=== PATIENT | male | born 1955 | race Caucasian/White ===

== ENCOUNTER → 2018-01-31 10:33 | Outpatient (CLI) | payer OTHER, SELFPAY ==
--- NOTE | 2018-01-31 10:39 | RAD_ITS ---
STUDY: X-RAY CHEST REASON FOR EXAM: Male, 62 years old. COPD exacerbation. TECHNIQUE: PA and lateral views of the chest. COMPARISON: Prior chest radiograph from April 18, 2016 FINDINGS: Continued mild hyperexpansion without new consolidation or focal atelectasis. Stable mild chronic changes. There is no demonstrated pleural abnormality. Normal size heart. Normal mediastinum and eden. Normal visualized pulmonary arteries. There is atherosclerotic tortuosity of the aortic arch and descending thoracic aorta. There are diffuse degenerative changes of the visualized thoracic spine. Normal visualized ribs, clavicles, and shoulders. There is no demonstrated abnormality of the visualized soft tissue structures of the upper abdomen. RAD/Chest PA and Lateral IMPRESSION: No acute cardiopulmonary findings or changes. Negative for major consolidation, focal atelectasis or a substantial pleural effusion. Mild hyperexpansion and mild stable chronic changes. Electronically Signed: Analia Ryan MD at 15:52 EDT , Service support ,
== END ==
PROVIDERS: Family Provider Family Medicine; PCP Family Medicine; Visit Provider Family Medicine
DX: J44.1 Chronic obstructive pulmonary disease with (acute) exacerbation (principal)
CPT/HCPCS: 71046

== ENCOUNTER → 2018-02-05 09:10 | Outpatient (CLI) | payer OTHER, SELFPAY ==
[2018-02-05 10:12] LABS: Absolute Lymphocyte Count 2.96 X10^3/ul (0.83-4.51); Absolute Neutrophil Count 3.1 X10^3/uL (2.0-7.7); Basophil# 0.03 X10^3/uL; Basophil% 0.4 % (0-1); Eosinophil# 0.13 X10^3/uL; Eosinophils% 1.9 % (0-5); Hematocrit 45.6 % (40-54); Hemoglobin 15.5 g/dl (13.0-16.5); Lymphocyte # 2.96 X10^3/ul (4.0); Lymphocyte % 42.9 % (19-41); Mean Corpuscular Volume 85.2 fL (80-94); Mean Platelet Vol. 9.4 fl (6.2-12.0); Monocyte% 10.1 % (0-10); Neutrophil # 3.05 X10^3/uL (2.7-7.7); Neutrophil % 44.3 % (47-70); Platelet Count 245 K/mm3 (150-450); RBC Distribution Width CV 13.4 % (11.6-14.6); RBC Distribution Width SD 41.2 fl (35.1-43.9); Red Blood Count 5.35 M/mm3 (4.6-6.2); White Blood Count 6.9 K/mm3 (4.4-11.0)
[2018-02-05 10:14] LABS: POSITIVE COUNT NO; POSITIVE DIFFERENTIAL NO; POSITIVE MORPHOLOGY NO
[2018-02-05 12:40] LABS: Microalbumin,Random Urine 9.3 mg/L (NO RANGE EST.)
[2018-02-05 12:53] LABS: ALB/GLOB Ratio 0.8 RATIO (0.9-2.4); AST(SGOT) 21 U/L (15-37); Alanine Aminotransfer ALT/SGPT 33 U/L (16-61); Albumin, Serum 3.4 g/dL (3.2-5.0); Alkaline Phosphatase 75 U/L (45-117); Anion Gap 11 (5-15); BUN 16 mg/dL (7-18); BUN/Creat Ratio 14.7 RATIO (10-20); Calcium,Total 8.5 mg/dL (8.5-10.1); Chloride 106 mmol/L (98-107); Cholesterol 155 mg/dL (200); Creatinine, Serum 1.09 mg/dL (0.70-1.30); EST Glomerular Filtration Rate 73 mL/min (>60); Est Glom Filt Rate - Afr Amer 88 mL/min (>60); Globulin 4.2 g/dL (2.2-4.2); Glucose 124 mg/dL (74-106); High Density Lipoprotein 50 mg/dL; Potassium 4.1 mmol/L (3.5-5.1); Protein, Total 7.6 g/dL (6.4-8.2); Sodium Level 140 mmol/L (136-145); Thyroid Stim Hormone (TSH) 3.82 uIU/mL (0.358-3.74); Triglycerides 76 mg/dL; Very Low Density Lipoprotein 15 mg/dL (5-40)
== END ==
PROVIDERS: Family Provider Family Medicine; PCP Family Medicine; Visit Provider Family Medicine
DX: E11.9 Type 2 diabetes mellitus without complications (principal); J44.1 Chronic obstructive pulmonary disease with (acute) exacerbation
CPT/HCPCS: 36415; 80053; 80061; 82043; 82570; 84443; 85025

== ENCOUNTER 2018-08-06 18:29 | Emergency (ER) | payer OTHER, SELFPAY ==
[2018-08-06] VITALS (8 sets, daily range): BP systolic 135–163; BP diastolic 81–135; PULSE 90–116; RESP 18–22; TEMP 36.8; O2SAT 94–98; BMI 42.3
--- NOTE | 2018-08-06 18:43 | RAD_ITS ---
STUDY: X-RAY CHEST REASON FOR EXAM: Male, 63 years old. Shortness of breath TECHNIQUE: Single AP portable view of the chest. COMPARISON: 01/31/2018 FINDINGS: Interstitial markings are minimally prominent similar to prior study. There is blunting of the costophrenic angles. The lungs are clear and expanded. There is no demonstrated pleural abnormality. There is moderate cardiac enlargement. Normal mediastinum and eden. Normal visualized pulmonary arteries. Normal visualized aortic arch and descending thoracic aorta. Normal visualized thoracic spine. Normal visualized ribs, clavicles, and shoulders. There is no demonstrated abnormality of the visualized soft tissue structures of the upper abdomen. RAD/Chest PA and Lateral IMPRESSION: Mild vascular congestion mild cardiomegaly trace effusions. Consider CHF. Electronically Signed: Paulette Schmidt MD at 19:42 EST Tel , Service support ,
--- NOTE | 2018-08-06 18:43 | EKG12_ITS ---
Test Reason : CP Blood Pressure : / mmHG Vent. Rate : 103 BPM Atrial Rate : 103 BPM P-R Int : 192 ms QRS Dur : 106 ms QT Int : 350 ms P-R-T Axes : 066 001 077 degrees QTc Int : 458 ms Sinus tachycardia Possible Left atrial enlargement Left ventricular hypertrophy Cannot rule out Septal infarct , age undetermined Abnormal ECG Confirmed by GAVIN CORONEL, ARIC ([id number]), script editor SHAILESH WOOD ([id number]) on 08/09/2018 2:50:42 PM Referred By: ANDREINA/LOLA Confirmed By:ARIC ALONSO MD
--- NOTE | 2018-08-06 18:47 | ED.VISSUMM ---
- ER Visit Summary Date of Service: 08/06/18 Chief Complaint: Shortness of breath History of Present Illness: The patient is a 63 M history of chronic bronchitis and hypertension. Patient states he has been short of breath for approximately 2 weeks. Denies any chest pain. He does have a cough but is nonproductive. Intermittent wheezing. Worse at night. Worse supine. No chest pain. No hemoptysis. No recent travel, surgery or mobilization. No leg pain or swelling. No calf pain. No history of DVT or PE. He denies any cardiac history. Patient states he had a prior episode like this with a respiratory infection. He denies any fever. Physical Examination: Well-appearing older male. Vital signs are stable except for a blood pressure 163/135. Pulse ox 94% on nasal cannula O2. No distress. H EENT exam unremarkable. Posterior pharynx normal. Neck nontender. No lymphadenopathy. No JVD. Lungs clear to auscultation bilaterally. Heart regular rhythm rate about 1007 no murmur. Abdomen soft nontender. Normal bowel sounds no peritoneal signs. Patient is moving all 4 extremities. Calves are nontender without edema or cords. Neurologically is awake and alert with no focal motor deficits. Back nontender. Test Results: X-ray has borderline cardiomegaly. And vascular congestion. May be consistent with early pulmonary edema or congestive heart failure. CBC normal. White count 8. Hemoglobin 15. Electrolytes normal normal creatinine and gap. Troponin normal. BNP is slightly elevated at 364. EKG is a sinus tachycardia rate of 103 with no signs of acute ischemia. Emergency Department Course and Treatment: Older male with dyspnea. He does describe nocturnal orthopnea. He also describes wheezing but currently is not wheezing. Treated with 2 aerosol treatments and is doing much better. Says he feels fine. He was ambulating the hallway in his pulse ox stayed in the mid 90s without any oxygen. Treatment Plan: I discussed with the patient and his family member. He is comfortable being discharged home. I spoke to his primary care physician Dr. Leslie Tolentino. He is an appointment to see her on Sunday. My concern is the possibility of this being early pulmonary edema or congestive heart failure. He will follow-up with the office tomorrow and Dr. Tolentino will ensure an outpatient echocardiogram. Patient return if worse. Disposition: Discharge Impression: Acute dyspnea of uncertain etiology This note was generated with [employer] software. It may contain incorrect words, spelling, and punctuation that were not noted in review of the chart prior to signing ED Disposition - Plan for ED Patient: Chief Complaint: Shortness of Breath Referrals: Leslie Tolentino MD [Primary Care Provider] -
[2018-08-06] MEDS: Ipratropium 0.5 MG/2.5 ML SOLUTION INHALATION (18:57)
[2018-08-06] MEDS: Albuterol 2.5 MG/3 ML VIAL.NEB. INHALATION (18:57)
[2018-08-06 19:21] LABS: Absolute Lymphocyte Count 3.02 X10^3/ul (0.83-4.51); Absolute Neutrophil Count 4.1 X10^3/uL (2.0-7.7); Basophil# 0.02 X10^3/uL; Basophil% 0.2 % (0-1); Eosinophil# 0.19 X10^3/uL; Eosinophils% 2.3 % (0-5); Hematocrit 45.2 % (40-54); Hemoglobin 15.5 g/dl (13.0-16.5); Lymphocyte # 3.02 X10^3/ul (4.0); Lymphocyte % 36.9 % (19-41); Mean Corp Hgb Conc 34.3 g/gl (32-36); Mean Corpuscular Hgb 29.4 pg (27.0-32.0); Mean Corpuscular Volume 85.6 fL (80-94); Mean Platelet Vol. 9.7 fl (6.2-12.0); Monocyte% 9.8 % (0-10); Neutrophil # 4.14 X10^3/uL (2.7-7.7); Neutrophil % 50.7 % (47-70); Platelet Count 203 K/mm3 (150-450); RBC Distribution Width CV 13.6 % (11.6-14.6); RBC Distribution Width SD 42.1 fl (35.1-43.9); Red Blood Count 5.28 M/mm3 (4.6-6.2); White Blood Count 8.2 K/mm3 (4.4-11.0)
[2018-08-06 19:23] LABS: POSITIVE COUNT NO; POSITIVE DIFFERENTIAL NO; POSITIVE MORPHOLOGY NO
[2018-08-06 19:40] LABS: Anion Gap 10 (5-15); BUN 10 mg/dL (7-18); Calcium,Total 8.7 mg/dL (8.5-10.1); Chloride 107 mmol/L (98-107); EST Glomerular Filtration Rate 80 mL/min (>60); Est Glom Filt Rate - Afr Amer 97 mL/min (>60); Estimated Creatinine Clearance 78.07 ml/min; Glucose 125 mg/dL (74-106); Potassium 4.1 mmol/L (3.5-5.1); Sodium Level 140 mmol/L (136-145)
[2018-08-06 19:50] LABS: BNP,B-Type NATRIURETIC PEPTIDE 364.7 pg/mL (0-100)
--- NOTE | 2018-08-06 22:15 | ED.DEP ---
ED Disposition - Plan for ED Patient: Disposition: Home or Assisted Living Chief Complaint: Shortness of Breath Instructions: ED Dyspnea Shortness of Breath Referrals: Leslie Tolentino MD [Primary Care Provider] - 1 Day Additional Instructions: Call follow-up with your doctors office tomorrow. I spoke with Dr. Tolentino this evening. She will get you set up and scheduled for an outpatient echocardiogram. This is an ultrasound of your heart to look at the functioning of your heart.
== END 2018-08-06 22:20 | disposition home or self-care (01) ==
PROVIDERS: Emergency Provider Emergency Medicine; Family Provider Family Medicine; PCP Family Medicine
DX: R06.00 Dyspnea, unspecified (principal); I10 Essential (primary) hypertension; R09.02 Hypoxemia; Z87.891 Personal history of nicotine dependence; Z79.51 Long term (current) use of inhaled steroids
CPT/HCPCS: 71046; 80048; 83880; 84484; 85025; 93005; 94640; 99284; A4216

== ENCOUNTER → 2018-08-09 14:35 | Outpatient (CLI) | payer OTHER, SELFPAY ==
[2018-08-06 18:33] VITALS: BMI 42.3
[2018-08-09 15:27] LABS: Hemoglobin A1c 7.5 % (4.2-6.3)
== END ==
PROVIDERS: PCP Family Medicine; Visit Provider Family Medicine
DX: E66.01 Morbid (severe) obesity due to excess calories (principal)
CPT/HCPCS: 36415; 83036; 84443

== ENCOUNTER → 2018-08-16 14:20 | Outpatient (CLI) | payer OTHER, SELFPAY ==
[2018-08-06 18:33] VITALS: BMI 42.3
--- NOTE | 2018-08-16 14:25 | ECHOCS_ITS ---
Version 2 Reason For Study: CARDIOMEGALY Procedure This was a 2D Doppler, Color Flow transthoracic echocardiogram. Contrast injection was performed. The study was technically difficult. Exam performed in department. Left Ventricle Normal LV size. At least two thrombi measuring 1cm x 1 cm noted in the LV. Severe global left ventricular systolic dysfunction. Stage 1 diastolic dysfunction. Transmitral and pulmonary venous doppler flow suggestive of impaired relaxation of left ventricle. Transmitral diastolic flow velocities suggest mild (stage 1) diastolic dysfunction (reversed pattern). There is severe global hypokinesis of the left ventricle. Right Ventricle Normal RV size. Normal systolic function. Atria Normal left atrium. Normal right atrium. Mitral Valve Normal mitral valve. Tricuspid Valve Normal tricuspid valve. Aortic Valve Trisinus/trileaflet aortic valve. Pulmonic Valve Normal pulmonic valve. Great Vessels Normal aortic root. The pulmonary artery is normal size. Normal inferior vena cava. Pericardium/Pleural No pericardial effusion. Medication 22 gauge I.V. with prn adaptor inserted into right arm. Diluted definity 5ml given slow IV push to enhance endocardial definition. MMode/2D Measurements & Calculations RVDd: 3.6 cm Ao root diam: 3.8 cm LAV(MOD-bp): 97.3 ml LAV(MOD-bp) Indexed: 39.0 ml/m2 LAV(MOD-sp2): 83.9 ml LAV(MOD-sp4): 100.9 ml SV(MOD-sp4): 63.1 ml SV(sp4-el): 68.5 ml LVAd ap4: 55.7 cm2 EDV(MOD-sp4): 240.6 ml EDV(sp4-el): 254.7 ml LVAs ap4: 45.0 cm2 ESV(MOD-sp4): 177.5 ml ESV(sp4-el): 186.2 ml EF(MOD-sp4): 26.2 % EF(sp4-el): 26.9 % LA dimension(2D): 4.0 cm LA A4 area: 28.4 cm2 RA A4 area: 13.1 cm2 Time Measurements MV dec time: 0.56 sec Doppler Measurements & Calculations MV E max cristian: 76.8 cm/sec Lat Peak E' Cristian: 4.8 cm/sec Med Peak E' Cristian: 6.5 cm/sec MV A max cristian: 86.4 cm/sec E/E' lat: 15.9 E/E' med: 11.9 MV E/A: 0.89 Ao V2 max: 108.3 cm/sec LV V1 max: 85.8 cm/sec PA V2 max: 66.3 cm/sec Ao max P.7 mmHg LV V1 max P.9 mmHg Interpretation Summary Normal LV size. Severe global left ventricular systolic dysfunction. Stage 1 diastolic dysfunction. At least two thrombi measuring 1cm x 1 cm noted in the LV Transmitral and pulmonary venous doppler flow suggestive of impaired relaxation of left ventricle Transmitral diastolic flow velocities suggest mild (stage 1) diastolic dysfunction (reversed pattern). Contrast injection was performed. Ordering Physician: Leslie Tolentino Referring Physician: Leslie Tolentino Performed By: Juliana Sosa RDCS, RVT
== END ==
PROVIDERS: Family Provider Family Medicine; PCP Family Medicine; Referring Provider Family Medicine; Visit Provider Family Medicine
DX: I51.7 Cardiomegaly (principal)
CPT/HCPCS: 93306; Q9957; A4216; C8929

== ENCOUNTER → 2018-12-05 12:52 | Outpatient (CLI) | payer SELFPAY ==
[2018-08-21 08:37] VITALS: BMI 39.9
== END ==
PROVIDERS: Family Provider Family Medicine; PCP Family Medicine; Referring Provider Internal Medicine Cardiovascular Disease; Visit Provider Internal Medicine Cardiovascular Disease
DX: I51.3 Intracardiac thrombosis, not elsewhere classified (principal); I51.9 Heart disease, unspecified; I11.0 Hypertensive heart disease with heart failure; I50.21 Acute systolic (congestive) heart failure
CPT/HCPCS: 93308; Q9957; A4216; C8924

== ENCOUNTER 2018-12-22 14:30 | Emergency (ER) | payer SELFPAY ==
[2018-08-21 08:37] VITALS: BMI 39.9
[2018-12-22 14:31] VITALS: BP 153/98; PULSE 116; RESP 14; TEMP 36.6; O2SAT 96; BMI 38.3
--- NOTE | 2018-12-22 15:15 | EKG12_ITS ---
Test Reason : GI BLEED Blood Pressure : / mmHG Vent. Rate : 105 BPM Atrial Rate : 105 BPM P-R Int : 176 ms QRS Dur : 104 ms QT Int : 364 ms P-R-T Axes : 052 -05 058 degrees QTc Int : 481 ms Sinus tachycardia Moderate voltage criteria for LVH, may be normal variant Cannot rule out Anteroseptal infarct (cited on or before 06-AUG-2018), age undetermined Abnormal ECG Confirmed by GAVIN CORONEL, ARIC ([id number]), assignment editor VICTOR HUGO MAYORGA ([id number]) on 12/24/2018 1:23:20 PM Referred By: SULTANA Confirmed By:ARIC ALONSO MD
--- NOTE | 2018-12-22 15:22 | ED.DCSUM_ITS ---
History of Present Illness Chief Complaint: GI Bleed Informant: Patient Onset: Weeks - 1 Context: Gradual Onset Timing: Continuous Quality: black loose stool Location: abd pain epigastric Current Severity: Moderate Maximum Severity: Moderate Worsened by: abd pain worse w/ eating Relieved by: nothing Associated Symptoms: weakness/fatigue. lightheaded w/ standing. nausea. Narrative: Patient describes diarrhea for a couple days that then turned into melena about 1 week ago. He used some Pepto-Bismol for a couple days, his last dose of that was 5 days ago, he has still been having black stools ever since. He has seen no bright red blood. He has epigastric discomfort immediately upon putting anything solid into his stomach. The pain gradually resolves after several hours. No radiation into the back. He has been feeling weak, tired, lightheaded. He had some heart issues here 4 or 5 months ago, and he was diagnosed with some type of blood clot in his heart and placed on Xarelto which later was switched to Eliquis, which she is currently on. He states that he had a peptic ulcer 10-15 years ago that was bleeding and gave him black stools. - Past Medical History (1) Left ventricular thrombus Status: Chronic (2) Severe left ventricular systolic dysfunction Status: Chronic (3) Essential (primary) hypertension Status: Chronic (4) Prediabetes Status: Chronic Past Medical History - Allergies and Home Meds Allergies/Adverse Reactions: Allergies No Known Allergies Allergy (Verified 08/21/18 08:05) Primary Care Physician: Leslie Tolentino MD [Primary Care Provider] - Surgical History: right knee replacement Lives: Spouse/ Significant Other Smoking Status: Former smoker Review of Systems General: Reports: Malaise. Denies: Chills, Fever, Sweats Eyes: Denies: Visual changes - bilaterally, Diplopia ENT: Denies: Rhinorrhea, Sore throat Cardiovascular: Denies: Chest pain, Palpitations Respiratory: Denies: Dyspnea, Cough, Dyspnea on exertion Gastrointestinal: Reports: Abdominal pain, Nausea, Melena. Denies: Vomiting, Diarrhea, Hematochezia Genitourinary: Denies: Dysuria, Hematuria, Frequency Musculoskeletal: Denies: Back pain, Extremity Pain Skin: Denies: Rash, Wounds Neurological: Denies: Headache, Weakness, Numbness Physical Exam Vital Signs/Narrative: Vital Signs Temp Pulse Resp BP Pulse Ox 12/22/18 14:31 98 F 116 H 14 153/98 H 96 Inital Vital Signs reviewed: Yes General: Well nourished, Well developed, No Acute Distress Head: Normocephalic, Atraumatic Eyes: Perrl, EOMI ENT: Moist mucous membranes, No rhinorrhea Neck: Supple, Nontender Cardiovascular: Regular rate, Regular rhythm, No murmurs, Tachycardia Respiratory: No distress, CTA bilaterally, Chest nontender Abdomen: Soft, Nondistended, Normal bowel sounds, Tender - epigastric moderately tender. otherwise, benign abd.. Negative for: Guarding, Rebound tenderness Back: Nontender, Normal Inspection Extremities: Nontender, No edema Skin: Normal color, No rash Neurological: Alert, Oriented x3, Cranial nerves II-XII grossly intact, Normal Strength, Normal Sensation Psychological: Normal affect, Normal Mood Diagnostic/Tx/Re-eval 12/22/18 16:10 Stool Stool Occult Blood (MARYANNE) - Final Occult Blood Positive Laboratory Results 12/22/18 12/22/18 12/22/18 14:50 14:50 14:50 WBC 9.7 RBC 5.21 Hgb 15.7 Hct 44.5 MCV 85.4 MCH 30.1 MCHC 35.3 RDW 13.1 RDW Differential 41.0 Plt Count 254 MPV 9.7 Immature Gran % (Auto) 0.300 Neut % (Auto) 63.4 Lymph % (Auto) 26.0 [place] % (Auto) 9.8 Eos % (Auto) 0.3 Baso % (Auto) 0.2 Absolute Neuts (auto) 6.2 Absolute Lymphs (auto) 2.53 Total Counted Not Reportable Sodium 135 L Potassium 3.7 Chloride 103 Carbon Dioxide 26.0 Anion Gap 6 BUN 15 Creatinine 1.11 Estim Creat Clear Calc 74.76 Est GFR (MDRD) Af Amer 86 Est GFR (MDRD) Non-Af 71 BUN/Creatinine Ratio 13.5 Glucose 213 H Calcium 8.4 L Total Bilirubin 0.50 AST 18 ALT 20 Alkaline Phosphatase 89 Total Protein 7.8 Albumin 3.6 Globulin 4.2 Albumin/Globulin Ratio 0.9 Lipase 70 L Blood Type A POSITIVE Antibody Screen NEGATIVE - Medical Decision Making On rectal there is no gross blood but it returned Hemoccult positive. His labs are very reassuringly normal including his BUN and hemoglobin. Orthostatics are negative. He was given IV fluids, along with a bolus of IV Protonix along with a drip for 3 hours while we were awaiting the workup to return. He remained clinically and hemodynamically stable. On reviewing his records, he is on Eliquis for a ventricular thrombus that was found in July. He had a repeat echo 1-2 weeks ago that showed resolution of that thrombus. I discussed with Dr. Tsai, he agrees that in context, the risks of being on the blood thinner greatly outweigh the current potential benefits, and agrees with discontinuing it. I would also recommend that he stay off of aspirin until he is further directed. I will place him on an oral PPI, he is on none currently, and have him follow-up with his PCP. I do not think admitting him emergently is necessary. He will need follow-up with EGD. I will also prescribe him Carafate to take 4 times daily for the next 10 days, and he is given reasons to return. He is comfortable with this plan and all questions were answered at the bedside. ED Disposition - Plan for ED Patient: Disposition: Home or Assisted Living Diagnosis: Peptic ulcer disease with hemorrhage Instructions: ED Bleed UGI Stable, ED PUD Prescriptions: Pantoprazole Sodium [Protonix] 40 mg PO DAILY #30 tablet Sucralfate [Carafate] 1 gm PO 4X/DAY #40 tablet Referrals: Leslie Tolentino MD [Primary Care Provider] - (1-3 days) Additional Instructions: Discontinue your Eliquis until further notice.
[2018-12-22] MEDS: 0.9% Normal Saline 1,000 ML 125 ML IV (15:29)
[2018-12-22] MEDS: Ondansetron 4 MG/2 ML Vial IV (15:29)
[2018-12-22 15:34] LABS: Absolute Lymphocyte Count 2.53 X10^3/ul (0.83-4.51); Absolute Neutrophil Count 6.2 X10^3/uL (2.0-7.7); Basophil# 0.02 X10^3/uL; Basophil% 0.2 % (0-1); Eosinophil# 0.03 X10^3/uL; Eosinophils% 0.3 % (0-5); Hematocrit 44.5 % (40-54); Hemoglobin 15.7 g/dl (13.0-16.5); Lymphocyte # 2.53 X10^3/ul (4.0); Mean Corp Hgb Conc 35.3 g/gl (32-36); Mean Corpuscular Hgb 30.1 pg (27.0-32.0); Mean Corpuscular Volume 85.4 fL (80-94); Mean Platelet Vol. 9.7 fl (6.2-12.0); Monocyte# 0.95 X10^3/uL; Monocyte% 9.8 % (0-10); Neutrophil # 6.17 X10^3/uL (2.7-7.7); Neutrophil % 63.4 % (47-70); Platelet Count 254 K/mm3 (150-450); RBC Distribution Width CV 13.1 % (11.6-14.6); Red Blood Count 5.21 M/mm3 (4.6-6.2); White Blood Count 9.7 K/mm3 (4.4-11.0)
[2018-12-22 15:38] LABS: POSITIVE COUNT NO; POSITIVE DIFFERENTIAL NO; POSITIVE MORPHOLOGY NO
[2018-12-22 15:44] LABS: ALB/GLOB Ratio 0.9 RATIO (0.9-2.4); AST(SGOT) 18 U/L (15-37); Alanine Aminotransfer ALT/SGPT 20 U/L (16-61); Albumin, Serum 3.6 g/dL (3.2-5.0); Alkaline Phosphatase 89 U/L (45-117); Anion Gap 6 (5-15); BUN 15 mg/dL (7-18); BUN/Creat Ratio 13.5 RATIO (10-20); Calcium,Total 8.4 mg/dL (8.5-10.1); Chloride 103 mmol/L (98-107); Creatinine, Serum 1.11 mg/dL (0.70-1.30); EST Glomerular Filtration Rate 71 mL/min (>60); Est Glom Filt Rate - Afr Amer 86 mL/min (>60); Estimated Creatinine Clearance 74.76 ml/min; Globulin 4.2 g/dL (2.2-4.2); Glucose 213 mg/dL (74-106); Lipase 70 U/L (73-393); Potassium 3.7 mmol/L (3.5-5.1); Protein, Total 7.8 g/dL (6.4-8.2); Sodium Level 135 mmol/L (136-145)
[2018-12-22 15:54] VITALS: BP 123/90; BP 128/93; BP 146/100; PULSE 106; PULSE 118; PULSE 96
[2018-12-22 18:00] VITALS: PULSE 98; RESP 18; O2SAT 94
== END 2018-12-22 18:01 | disposition home or self-care (01) ==
PROVIDERS: Emergency Provider Emergency Medicine; Family Provider Family Medicine; PCP Family Medicine
DX: K27.4 Chronic or unspecified peptic ulcer, site unspecified, with hemorrhage (principal); I10 Essential (primary) hypertension; I51.3 Intracardiac thrombosis, not elsewhere classified; Z79.02 Long term (current) use of antithrombotics/antiplatelets; Z87.891 Personal history of nicotine dependence; Z79.899 Other long term (current) drug therapy
CPT/HCPCS: 80053; 82274; 83690; 85025; 86850; 86900; 93005; 96365; 96366; 96375; 99284; J7030; J2405; J3490

== ENCOUNTER → 2020-03-11 18:05 | Outpatient (CLI) | payer SELFPAY | PROVIDERS: PCP Family Medicine; Visit Provider Family Medicine | DX: N39.0 Urinary tract infection, site not specified (principal) | CPT/HCPCS: 87086; 87088 ==

== ENCOUNTER → 2020-06-01 | Outpatient (CLI) | payer SELFPAY ==
[2020-06-01 14:53] LABS: Lyme Ab Screen Interpretation REF LAB
[2020-06-03 22:07] LABS: Lyme Scn Total Ab w/Rflx <0.91 ISR (0.00-0.90)
== END | disposition home or self-care (01) ==
PROVIDERS: PCP Family Medicine; Referring Provider Family Medicine; Visit Provider Family Medicine
DX: R21 Rash and other nonspecific skin eruption (principal)
CPT/HCPCS: 36415; 86618

== ENCOUNTER → 2020-07-23 | Outpatient (CLI) | payer SELFPAY ==
[2020-07-23 18:00] LABS: PSA,Total - Annual Screen 0.43 ng/mL (0.00-4.00)
[2020-07-23 18:11] LABS: Hemoglobin A1c 11.3 % (3.8-5.6)
== END | disposition home or self-care (01) ==
LOC: MFPLAB 14:36
PROVIDERS: PCP Family Medicine; Referring Provider Family Medicine; Visit Provider Family Medicine
DX: E11.9 Type 2 diabetes mellitus without complications (principal); R35.0 Frequency of micturition; Z12.5 Encounter for screening for malignant neoplasm of prostate
CPT/HCPCS: 36415; 83036; 84153; G0103

== ENCOUNTER 2021-10-17 10:57 | Outpatient (CLI) | payer MEDICARE, SELFPAY ==
[2021-10-17 12:51] LABS: AST(SGOT) 13 U/L (15-37); Alanine Aminotransfer ALT/SGPT 19 U/L (16-61); Albumin, Serum 3.8 g/dL (3.2-5.0); Alkaline Phosphatase 98 U/L (45-117); Anion Gap 9 (5-15); BUN 14 mg/dL (7-18); BUN/Creat Ratio 14.1 RATIO (10-20); Bilirubin, Direct 0.16 mg/dL (0.00-0.30); Calcium,Total 9.5 mg/dL (8.5-10.1); Chloride 102 mmol/L (98-107); Cholesterol 214 mg/dL (200); Creatinine, Serum 0.99 mg/dL (0.70-1.30); EST Glomerular Filtration Rate 80 mL/min (>60); Est Glom Filt Rate - Afr Amer 97 mL/min (>60); Globulin 3.7 g/dL (2.2-4.2); Glucose 264 mg/dL (74-106); High Density Lipoprotein 55 mg/dL; Potassium 4.2 mmol/L (3.5-5.1); Protein, Total 7.5 g/dL (6.4-8.2); Sodium Level 134 mmol/L (136-145); Triglycerides 167 mg/dL; Very Low Density Lipoprotein 33 mg/dL (5-40)
[2021-10-17 12:58] LABS: Microalbumin,Random Urine 14.2 mg/L (NO RANGE EST.); Microalbumin:Creatinine Ratio 17.8 mg/g CRE (<30 mg/g CRE)
== END 2021-10-17 23:59 | disposition short-term general hospital (02) ==
LOC: MFPLAB 10:59
PROVIDERS: PCP Family Medicine; Visit Provider Family Medicine
DX: E11.9 Type 2 diabetes mellitus without complications (principal)
CPT/HCPCS: 36415; 80048; 80061; 80076; 82043; 82570

== ENCOUNTER → 2022-06-12 | Outpatient (CLI) | payer MEDICARE, SELFPAY ==
--- NOTE | 2022-06-12 08:42 | RAD_ITS ---
STUDY: X-RAY CHEST REASON FOR EXAM: Male, 66 years old. COUGH TECHNIQUE: PA and lateral views of the chest. COMPARISON: 08/06/2018 FINDINGS: Lungs are mildly hyperexpanded with chronic interstitial changes. Since the previous study, there is been development of interstitial edema likely due to pulmonary vascular congestion. No organized infiltrate or effusion. Stable cardiomegaly. Normal mediastinum and eden. Normal visualized pulmonary arteries. Normal visualized aortic arch and descending thoracic aorta. There are diffuse degenerative changes of the visualized thoracic spine. There is degenerative osteoarthritis of the bilateral shoulders. There is no demonstrated abnormality of the visualized soft tissue structures of the upper abdomen. RAD/Chest PA and Lateral IMPRESSION: Mildly hyperexpanded lungs with chronic interstitial changes and superimposed interstitial edema, follow up recommended to assure complete resolution. Electronically Signed: Chun Hines MD at 9:05 EDT ,
[2022-06-12 10:12] LABS: Absolute Lymphocyte Count 1.84 X10^3/uL (0.83-4.51); Absolute Neutrophil Count 4.3 X10^3/uL (2.0-7.7); Basophil# 0.06 X10^3/uL; Basophil% 0.9 % (0-1); Eosinophils% 2.9 % (0-5); Hematocrit 43.7 % (40-54); Hemoglobin 14.6 g/dL (13.0-16.5); Lymphocyte # 1.84 X10^3/ul (0.83-4.51); Lymphocyte % 26.3 % (19-41); Mean Corp Hgb Conc 33.4 g/dL (32-36); Mean Corpuscular Hgb 28.4 pg (27.0-32.0); Mean Platelet Vol. 10.2 fl (6.2-12.0); Monocyte# 0.54 X10^3/uL; Monocyte% 7.7 % (0-10); NRBC Flagged by Analyzer 0 % (0-5); Neutrophil # 4.32 X10^3/uL (2.7-7.7); Neutrophil % 61.8 % (47-70); Platelet Count 232 K/mm3 (150-450); RBC Distribution Width CV 13.2 % (11.6-14.6); RBC Distribution Width SD 40.7 fl (35.1-43.9); Red Blood Count 5.14 M/mm3 (4.6-6.2)
[2022-06-12 10:16] LABS: Erythrocyte Sedimentation Rate 28 mm/hr (0-20)
[2022-06-12 11:07] LABS: ALB/GLOB Ratio 0.8 RATIO (0.9-2.4); AST(SGOT) 11 U/L (15-37); Alanine Aminotransfer ALT/SGPT 17 U/L (16-61); Albumin, Serum 3.3 g/dL (3.2-5.0); Alkaline Phosphatase 81 U/L (45-117); Anion Gap 9 (5-15); BUN 13 mg/dL (7-18); BUN/Creat Ratio 12.6 RATIO (10-20); Chloride 105 mmol/L (98-107); Creatinine, Serum 1.03 mg/dL (0.70-1.30); EST Glomerular Filtration Rate 77 mL/min (>60); Est Glom Filt Rate - Afr Amer 93 mL/min (>60); Globulin 3.9 g/dL (2.2-4.2); Glucose 221 mg/dL (74-106); Potassium 4.1 mmol/L (3.5-5.1); Protein, Total 7.2 g/dL (6.4-8.2); Sodium Level 136 mmol/L (136-145); Thyroid Stim Hormone (TSH) 8.42 uIU/mL (0.358-3.74)
== END | disposition home or self-care (01) ==
PROVIDERS: PCP Family Medicine; Referring Provider Family Medicine; Visit Provider Family Medicine
DX: R53.81 Other malaise (principal); R53.83 Other fatigue; R05.3 Chronic cough
CPT/HCPCS: 71046; 80053; 84443; 85025; 85652; 87070; 87077; 87186; 87205

== ENCOUNTER → 2022-07-05 | Outpatient (CLI) | payer MEDICARE, MEDICAID, SELFPAY ==
--- NOTE | 2022-07-05 11:11 | RAD_ITS ---
STUDY: X-RAY CHEST REASON FOR EXAM: Male, 67 years old. RESPIRATORY INFECTION TECHNIQUE: PA or AP and lateral COMPARISON: 06/12/2022 at 9:00 AM. FINDINGS: Bilateral perihilar and bibasilar infiltrates have significantly decreased. Mild infiltrates are still seen in the perihilar regions. There is no demonstrated pleural abnormality. Mild cardiomegaly. Normal mediastinum and eden. Normal visualized pulmonary arteries. Normal visualized aortic arch and descending thoracic aorta. Normal visualized thoracic spine. Normal visualized ribs, clavicles, and shoulders. There is no demonstrated abnormality of the visualized soft tissue structures of the upper abdomen. RAD/Chest PA and Lateral IMPRESSION: Decreased bilateral infiltrates detailed above. Mild cardiomegaly. Electronically Signed: Ben Govea MD, RAGHU at 11:41 EDT ,
== END | disposition home or self-care (01) ==
LOC: MTRAD 11:10
PROVIDERS: PCP Family Medicine; Referring Provider Family Medicine; Visit Provider Family Medicine
DX: J98.8 Other specified respiratory disorders (principal)
CPT/HCPCS: 71046

== ENCOUNTER 2022-08-10 13:51 | Inpatient (IN) | payer MEDICARE, SELFPAY ==
[2022-08-10] VITALS (7 sets, daily range): BP systolic 125–136; BP diastolic 78–99; PULSE 96–115; RESP 18–22; TEMP 36.2–36.7; O2SAT 94–98; BMI 37.3; BMI 37.0
--- NOTE | 2022-08-10 14:30 | ED.VIS.CHEST ---
HPI History of Present Illness Chief Complaint: Palpitations Narrative Narrative: 67-year-old male with history of CHF, CAD, hypertension, history of ME presenting for evaluation from the cardiology office. Apparently he showed up there and was dyspneic and complaining of pain rating down his left arm. He states that for the last 6 months has been feeling more short of breath and generalized fatigue. He intermittently describes some pain but he feels like it is with coughing. He states that he has not been following up with Dr. Frost as frequently as he should. He has not seen him in for years. He is on carvedilol and has been taking half of this medication over the last couple of months to try to make it last due to pricing/expense. Patient believes that he is still on Eliquis but is unsure. He states he gets his medicine packs altogether and just takes them. Patient denies fever, chills. He does have dyspnea on exertion. He sometimes has orthopnea. He states when he lays down to sleep he coughs as well. He does state that he was recently treated with antibiotics by his primary care physician. He believes there is something more pulmonary and question a pulmonary consult from his primary care physician [facility] Medical History Acute systolic heart failure Arthritis COPD (chronic obstructive pulmonary disease) Essential (primary) hypertension GERD (gastroesophageal reflux disease) GI bleed Gout Hypothyroidism Left ventricular thrombus Severe left ventricular systolic dysfunction Type 2 diabetes mellitus Home Medications albuterol sulfate 90 mcg/actuation aerosol inhaler (ProAir HFA) 2 puff inhalation Q4H PRN PRN Sob &/Or Wheezing 08/06/18 [History Last Taken Unknown] fluticasone 250 mcg-salmeterol 50 mcg/dose blistr powdr for inhalation (Advair Diskus) 1 inh inhalation BID 08/19/18 [History Last Taken Unknown] losartan 100 mg-hydrochlorothiazide 12.5 mg tablet 1 tab PO DAILY 08/19/18 [History Last Taken Unknown] furosemide 40 mg tablet (Lasix) 40 mg PO DAILY #90 tabs 08/21/18 [Rx Last Taken Unknown] apixaban 5 mg tablet (Eliquis) 5 mg PO BID #60 tabs 11/12/18 [Rx Last Taken Unknown] metformin 500 mg tablet 1,000 mg PO QHS 11/12/18 [History Last Taken Unknown] pantoprazole 40 mg tablet,delayed release 40 mg PO DAILY ##30 12/22/18 [Rx Last Taken Unknown] sucralfate 1 gram tablet 1 g PO 4X/DAY ##40 12/22/18 [Rx Last Taken Unknown] carvedilol 3.125 mg tablet (Coreg) 3.125 mg PO BID #180 tabs 12/30/20 [Rx Last Taken Unknown] Allergy/AdvReac Type Severity Reaction Status Date / Time No Known Allergies Allergy Verified 08/10/22 13:52 Family History Mother Hypertension Sister Hypertension Father Hypertension Myocardial infarction from [place] age 54 Surgical History H/O arthroscopy of right knee History of tonsillectomy History of total left knee replacement History of total right knee replacement Hx of cholecystectomy Social History Smoking Status: Former smoker ROS ROS ED Constitutional Constitutional ED: Denies chills or fever(s) Eyes Eyes: Denies blurry vision or change in vision ENT ENT ED: Denies rhinorrhea or sore throat Cardiovascular Cardiovascular: Reports as per HPI and orthopnea Respiratory/Chest Respiratory/Chest: Reports cough, dyspnea, dyspnea on exertion and orthopnea Gastrointestinal Gastrointestinal: Denies abdominal pain, nausea or vomiting Genitourinary Genitourinary ED: Denies dysuria or hematuria Musculoskeletal Musculoskeletal: Denies arthralgias Integumentary Denies abscess or Abrasions Neurologic Neurologic: Denies headache(s) or paresthesias Psychiatric Psychiatric: Denies anxiety or depression EXAM Physical Exam Const Vital Signs: 08/10/22 13:52 08/10/22 14:03 08/10/22 14:03 Temperature 97.1 F L Temperature Source Temporal Pulse Rate 115 H 113 H Respiratory Rate 18 18 Respiratory Effort Short of Breath Blood Pressure 128/92 H 131/97 H Blood Pressure Mean 104 108 Pulse Ox 94 94 Oxygen Delivery Method Room Air Room Air 08/10/22 14:32 Temperature Temperature Source Pulse Rate Respiratory Rate Respiratory Effort Blood Pressure Blood Pressure Mean Pulse Ox Oxygen Delivery Method Room Air Positive well nourished and obese General Appearance ED: NAD; Negative for pallor Nutritional Appearance: obese HEENT Reports moist mucous membranes normocephalic Eyes PERRL and EOMs intact bilaterally General Eye ED: Negative for pale conjunctiva or scleral icterus Resp normal respiratory effort Auscultation: rales right base and left base Cardio regular rhythm Rate: tachycardic GI normal to inspection, nondistended, normoactive bowel sounds Back/Spine no CVA tenderness Neuro oriented x3 and CN's II-XII intact bilaterally Sensorium / Orientation: awake and alert Motor Exam: strength 5/5 throughout Psych mental status grossly normal Skin no rashes or lesions noted General Skin Exam: Negative for jaundice or pallor Heart Score History: Moderately Suspicious ECG: Normal Age: >/= 65 years Risk Factors: >/= 3 Risk Factors or History of CAD Troponin: </= Normal Limit Score: 5 MDM MDM MDM Narrative Medical decision making narrative: Patient presenting with shortness of breath and intermittent chest pains. He states this has been ongoing for several months. He was seen at Dr. Frost's office initially today and because of his complaint of chest pain and the way he looked he was referred to the ER. He does report that he has been stretching out his carvedilol 3.125 mg by taking it only once a day. He did not know if he was still on a blood thinner so I did have pharmacy check into it and he is not currently anticoagulated. Also appears as if he does not have any Lasix on his med list. I will have pharmacy update his current med list. I did review the previous record and saw that he had mural thrombi in the left ventricle and had an EF of 20% with his last echocardiogram. There has not been one repeated since 2018. He does report orthopnea, dyspnea on exertion as well as the intermittent chest pains. He also has a cough. Previously was treated for pneumonia and is not having any symptoms of fever, chills. His chest x-ray shows cardiomegaly without any acute findings on my interpretation and the radiologist agree. CBC is unremarkable. BMP is also within normal limits with exception of a glucose of 207 without anion gap. High-sensitivity troponin is 48. BNP is elevated at 264.5. Given the patient's chest pain and his HEART score of 5 as well as likely early heart failure and medical noncompliance I think he would benefit from inpatient care. I think he needs an echocardiogram as well. I spoke with the hospitalist about this and she is amenable to admission. Impression: 1. Chest pain 2. CHF 3. Cough Lab Data Labs: Laboratory Results - last 24 hr 08/10/22 08/10/22 08/10/22 14:33 14:33 14:33 WBC 6.2 RBC 5.35 Hgb 15.0 Hct 44.6 MCV 83.4 MCH 28.0 MCHC 33.6 RDW Std Deviation 41.1 RDW Coeff of Sean 13.5 Plt Count 269 MPV 10.0 Immature Gran % (Auto) 0.300 Neut % (Auto) 55.9 Lymph % (Auto) 31.5 [place] % (Auto) 8.2 Eos % (Auto) 3.5 Baso % (Auto) 0.6 Absolute Neuts (auto) 3.5 Absolute Lymphs (auto) 1.96 Nucleated RBC % 0 Sodium 139 Potassium 3.6 Chloride 106 Carbon Dioxide 26.0 Anion Gap 7 BUN 17 Creatinine 1.24 Estim Creat Clear Calc 61.57 Est GFR (MDRD) Af Amer 75 Est GFR (MDRD) Non-Af 62 BUN/Creatinine Ratio 13.7 Glucose 207 H Calcium 9.4 Troponin I High Sens 48 B-Natriuretic Peptide 264.5 H Radiography Diagnostic Testing: Clinical Impression(s) from Imaging Studies Chest X-Ray 08/10/22 14:35 IMPRESSION: Mild cardiomegaly. Electronically Signed: Lavell Lin MD at 14:56 EST , Discharge Plan Triage Chief Complaint: Palpitations ED Provider: Arash Wen Dx/Rx/DC Orders Prescriptions: No Action Advair Diskus 250-50 mcg/dose blister with device 1 inh INHALATION BID losartan-hydrochlorothiazide 100-12.5 mg tablet 1 tab PO DAILY furosemide [Lasix] 40 mg tablet 40 mg PO DAILY Qty: 90 3RF albuterol sulfate [ProAir HFA] 1 PUFF inhaler 2 puff inhalation Q4H PRN PRN (Reason: Sob &/Or Wheezing) sucralfate 1 GM tablet 1 g PO 4X/DAY Qty: 40 0RF pantoprazole 40 MG tablet 40 mg PO DAILY Qty: 30 0RF metformin 500 mg tablet 1,000 mg PO QHS Eliquis 5 mg tablet 5 mg PO BID Qty: 60 11RF carvedilol [Coreg] 3.125 mg tablet 3.125 mg PO BID Qty: 180 3RF Rx Instructions: administer with food (meal or snack) Primary Care Provider: Leslie Tolentino Referrals: Leslie Tolentino MD [Primary Care Provider] -
--- NOTE | 2022-08-10 14:35 | RAD_ITS ---
STUDY: X-RAY CHEST REASON FOR EXAM: Male, 67 years old. Chest pain TECHNIQUE: Single AP portable view of the chest. COMPARISON: Comparison is made with prior study 07/05/2022. FINDINGS: EKG electrodes are seen. The lungs are clear and expanded. There is no demonstrated pleural abnormality. There is mild cardiac enlargement. Normal mediastinum and [place]. Normal visualized pulmonary arteries. There is atherosclerotic tortuosity of the aortic arch and descending thoracic aorta. Normal visualized thoracic spine. Normal visualized ribs, clavicles, and shoulders. There is no demonstrated abnormality of the visualized soft tissue structures of the upper abdomen. RAD/Chest 1 View (Portable) IMPRESSION: Mild cardiomegaly. Electronically Signed: Lavell Lin MD at 14:56 EST ,
[2022-08-10 14:40] LABS: Absolute Lymphocyte Count 1.96 X10^3/uL (0.83-4.51); Absolute Neutrophil Count 3.5 X10^3/uL (2.0-7.7); Basophil# 0.04 X10^3/uL; Basophil% 0.6 % (0-1); Eosinophil# 0.22 X10^3/uL; Eosinophils% 3.5 % (0-5); Hematocrit 44.6 % (40-54); Lymphocyte # 1.96 X10^3/ul (0.83-4.51); Lymphocyte % 31.5 % (19-41); Mean Corp Hgb Conc 33.6 g/dL (32-36); Mean Corpuscular Volume 83.4 fL (80-94); Monocyte# 0.51 X10^3/uL; Monocyte% 8.2 % (0-10); NRBC Flagged by Analyzer 0 % (0-5); Neutrophil # 3.47 X10^3/uL (2.7-7.7); Neutrophil % 55.9 % (47-70); Platelet Count 269 K/mm3 (150-450); RBC Distribution Width CV 13.5 % (11.6-14.6); RBC Distribution Width SD 41.1 fl (35.1-43.9); Red Blood Count 5.35 M/mm3 (4.6-6.2); White Blood Count 6.2 K/mm3 (4.4-11.0)
[2022-08-10 14:58] LABS: Anion Gap 7 (5-15); BUN 17 mg/dL (7-18); BUN/Creat Ratio 13.7 RATIO (10-20); Calcium,Total 9.4 mg/dL (8.5-10.1); Chloride 106 mmol/L (98-107); Creatinine, Serum 1.24 mg/dL (0.70-1.30); EST Glomerular Filtration Rate 62 mL/min (>60); Est Glom Filt Rate - Afr Amer 75 mL/min (>60); Estimated Creatinine Clearance 61.57 ml/min; Glucose 207 mg/dL (74-106); Potassium 3.6 mmol/L (3.5-5.1); Sodium Level 139 mmol/L (136-145); Troponin-I HS (w/2H Reflex) 48 pg/mL (3.0-78.0)
[2022-08-10 15:02] LABS: BNP,B-Type NATRIURETIC PEPTIDE 264.5 pg/mL (0-100)
[2022-08-10 16:37] LABS: Reflex Troponin-HS? (from REC) Y
--- NOTE | 2022-08-10 17:24 | ECHOCS_ITS ---
Reason For Study: CHF Procedure This was a 2D Doppler, Color Flow transthoracic echocardiogram. The study was technically difficult. Contrast injection was performed. Exam performed portable in patient room. Left Ventricle Severely dilated left ventricle. Severe global left ventricular systolic dysfunction. The left ventricular ejection fraction is 20 %. Diastolic function is indeterminate. Right Ventricle Normal right ventricle. Atria The left atrium is moderately enlarged. Normal right atrium. Mitral Valve Mild-Moderate (1-2+) mitral valve insufficiency. Tricuspid Valve Mild tricuspid valve insufficiency. Mild pulmonary hypertension. Aortic Valve Aortic sclerosis, no stenosis. Trivial aortic valve insufficiency. Pulmonic Valve The pulmonic valve is not well visualized. Great Vessels Mildly dilated aortic root. Medication Diluted definity 2.5ml given slow IV push to enhance endocardial definition. MMode/2D Measurements & Calculations LVIDd: 6.3 cm IVSd: 1.0 cm Ao root diam: 4.0 cm LVIDs: 5.3 cm LVPWd: 1.0 cm LA dimension: 4.1 cm RVDd: 4.2 cm FS: 15.5 % LAV(MOD-bp): 94.0 ml LVAd ap4: 64.7 cm2 SV(MOD-sp4): 61.5 ml LAV(MOD-bp) Indexed: 39.7 ml/m2 LVLd ap4: 10.4 cm LAV(MOD-sp2): 78.4 ml EDV(MOD-sp4): 319.6 ml LAV(MOD-sp4): 90.1 ml EDV(sp4-el): 340.4 ml LVAs ap4: 57.0 cm2 LVLs ap4: 10.4 cm ESV(MOD-sp4): 258.1 ml ESV(sp4-el): 264.1 ml EF(MOD-sp4): 19.2 % EF(sp4-el): 22.4 % SV(sp4-el): 76.3 ml LA A4 area: 27.9 cm2 RA A4 area: 16.3 cm2 Doppler Measurements & Calculations MV E max cristian: 126.6 cm/sec Lat Peak E' Cristian: 11.8 cm/sec Med Peak E' Cristian: 13.6 cm/sec E/E' lat: 10.8 E/E' med: 9.3 Ao V2 max: 105.4 cm/sec LV V1 max: 84.0 cm/sec MR max cristian: 469.4 cm/sec Ao max P.4 mmHg LV V1 max P.8 mmHg MR max P.1 mmHg Ao V2 mean: 70.7 cm/sec LV V1 mean P.6 mmHg MR mean cristian: 344.8 cm/sec Ao mean P.4 mmHg LV V1 mean: 59.9 cm/sec MR mean P.1 mmHg Ao V2 VTI: 16.8 cm LV V1 VTI: 12.6 cm MR VTI: 135.3 cm PA V2 max: 82.6 cm/sec TR max cristian: 326.3 cm/sec TR max P.6 mmHg ECHO/Echo Complete W/ Contrast Interpretation Summary Severely dilated left ventricle. The left ventricular ejection fraction is 20 %. Severe global left ventricular systolic dysfunction. Diastolic function is indeterminate. Mild-Moderate (1-2+) mitral valve insufficiency. Mild tricuspid valve insufficiency. Mild pulmonary hypertension. Mildly dilated aortic root. Ordering Physician: Jo Vidal Referring Physician: Leslie Tolentino M.D. Performed By: Ramez Gavin RCS
--- NOTE | 2022-08-10 17:24 | CT_ITS ---
STUDY: CT BRAIN WITHOUT CONTRAST REASON FOR EXAM: Male, 67 years old. worsening gait RADIATION DOSAGE (If Supplied By Facility): CTDIvol = ( 44.99 ) mGy, DLP = ( 883.29 ) mGycm TECHNIQUE: Transaxial CT imaging of the brain was performed without administration of intravenous contrast material. Individualized dose optimization techniques were used for this CT. COMPARISON: CT brain February 20, 2010 FINDINGS: Normal soft tissue structures. Normal calvarium. Normal size ventricles and extra-axial spaces for the patient''s age. There are areas of decreased attenuation within the white matter tracts of the supratentorial brain, consistent with microvascular disease changes. Normal basal ganglia and thalami. Normal brainstem. Normal cerebellum. There is no intracranial hemorrhage. There are no findings of an acute ischemic infarction. Normal visualized paranasal sinuses. CT/Brain/Head without Contrast IMPRESSION: Mild nonspecific white matter changes consistent with age. Electronically Signed: Erick Geronimo MD at 18:07 EST ,
[2022-08-10 17:29] LABS: Troponin-I HS 55 pg/mL (3.0-78.0)
--- NOTE | 2022-08-10 17:35 | HP.PCM.HOS_ITS ---
[facility] - General General Date of Admission: 08/10/22 Date of Service: 08/10/22 Chief Complaint: Shortness of breath HPI Narrative Mr. Lan is a 67-year-old male with a history of heart failure with reduced ejection fraction and diastolic dysfunction, hypertension, prediabetes, hypothyroidism who presented to 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 He has been having worsening shortness of breath and occasional cough over 6 months which is worsened recently. He notes it particularly with exertion and at times it is limiting in his ability to work. Additionally intermittently will have some left-sided chest and arm pain but s aid this is primarily when he is coughing. He is unsure what medications he was supposed to be on but does note he was taking Coreg but had been taking just 1 a day to try to spread out the prescription. Today he finally went to his coding compliance manager's office to schedule an appointment and get refills but they felt he looked unwell and sent him to the emergency department. In the ED it was noted an O2 sats mid 90s and that he was reporting shortness of breath and has mild increased work of breathing with movement. BNP was elevated, hospitalist evaluated for admission. Spoke with patient and his at bedside and he did endorse the 6 months of worsening shortness of breath. Had an LV thrombus in 2018 and was on Xarelto and also was noted to have heart failure with reduced ejection fraction of 25% but was lost to follow-up with cardiology. Continues to follow with his primary care physician however. Additional concerned about being unsteady on his feet over the past month or so. Did not endorse any focal deficits but has had several falls because of this. Most recently about a week ago when he fell and hit the right side of his head. is also concerned that he may be depressed as he has lost interest in the things he used to enjoy and spends most of his time sitting in his chair which is a combination of lack of interest as well as the shortness of breath with movement. Appetite somewhat worse. Intermittent stuffy nose and sore throat. Gets cold easily but denies any fever. No overt chest pain that is not associated with coughing. Cough minimally productive. Does feel legs get swollen and thinks they are more swollen at this time than usual. [facility] Medical History Acute systolic heart failure Arthritis COPD (chronic obstructive pulmonary disease) Essential (primary) hypertension GERD (gastroesophageal reflux disease) GI bleed Gout Hypothyroidism Left ventricular thrombus Severe left ventricular systolic dysfunction Type 2 diabetes mellitus Home Medications albuterol sulfate 90 mcg/actuation aerosol inhaler (ProAir HFA) 2 puff inhalation Q4H PRN PRN Sob &/Or Wheezing 08/06/18 [History Last Taken 08/10/22] aspirin 81 mg chewable tablet 81 mg PO DAILY [facility]. 08/10/22 [History Last Taken 08/10/22] glimepiride 4 mg tablet 4 mg PO DAILY DM 08/10/22 [History Last Taken 08/09/22] hydrochlorothiazide 25 mg tablet 25 mg PO DAILY FLUID 08/10/22 [History Last Taken 08/10/22] levothyroxine 75 mcg tablet 75 mcg PO DAILY THYROID 08/10/22 [History Last Taken 08/10/22] multivitamin 1 tab PO DAILY 08/10/22 [History Last Taken 08/10/22] omeprazole magnesium 20 mg tablet,delayed release (Prilosec OTC) 20 mg PO QHS GERD 08/10/22 [History Last Taken 08/09/22] Allergy/AdvReac Type Severity Reaction Status Date / Time No Known Allergies Allergy Verified 08/10/22 13:52 Family History Mother Hypertension Sister Hypertension Father Hypertension Myocardial infarction from [place] age 54 Surgical History H/O arthroscopy of right knee History of tonsillectomy History of total left knee replacement History of total right knee replacement Hx of cholecystectomy Social History Smoking Status: Former smoker ROS Constitutional Constitutional: Reports other Details: Frequently cold ; Denies change in weight Eyes Eyes: Denies change in vision ENT HEENT: Reports other Details: All headache. Occasional sore throat nasal congestion Cardiovascular Cardiovascular: Reports other Details: Will feel uncomfortable in his chest when he is coughing but denies overt pain Respiratory/Chest Respiratory/Chest: Reports other Details: Has cough intermittently over the past 6 months, mid December of Gastrointestinal Gastrointestinal: Reports other Details: Intermittent constipation ; Denies abdominal pain Genitourinary Genitourinary: Reports other Details: Occasional poor stream Musculoskeletal Musculoskeletal: Denies joint pain Neurologic Neurologic: Reports other Details: Feels unsteady ; Denies focal weakness, numbness or tingling Psychiatric Psychiatric: Reports depression Hematologic/Lymphatic Hematologic/Lymphatic: Reports easy bruising; Denies easy bleeding Allergic/Immunologic Allergic/Immunologic: Reports other Details: denies rashes Vital Signs Vital Signs Vital Signs: 08/10/22 13:52 08/10/22 14:03 08/10/22 14:03 Temperature 97.1 F L Temperature Source Temporal Pulse Rate 115 H 113 H Respiratory Rate 18 18 Respiratory Effort Short of Breath Blood Pressure 128/92 H 131/97 H Blood Pressure Mean 104 108 Blood Pressure Source Blood Pressure Position Blood Pressure Location Pulse Ox 94 94 Oxygen Delivery Method Room Air Room Air 08/10/22 14:32 08/10/22 16:49 08/10/22 17:30 Temperature 97.8 F 97.6 F L Temperature Source Temporal Temporal Pulse Rate 100 99 Respiratory Rate 18 22 H Respiratory Effort Blood Pressure 134/78 H 125/99 H Blood Pressure Mean 96 107 Blood Pressure Source Monitor Blood Pressure Position Sitting Blood Pressure Location Right Arm Pulse Ox 95 95 Oxygen Delivery Method Room Air Room Air Room Air Weight Weight: 120.5 kg Body Mass Index (BMI) 37.0 Physical Exam Const alert and no apparent distress Constitutional Narrative: Oriented HEENT normocephalic HEENT Narrative: Does have a scrape on right forehead from fall a week ago Eyes Eyes Narrative: EOM grossly intact, anicteric Neck supple Resp Resp Narrative: Slight increased work of breathing, diminished at the bases, slightly coarse and middle lobes Cardio regular rate and regular rhythm GI soft to palpation, non-tender and non-distended Extremity Extremity Narrative: Trace lower EXTR repeat edema Neuro moves all extremities Neuro Narrative: No overt focal deficits appreciated Psych Psych Narrative: Cooperative Results Lab / Micro Data Result Diagrams: 08/10/22 14:33 08/10/22 14:33 Labs: Laboratory Results - last 24 hr 08/10/22 14:33: WBC 6.2, RBC 5.35, Hgb 15.0, Hct 44.6, MCV 83.4, MCH 28.0, MCHC 33.6, RDW Std Deviation 41.1, RDW Coeff of Sean 13.5, Plt Count 269, MPV 10.0, Immature Gran % (Auto) 0.300, Neut % (Auto) 55.9, Lymph % (Auto) 31.5, [place] % (Auto) 8.2, Eos % (Auto) 3.5, Baso % (Auto) 0.6, Absolute Neuts (auto) 3.5, Absolute Lymphs (auto) 1.96, Nucleated RBC % 0 08/10/22 14:33: Sodium 139, Potassium 3.6, Chloride 106, Carbon Dioxide 26.0, Anion Gap 7, BUN 17, Creatinine 1.24, Estim Creat Clear Calc 61.57, Est GFR (MDRD) Af Amer 75, Est GFR (MDRD) Non-Af 62, BUN/Creatinine Ratio 13.7, Glucose 207 H, Calcium 9.4, Troponin I High Sens 48 08/10/22 14:33: B-Natriuretic Peptide 264.5 H 08/10/22 16:50: Troponin I High Sens 55 Radiology Impression Chest X-Ray 08/10/22 14:35 IMPRESSION: Mild cardiomegaly. Electronically Signed: Lavell Lin MD at 14:56 EST , Assessment & Plan Assessment/Plan (1) Severe left ventricular systolic dysfunction: PLAN: Plan #Shortness of breath, concern for acute exacerbation on chronic heart failure with reduced ejection fraction and diastolic dysfunction Last echo in 2018 with severe global left ventricular systolic dysfunction, stage I diastolic dysfunction as well as 2 thrombi measuring 1 cm x 1 cm in the left ventricle and an EF of 25% Was lost to follow-up after 2018 BNP is elevated Will check echo X-ray with more opacities than previous, cardiomegaly, can consider CT if not progressing Will give small dose of Lasix #Heart failure with reduced ejection fraction and diastolic dysfunction I's and O's, daily weights Will check echo Last known EF was in 2018 and was 25% Lasix Has been out of his Coreg, will hold off at this time #Left ventricular thrombus x2 Seen on echocardiogram in 2018, it was noted that there were two 1 cm x 1 cm thrombi in the left ventricle Was on Xarelto for a period of time but does not appear to be filling it any longer Will check echo Will await echo prior to deciding further anticoagulation, unclear if he was still intended to be on this or not but per pharmacy had not been taking it #Hypothyroidism Will check a.m. TSH Continues to void #Unsteady on feet B12 PT/OT Given history of clots in left atrium and falls with steady decline will check CT of the head to see if there have been any previous strokes. No concern for acute CVA Charges/Coding Visit Charges OBSV E&M: 79605 Initial observation care L2
[2022-08-10] MEDS: 0.9% Saline Lock 10 ML Syringe IV (18:08)
[2022-08-10] MEDS: Furosemide 20 MG/2 ML VIAL 10 MG IV (18:08)
[2022-08-10] MEDS: BENZOCAINE/MENTHOL 1 LOZENGE MUCOUS MEM (23:48)
[2022-08-10] MEDS: MELATONIN 3 MG TABLET PO (23:48)
[2022-08-11] VITALS (10 sets, daily range): BP systolic 107–139; BP diastolic 74–113; PULSE 86–103; RESP 18–20; TEMP 36.3–37.2; O2SAT 95–97
[2022-08-11] MEDS: Levothyroxine 75 MCG Tablet PO (05:54)
[2022-08-11 06:39] LABS: Absolute Lymphocyte Count 2.22 X10^3/uL (0.83-4.51); Absolute Neutrophil Count 3.8 X10^3/uL (2.0-7.7); Basophil# 0.05 X10^3/uL; Basophil% 0.7 % (0-1); Eosinophil# 0.24 X10^3/uL; Eosinophils% 3.4 % (0-5); Hematocrit 44.3 % (40-54); Hemoglobin 14.9 g/dL (13.0-16.5); Lymphocyte # 2.22 X10^3/ul (0.83-4.51); Lymphocyte % 31.7 % (19-41); Mean Corp Hgb Conc 33.6 g/dL (32-36); Mean Corpuscular Hgb 28.3 pg (27.0-32.0); Mean Corpuscular Volume 84.1 fL (80-94); Mean Platelet Vol. 9.7 fl (6.2-12.0); Monocyte# 0.67 X10^3/uL; Monocyte% 9.6 % (0-10); NRBC Flagged by Analyzer 0 % (0-5); Neutrophil # 3.79 X10^3/uL (2.7-7.7); Neutrophil % 54.2 % (47-70); Platelet Count 244 K/mm3 (150-450); RBC Distribution Width CV 13.5 % (11.6-14.6); RBC Distribution Width SD 41.4 fl (35.1-43.9); Red Blood Count 5.27 M/mm3 (4.6-6.2)
[2022-08-11 07:34] LABS: ALB/GLOB Ratio 0.9 RATIO (0.9-2.4); AST(SGOT) 19 U/L (15-37); Alanine Aminotransfer ALT/SGPT 21 U/L (16-61); Albumin, Serum 3.4 g/dL (3.2-5.0); Alkaline Phosphatase 77 U/L (45-117); Anion Gap 10 (5-15); BUN 15 mg/dL (7-18); BUN/Creat Ratio 14.3 RATIO (10-20); Calcium,Total 8.9 mg/dL (8.5-10.1); Chloride 104 mmol/L (98-107); Creatinine, Serum 1.05 mg/dL (0.70-1.30); EST Glomerular Filtration Rate 75 mL/min (>60); Est Glom Filt Rate - Afr Amer 91 mL/min (>60); Estimated Creatinine Clearance 72.71 ml/min; Globulin 3.8 g/dL (2.2-4.2); Glucose 158 mg/dL (74-106); Potassium 3.7 mmol/L (3.5-5.1); Protein, Total 7.2 g/dL (6.4-8.2); Sodium Level 136 mmol/L (136-145); Thyroid Stim Hormone (TSH) 6.11 uIU/mL (0.358-3.74)
[2022-08-11] MEDS: Acetaminophen 325 MG Tablet 650 MG PO ×2 (07:49→21:55)
[2022-08-11 08:21] LABS: Hemoglobin A1c 7.6 % (3.8-5.6)
[2022-08-11] MEDS: hydroCHLOROthiazide 25 MG Tablet PO (10:08)
[2022-08-11] MEDS: Enoxaparin 40 MG/0.4 ML Syringe SC (10:08)
[2022-08-11] MEDS: Losartan Potassium 25 MG Tablet PO (11:29)
[2022-08-11] MEDS: Metoprolol(XL)Succ 25 MG Tablet 12.5 MG PO (11:29)
[2022-08-11] MEDS: Furosemide 20 MG Tablet PO (11:29)
--- NOTE | 2022-08-11 11:45 | CASEMGMT ---
IRINA NOGUEIRA GLASS MOLD REPAIRER CM to room to meet with patient for initial transition planning/care coordination assessment. IRINA NOGUEIRA introduced self and role at [facility]. Pt voices understanding and consents to assessment at this time. Pt resting in bed in no distress at this time. , Marlen, @ bedside. Pt is A/O at this time and answers all questions appropriately. Care providers, pharmacy, and demographics verified/updated at this time. PCP:Dr Tolentino Specialists: Has seen Dr Frost in the past, but states it has been about 4 yrs. He plans to f/u with him after discharge. Preferred Pharmacy: [facility] Insurance: [facility] A/B Prescription Benefit: none. Often uses [employer] savings card Living Will/HPOA: Pt and states pt has not done LW but thought he did HCPOA @ [facility] several yrs ago, but not certain. IRINA NOGUEIRA checked [facility] e-chart and no AD on file. Pt and made aware. Pt states would like to complete HCPOA w/SW. Sarah KENT, made aware. Pt made aware, if SW unable to meet w/him while he is @ [facility], then this could be completed as an OP as well. Given Social Service rac card with number to call to schedule an appt. Patient and express understanding. LNOK:, Marlen Living Arrangements: Lives w/ in bi-level home w/4 steps to enter. States some difficulty w/the stairs and he recently fell on them. He states he has to take his time when navigating the stairs and pay attention to each step and he thinks he got distracted, causing him to fall. Pt is independent w/ADL's. does most home mgmt tasks. They go grocery shopping together. 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 Transportation: Pt states drives self and states no transportation concerns at this time. also drives. DME: Pt has a pulse ox. No home O2. Provided w/list of local DME companies in-network w/his insurance and made aware [employer] is affiliated w/[facility]. They choose [employer] as 1st choice. Explained process of home O2 set-up, should pt qualify for O2 @ discharge. Questions answered. HHC/SNF: No hx of either. No needs identified at this time. Pt and wish for pt to return home and state no concerns with going home at time of discharge. CM to follow for home oxygen needs and any further discharge planning/needs. Pt and voice no further concerns/needs at this time. Advised them to ask for CM if any further questions/concerns/needs arise. They voice understanding. PLAN: Home w/spousal support and discharge plans in place. Follow for possible need of Home O2 @ discharge. Hung GLYNN RN CM
--- NOTE | 2022-08-11 12:20 | RAD_ITS ---
STUDY: X-RAY CHEST REASON FOR EXAM: Male, 67 years old. HFrEF, f/u xray . TECHNIQUE: Single AP portable view of the chest. COMPARISON: August 10, 2022. FINDINGS: The lungs are clear and expanded. There is no demonstrated pleural abnormality. Normal size heart. Normal mediastinum and [place]. Normal visualized pulmonary arteries. Normal visualized aortic arch and descending thoracic aorta. No osseous changes. There is no demonstrated abnormality of the visualized soft tissue structures of the upper abdomen. RAD/Chest 1 View (Portable) IMPRESSION: Mild cardiomegaly without acute pulmonary disease or interval change. Electronically Signed: Drake Fulton DO at 17:05 EST ,
--- NOTE | 2022-08-11 14:04 | PN.HOSP_ITS ---
Subjective Subjective Continues to have shortness of breath, did have 1 episode where his had some sharp chest pain and had intermittent coughing as well still. Objective Data Objective Data Vital Signs: Vital Signs Temp Pulse Resp BP Pulse Ox O2 Del Method 97.4 F L 102 H 20 H 115/84 H 95 Room Air 08/11/22 10:05 08/11/22 11:29 08/11/22 10:05 08/11/22 11:29 08/11/22 10:05 08/11/22 10:05 Oxygen Delivery Method Room Air Weight: 119.3 kg Body Mass Index (BMI) 37.0 Intake & Output: Intake and Output for Last 24 Hours 08/09/22 08/10/22 08/11/22 23:59 23:59 23:59 Intake Total 120 / 120 240 / 240 Balance 120 / 120 240 / 240 Lab / Micro Data Result Diagrams: 08/11/22 06:05 08/11/22 06:05 Labs: Laboratory Results - last 24 hr 08/10/22 14:33: WBC 6.2, RBC 5.35, Hgb 15.0, Hct 44.6, MCV 83.4, MCH 28.0, MCHC 33.6, RDW Std Deviation 41.1, RDW Coeff of Sean 13.5, Plt Count 269, MPV 10.0, Immature Gran % (Auto) 0.300, Neut % (Auto) 55.9, Lymph % (Auto) 31.5, [place] % (Auto) 8.2, Eos % (Auto) 3.5, Baso % (Auto) 0.6, Absolute Neuts (auto) 3.5, Absolute Lymphs (auto) 1.96, Nucleated RBC % 0 08/10/22 14:33: Sodium 139, Potassium 3.6, Chloride 106, Carbon Dioxide 26.0, Anion Gap 7, BUN 17, Creatinine 1.24, Estim Creat Clear Calc 61.57, Est GFR (MDRD) Af Amer 75, Est GFR (MDRD) Non-Af 62, BUN/Creatinine Ratio 13.7, Glucose 207 H, Calcium 9.4, Troponin I High Sens 48 08/10/22 14:33: B-Natriuretic Peptide 264.5 H 08/10/22 16:50: Troponin I High Sens 55 08/11/22 06:05: WBC 7.0, RBC 5.27, Hgb 14.9, Hct 44.3, MCV 84.1, MCH 28.3, MCHC 33.6, RDW Std Deviation 41.4, RDW Coeff of Sean 13.5, Plt Count 244, MPV 9.7, Immature Gran % (Auto) 0.400, Neut % (Auto) 54.2, Lymph % (Auto) 31.7, [place] % (Auto) 9.6, Eos % (Auto) 3.4, Baso % (Auto) 0.7, Absolute Neuts (auto) 3.8, Absolute Lymphs (auto) 2.22, Nucleated RBC % 0 08/11/22 06:05: Sodium 136, Potassium 3.7, Chloride 104, Carbon Dioxide 22.0, Anion Gap 10, BUN 15, Creatinine 1.05, Estim Creat Clear Calc 72.71, Est GFR (MDRD) Af Amer 91, Est GFR (MDRD) Non-Af 75, BUN/Creatinine Ratio 14.3, Glucose 158 H, Calcium 8.9, Total Bilirubin 1.00, AST 19, ALT 21, Alkaline Phosphatase 77, Total Protein 7.2, Albumin 3.4, Globulin 3.8, Albumin/Globulin Ratio 0.9, TSH 6.11 H 08/11/22 06:05: Hemoglobin A1c 7.6 H Micro: Microbiology 08/10/22 17:30 Nasal Secretion SARS-CoV-2 Antigen (Rapid) - Final Radiography Diagnostic Testing: Radiology Impression Chest X-Ray 08/10/22 14:35 IMPRESSION: Mild cardiomegaly. Electronically Signed: Lavell Lin MD at 14:56 EST , Brain CT 08/10/22 17:24 IMPRESSION: Mild nonspecific white matter changes consistent with age. Electronically Signed: Erick Geronimo MD at 18:07 EST , Echocardiogram 08/10/22 17:24 Interpretation Summary Severely dilated left ventricle. The left ventricular ejection fraction is 20 %. Severe global left ventricular systolic dysfunction. Diastolic function is indeterminate. Mild-Moderate (1-2+) mitral valve insufficiency. Mild tricuspid valve insufficiency. Mild pulmonary hypertension. Mildly dilated aortic root. Ordering Physician: Jo Vidal Referring Physician: Leslie Tolentino M.D. Performed By: Ramez Gavin RCS Physical Exam Const alert and no apparent distress Constitutional Narrative: Oriented HEENT normocephalic HEENT Narrative: Does have a scrape on right forehead from fall a week ago Eyes Eyes Narrative: EOM grossly intact, anicteric Neck supple Resp Resp Narrative: Slight increased work of breathing, diminished at the bases, slightly coarse and middle lobes Cardio regular rate and regular rhythm GI soft to palpation, non-tender and non-distended Extremity Extremity Narrative: Trace lower EXTR repeat edema Neuro moves all extremities Neuro Narrative: No overt focal deficits appreciated Psych Psych Narrative: Cooperative Assessment & Plan Assessment/Plan (1) Severe left ventricular systolic dysfunction: PLAN: Plan #Shortness of breath, concern for acute exacerbation on chronic heart failure with reduced ejection fraction and diastolic dysfunction Last echo in 2018 with severe global left ventricular systolic dysfunction, stage I diastolic dysfunction as well as 2 thrombi measuring 1 cm x 1 cm in the left ventricle and an EF of 25% Was lost to follow-up after 2018 BNP is elevated Will check echo X-ray with more opacities than previous, cardiomegaly, can consider CT if not progressing Will give small dose of Lasix 08/11: EF 20%, Lasix, metoprolol, losartan. If breathing continues to improve tomorrow can DC and follow-up with cardiology as an outpatient #Heart failure with reduced ejection fraction and diastolic dysfunction I's and O's, daily weights Will check echo Last known EF was in 2018 and was 25% Lasix Has been out of his Coreg, will hold off at this time 08/11: EF 20% with no specific regional wall motion abnormality. Brief episode of sharp chest pain earlier atypical and did not sound cardiac in nature, has had negative troponins since he presented. EKG no ischemic concern. We will start losartan, metoprolol, Lasix. If breathing improves and he tolerates this can likely DC tomorrow with outpatient cardiology follow-up. No need for acute ischemic work-up inpatient at this time #Left ventricular thrombus x2 Seen on echocardiogram in 2018, it was noted that there were two 1 cm x 1 cm thrombi in the left ventricle Was on Xarelto for a period of time but does not appear to be filling it any longer Will check echo Will await echo prior to deciding further anticoagulation, unclear if he was still intended to be on this or not but per pharmacy had not been taking it 08/11: No thrombi seen #Hypothyroidism TSH slightly elevated Will check free T4 #Unsteady on feet B12 PT/OT Given history of clots in left atrium and falls with steady decline will check CT of the head to see if there have been any previous strokes. No concern for acute CVA 08/11: CT with no acute changes, check B12 Charges/Coding Visit Charges Inpatient E&M: 94644 Subs Hosp L2
[2022-08-12 03:00] VITALS: PULSE 81
[2022-08-12 04:00] VITALS: BP 131/94; PULSE 88; RESP 18; TEMP 36.8; O2SAT 96
[2022-08-12] MEDS: Levothyroxine 75 MCG Tablet PO (05:49)
[2022-08-12] MEDS: Acetaminophen 325 MG Tablet 650 MG PO (05:57)
[2022-08-12 06:35] VITALS: PULSE 93
[2022-08-12 06:52] LABS: Absolute Lymphocyte Count 2.22 X10^3/uL (0.83-4.51); Basophil# 0.04 X10^3/uL; Basophil% 0.6 % (0-1); Eosinophil# 0.29 X10^3/uL; Hematocrit 44.8 % (40-54); Lymphocyte # 2.22 X10^3/ul (0.83-4.51); Lymphocyte % 30.8 % (19-41); Mean Corp Hgb Conc 33.5 g/dL (32-36); Mean Corpuscular Hgb 28.2 pg (27.0-32.0); Mean Corpuscular Volume 84.4 fL (80-94); Mean Platelet Vol. 9.7 fl (6.2-12.0); Monocyte# 0.68 X10^3/uL; Monocyte% 9.4 % (0-10); NRBC Flagged by Analyzer 0 % (0-5); Neutrophil # 3.95 X10^3/uL (2.7-7.7); Neutrophil % 54.9 % (47-70); Platelet Count 248 K/mm3 (150-450); RBC Distribution Width CV 13.4 % (11.6-14.6); RBC Distribution Width SD 41.1 fl (35.1-43.9); Red Blood Count 5.31 M/mm3 (4.6-6.2); White Blood Count 7.2 K/mm3 (4.4-11.0)
[2022-08-12 07:15] LABS: Anion Gap 9 (5-15); BUN 19 mg/dL (7-18); BUN/Creat Ratio 17.8 RATIO (10-20); Calcium,Total 8.8 mg/dL (8.5-10.1); Chloride 103 mmol/L (98-107); Creatinine, Serum 1.07 mg/dL (0.70-1.30); EST Glomerular Filtration Rate 73 mL/min (>60); Est Glom Filt Rate - Afr Amer 89 mL/min (>60); Estimated Creatinine Clearance 71.35 ml/min; Glucose 165 mg/dL (74-106); Potassium 3.5 mmol/L (3.5-5.1); Sodium Level 135 mmol/L (136-145)
[2022-08-12 08:57] VITALS: BP 110/81; PULSE 95; RESP 18; TEMP 36.7; O2SAT 97
[2022-08-12 08:59] VITALS: PULSE 95
[2022-08-12] MEDS: Enoxaparin 40 MG/0.4 ML Syringe SC (08:59)
[2022-08-12] MEDS: Furosemide 20 MG Tablet PO (08:59)
[2022-08-12] MEDS: Losartan Potassium 25 MG Tablet PO (08:59)
[2022-08-12] MEDS: Metoprolol(XL)Succ 25 MG Tablet 12.5 MG PO (08:59)
--- NOTE | 2022-08-12 09:57 | DCINST_ITS ---
Discharge Instructions Diet Discharge Diet: - (2 L fluid restriction) Activity Discharge Activity: Return to Normal Activity (Return to normal activity as tolerated) Follow Up Care Test Results: Test results from this visit will be discussed in further detail at your follow- up appointment, if applicable. Discharge Plan Admission Admit Date/Time: 08/11/22 11:08 Primary Reason for Your Visit: Shortness of breath Attending Provider: Jo Vidal Primary Care Provider: Leslie Tolentino Instructions Patient Instructions: Cardiomyopathy Dc Additional Instructions / Restrictions: *Please take this with you to your next doctors appointment* ?You have had several medication changes. Please stop your hydrochlorothiazide ? You have been started on Lasix, a water pill, 20 mg to take in the morning ? You have been started on losartan 25 mg to take daily ? You have been started on metoprolol extended release 12.5 mg daily ? These have been sent to preferred pharmacy on file ? It is very important that you call your manager of disaster recovery office on Sunday to schedule hospital follow-up -Please call your primary care provider's office upon discharge to schedule a hospital follow up within 1 week. -For any concerning signs or symptoms please call 911 or proceed to the nearest emergency department -Weigh yourself every day. A sudden weight gain can mean you are retaining fluid. Weigh yourself at the same time of day and in the same kind of clothes. Ideally, weigh yourself first thing in the morning after you empty your bladder, but before you eat breakfast. -Please call your physician if your weight goes up by more than 2 pounds in 1 day or 5 pounds in 1 week. This can be a sign that you are retaining more fluid than you should be. Clues to weight gain include checking your ankles for swelling, or noticing you are short of breath when you lie down -Please limit your sodium intake to less than 3 g/day. Here are tips: Limit canned, dried, packaged, and fast foods. Don't add salt to your food at the table. Season foods with herbs instead of salt when you cook. When you eat out, ask that the lock tender not add any salt to your dish. Don't eat fried or greasy foods. Be careful of bottled beverages. They can contain a lot of salt -Call 911 right away if you have: -Severe shortness of breath, such that you can't catch your breath even while resting -Severe chest pain that does not resolve with rest or nitroglycerin -[place], foamy mucus with cough and shortness of breath -An ongoing rapid or irregular heartbeat -Passing out or fainting -Stroke symptoms such as sudden numbness or weakness on one side of your face, arm, or leg or sudden confusion, trouble speaking or vision changes Discharge Orders/Prescriptions Prescriptions: New losartan 25 mg Tablet 25 mg PO DAILY 30 Days Qty: 30 0RF furosemide 20 mg Tablet 20 mg PO DAILY 30 Days Qty: 30 0RF metoprolol succinate 25 mg Tablet Extended Release 24 Hr 12.5 mg PO DAILY 30 Days Qty: 15 0RF Continued albuterol sulfate [ProAir HFA] 1 PUFF inhaler 2 puff inhalation Q4H PRN PRN (Reason: Sob &/Or Wheezing) levothyroxine 75 mcg Tablet 75 mcg PO DAILY glimepiride 4 mg tablet 4 mg PO DAILY Label Comments: TAKE 1 TABLET BY MOUTH ONCE DAILY multivitamin Tablet 1 tab PO DAILY aspirin 81 mg Tablet,Chewable 81 mg PO DAILY famotidine 20 mg Tablet 20 mg PO DAILY Discontinued hydrochlorothiazide 25 mg Tablet 25 mg PO DAILY Referrals / Follow Up: Leslie Tolentino MD [Primary Care Provider] - Within 1 Week SantoshDakota vieira MD [Med Staff - Active Staff] - See Referral Note (Please call your manager of disaster recovery office upon discharge to schedule a hospital follow-up appointment for your heart failure) Disposition Disposition (needs filled in before D/C Order can be placed): Home, Self Care
--- NOTE | 2022-08-12 10:00 | CASEMGMT ---
Social Work SW met w/pt regarding both mental health and LW/POA. As per pt, he was feeling down as he did not know what was going on with his health. He states he got some answers from this hospitalization, and now knows what he needs to do. He states that his medications are getting changed up also. He states is feeling more optimistic at this time. Pt declined mental health resources. SW also spoke w/pt about LW/POA. Pt declined to complete the forms but did want the blank documents. SW reviewe the documents with him, let him know how to complete on his own. SW also gave him the SW number to call should he decide he would like assist in completing them, he can call to make an appt w/a SW to get the forms completed. No further social service needs anticipated at this time. STEPHANIE Lara
--- NOTE | 2022-08-12 10:03 | DS.PCM_ITS ---
Providers Date of Admission: 08/11/22 Date of Discharge: 08/12/22 Primary Care Physician: Dr. Leslie Tolentino MD Reason For Visit: CHF Diagnosis Discharge Diagnosis (1) Severe left ventricular systolic dysfunction: Status: Chronic Code(s): I51.9 - Heart disease, unspecified (2) Systolic heart failure: Status: Acute Code(s): I50.20 - Unspecified systolic (congestive) heart failure Plan #Shortness of breath, concern for acute exacerbation on chronic heart failure with reduced ejection fraction and diastolic dysfunction #Heart failure with reduced ejection fraction and diastolic dysfunction #Left ventricular thrombus x2- historical #Hypothyroidism #Unsteady on feet Medications at Discharge Home Medications albuterol sulfate 90 mcg/actuation aerosol inhaler (ProAir HFA) 2 puff inhalation Q4H PRN PRN Sob &/Or Wheezing 08/06/18 aspirin 81 mg chewable tablet 81 mg PO DAILY HEALTH MAINT. 08/10/22 glimepiride 4 mg tablet 4 mg PO DAILY DM 08/10/22 levothyroxine 75 mcg tablet 75 mcg PO DAILY THYROID 08/10/22 multivitamin 1 tab PO DAILY 08/10/22 famotidine 20 mg tablet 20 mg PO DAILY heart burn 08/11/22 furosemide 20 mg tablet 20 mg PO DAILY 30 days #30 tabs 08/12/22 losartan 25 mg tablet 25 mg PO DAILY 30 days #30 tabs 08/12/22 metoprolol succinate 25 mg tablet,extended release 24 hr 12.5 mg PO DAILY 30 days #15 tabs 08/12/22 Hospital Course Procedures 2-D Echocardiogram Summary of Care Provided Minutes Spent on Discharge: 31 Hospital Course: Mr. 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 He has been having worsening shortness of breath and occasional cough over 6 months which is worsened recently.? He notes it particularly with exertion and at times it is limiting in his ability to work.? Additionally intermittently will have some left-sided chest and arm pain but said this is primarily when he is coughing.? He is unsure what medications he was supposed to be on but does note he was taking Coreg but had been taking just 1 a day to try to spread out the prescription. In 2018 he was noted to have global left ventricular dysfunction with an EF of 20 to 25% in 2 left ventricular thrombi. Initially followed up with cardiology and was on Xarelto but was subsequently lost to follow-up. 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 He did have shortness of breath with some congestion on x-ray, elevated BNP. Diuresed, echo again demonstrated EF 20%. Started on losartan, metoprolol, Lasix and tolerated this well with improved breathing. No thrombi seen on echo. Instructions provided for patient as below: *Please take this with you to your next doctors appointment* ?You have had several medication changes. Please stop your hydrochlorothiazide ? You have been started on Lasix, a water pill, 20 mg to take in the morning ? You have been started on losartan 25 mg to take daily ? You have been started on metoprolol extended release 12.5 mg daily ? These have been sent to preferred pharmacy on file ? It is very important that you call your greenskeeper supervisor office on Sunday to schedule hospital follow-up -Please call your primary care provider's office upon discharge to schedule a hospital follow up within 1 week. -For any concerning signs or symptoms please call 911 or proceed to the nearest emergency department -Weigh yourself every day. A sudden weight gain can mean you are retaining f luid. Weigh yourself at the same time of day and in the same kind of clothes. Ideally, weigh yourself first thing in the morning after you empty your bladder, but before you eat breakfast. -Please call your physician if your weight goes up by more than 2 pounds in 1 day or 5 pounds in 1 week. This can be a sign that you are retaining more fluid than you should be. Clues to weight gain include checking your ankles for swelling, or noticing you are short of breath when you lie down -Please limit your sodium intake to less than 3 g/day. Here are tips: Limit canned, dried, packaged, and fast foods. Don't add salt to your food at the table. Season foods with herbs instead of salt when you cook. When you eat out, ask that the celebrity chef entrepreneur media personality not add any salt to your dish. Don't eat fried or greasy foods. Be careful of bottled beverages. They can contain a lot of salt -Call 911 right away if you have: -Severe shortness of breath, such that you can't catch your breath even while resting -Severe chest pain that does not resolve with rest or nitroglycerin -[place], foamy mucus with cough and shortness of breath -An ongoing rapid or irregular heartbeat -Passing out or fainting -Stroke symptoms such as sudden numbness or weakness on one side of your face, arm, or leg or sudden confusion, trouble speaking or vision changes Physical Exam Const alert and no apparent distress Constitutional Narrative: Oriented HEENT normocephalic HEENT Narrative: Does have a scrape on right forehead from fall a week ago Eyes Eyes Narrative: EOM grossly intact, anicteric Neck supple Resp Resp Narrative: Slight increased work of breathing, diminished at the bases, slightly coarse and middle lobes Cardio regular rate and regular rhythm GI soft to palpation, non-tender and non-distended Extremity Extremity Narrative: Trace lower EXTR repeat edema Neuro moves all extremities Neuro Narrative: No overt focal deficits appreciated Psych Psych Narrative: Cooperative Weight / BMI Weight Weight: 119.5 kg Body Mass Index (BMI) 37.0 ABG / Lab / Microbiology Data Result Diagrams: 08/12/22 06:22 08/12/22 06:22 Laboratory: Laboratory Results - last 24 hr 08/12/22 06:22: WBC 7.2, RBC 5.31, Hgb 15.0, Hct 44.8, MCV 84.4, MCH 28.2, MCHC 33.5, RDW Std Deviation 41.1, RDW Coeff of Sean 13.4, Plt Count 248, MPV 9.7, Immature Gran % (Auto) 0.300, Neut % (Auto) 54.9, Lymph % (Auto) 30.8, [place] % (Auto) 9.4, Eos % (Auto) 4.0, Baso % (Auto) 0.6, Absolute Neuts (auto) 4.0, Absolute Lymphs (auto) 2.22, Nucleated RBC % 0 08/12/22 06:22: Sodium 135 L, Potassium 3.5, Chloride 103, Carbon Dioxide 23.0, Anion Gap 9, BUN 19 H, Creatinine 1.07, Estim Creat Clear Calc 71.35, Est GFR (MDRD) Af Amer 89, Est GFR (MDRD) Non-Af 73, BUN/Creatinine Ratio 17.8, Glucose 165 H, Calcium 8.8, Free T4 1.30 Microbiology: Microbiology 08/10/22 17:30 Nasal Secretion SARS-CoV-2 Antigen (Rapid) - Final Radiography Diagnostic Testing: Radiology Impression Chest X-Ray 08/11/22 12:20 IMPRESSION: Mild cardiomegaly without acute pulmonary disease or interval change. Electronically Signed: Drake Fulton DO at 17:05 EST Reading Location ID and State: [address] [place] [address] Tel [phone], Service support , D/C Instructions Discharge Diet: - (2 L fluid restriction) Meaningful Use Info Meaningful Use Diagnoses (Choose all that apply): CHF CHF MONO/ARB ordered at discharge?: Yes Documented LVEF (%): 20 Discharge Plan Admission Admit Date/Time: 08/11/22 11:08 Primary Reason for Your Visit: Shortness of breath Attending Provider: Jo Vidal Primary Care Provider: Leslie Tolentino Instructions Patient Instructions: Cardiomyopathy Dc Additional Instructions / Restrictions: *Please take this with you to your next doctors appointment* ?You have had several medication changes. Please stop your hydrochlorothiazide ? You have been started on Lasix, a water pill, 20 mg to take in the morning ? You have been started on losartan 25 mg to take daily ? You have been started on metoprolol extended release 12.5 mg daily ? These have been sent to preferred pharmacy on file ? It is very important that you call your greenskeeper supervisor office on Sunday to schedule hospital follow-up -Please call your primary care provider's office upon discharge to schedule a hospital follow up within 1 week. -For any concerning signs or symptoms please call 911 or proceed to the nearest emergency department -Weigh yourself every day. A sudden weight gain can mean you are retaining fluid. Weigh yourself at the same time of day and in the same kind of clothes. Ideally, weigh yourself first thing in the morning after you empty your bladder, but before you eat breakfast. -Please call your physician if your weight goes up by more than 2 pounds in 1 day or 5 pounds in 1 week. This can be a sign that you are retaining more fluid than you should be. Clues to weight gain include checking your ankles for swelling, or noticing you are short of breath when you lie down -Please limit your sodium intake to less than 3 g/day. Here are tips: Limit canned, dried, packaged, and fast foods. Don't add salt to your food at the table. Season foods with herbs instead of salt when you cook. When you eat out, ask that the celebrity chef entrepreneur media personality not add any salt to your dish. Don't eat fried or greasy foods. Be careful of bottled beverages. They can contain a lot of salt -Call 911 right away if you have: -Severe shortness of breath, such that you can't catch your breath even while resting -Severe chest pain that does not resolve with rest or nitroglycerin -[place], foamy mucus with cough and shortness of breath -An ongoing rapid or irregular heartbeat -Passing out or fainting -Stroke symptoms such as sudden numbness or weakness on one side of your face, arm, or leg or sudden confusion, trouble speaking or vision changes Discharge Orders/Prescriptions Prescriptions: New losartan 25 mg Tablet 25 mg PO DAILY 30 Days Qty: 30 0RF furosemide 20 mg Tablet 20 mg PO DAILY 30 Days Qty: 30 0RF metoprolol succinate 25 mg Tablet Extended Release 24 Hr 12.5 mg PO DAILY 30 Days Qty: 15 0RF Continued albuterol sulfate [ProAir HFA] 1 PUFF inhaler 2 puff inhalation Q4H PRN PRN (Reason: Sob &/Or Wheezing) levothyroxine 75 mcg Tablet 75 mcg PO DAILY glimepiride 4 mg tablet 4 mg PO DAILY Label Comments: TAKE 1 TABLET BY MOUTH ONCE DAILY multivitamin Tablet 1 tab PO DAILY aspirin 81 mg Tablet,Chewable 81 mg PO DAILY famotidine 20 mg Tablet 20 mg PO DAILY Discontinued hydrochlorothiazide 25 mg Tablet 25 mg PO DAILY Referrals / Follow Up: Leslie Tolentino MD [Primary Care Provider] - Within 1 Week SantoshDakota vieira MD [Med Staff - Active Staff] - See Referral Note (Please call your greenskeeper supervisor office upon discharge to schedule a hospital follow-up appointment for your heart failure) Disposition Disposition (needs filled in before D/C Order can be placed): Home, Self Care Charges/Coding Visit Charges Inpatient E&M: 29211 Disch Hosp
[2022-08-12 10:45] VITALS: O2SAT 92; O2SAT 96
--- NOTE | 2022-08-12 11:53 | CASEMGMT ---
Pt does not qualify for home oxygen. Malachi AREVALO CM
[2022-08-14 10:19] LABS: Vitamin B12 522 pg/mL (211-911)
== END 2022-08-12 11:26 | disposition home or self-care (01) | DRG 291 ==
LOC: ED 16:36 → PCU 16:58
PROVIDERS: Admitting Provider Internal Medicine; Emergency Provider Student in an Organized Health Care Education/Training Program; PCP Family Medicine; Visit Provider Internal Medicine
DX: I11.0 Hypertensive heart disease with heart failure (principal); I50.23 Acute on chronic systolic (congestive) heart failure; I51.3 Intracardiac thrombosis, not elsewhere classified; E11.9 Type 2 diabetes mellitus without complications; E03.9 Hypothyroidism, unspecified; I25.10 Atherosclerotic heart disease of native coronary artery without angina pectoris; I25.2 Old myocardial infarction; T44.7X6A Underdosing of beta-adrenoreceptor antagonists, initial encounter; Z91.120 Patient's intentional underdosing of medication regimen due to financial hardship; Z20.822 Contact with and (suspected) exposure to COVID-19; Z79.82 Long term (current) use of aspirin; Z79.84 Long term (current) use of oral hypoglycemic drugs; Z79.899 Other long term (current) drug therapy; Z79.890 Hormone replacement therapy; Z87.891 Personal history of nicotine dependence; Z96.653 Presence of artificial knee joint, bilateral
CPT/HCPCS: 36415; 70450; 71045; 80048; 80053; 82607; 83036; 83880; 84439; 84443; 84484; 85025; 87811; 93005; 93306; 97162; 97166; 99285; Q9957; A4216; C8929; J1940

== ENCOUNTER 2022-08-25 10:13 | Inpatient (IN) | payer MEDICARE, SELFPAY ==
[2022-08-25] VITALS (8 sets, daily range): BP systolic 117–130; BP diastolic 78–96; PULSE 80–112; RESP 18–22; TEMP 36.1–37.3; O2SAT 90–96; BMI 36.5
--- NOTE | 2022-08-25 10:21 | RAD_ITS ---
STUDY: X-RAY CHEST REASON FOR EXAM: Male, 67 years old. CHF. TECHNIQUE: Single AP portable view of the chest. COMPARISON: Comparison is made with prior study to 08/11/2002. FINDINGS: EKG electrodes are seen. There now is evidence of vascular congestion with progressive bilateral pulmonary infiltrates worse in the left mid lung. Follow-up is recommended. There is no demonstrated pleural abnormality. There is mild cardiac enlargement. Normal mediastinum and [place]. Normal visualized pulmonary arteries. Normal visualized aortic arch and descending thoracic aorta. Normal visualized thoracic spine. Normal visualized ribs, clavicles, and shoulders. There is no demonstrated abnormality of the visualized soft tissue structures of the upper abdomen. RAD/Chest 1 View (Portable) IMPRESSION: Progressive bilateral pulmonary infiltrates worse in the left mid lung superimposed on CHF. Electronically Signed: Lavell Lin MD at 10:58 EST ,
--- NOTE | 2022-08-25 10:22 | EKG12_ITS ---
Test Reason : SOB Blood Pressure : / mmHG Vent. Rate : 111 BPM Atrial Rate : 111 BPM P-R Int : 192 ms QRS Dur : 110 ms QT Int : 350 ms P-R-T Axes : 048 007 108 degrees QTc Int : 476 ms Sinus tachycardia with occasional Premature ventricular complexes T wave abnormality, consider lateral ischemia Abnormal ECG Confirmed by GAVIN CORONEL, ARIC ([id number]), slot editor VICTOR HUGO MAYORGA ([id number]) on 08/29/2022 11:40:12 AM Referred By: ROBLES Confirmed By:ARIC ALONSO MD
--- NOTE | 2022-08-25 10:30 | VDLE_ITS ---
Reason For Study: Swelling RIGHT LEFT CFV is compressible, spontaneous, competent GSV is normal. and demonstrates pulsatile venous flow. CFV is compressible, spontaneous, competent, Procedure and demonstrates pulsatile venous flow. This is a venous duplex using B-mode, color FV is compressible, spontaneous, competent flow and spectral Doppler. and demonstrates pulsatile venous flow. Exam performed portable in ED. POP V is compressible, spontaneous, competent A preliminary report was called and/or faxed and demonstrates pulsatile venous flow. to Dr. Montalvo. T/P Trunk is compressible. PTV is compressible. LT PerV is compressible. VL/Venous Duplex US, Unilateral Interpretation Summary There is no evidence of left lower extremity deep vein thrombosis. Pulsatile ve nous flow was noted bilaterally consistent with proximal venous hypertension or obstruction. Clinic al correlation would be appropriate. Ordering Physician: Thony Montalvo Referring Physician: Leslie Tolentino Performed By: July Hoff RDCS, RVT
--- NOTE | 2022-08-25 10:31 | ED.VIS.DYS ---
HPI History of Present Illness Chief Complaint: Shortness of Breath Informant: patient and spouse/S.O. Narrative Narrative: 67-year-old male presenting to the emergency department after being referred here by cardiology. Patient was admitted last week with congestive heart failure. States that he felt pretty good for couple days but he has started to gain some weight. He notes orthopnea. He notes his legs are more swollen than normal left greater than right. The patient at one point was on a blood thinner but took himself off of it. He was on that for a left ventricular thrombus. Noted ejection fraction of 20%. [facility] Medical History Acute systolic heart failure Arthritis COPD (chronic obstructive pulmonary disease) Essential (primary) hypertension GERD (gastroesophageal reflux disease) GI bleed Gout Hypothyroidism Left ventricular thrombus Severe left ventricular systolic dysfunction Type 2 diabetes mellitus Home Medications albuterol sulfate 90 mcg/actuation aerosol inhaler (ProAir HFA) 2 puff inhalation Q4H PRN PRN Sob &/Or Wheezing 08/06/18 [History Last Taken 08/10/22] aspirin 81 mg chewable tablet 81 mg PO DAILY HEALTH MAINT. 08/10/22 [History Last Taken 08/10/22] glimepiride 4 mg tablet 4 mg PO DAILY DM 08/10/22 [History Last Taken 08/09/22] levothyroxine 75 mcg tablet 75 mcg PO DAILY THYROID 08/10/22 [History Last Taken 08/10/22] multivitamin 1 tab PO DAILY 08/10/22 [History Last Taken 08/10/22] famotidine 20 mg tablet 20 mg PO DAILY heart burn 08/11/22 [History Last Taken Unknown] furosemide 20 mg tablet 20 mg PO DAILY 30 days #30 tabs 08/12/22 [Rx Last Taken Unknown] losartan 25 mg tablet 25 mg PO DAILY 30 days #30 tabs 08/12/22 [Rx Last Taken Unknown] metoprolol succinate 25 mg tablet,extended release 24 hr 12.5 mg PO DAILY 30 days #15 tabs 08/12/22 [Rx Last Taken Unknown] Allergy/AdvReac Type Severity Reaction Status Date / Time No Known Allergies Allergy Verified 08/25/22 10:15 Family History Mother Hypertension Sister Hypertension Father Hypertension Myocardial infarction from [place] age 54 Surgical History H/O arthroscopy of right knee History of tonsillectomy History of total left knee replacement History of total right knee replacement Hx of cholecystectomy Social History Smoking Status: Former smoker ROS ROS ED Constitutional Constitutional ED: Denies chills, fever(s) or weight loss Eyes Eyes: Denies change in vision or diplopia ENT ENT ED: Denies ear pain, rhinorrhea or sore throat Cardiovascular Cardiovascular: Reports orthopnea and racing heartbeat; Denies chest pain or palpitations Respiratory/Chest Respiratory/Chest: Reports cough, dyspnea, dyspnea on exertion and orthopnea Gastrointestinal Gastrointestinal: Denies abdominal pain, diarrhea, nausea or vomiting Genitourinary Genitourinary ED: Denies dysuria, hematuria or urinary frequency Musculoskeletal Musculoskeletal: Reports other Details: Lower extremity edema ; Denies arthralgias or myalgias Integumentary Denies abscess or rash Neurologic Neurologic: Denies headache(s) or weakness Psychiatric Psychiatric: Denies anxiety, depression, suicidal ideation or suicidal thoughts Endocrine Endocrinology: Denies polydipsia, polyphagia or polyuria Allergic/Immunologic Allergic/Immunologic ED: Denies mouth swelling, tongue swelling or urticaria EXAM Physical Exam Const Vital Signs: 08/25/22 10:15 08/25/22 11:17 Temperature 96.9 F L Temperature Source Temporal Pulse Rate 108 H Respiratory Rate 18 Respiratory Effort Short of Breath Labored Respiratory Depth Normal Respiratory Pattern Tachypnea Blood Pressure 124/96 H Blood Pressure Mean 105 Pulse Ox 93 Oxygen Delivery Method Room Air Room Air Positive well nourished and well developed General Appearance ED: well developed HEENT Reports normocephalic, head/scalp atraumatic and moist mucous membranes Eyes PERRL and EOMs intact bilaterally Neck no lymphadenopathy, supple and no JVD Resp normal respiratory effort and clear to auscultation bilaterally Cardio regular rate, regular rhythm and no murmurs Rate: tachycardic GI normal to inspection, nondistended, normoactive bowel sounds and non-tender Palpation: soft Back/Spine no CVA tenderness and normal ROM Extremity General Extremety ED: Yes edema General Extremity: edema Neuro oriented x3 and CN's II-XII intact bilaterally Sensorium / Orientation: alert Motor Exam: strength 5/5 throughout Psych mental status grossly normal Mood & Affect: Negative for depressed or tearful Skin no rashes or lesions noted and no wounds MDM MDM MDM Narrative Medical decision making narrative: Troponin is negative. White count is 9.3. My interpretation of the chest x-ray is CHF. The patient's beta natruretic peptide is elevated. Received 80 of Lasix IV. Plan is to have the patient admitted to the hospital. He is to undergo a heart cath on Sunday. Duplex ultrasound demonstrates a clot in the gastrocnemius vein. Lab Data Attestation: I reviewed the patient's lab results. Labs: Laboratory Results - last 24 hr 08/25/22 08/25/22 08/25/22 10:30 10:30 10:30 WBC 9.3 RBC 4.69 Hgb 13.2 Hct 39.4 L MCV 84.0 MCH 28.1 MCHC 33.5 RDW Std Deviation 41.5 RDW Coeff of Sean 13.6 Plt Count 277 MPV 9.1 Immature Gran % (Auto) 0.300 Neut % (Auto) 78.3 H Lymph % (Auto) 11.8 L [place] % (Auto) 7.6 Eos % (Auto) 1.6 Baso % (Auto) 0.4 Absolute Neuts (auto) 7.3 Absolute Lymphs (auto) 1.10 Nucleated RBC % 0 PT 14.8 INR 1.2 APTT 34.3 Sodium 134 L Potassium 4.1 Chloride 103 Carbon Dioxide 25.0 Anion Gap 6 BUN 12 Creatinine 0.92 Estim Creat Clear Calc 82.98 Est GFR (MDRD) Af Amer 106 Est GFR (MDRD) Non-Af 88 BUN/Creatinine Ratio 13.1 Glucose 239 H Calcium 8.8 Total Bilirubin 1.00 AST 17 ALT 26 Alkaline Phosphatase 85 Troponin I High Sens 36 B-Natriuretic Peptide Total Protein 7.5 Albumin 3.0 L Globulin 4.5 H Albumin/Globulin Ratio 0.7 L 08/25/22 10:30 WBC RBC Hgb Hct MCV MCH MCHC RDW Std Deviation RDW Coeff of Sean Plt Count MPV Immature Gran % (Auto) Neut % (Auto) Lymph % (Auto) [place] % (Auto) Eos % (Auto) Baso % (Auto) Absolute Neuts (auto) Absolute Lymphs (auto) Nucleated RBC % PT INR APTT Sodium Potassium Chloride Carbon Dioxide Anion Gap BUN Creatinine Estim Creat Clear Calc Est GFR (MDRD) Af Amer Est GFR (MDRD) Non-Af BUN/Creatinine Ratio Glucose Calcium Total Bilirubin AST ALT Alkaline Phosphatase Troponin I High Sens B-Natriuretic Peptide 460.8 H Total Protein Albumin Globulin Albumin/Globulin Ratio Radiography Diagnostic Testing: Clinical Impression(s) from Imaging Studies Chest X-Ray 08/25/22 10:21 IMPRESSION: Progressive bilateral pulmonary infiltrates worse in the left mid lung superimposed on CHF. Electronically Signed: Lavell Lin MD at 10:58 EST , EKG Initial EKG: Attestation: I personally reviewed and interpreted this EKG as follows: Comments: Sinus tachycardia with PVCs and ventricular rate of 111 bpm Discharge Plan Triage Chief Complaint: Shortness of Breath Other Complaint: Asthma ED Provider: Thony Montalvo Dx/Rx/DC Orders Prescriptions: No Action albuterol sulfate [ProAir HFA] 1 PUFF inhaler 2 puff inhalation Q4H PRN PRN (Reason: Sob &/Or Wheezing) levothyroxine 75 mcg Tablet 75 mcg PO DAILY glimepiride 4 mg tablet 4 mg PO DAILY Label Comments: TAKE 1 TABLET BY MOUTH ONCE DAILY multivitamin Tablet 1 tab PO DAILY aspirin 81 mg Tablet,Chewable 81 mg PO DAILY famotidine 20 mg Tablet 20 mg PO DAILY losartan 25 mg Tablet 25 mg PO DAILY 30 Days Qty: 30 0RF furosemide 20 mg Tablet 20 mg PO DAILY 30 Days Qty: 30 0RF metoprolol succinate 25 mg Tablet Extended Release 24 Hr 12.5 mg PO DAILY 30 Days Qty: 15 0RF Primary Care Provider: Leslie Tolentino Referrals: Leslie Tolentino MD [Primary Care Provider] -
[2022-08-25 10:38] LABS: Absolute Neutrophil Count 7.3 X10^3/uL (2.0-7.7); Basophil# 0.04 X10^3/uL; Basophil% 0.4 % (0-1); Eosinophil# 0.15 X10^3/uL; Eosinophils% 1.6 % (0-5); Hematocrit 39.4 % (40-54); Hemoglobin 13.2 g/dL (13.0-16.5); Lymphocyte % 11.8 % (19-41); Mean Corp Hgb Conc 33.5 g/dL (32-36); Mean Corpuscular Hgb 28.1 pg (27.0-32.0); Mean Platelet Vol. 9.1 fl (6.2-12.0); Monocyte# 0.71 X10^3/uL; Monocyte% 7.6 % (0-10); NRBC Flagged by Analyzer 0 % (0-5); Neutrophil # 7.28 X10^3/uL (2.7-7.7); Neutrophil % 78.3 % (47-70); Platelet Count 277 K/mm3 (150-450); RBC Distribution Width CV 13.6 % (11.6-14.6); RBC Distribution Width SD 41.5 fl (35.1-43.9); Red Blood Count 4.69 M/mm3 (4.6-6.2); White Blood Count 9.3 K/mm3 (4.4-11.0)
[2022-08-25 10:46] LABS: International Normalized Ratio 1.2; Prothrombin Time (Protime)PT. 14.8 SECONDS (11.7-14.9)
[2022-08-25 10:47] LABS: Partial Thromboplast Time 34.3 Seconds (24.1-36.2)
[2022-08-25 11:00] LABS: ALB/GLOB Ratio 0.7 RATIO (0.9-2.4); AST(SGOT) 17 U/L (15-37); Alanine Aminotransfer ALT/SGPT 26 U/L (16-61); Alkaline Phosphatase 85 U/L (45-117); Anion Gap 6 (5-15); BUN 12 mg/dL (7-18); BUN/Creat Ratio 13.1 RATIO (10-20); Calcium,Total 8.8 mg/dL (8.5-10.1); Chloride 103 mmol/L (98-107); Creatinine, Serum 0.92 mg/dL (0.70-1.30); EST Glomerular Filtration Rate 88 mL/min (>60); Est Glom Filt Rate - Afr Amer 106 mL/min (>60); Estimated Creatinine Clearance 82.98 ml/min; Globulin 4.5 g/dL (2.2-4.2); Glucose 239 mg/dL (74-106); Potassium 4.1 mmol/L (3.5-5.1); Protein, Total 7.5 g/dL (6.4-8.2); Sodium Level 134 mmol/L (136-145); Troponin-I HS 36 pg/mL (3.0-78.0)
[2022-08-25 11:17] LABS: BNP,B-Type NATRIURETIC PEPTIDE 460.8 pg/mL (0-100)
--- NOTE | 2022-08-25 11:25 | HP.PCM.HOS_ITS ---
HPI - General General Date of Admission: 08/25/22 Date of Service: 08/25/22 Chief Complaint: shortness of breath HPI Collette GASTELUM, is a 67 M with a PMH as outlined who presents via the ED with a complaint of shortness of breath. 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 He was admitted just a week prior to admission and diuresed for acute on chronic exacerbation of heart failure. He said he had previously not been taking his meds as prescribed and had been stretching it out to make it last longer, but after his last admission he has been taking his meds as prescribed. He is to be on Eliquis for left ventricular thrombus but says he has been off of it for a while and it was not part of his medications that he was prescribed at his last visit.. This includes his eliquis which he was on for left ventricular thrombus. His shortness of breath has been getting worse so he came in to the ED. He denied any chest pain, palpitations, dizziness, nausea, vomiting or diarrhea. Review of systems is otherwise negative. VItals in the ED were temp of 96.9F, with MS of 108, BP of 124/96 and RR of 19. He is saturating at 93% on room air. CBC and BMP wre unremarkable. BNP was 460.8 . EKG showed no acute ST changes. CXR showed progressive bilateral pulmonary infiltrates worse in the left mid lung, superimposed on CHF. He is being admitted to be managed for acute on chronic exacerbation of heart failure.HE also had duplex of his LE which showed a blood clot in the gastrocnemius vein. [facility] Medical History Acute systolic heart failure Arthritis COPD (chronic obstructive pulmonary disease) Essential (primary) hypertension GERD (gastroesophageal reflux disease) GI bleed Gout Hypothyroidism Left ventricular thrombus Severe left ventricular systolic dysfunction Type 2 diabetes mellitus Home Medications albuterol sulfate 90 mcg/actuation aerosol inhaler (ProAir HFA) 2 puff inhalation Q4H PRN PRN Sob &/Or Wheezing 08/06/18 [History Last Taken 08/25/22] aspirin 81 mg chewable tablet 81 mg PO DAILY [facility]. 08/10/22 [History Last Taken 08/25/22] glimepiride 4 mg tablet 4 mg PO DAILY DM 08/10/22 [History Last Taken 08/25/22] levothyroxine 75 mcg tablet 75 mcg PO DAILY THYROID 08/10/22 [History Last Taken 08/25/22] multivitamin 1 tab PO DAILY supplement 08/10/22 [History Last Taken 08/25/22] famotidine 20 mg tablet 20 mg PO DAILY heart burn 08/11/22 [History Last Taken 08/24/22] furosemide 20 mg tablet 20 mg PO DAILY 30 days #30 tabs 08/12/22 [Rx Last Taken 08/25/22] losartan 25 mg tablet 25 mg PO DAILY 30 days #30 tabs 08/12/22 [Rx Last Taken 08/25/22] metoprolol succinate 25 mg tablet,extended release 24 hr 12.5 mg PO DAILY 30 days #15 tabs 08/12/22 [Rx Last Taken 08/24/22] Allergy/AdvReac Type Severity Reaction Status Date / Time No Known Allergies Allergy Verified 08/25/22 10:15 Family History Mother Hypertension Sister Hypertension Father Hypertension Myocardial infarction from [place] age 54 Surgical History H/O arthroscopy of right knee History of tonsillectomy History of total left knee replacement History of total right knee replacement Hx of cholecystectomy Social History Smoking Status: Former smoker ROS Review of Systems ROS Unobtainable: Denies due to encephalopathy Constitutional Constitutional: Reports fatigue and malaise; Denies anorexia, chills, fever(s) or weakness Eyes Eyes: Denies change in vision ENT HEENT: Denies dysphagia Cardiovascular Cardiovascular: Reports dyspnea on exertion, edema, orthopnea and palpitations; Denies chest pain or lightheadedness Respiratory/Chest Respiratory/Chest: Reports dyspnea, shortness of breath at rest and shortness of breath with exertion; Denies cough, excessive phlegm production, hemoptysis, pro ductive cough or wheezing Gastrointestinal Gastrointestinal: Denies abdominal pain, constipation, diarrhea, nausea or vomiting Genitourinary Genitourinary: Denies burning urination, dysuria or hematuria Musculoskeletal Musculoskeletal: Denies arthralgias or back pain Neurologic Neurologic: Denies confusion, dizziness, focal weakness, headache(s), seizures, syncope or tremor(s) Psychiatric Psychiatric: Denies anxiety Hematologic/Lymphatic Hematologic/Lymphatic: Denies anemia Vital Signs Vital Signs Vital Signs: 08/25/22 10:15 08/25/22 11:17 Temperature 96.9 F L Temperature Source Temporal Pulse Rate 108 H Respiratory Rate 18 Respiratory Effort Short of Breath Labored Respiratory Depth Normal Respiratory Pattern Tachypnea Blood Pressure 124/96 H Blood Pressure Mean 105 Pulse Ox 93 Oxygen Delivery Method Room Air Room Air Weight Weight: 262 lb Body Mass Index (BMI) 36.5 Physical Exam Const alert, oriented x3 and no apparent distress Constitutional Narrative: obese General Appearance: cooperative HEENT normocephalic, head/scalp atraumatic, hearing grossly normal bilaterally and moist oral mucous membranes Mouth: oral and palatal mucosa normal Eyes PERRL, EOMs intact bilaterally and conjunctivae normal Neck no lymphadenopathy and supple Resp Resp Narrative: diminished breath Cardio regular rate, regular rhythm, S1 normal heart sound, S2 normal heart sound and no murmurs GI normal to inspection, nondistended, normoactive bowel sounds, soft to palpation, non-tender and non-distended Extremity normal to inspection and full ROM Skin Skin Narrative: bilateral lower extremity edema, with LLE more swollen than right. Mild tenderness in left calf Neuro oriented x3, CN's II-XII intact bilaterally, moves all extremities and no focal motor deficits Sensorium / Orientation: awake and alert Motor Exam: strength 5/5 throughout Psych affect normal Results Lab / Micro Data Result Diagrams: 08/25/22 10:30 08/25/22 10:30 Labs: Laboratory Results - last 24 hr 08/25/22 10:30: WBC 9.3, RBC 4.69, Hgb 13.2, Hct 39.4 L, MCV 84.0, MCH 28.1, MCHC 33.5, RDW Std Deviation 41.5, RDW Coeff of Sean 13.6, Plt Count 277, MPV 9.1, Immature Gran % (Auto) 0.300, Neut % (Auto) 78.3 H, Lymph % (Auto) 11.8 L, [place] % (Auto) 7.6, Eos % (Auto) 1.6, Baso % (Auto) 0.4, Absolute Neuts (auto) 7.3, Absolute Lymphs (auto) 1.10, Nucleated RBC % 0 08/25/22 10:30: PT 14.8, INR 1.2, APTT 34.3 08/25/22 10:30: Sodium 134 L, Potassium 4.1, Chloride 103, Carbon Dioxide 25.0, Anion Gap 6, BUN 12, Creatinine 0.92, Estim Creat Clear Calc 82.98, Est GFR (MDRD) Af Amer 106, Est GFR (MDRD) Non-Af 88, BUN/Creatinine Ratio 13.1, Glucose 239 H, Calcium 8.8, Total Bilirubin 1.00, AST 17, ALT 26, Alkaline Phosphatase 85, Troponin I High Sens 36, Total Protein 7.5, Albumin 3.0 L, Globulin 4.5 H, Albumin/Globulin Ratio 0.7 L 08/25/22 10:30: B-Natriuretic Peptide 460.8 H Radiology Impression Chest X-Ray 08/25/22 10:21 IMPRESSION: Progressive bilateral pulmonary infiltrates worse in the left mid lung superimposed on CHF. Electronically Signed: Lavell Lin MD at 10:58 EST , Assessment & Plan Assessment/Plan (1) Acute systolic heart failure: (2) Severe left ventricular systolic dysfunction: (3) Essential (primary) hypertension: PLAN: Plan # Acute on chronic combined heart failure * has known EF of 20%, with diastolic dysfunction also * was admitted and discharged just a week ago. He has been compliant with his Lasix. * Chest x-ray shows evidence of fluid overload. * Started on IV Lasix 40 mg twice daily. Monitor intake and output. * fluid restriction 1500 cc daily. * starton carvedilol 6.25mg bid. * for likely cath on Sunday * #Left ventricular thrombus * 2D echo in 2018 showed 2 thrombi in the left ventricle and he had an EF of 25%. * Used to be on a blood thinner but states he was taken off of it. * Started on subcu Lovenox for DVT. * Will likely need oral anticoagulation when his transition of Lovenox * #Acute left lower extremity gastrocnemius DVT * Complaint of swelling of his left leg and duplex done showed DVT in the left gastrocnemius vein. * Started on therapeutic Lovenox. * #Hypothyroidism: on synthroid DVT prophylaxis: therapeutic lovenox CODE STATUS: Full code * Patient counseled extensively about different types of CODE STATUS including full code, DNR CCA and DNR CCA. Patient elects to be full code. * Total [id number] time 17 minutes. Charges/Coding Visit Charges Inpatient E&M: 06225 Init Hosp L3 Procedures Hospitalists Procedures: 57536 Advncd Care Plan 30 Min
[2022-08-25] MEDS: Furosemide 100 MG/10 ML Vial 80 MG IV (11:35)
[2022-08-25 14:22] LABS: Troponin-I HS 35 pg/mL (3.0-78.0)
[2022-08-25] MEDS: Insulin Lispro 100 UNIT/ML INSULN.PEN SC ×2 (16:55→20:52)
[2022-08-25] MEDS: Enoxaparin 120 MG/0.8 ML Syringe SC (17:02)
[2022-08-25] MEDS: Furosemide 40 MG/4 ML Vial IV (17:02)
[2022-08-25] MEDS: 0.9% Saline Lock 10 ML Syringe IV (17:08)
[2022-08-25 17:32] LABS: Troponin-I HS 38 pg/mL (3.0-78.0)
[2022-08-25 19:36] LABS: Bedside Glucose 154 mg/dL (74-106)
[2022-08-25] MEDS: Carvedilol 6.25 MG Tablet PO (20:55)
[2022-08-26] VITALS (14 sets, daily range): BP systolic 100–122; BP diastolic 58–92; PULSE 68–103; RESP 18–22; TEMP 36.3–36.8; O2SAT 91–96
[2022-08-26 00:36] LABS: Bedside Glucose 169 mg/dL (74-106)
[2022-08-26 06:23] LABS: Absolute Lymphocyte Count 1.73 X10^3/uL (0.83-4.51); Absolute Neutrophil Count 5.2 X10^3/uL (2.0-7.7); Basophil# 0.05 X10^3/uL; Basophil% 0.6 % (0-1); Eosinophil# 0.27 X10^3/uL; Eosinophils% 3.4 % (0-5); Hematocrit 42.3 % (40-54); Hemoglobin 14.4 g/dL (13.0-16.5); Lymphocyte # 1.73 X10^3/ul (0.83-4.51); Lymphocyte % 21.9 % (19-41); Mean Corpuscular Hgb 28.4 pg (27.0-32.0); Mean Corpuscular Volume 83.4 fL (80-94); Mean Platelet Vol. 9.2 fl (6.2-12.0); Monocyte# 0.69 X10^3/uL; Monocyte% 8.7 % (0-10); NRBC Flagged by Analyzer 0 % (0-5); Neutrophil # 5.16 X10^3/uL (2.7-7.7); Neutrophil % 65.3 % (47-70); Platelet Count 320 K/mm3 (150-450); RBC Distribution Width CV 13.4 % (11.6-14.6); RBC Distribution Width SD 40.9 fl (35.1-43.9); Red Blood Count 5.07 M/mm3 (4.6-6.2); White Blood Count 7.9 K/mm3 (4.4-11.0)
[2022-08-26] MEDS: Levothyroxine 75 MCG Tablet PO (06:29)
[2022-08-26] MEDS: Enoxaparin 120 MG/0.8 ML Syringe SC ×2 (06:30→17:07)
[2022-08-26] MEDS: Insulin Lispro 100 UNIT/ML INSULN.PEN SC ×2 (06:33→11:54)
[2022-08-26 06:52] LABS: Anion Gap 5 (5-15); BUN 19 mg/dL (7-18); BUN/Creat Ratio 17.9 RATIO (10-20); Calcium,Total 9.9 mg/dL (8.5-10.1); Chloride 101 mmol/L (98-107); Creatinine, Serum 1.06 mg/dL (0.70-1.30); EST Glomerular Filtration Rate 74 mL/min (>60); Est Glom Filt Rate - Afr Amer 90 mL/min (>60); Estimated Creatinine Clearance 72.02 ml/min; Glucose 172 mg/dL (74-106); Magnesium 2.2 mg/dL (1.6-2.6); Potassium 3.7 mmol/L (3.5-5.1); Sodium Level 135 mmol/L (136-145)
[2022-08-26] MEDS: Multivitamins,Therapeutic Tablet 1 TABLET PO (08:20)
[2022-08-26] MEDS: Aspirin 81 MG TAB.CHEW PO (08:20)
[2022-08-26] MEDS: Famotidine 20 MG Tablet PO (08:21)
[2022-08-26] MEDS: Losartan Potassium 25 MG Tablet PO (08:21)
[2022-08-26] MEDS: Furosemide 40 MG/4 ML Vial IV (08:21)
[2022-08-26] MEDS: Carvedilol 6.25 MG Tablet PO ×2 (08:32→20:58)
--- NOTE | 2022-08-26 11:16 | PN.HOSP_ITS ---
Subjective Subjective Patient seen and examined. HE feels his breathing is improving. He denies any chest pain, palpitaitons, dizziness, fever, nausea, vomiting or diarrhea. Review of systems is otherwise negative. Objective Data Objective Data Vital Signs: Vital Signs Temp Pulse Resp BP Pulse Ox O2 Del Method O2 Flow Rate 98.3 F 94 18 112/81 H 94 Room Air 2 08/26/22 08:42 08/26/22 08:42 08/26/22 08:42 08/26/22 08:42 08/26/22 08:42 08/26/22 08:42 08/26/22 08:42 Oxygen Flow Rate (L/min) 2 Oxygen Delivery Method Room Air Weight: 254 lb 13.67 oz Body Mass Index (BMI) 36.5 Intake & Output: Intake and Output for Last 24 Hours 08/24/22 08/25/22 08/26/22 23:59 23:59 23:59 Intake Total 580 / 580 Output Total 325 / 325 700 / 700 Balance 255 / 255 -700 / -700 Lab / Micro Data Result Diagrams: 08/26/22 06:08 08/26/22 06:08 Labs: Laboratory Results - last 24 hr 08/25/22 10:30: B-Natriuretic Peptide 460.8 H 08/25/22 13:43: Troponin I High Sens 35 08/25/22 16:20: Troponin I High Sens 38 08/25/22 16:35: POC Glucose 154 H 08/25/22 20:51: POC Glucose 169 H 08/26/22 06:08: WBC 7.9, RBC 5.07, Hgb 14.4, Hct 42.3, MCV 83.4, MCH 28.4, MCHC 34.0, RDW Std Deviation 40.9, RDW Coeff of Sean 13.4, Plt Count 320, MPV 9.2, Immature Gran % (Auto) 0.100, Neut % (Auto) 65.3, Lymph % (Auto) 21.9, [place] % (Auto) 8.7, Eos % (Auto) 3.4, Baso % (Auto) 0.6, Absolute Neuts (auto) 5.2, Absolute Lymphs (auto) 1.73, Nucleated RBC % 0 08/26/22 06:08: Sodium 135 L, Potassium 3.7, Chloride 101, Carbon Dioxide 29.0, Anion Gap 5, BUN 19 H, Creatinine 1.06, Estim Creat Clear Calc 72.02, Est GFR (MDRD) Af Amer 90, Est GFR (MDRD) Non-Af 74, BUN/Creatinine Ratio 17.9, Glucose 172 H, Calcium 9.9, Magnesium 2.2 Radiography Diagnostic Testing: Radiology Impression Venous Doppler Study 08/25/22 10:30 Interpretation Summary There is no evidence of left lower extremity deep vein thrombosis. Pulsatile venous flow was noted bilaterally consistent with proximal venous hypertension or obstruction. Clinical correlation would be appropriate. Ordering Physician: Thony Montalvo Referring Physician: Leslie Tolentino Performed By: July Hoff, JACKI, RVT Physical Exam Const alert, oriented x3 and no apparent distress Constitutional Narrative: obese General Appearance: cooperative HEENT normocephalic, head/scalp atraumatic, hearing grossly normal bilaterally and moist oral mucous membranes Head and Scalp: normocephalic Mouth: oral and palatal mucosa normal Eyes PERRL, EOMs intact bilaterally and conjunctivae normal Neck no lymphadenopathy and supple Resp Resp Narrative: mildly diminished breath sounds bibasally, no wheezes or crackles. On room air. Cardio regular rate, regular rhythm, S1 normal heart sound, S2 normal heart sound and no murmurs GI normal to inspection, nondistended, normoactive bowel sounds, soft to palpation, non-tender and non-distended Extremity normal to inspection, full ROM and no clubbing, cyanosis or edema Skin Skin Narrative: lower extremity edema has improved Neuro oriented x3, CN's II-XII intact bilaterally, moves all extremities and no focal motor deficits Sensorium / Orientation: awake and alert Motor Exam: strength 5/5 throughout Psych affect normal Assessment & Plan Assessment/Plan (1) Acute systolic heart failure: (2) Severe left ventricular systolic dysfunction: (3) Essential (primary) hypertension: PLAN: Plan # Acute on chronic combined heart failure * has known EF of 20%, with diastolic dysfunction also * on iV lasix 40mg bid. Urine output since admission is ~ 1L * monitor intake and output. Fluid restriction to 1500cc daily * flor carvedilol 6.25mg bid * for cath on Sunday * * * #Left ventricular thrombus * 2D echo in 2018 showed 2 thrombi in the left ventricle and he had an EF of 25%. * Used to be on a blood thinner but states he was taken off of it. * Started on subcu Lovenox for DVT. * * #Acute left lower extremity gastrocnemius DVT * Complaint of swelling of his left leg and duplex done showed DVT in the left gastrocnemius vein. * on therapeutic lovenox. Transition to eliquis/xarelto/coumadin after cardiac cath Sunday * #Hypothyroidism: on synthroid DVT prophylaxis: therapeutic lovenox CODE STATUS: Full code * Charges/Coding Visit Charges Inpatient E&M: 17745 Subs Hosp L2
[2022-08-26 11:40] LABS: Bedside Glucose 170 mg/dL (74-106)
[2022-08-26 12:20] LABS: Bedside Glucose 243 mg/dL (74-106)
--- NOTE | 2022-08-26 12:30 | CASEMGMT ---
IRINA NOGUEIRA readmission note: Prior admission: Pt admitted 08/11 w/ CHF and discharged home 08/12. Pt signed on for [facility] Pt Link program @ discharge. Pt did not qualify for Home O2 @ discharge. Current admission: Admitted 08/25 w/A on C HF w/reduced EF. IRINA NOGUEIRA to room to talk w/pt and who is at bedside. Pt resting in bed. Pt states he has been taking his medication as prescribed since discharge. IRINA NOGUEIRA inquired about Eliquis he has been on in the past. He states it has been about 2 yrs ago since he was on it and states he thinks he stopped it d/t physician order. He is not sure if he used the 30-day savings card for it in the past. He does not currently have Rx coverage. states she is looking into plans and wants to get him signed up in the next few days since it is open enrollment. Pt has had an appt w/Dr Tolentino since discharge and say AUGUSTA Parra, @ [facility] yesterday. Discussed discharge plan. Pt states he may be interested in HHC @ d/c but states he wants to wait until closer to time of discharge to decide. He does have a pulse ox but does not have home O2. Pt and given list of local DME co's, should he require O2 @ d/c. They choose [employer]. Plan: Pt is currently active w/Pt Link Program. Home w/possible HHC. Pt wishes to think about it and make a decision closer to discharge. Follow for anti-coag and Rx cost @ discharge. Pt does not currently have RX coverage Pt does not have Home O2. Follow for possible Home O2 @ d/c. Plan for heart cath on Sunday. Hung GLYNN RN, CM
--- NOTE | 2022-08-26 13:51 | CT_ITS ---
STUDY: CTA CHEST REASON FOR EXAM: Male, 67 years old. Shortness of breath RADIATION DOSAGE (If Supplied By Facility): CTDIvol = ( 23.35 ) mGy, DLP = ( 561.52 ) mGycm TECHNIQUE: The examination was performed with the intravenous administration of 100mL Isovue-370. Post-processing of the angiographic images was performed, with multiplanar reformation and 3D reconstruction. Individualized dose optimization techniques were used for this CT. COMPARISON: None. FINDINGS: Normal enhancement of the main pulmonary artery and right and left pulmonary arteries. Normal enhancement of the bilateral peripheral pulmonary arteries. There is no demonstrated pulmonary embolism. Dilatation descending thoracic aorta. 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 There is no demonstrated aortic dissection. Cardiomegaly. No pericardial effusion. Normal mediastinum. Normal hilar regions. Normal visualized trachea and bronchi. Multifocal and bilateral alveolar airspace disease and groundglass opacities with upper lobe predominance. No large consolidations. No pleural effusions. Normal chest wall structures. No acute or aggressive osseous abnormality. No acute findings in the upper abdomen. CT/CTA Chest W/WO Contrast IMPRESSION: Normal CTA chest examination, without a demonstrated pulmonary embolism or arterial dissection. Bilateral airspace disease consistent with infection including atypical or viral pneumonia. Electronically Signed: Rob Thomas MD at 15:23 EST ,
[2022-08-26 16:50] LABS: Bedside Glucose 135 mg/dL (74-106)
[2022-08-26 23:11] LABS: Bedside Glucose 136 mg/dL (74-106)
[2022-08-27] VITALS (12 sets, daily range): BP systolic 90–108; BP diastolic 66–86; PULSE 65–126; RESP 16–18; TEMP 36.4–36.7; O2SAT 95–97
[2022-08-27] MEDS: Levothyroxine 75 MCG Tablet PO (06:54)
[2022-08-27] MEDS: Insulin Lispro 100 UNIT/ML INSULN.PEN SC ×4 (06:54→21:15)
[2022-08-27] MEDS: Enoxaparin 120 MG/0.8 ML Syringe SC ×2 (06:54→17:08)
[2022-08-27 07:15] LABS: Bedside Glucose 168 mg/dL (74-106)
[2022-08-27] MEDS: Carvedilol 6.25 MG Tablet PO (10:17)
[2022-08-27] MEDS: Famotidine 20 MG Tablet PO (10:17)
[2022-08-27] MEDS: Aspirin 81 MG TAB.CHEW PO (10:17)
[2022-08-27] MEDS: Multivitamins,Therapeutic Tablet 1 TABLET PO (10:17)
[2022-08-27] MEDS: Losartan Potassium 25 MG Tablet PO (10:18)
[2022-08-27] MEDS: Furosemide 40 MG/4 ML Vial IV ×2 (10:18→17:08)
[2022-08-27] MEDS: 0.9% Saline Lock 10 ML Syringe IV (10:19)
[2022-08-27 11:51] LABS: Bedside Glucose 247 mg/dL (74-106)
--- NOTE | 2022-08-27 12:40 | PN.HOSP_ITS ---
Subjective Subjective Patient seen and examined. He had no complaints and had an uneventful night. Review of systems is otherwise negative. He has remained hemodynamically stable. Objective Data Objective Data Vital Signs: Vital Signs Temp Pulse Resp BP Pulse Ox O2 Del Method O2 Flow Rate 97.7 F L 126 H 18 107/80 96 Nasal Cannula 2 08/27/22 09:00 08/27/22 11:00 08/27/22 09:00 08/27/22 09:00 08/27/22 09:00 08/27/22 09:00 08/27/22 09:00 Oxygen Flow Rate (L/min) 2 Oxygen Delivery Method Nasal Cannula Weight: 250 lb 7.122 oz Body Mass Index (BMI) 36.5 Intake & Output: Intake and Output for Last 24 Hours 08/25/22 08/26/22 08/27/22 23:59 23:59 23:59 Intake Total 580 / 580 660 / 660 120 / 120 Output Total 325 / 325 700 / 700 775 / 775 Balance 255 / 255 -40 / -40 -655 / -655 Lab / Micro Data Result Diagrams: 08/26/22 06:08 08/26/22 06:08 Labs: Laboratory Results - last 24 hr 08/26/22 16:16: POC Glucose 135 H 08/26/22 20:57: POC Glucose 136 H 08/27/22 06:54: POC Glucose 168 H 08/27/22 11:15: POC Glucose 247 H Radiography Diagnostic Testing: Radiology Impression Chest CTA 08/26/22 13:51 IMPRESSION: Normal CTA chest examination, without a demonstrated pulmonary embolism or arterial dissection. Bilateral airspace disease consistent with infection including atypical or viral pneumonia. Electronically Signed: Rob Thomas MD at 15:23 EST , Physical Exam Const alert, oriented x3 and no apparent distress Constitutional Narrative: obese General Appearance: cooperative HEENT normocephalic, head/scalp atraumatic, hearing grossly normal bilaterally and moist oral mucous membranes Head and Scalp: normocephalic Mouth: oral and palatal mucosa normal Eyes PERRL, EOMs intact bilaterally and conjunctivae normal Neck no lymphadenopathy and supple Resp Resp Narrative: mildly diminished breath sounds bibasally, no wheezes or crackles. On room air. Cardio regular rate, regular rhythm, S1 normal heart sound, S2 normal heart sound and no murmurs GI normal to inspection, nondistended, normoactive bowel sounds, soft to palpation, non-tender and non-distended Extremity normal to inspection, full ROM and no clubbing, cyanosis or edema Skin Skin Narrative: lower extremity edema has improved Neuro oriented x3, CN's II-XII intact bilaterally, moves all extremities and no focal motor deficits Sensorium / Orientation: awake and alert Motor Exam: strength 5/5 throughout Psych affect normal Assessment & Plan Assessment/Plan (1) Acute systolic heart failure: (2) Severe left ventricular systolic dysfunction: (3) Essential (primary) hypertension: PLAN: Plan # Acute on chronic combined heart failure * has known EF of 20%, with diastolic dysfunction also * on iV lasix 40mg bid. Urine output since admission is ~ 1L * monitor intake and output. Fluid restriction to 1500cc daily * on carvedilol 6.25mg bid * for cath on Sunday * in cumulative negative balance by 440mls. * CTA chest was negative for PE but showed bilateral airspace disease consistent with infection including atypical or viral pneumonia * * #Left ventricular thrombus * 2D echo in 2018 showed 2 thrombi in the left ventricle and he had an EF of 25%. * Used to be on a blood thinner but states he was taken off of it. * on subcu Lovenox for DVT. * * #Acute left lower extremity gastrocnemius DVT * Complaint of swelling of his left leg and duplex done showed DVT in the left gastrocnemius vein. * on therapeutic lovenox. * Transition to eliquis/xarelto/coumadin after cardiac cath Sunday * #Hypothyroidism: on synthroid DVT prophylaxis: therapeutic lovenox CODE STATUS: Full code * Charges/Coding Visit Charges Inpatient E&M: 73198 Subs Hosp L2
[2022-08-27 17:25] LABS: Bedside Glucose 195 mg/dL (74-106)
[2022-08-27 21:55] LABS: Bedside Glucose 167 mg/dL (74-106)
[2022-08-28] VITALS (15 sets, daily range): BP systolic 95–110; BP diastolic 66–77; PULSE 69–89; RESP 16–18; TEMP 36.3–36.5; O2SAT 95–98
--- NOTE | 2022-08-28 05:55 | EKG12_ITS ---
Test Reason : AM EKG Blood Pressure : / mmHG Vent. Rate : 089 BPM Atrial Rate : 089 BPM P-R Int : 202 ms QRS Dur : 120 ms QT Int : 396 ms P-R-T Axes : 048 005 110 degrees QTc Int : 481 ms Sinus rhythm with occasional Premature ventricular complexes Left ventricular hypertrophy with QRS widening and repolarization abnormality ( R in aVL ) Abnormal ECG When compared with ECG of 25-AUG-2022 10:25, MANUAL COMPARISON REQUIRED, DATA IS UNCONFIRMED Confirmed by GAVIN CORONEL, ARIC ([id number]), deputy editor in chief VICTOR HUGO MAYORGA ([id number]) on 08/29/2022 12:40:02 PM Referred By: Confirmed By:ARIC ALONSO MD
[2022-08-28] MEDS: Aspirin 81 MG TAB.CHEW PO (06:08)
[2022-08-28] MEDS: Carvedilol 6.25 MG Tablet PO (06:08)
[2022-08-28] MEDS: Levothyroxine 75 MCG Tablet PO (06:08)
[2022-08-28] MEDS: Losartan Potassium 25 MG Tablet PO (06:08)
[2022-08-28 07:15] LABS: Bedside Glucose 175 mg/dL (74-106)
--- NOTE | 2022-08-28 07:20 | CON.PCM.CA_ITS ---
Assessment & Plan Assessment/Plan (1) Acute systolic heart failure: PLAN: He does have heart failure with reduced left ventricular systolic function. The etiology is unclear but presumed to be hypertension. I would recommend that we perform a left heart catheterization to definitively exclude coronary artery disease due to his risk factors and age. Depending on those findings further recommendations will be made. * In the meantime he will continue on guideline directed medical therapy. * Continue carvedilol * Continue Entresto and diuretic * Will start SGLT2 inhibitor * Will follow as outpatient after guideline directed medical care. If ejection fraction does not improve in 90 days we will need to consider for primary defibrillator placement. * * Cardiac cath today demonstrated a totally occluded LAD * Severe LV dysfunction * Will recommend a cardiac MRI (2) Essential (primary) hypertension: PLAN: Continue current medication for blood pressure which appears to be better controlled at this time. Thank you for allowing me to participate in the care of your patient. Please don't hesitate to call if any issues arise. HPI Consult Data Date of Consult: 08/28/22 HPI Narrative HPI Narrative: AYDIN GASTELUM, is a 67 M who presents with progressive shortness of breath. He has a history of severe global left ventricular systolic dysfunction with an estimated ejection fraction of 20%.? He also had ventricular thrombi as well as diastolic dysfunction and significant hypertension.? He was not seen in our office since 2018, this was his? initial visit with us, then on August 10, 2022 he was stopping up to make an appt with us and for medications refills. He was noted dyspneic and complaining of pain in his left arm.? He was brought to the emergency room for further evaluation.? It was noted that he was not taking his medications as previously prescribed because of the cost of medications. He also notes that he did not follow with us routinely as he was concerned about the medical bills from his hospital stay at that time. He was admitted for further evaluation.? He did have an echocardiogram which demonstrated an ejection fraction of 20% with severe global left ventricular systolic dysfunction.? Diastolic dysfunction is intermediate.? Mild to moderate mitral insufficiency.,? Mild tricuspid insufficiency, mild pulmonary hypertension and mildly dilated aortic root.? Cardiology was not consulted at time of visit.? He was restarted on his medications and discharged home on metoprolol 12-1/2 mg daily, losartan 25 mg daily, Lasix 20 mg daily.? We then received a call from the clinical nurse specialist that was following patient up from the hospital stay.? It with there was concern of increasing congestive heart failure.? We increased his Lasix to 40 mg a day.? He presented to the office and was noted to be quite short of breath with minimal activity as well as having pedal edema. He also had paroxysmal nocturnal dyspnea as well as a heaviness in his chest. He was sent back to the hospital and admitted for diuresis and further evaluation of his heart failure. He has been diuresed and is feeling better. Intake [facility] [place] Medical History Acute systolic heart failure Arthritis COPD (chronic obstructive pulmonary disease) Essential (primary) hypertension GERD (gastroesophageal reflux disease) GI bleed Gout Hypothyroidism Left ventricular thrombus Severe left ventricular systolic dysfunction Type 2 diabetes mellitus Home Medications albuterol sulfate 90 mcg/actuation aerosol inhaler (ProAir HFA) 2 puff inhalation Q4H PRN PRN Sob &/Or Wheezing 08/06/18 [History Last Taken 08/25/22] aspirin 81 mg chewable tablet 81 mg PO DAILY HEALTH MAINT. 08/10/22 [History Last Taken 08/25/22] glimepiride 4 mg tablet 4 mg PO DAILY DM 08/10/22 [History Last Taken 08/25/22] levothyroxine 75 mcg tablet 75 mcg PO DAILY THYROID 08/10/22 [History Last Taken 08/25/22] multivitamin 1 tab PO DAILY supplement 08/10/22 [History Last Taken 08/25/22] famotidine 20 mg tablet 20 mg PO DAILY heart burn 08/11/22 [History Last Taken 08/24/22] furosemide 20 mg tablet 20 mg PO DAILY 30 days #30 tabs 08/12/22 [Rx Last Taken 08/25/22] losartan 25 mg tablet 25 mg PO DAILY 30 days #30 tabs 08/12/22 [Rx Last Taken 08/25/22] metoprolol succinate 25 mg tablet,extended release 24 hr 12.5 mg PO DAILY 30 days #15 tabs 08/12/22 [Rx Last Taken 08/24/22] Allergy/AdvReac Type Severity Reaction Status Date / Time No Known Allergies Allergy Verified 08/25/22 10:15 Family History Mother Hypertension Sister Hypertension Father Hypertension Myocardial infarction from [place] age 54 Surgical History H/O arthroscopy of right knee History of tonsillectomy History of total left knee replacement History of total right knee replacement Hx of cholecystectomy Social History Smoking Status: Former smoker ROS Constitutional Constitutional: Denies fever(s) or weight loss Eyes Eyes: Reports systems reviewed and no addt'l complaints, except as documented ENT HEENT: Reports systems reviewed and no addt'l complaints, except as documented Cardiovascular Cardiovascular: Reports chest pain at rest, dyspnea at rest, dyspnea on exertion, paroxysmal nocturnal dyspnea, pedal edema and weight gain; Denies chest pain with activity, edema or palpitations Respiratory/Chest Respiratory/Chest: Reports dyspnea on exertion, productive cough, shortness of breath at rest and shortness of breath with exertion Gastrointestinal Gastrointestinal: Denies change in bowel habits, nausea, vomiting or weight changes Genitourinary Genitourinary: Denies difficulty urinating Musculoskeletal Musculoskeletal: Denies joint stiffness or muscle weakness Integumentary Integumentary: Denies lesions Neurologic Neurologic: Denies dizziness or syncope Psychiatric Psychiatric: Denies anxiety Endocrine Endocrinology: Denies excessive sweating or fatigue Hematologic/Lymphatic Hematologic/Lymphatic: Denies anemia Allergic/Immunologic Allergic/Immunologic: Denies seasonal rhinorrhea Physical Exam Const alert, oriented x3 and no apparent distress General Appearance: cooperative HEENT hearing grossly normal bilaterally Head and Scalp: atraumatic Eyes EOMs intact bilaterally Neck General: normal visual inspection Chest inspection of chest normal and palpation of chest normal Resp normal respiratory effort Auscultation: clear to auscultation bilaterally Cardio regular rate, regular rhythm, S1 normal heart sound and S2 normal heart sound Jugular Venous Distention: JVD GI normal to inspection, nondistended, normoactive bowel sounds Extremity normal capillary refill and no pedal edema Peripheral Pulses: Yes pulses 2+ throughout and femoral pulses present Skin no rashes or lesions noted Neuro oriented x3 and CN's II-XII intact bilaterally Psych Appearance: grossly normal and appropriate Risk Stratification Risk Stratification Applicable: No Objective Data Vital Signs: Vital Signs Temp Pulse Resp BP Pulse Ox O2 Del Method O2 Flow Rate 97.7 F L 89 18 106/70 96 Nasal Cannula 2 08/28/22 05:14 08/28/22 05:14 08/28/22 05:14 08/28/22 05:14 08/28/22 05:14 08/28/22 05:14 08/28/22 05:14 Oxygen Flow Rate (L/min) 2 Oxygen Delivery Method Nasal Cannula Weight: 253 lb 12.033 oz Body Mass Index (BMI) 36.5 Intake & Output: Intake and Output for Last 24 Hours 08/26/22 08/27/22 08/28/22 23:59 23:59 23:59 Intake Total 660 / 660 240 / 240 Output Total 700 / 700 975 / 1425 700 / 700 Balance -40 / -40 -735 / -1185 -700 / -700 Lab / Micro Data Result Diagrams: 08/26/22 06:08 08/26/22 06:08 Labs: Laboratory Results - last 24 hr 08/27/22 11:15: POC Glucose 247 H 08/27/22 16:21: POC Glucose 195 H 08/27/22 21:15: POC Glucose 167 H 08/28/22 05:11: POC Glucose 175 H Cardiology Labs/Tests Rhythm: EKG: ECHO: Stress Test: Cardiac Cath: PCI: CT Surgery: Holter monitor: EPS: PPM: CXR: Chest CT Scan:
--- NOTE | 2022-08-28 09:20 | CL.D_ITS ---
Patient Name: AYDIN GASTELUM Study Date: 08/28/2022 Performing: Dakota Frost MD Ht: 71 inches 180.34 cm : 1955 Wt: 254.1 lbs 115.1 kg Age: 67 Gender: male BSA: 2.33 PROCEDURE(S) PERFORMED DC01-([id number])LHC/COR/LV CLINICAL PROFILE AND INDICATIONS Indications: Suspected CAD Heart Failure: NYHA Class: 3, Newly Diagnosed: Yes, Heart Failure Type: Systolic Stress/Imaging Stress/Image Study Performed: No CAD Presentations: Symptom unlikely to be ischemic. CONCLUSIONS Severe single-vessel disease with totally occluded left anterior descending artery and collaterals from right to left with severe left ventricular systolic dysfunction. RECOMMENDATIONS We will recommend maximal guideline directed medical therapy as well as a cardiac MRI to look for viability in the anterior wall. DESCRIPTION OF PROCEDURE The patient arrived to the procedure lab. The risks and benefits of the procedure as well as a full description of our services here and current unavailability of surgical backup were fully explained to the patient and/or their significant other prior to the catheterization. The Timeout was completed, verifying the correct patient and procedure. The patient's procedural site was prepped and draped in the usual fashion. Local anesthetic was given subcutaneously to right radial region with Lidocaine 2%. Local anesthetic was given subcutaneously to right groin region with Lidocaine 2%. Using a modified Seldinger technique, arterial access was obtained via the right radial artery, a 6Fr sheath was inserted., arterial access was obtained via the right femoral artery, a 5Fr sheath was inserted. Left Coronary Artery selective angiography was performed in multiple views using a 5 Fr. JL4 catheter. Right Coronary Artery selective angiography was then performed in multiple views using a 5 Fr. JR 4 catheter. Left Ventriculography was performed in PADRON projection using a 5 Fr. Pigtail catheter. LV to AO pullback pressures were then recorded.The Femoral arterial sheath was pulled and a Mynx closure device was deployed for hemostasis. The arterial sheath was pulled and a TR Band was applied for hemostasis. 10cc air inserted. 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 No significant stenosis is noted COLLATERAL FLOW: Collateral flow from Right to Left COMPLICATIONS No Complications PROCEDURE MEDICATIONS Fentanyl 50 mcg IV Versed 1 mg IV Oxygen: 2 L/min via nasal cannula Heparin given IA 08/28/2022 08:33:50 Nitro 100 mcg IC 08/28/2022 08:48:59 Verapamil 2.5mg, Ntg 100mcgs, 3000 units of Heparin given IA 08/28/2022 08:33:50 SUMMARY OF HEMODYNAMIC DATA Time AIR REST ECG 08:08:52 Art 116/70 (83) 08:28:35 AO 80/65 (72) SA 08:36:55 LV 89/12, 24 08:57:33 LV 93/15, 27 08:57:39 LV 87/13, 26 08:58:21 LVp 106/1, 25 08:58:31 AOp 95/68 (79) 08:58:36 Signed By Dakota Frost MD On 08/28/2022 09:20:16 Dakota Frost MD
[2022-08-28] MEDS: 0.9% Normal Saline 1,000 ML 15 ML IV (10:01)
[2022-08-28] MEDS: Multivitamins,Therapeutic Tablet 1 TABLET PO (10:34)
[2022-08-28] MEDS: Furosemide 40 MG Tablet PO (10:34)
[2022-08-28] MEDS: SACUBITRIL/VALSARTAN 24/26 MG TABLET 1 EACH PO (10:34)
[2022-08-28] MEDS: Empagliflozin 10 MG Tablet PO (10:34)
[2022-08-28] MEDS: Famotidine 20 MG Tablet PO (10:34)
[2022-08-28] MEDS: Insulin Lispro 100 UNIT/ML INSULN.PEN SC (11:27)
[2022-08-28 11:55] LABS: Bedside Glucose 166 mg/dL (74-106)
--- NOTE | 2022-08-28 12:32 | DCINST_ITS ---
Discharge Instructions Diet Discharge Diet: Low fat / Low cholesterol, 6 Cup Fluid Restriction and Carb Control Diet Activity Discharge Activity: Return to Normal Activity Dressing / Incision Call your doctor if you observe: Fever of 101 or Higher, Shortness of breath, Dizziness, Fainting spells, Swelling in the ankles, Chest pain and Increased palpitations (irregular heartbeat) Follow Up Care Test Results: Test results from this visit will be discussed in further detail at your follow- up appointment, if applicable. Discharge Plan Admission Admit Date/Time: 08/25/22 11:54 Attending Provider: Rob Alvarez Primary Care Provider: Leslie Tolentino Consulting Providers: Lula Braswell Discharge Orders/Prescriptions Prescriptions: New carvedilol 6.25 mg Tablet 6.25 mg PO BID 30 Days Qty: 60 0RF Eliquis 5 mg Tablet 5 mg PO BID 30 Days Qty: 60 0RF Jardiance 10 mg Tablet 10 mg PO DAILY 30 Days Qty: 30 0RF Entresto 24-26 mg Tablet 1 ea PO BID 30 Days Qty: 60 0RF Continued albuterol sulfate [ProAir HFA] 1 PUFF inhaler 2 puff inhalation Q4H PRN PRN (Reason: Sob &/Or Wheezing) levothyroxine 75 mcg Tablet 75 mcg PO DAILY glimepiride 4 mg tablet 4 mg PO DAILY Label Comments: TAKE 1 TABLET BY MOUTH ONCE DAILY multivitamin Tablet 1 tab PO DAILY aspirin 81 mg Tablet,Chewable 81 mg PO DAILY famotidine 20 mg Tablet 20 mg PO DAILY Changed furosemide 20 mg Tablet 40 mg PO DAILY 30 Days Qty: 30 0RF Discontinued losartan 25 mg Tablet 25 mg PO DAILY 30 Days Qty: 30 0RF metoprolol succinate 25 mg Tablet Extended Release 24 Hr 12.5 mg PO DAILY 30 Days Qty: 15 0RF Referrals / Follow Up: Leslie Tolentino MD [Primary Care Provider] - Within 1 Week Dakota Frost MD [Med Staff - Active Staff] - Within 1 Month Disposition Disposition (needs filled in before D/C Order can be placed): Home, Self Care
--- NOTE | 2022-08-28 13:52 | CASEMGMT ---
Pt to be sent home with Eliquis, Entresto, and Jardiance. Pt has no prescription coverage at least until 09/24/22. IRINA NOGUEIRA has a 30 day free trial coupon for Eliquis and Entresto but there is no coupon for Jardiance except $10 co-pay but they will only cover $175/month so pt would still have $300-[address] co-[address] Dr. Alvarez updated on all and states he will hold the jardiance for pt at this time. This RN CM to room to update pt/ and provided coupon cards, voice understanding. Pt/ voice no further questions/concerns/needs. [place]en IRINA NOGUEIRA
--- NOTE | 2022-08-28 15:00 | CHAPLAIN ---
Type of Pastoral Visit _x__ Initial Visit ___ Follow-up Visit ___ On-call Visit ___ General Patient Visit ___ Spiritual Assessment ___ Family Conference ___ Bereavement ___ Rapid Response ___ Code Blue ___ Other (describe below) Pastoral Care Referral From _x__ Patient ___ Family ___ Nurse ___ Physician ___ 3D Animator ___ Company Pilot ___ Other (describe below) Sacrament/Intervention _x__ Active listening ___ Anointing ___ Evangelical ___ Bereavement ___ Communion _x__ Haylie exploration ___ _x__ Life review _x__ Prayer ___ Reconciliation ___ Sacrament of Sick _x__ Supportive presence ___ Wedding ___ Other (describe below) Pastoral Comments patient exhibits eagerness to talk and states I've been waiting for you; pt gives details of recent illness and how that is affecting his plans, thinking, spiritual life, family goals, and hopes for the future; pt states several times that he believes in prayer and wants the chemical handler to pray for him; pt gives some life review including about his grandfather who was a [employer] preacher in [place]; pt admits to having to process and make some adjustments to life and haylie due to new diagnosis; prayer requested and given
--- NOTE | 2022-08-28 15:10 | PCM.DC.SUM ---
Providers Date of Admission: 08/25/22 Primary Care Physician: Dr. Leslie Tolentino MD Reason For Visit: ACUTE ON CHRONIC HFrEF Diagnosis Discharge Diagnosis (1) Acute systolic heart failure: Status: Acute Code(s): I50.21 - Acute systolic (congestive) heart failure (2) Essential (primary) hypertension: Status: Chronic Code(s): I10 - Essential (primary) hypertension Medications at Discharge Home Medications albuterol sulfate 90 mcg/actuation aerosol inhaler (ProAir HFA) 2 puff inhalation Q4H PRN PRN Sob &/Or Wheezing 08/06/18 aspirin 81 mg chewable tablet 81 mg PO DAILY HEALTH MAINT. 08/10/22 glimepiride 4 mg tablet 4 mg PO DAILY DM 08/10/22 levothyroxine 75 mcg tablet 75 mcg PO DAILY THYROID 08/10/22 multivitamin 1 tab PO DAILY supplement 08/10/22 famotidine 20 mg tablet 20 mg PO DAILY heart burn 08/11/22 apixaban 5 mg tablet (Eliquis) 5 mg PO BID 30 days #60 tabs 08/28/22 carvedilol 6.25 mg tablet 6.25 mg PO BID 30 days #60 tabs 08/28/22 empagliflozin 10 mg tablet (Jardiance) 10 mg PO DAILY 30 days #30 tabs 08/28/22 furosemide 20 mg tablet 40 mg PO DAILY 30 days #30 tabs 08/28/22 sacubitril 24 mg-valsartan 26 mg tablet (Entresto) 1 ea PO BID 30 days #60 tabs 08/28/22 Hospital Course Operations None Procedures Cardiac catheterization Summary of Care Provided Minutes Spent on Discharge: 40 Hospital Course: Per HPI: AYDIN GASTELUM, is a 67 M with a PMH as outlined who presents via the ED with a complaint of shortness of breath. HE was referred to the ED by his bad work gatherer due to complaints about shortness of breath. He was admitted just a week prior to admission and diuresed for acute on chronic exacerbation of heart failure. He said he had previously not been taking his meds as prescribed and had been stretching it out to make it last longer, but after his last admission he has been taking his meds as prescribed.? He is to be on Eliquis for left ventricular thrombus but says he has been off of it for a while and it was not part of his medications that he was prescribed at his last visit.. This includes his eliquis which he was on for left ventricular thrombus. His shortness of breath has been getting worse so he came in to the ED. He denied any chest pain, palpitations, dizziness, nausea, vomiting or diarrhea. Review of systems is otherwise negative. VItals in the ED were temp of 96.9F, with NE of 108, BP of 124/96 and RR of 19. He is saturating at 93% on room air. CBC and BMP wre unremarkable. BNP was 460.8. EKG showed no acute ST changes. CXR showed progressive bilateral pulmonary infiltrates worse in the left mid lung, superimposed on CHF. He is being admitted to be managed for acute on chronic exacerbation of heart failure.HE also had duplex of his LE which showed a blood clot in the gastrocnemius vein.? Hospital Course: 1. Acute on chronic combined heart failure exacerbation?67-year-old male presents to the hospital with shortness of breath. He was started on Lasix and cardiology was consulted who recommended a heart cath. He had a heart cath today which demonstrated an EF of 20% and completely occluded mid LAD lesion. He has sufficient collaterals. Medication regimens were changed, metoprolol was transitioned to Coreg 6.25 mg p.o. twice daily and his losartan was discontinued and he was started on Entresto. Unfortunately he has not had good prescription coverage and while we can get him discounted prices for his Coreg his Entresto his Jardiance that was recommended by cardiology was too expensive so hopefully once he applies and received his prescription coverage he can be started on his Jardiance at a later. We will increase his baseline Lasix from 20 mg to 40 mg daily and will continue with his aspirin. I recommend that he follow-up with PCP in 3 to 5 days and with cardiology within a month. I discussed with him and his the plan for possible discharge today and they expressed understanding Juliann of going home and would like to go home today. 2. Possible DVT?he had Doppler ultrasound of his lower extremities and the report was read as negative however there is documentation in both the ED physician's note as well as the admitting hospitalist note that he had a gastrocnemius vein DVT and was started on Eliquis, he does have a history of a left ventricular thrombus in 2018, and at that time he had an EF of 25% he was on a blood thinner which has been discontinued but it was recommended that he resume anticoagulation. Given the conflicting reports would recommend Lottie for now and follow-up with hematology as an outpatient for follow-up evaluation of a possible DVT and decision making on whether or not his anticoagulation is continued or discontinued. 3. Hypothyroidism and type II to diabetes are chronic medical conditions which complicate his care. His home medications were continued where appropriate Physical Exam Narrative General: Alert, Oriented x3, Cooperative, No apparent distress HEENT: Atraumatic, PERRLA, EOMI, Normocephalic Oral: Moist Mucosa Neck: Supple, No JVD Lungs: Clear to auscultation, Normal air movement, No rhonchi, No wheeze, No rales Cardiovascular: Regular rate, Regular Rhythm, Normal S1, Normal S2, No murmurs Abdomen: Soft, Non Tender, Non-Distended, No Hepato-splenomegaly Extremities: No edema, Capillary Refill Less than 3 Seconds Skin: No rashes, No breakdown Musculoskeletal: No Tenderness to Palpation of Joints or Extremities Neurological: Cranial nerves II-XII grossly intact, Motor Exam 5/5 strength throughout, Sensory exam intact to light touch and pain Psych/Mental Status: Normal Affect, Appropriate Weight / BMI Weight Weight: 253 lb 12.033 oz Body Mass Index (BMI) 36.5 ABG / Lab / Microbiology Data Result Diagrams: 08/26/22 06:08 08/26/22 06:08 Laboratory: Laboratory Results - last 24 hr 08/27/22 16:21: POC Glucose 195 H 08/27/22 21:15: POC Glucose 167 H 08/28/22 05:11: POC Glucose 175 H 08/28/22 11:22: POC Glucose 166 H D/C Instructions Discharge Diet: Low fat / Low cholesterol, 6 Cup Fluid Restriction and Carb Control Diet Call your doctor if you observe: Fever of 101 or Higher, Shortness of breath, Dizziness, Fainting spells, Swelling in the ankles, Chest pain and Increased palpitations (irregular heartbeat) Meaningful Use Info Meaningful Use Diagnoses (Choose all that apply): None applicable Discharge Plan Admission Admit Date/Time: 08/25/22 11:54 Attending Provider: Rob Alvarez Primary Care Provider: Leslie Tolentino Consulting Providers: Lula Braswell Discharge Orders/Prescriptions Prescriptions: New carvedilol 6.25 mg Tablet 6.25 mg PO BID 30 Days Qty: 60 0RF Eliquis 5 mg Tablet 5 mg PO BID 30 Days Qty: 60 0RF Jardiance 10 mg Tablet 10 mg PO DAILY 30 Days Qty: 30 0RF Entresto 24-26 mg Tablet 1 ea PO BID 30 Days Qty: 60 0RF Continued albuterol sulfate [ProAir HFA] 1 PUFF inhaler 2 puff inhalation Q4H PRN PRN (Reason: Sob &/Or Wheezing) levothyroxine 75 mcg Tablet 75 mcg PO DAILY glimepiride 4 mg tablet 4 mg PO DAILY Label Comments: TAKE 1 TABLET BY MOUTH ONCE DAILY multivitamin Tablet 1 tab PO DAILY aspirin 81 mg Tablet,Chewable 81 mg PO DAILY famotidine 20 mg Tablet 20 mg PO DAILY Changed furosemide 20 mg Tablet 40 mg PO DAILY 30 Days Qty: 30 0RF Discontinued losartan 25 mg Tablet 25 mg PO DAILY 30 Days Qty: 30 0RF metoprolol succinate 25 mg Tablet Extended Release 24 Hr 12.5 mg PO DAILY 30 Days Qty: 15 0RF Referrals / Follow Up: Leslie Tolentino MD [Primary Care Provider] - 09/04/22 11:10 am Dakota Frost MD [Med Staff - Active Staff] - 09/19/22 9:00 am (with [facility] ) Disposition Disposition (needs filled in before D/C Order can be placed): Home, Self Care Charges/Coding Visit Charges Inpatient E&M: 58709 Disch Hosp
== END 2022-08-28 14:59 | disposition home or self-care (01) | DRG 286 ==
LOC: ED 11:28 → PCU 12:42
PROVIDERS: Admitting Provider Student in an Organized Health Care Education/Training Program; Emergency Provider Emergency Medicine; PCP Family Medicine; Visit Provider Family Medicine
DX: I11.0 Hypertensive heart disease with heart failure (principal); I50.43 Acute on chronic combined systolic (congestive) and diastolic (congestive) heart failure; I27.20 Pulmonary hypertension, unspecified; I25.82 Chronic total occlusion of coronary artery; J44.9 Chronic obstructive pulmonary disease, unspecified; I82.462 Acute embolism and thrombosis of left calf muscular vein; E11.9 Type 2 diabetes mellitus without complications; E03.9 Hypothyroidism, unspecified; Z79.84 Long term (current) use of oral hypoglycemic drugs; Z79.82 Long term (current) use of aspirin; Z87.891 Personal history of nicotine dependence; Z79.890 Hormone replacement therapy; Z79.899 Other long term (current) drug therapy; Z96.653 Presence of artificial knee joint, bilateral
CPT/HCPCS: 36415; 71045; 71275; 80048; 80053; 82962; 83735; 83880; 84484; 85025; 85610; 85730; 93005; 93458; 93971; 97162; 97165; 97530; 99152; 99153; 99285; C1760; J7030; J7040; Q9967; A4216; C1757; C1769; C1894; J1940

== ENCOUNTER → 2022-09-21 | Outpatient (CLI) | payer MEDICARE, SELFPAY ==
[2022-09-21 12:05] LABS: Anion Gap 5 (5-15); BUN 13 mg/dL (7-18); BUN/Creat Ratio 13.2 RATIO (10-20); Calcium,Total 9.3 mg/dL (8.5-10.1); Chloride 107 mmol/L (98-107); Creatinine, Serum 0.98 mg/dL (0.70-1.30); EST Glomerular Filtration Rate 81 mL/min (>60); Est Glom Filt Rate - Afr Amer 98 mL/min (>60); Glucose 182 mg/dL (74-106); Potassium 4.3 mmol/L (3.5-5.1); Sodium Level 137 mmol/L (136-145)
== END | disposition home or self-care (01) ==
LOC: LAB 11:26
PROVIDERS: PCP Family Medicine; Visit Provider Nurse Practitioner Family
DX: I11.0 Hypertensive heart disease with heart failure (principal); I50.20 Unspecified systolic (congestive) heart failure
CPT/HCPCS: 36415; 80048

== ENCOUNTER → 2022-09-22 | Outpatient (CLI) | payer MEDICARE, MEDICAID, SELFPAY ==
--- NOTE | 2022-09-22 07:54 | VDLE_ITS ---
Reason For Study: Hx of Lt GastrocV DVT RIGHT LEFT CFV is compressible, spontaneous, phasic, GSV is normal. competent and demonstrates normal CFV is compressible, spontaneous, phasic, augmentation. competent, and demonstrates normal Procedure augmentation. This is a venous duplex using B-mode, color FV is compressible, spontaneous, phasic, flow and spectral Doppler. competent and demonstrates normal Exam performed in department. augmentation. A preliminary report was called and/or faxed POP V is compressible, spontaneous, phasic, to Christo Hoff SYSTEM SUPPORT TECHNICIAN. competent and demonstrates normal augmentation. T/P Trunk is compressible. PTV is compressible. LT PerV is compressible. Lt GastrocV is partially compressible with minimal blood flow; improvement from previous study (08/25/22) Difficult to visualize Lt PeroV. VL/Venous Duplex US, Unilateral Interpretation Summary Subacute deep vein thrombosis is noted in the left gastrocnemius vein. Negative for propagation Ordering Physician: Christo Hoff Referring Physician: Leslie Tolentino Performed By: July Hoff, JACKI, RVT
== END | disposition home or self-care (01) ==
PROVIDERS: PCP Family Medicine; Visit Provider Nurse Practitioner Family
DX: R60.0 Localized edema (principal); I82.409 Acute embolism and thrombosis of unspecified deep veins of unspecified lower extremity; G47.10 Hypersomnia, unspecified
CPT/HCPCS: 93971

== ENCOUNTER 2022-10-12 16:14 | Inpatient (IN) | payer MEDICARE, SELFPAY ==
[2022-10-12] VITALS (12 sets, daily range): BP systolic 120–147; BP diastolic 86–102; PULSE 101–121; RESP 12–38; TEMP 36.5–37.2; O2SAT 68–97; BMI 37.6; BMI 36.8
--- NOTE | 2022-10-12 16:40 | EKG12_ITS ---
Test Reason : SOB Blood Pressure : / mmHG Vent. Rate : 111 BPM Atrial Rate : 111 BPM P-R Int : 182 ms QRS Dur : 106 ms QT Int : 340 ms P-R-T Axes : 049 006 101 degrees QTc Int : 462 ms Sinus tachycardia with occasional Premature ventricular complexes Left ventricular hypertrophy with repolarization abnormality Abnormal ECG Confirmed by GAVIN CORONEL, ARIC ([id number]), photograph editor VICTOR HUGO MAYORGA ([id number]) on 10/16/2022 10:35:45 AM Referred By: NICKO Confirmed By:ARIC ALONSO MD
--- NOTE | 2022-10-12 16:44 | ED.VIS.DYS ---
HPI History of Present Illness Chief Complaint: Shortness of Breath Narrative Narrative: 67-year-old male past medical history of COPD, chronic bronchitis states that he has been in and out of the hospital for the last few months with shortness of breath. He states that there is talk of putting him on oxygen for home use. Over the last 2 days, he has had increasing shortness of breath, occasional cough but denies any fevers or chills. He states he has chronic leg swelling and does take Lasix. He has had a hard time getting any rest as he is unable to sleep because of his shortness of breath. He endorses dyspnea on exertion and orthopnea. Of note, he was found in triage to be hypoxic, placed on nasal cannula oxygen, then brought back to the room, and placed on 100% nonrebreather. He was still having issues with hypoxia so RN called respiratory and he will be placed on BiPAP. [facility] Medical History (Updated 10/12/22 @ 23:11 by Tirso Polo MD) Acute systolic heart failure Arthritis COPD (chronic obstructive pulmonary disease) Essential (primary) hypertension GERD (gastroesophageal reflux disease) GI bleed Gout Hypothyroidism Left ventricular thrombus Severe left ventricular systolic dysfunction Type 2 diabetes mellitus Home Medications albuterol sulfate 90 mcg/actuation aerosol inhaler (ProAir HFA) 2 puff inhalation Q4H PRN PRN Sob &/Or Wheezing 08/06/18 [History Last Taken 08/25/22] aspirin 81 mg chewable tablet 81 mg PO DAILY [facility]. 08/10/22 [History Last Taken 08/25/22] glimepiride 4 mg tablet 4 mg PO BID DM 08/10/22 [History Last Taken 08/25/22] levothyroxine 75 mcg tablet 75 mcg PO DAILY THYROID 08/10/22 [History Last Taken 08/25/22] multivitamin 1 tab PO DAILY supplement 08/10/22 [History Last Taken 08/25/22] famotidine 20 mg tablet 20 mg PO DAILY heart burn 08/11/22 [History Last Taken 08/24/22] apixaban 5 mg tablet (Eliquis) 5 mg PO BID 30 days #60 tabs 10/10/22 [Rx Last Taken Unknown] carvedilol 6.25 mg tablet 6.25 mg PO BID 30 days #60 tabs 10/12/22 [Rx Last Taken Unknown] furosemide 40 mg tablet 20 mg PO DAILY 10/12/22 [History Last Taken Unknown] sacubitril 49 mg-valsartan 51 mg tablet (Entresto) 2 tab PO BID 10/12/22 [History Last Taken Unknown] Allergy/AdvReac Type Severity Reaction Status Date / Time No Known Allergies Allergy Verified 10/12/22 16:14 Family History Mother Hypertension Sister Hypertension Father Hypertension Myocardial infarction from [place] age 54 Surgical History H/O arthroscopy of right knee History of tonsillectomy History of total left knee replacement History of total right knee replacement Hx of cholecystectomy Social History Smoking Status: Former smoker ROS ROS ED ROS Narrative Constitutional: No fever, no chills. HEENT: No sore throat. No neck pain. No loss of vision. No rhinorrhea. Cardiovascular: No chest pain. No palpitations. Bilateral pedal edema. Respiratory: Occasional cough, increasing shortness of breath. Positive orthopnea and dyspnea on exertion. Abdominal: No abdominal pain. No nausea. No vomiting. Genitourinary: No dysuria. No hematuria. Musculoskeletal: No myalgias. No arthralgias. Neurologic: No headaches. No dizziness. No lightheadedness. Skin: No rash. No change in color. Psychiatric: No depression. No anxiety. EXAM Physical Exam Narrative Exam Narrative: Afebrile. Vital signs noted. HEENT: Normocephalic. Atraumatic. PERRL, EOMI. Neck soft and supple. No point tenderness or step off. Cardiovascular: Positive tachycardia. No murmurs, rubs, or gallops appreciated. Respiratory: Positive tachypnea. Diffuse rales. Gastrointestinal: Abdomen soft, nontender, with normoactive bowel sounds. No rebound or guarding. Neurological: Awake. Alert. Nonfocal, nonlateralizing. Skin: No rash. Normal color. No pallor. Musculoskeletal: Positive bilateral symmetric pedal edema. Full range of motion extremities. Const Vital Signs: 10/12/22 16:15 10/12/22 16:17 10/12/22 16:29 Temperature 98.9 F Temperature Source Temporal Pulse Rate 119 H Respiratory Rate 26 H Respiratory Pattern Blood Pressure 147/102 H Blood Pressure Mean 117 Pulse Ox 68 89 94 Oxygen Delivery Method Room Air Nasal Cannula Non-Rebreather Oxygen Flow Rate (L/min) 5 10 Fraction of Inspired Oxygen (FIO2) 10/12/22 16:30 10/12/22 16:37 10/12/22 17:11 Temperature Temperature Source Pulse Rate 121 H 110 H Respiratory Rate 38 H 26 H Respiratory Pattern Tachypnea Tachypnea Blood Pressure 129/95 H Blood Pressure Mean 106 Pulse Ox 96 95 Oxygen Delivery Method Non-Rebreather Bi-pap Oxygen Flow Rate (L/min) 94 Fraction of Inspired Oxygen (FIO2) 50 10/12/22 19:47 Temperature Temperature Source Pulse Rate 101 H Respiratory Rate 25 H Respiratory Pattern Blood Pressure 127/95 H Blood Pressure Mean 105 Pulse Ox 94 Oxygen Delivery Method Bi-pap Oxygen Flow Rate (L/min) Fraction of Inspired Oxygen (FIO2) MDM MDM MDM Narrative Medical decision making narrative: Comprehensive work-up was pursued. I feel he is having more of a CHF exacerbation than COPD. He was placed on BiPAP. I will refrain from steroid use for the moment until his chest x-ray returns. EKG was obtained and interpreted by myself which demonstrates sinus tachycardia with PVCs at [address] changes. No STEMI on my evaluation. In review of his laboratory work, WBC count slightly elevated 12.0, hemoglobin normal at 14.3, platelet count of 278. Sodium is low at 131, potassium of 3.9 and normal. High-sensitivity troponin is 18 and BNP elevated at 766. He will be given Lasix intravenously. In review and interpretation of his chest x-ray which I performed, I do see more congestive heart failure and interstitial edema. I reviewed the radiology report and they confirm. Patient was placed on BiPAP of 09/05 at 50% with good oxygen saturation. As he was hypoxic on room air upon arrival, I discussed the patient with Dr. Negron for admission to the PCU. Patient is in stable condition. Lab Data Attestation: I reviewed the patient's lab results. Labs: Laboratory Results - last 24 hr 10/12/22 10/12/22 10/12/22 16:08 16:08 16:08 WBC 12.0 H RBC 5.10 Hgb 14.3 Hct 42.4 MCV 83.1 MCH 28.0 MCHC 33.7 RDW Std Deviation 42.5 RDW Coeff of Sean 14.1 Plt Count 278 MPV 9.3 Immature Gran % (Auto) 0.300 Neut % (Auto) 84.6 H Lymph % (Auto) 7.8 L [place] % (Auto) 6.8 Eos % (Auto) 0.2 Baso % (Auto) 0.3 Absolute Neuts (auto) 10.1 H Absolute Lymphs (auto) 0.93 Nucleated RBC % 0 Sodium 131 L Potassium 3.9 Chloride 101 Carbon Dioxide 25.0 Anion Gap 5 BUN 11 Creatinine 0.82 Estim Creat Clear Calc 93.10 Est GFR (MDRD) Af Amer 121 Est GFR (MDRD) Non-Af 100 BUN/Creatinine Ratio 13.5 Glucose 266 H Lactic Acid Calcium 9.4 Troponin I High Sens 18 B-Natriuretic Peptide 766.4 H 10/12/22 16:08 WBC RBC Hgb Hct MCV MCH MCHC RDW Std Deviation RDW Coeff of Sean Plt Count MPV Immature Gran % (Auto) Neut % (Auto) Lymph % (Auto) [place] % (Auto) Eos % (Auto) Baso % (Auto) Absolute Neuts (auto) Absolute Lymphs (auto) Nucleated RBC % Sodium Potassium Chloride Carbon Dioxide Anion Gap BUN Creatinine Estim Creat Clear Calc Est GFR (MDRD) Af Amer Est GFR (MDRD) Non-Af BUN/Creatinine Ratio Glucose Lactic Acid 2.1 H* Calcium Troponin I High Sens B-Natriuretic Peptide ABG Data ABG results: ABG 10/12/22 17:49 Specimen Type ART Sample Site L Radial pH 7.38 Bicarbonate Actual 22.5 Total CO2 24 Base Excess -3 L O2 Saturation 96 O2 % 50 ABG pCO2 38.4 ABG pO2 86 Evert Test Positive O2 Delivery Device BiPAP Radiography Diagnostic Testing: Clinical Impression(s) from Imaging Studies Chest X-Ray 10/12/22 17:05 IMPRESSION: Cardiomegaly with vascular congestion and diffuse bilateral airspace disease which may represent edema or pneumonia. This has progressed from the reference exam. Electronically Signed: Joey Richard MD at 17:23 EST , Discharge Plan Dx/Rx/DC Orders Clinical Impression: CHF (congestive heart failure), Hypoxia, Respiratory failure, Hyponatremia Disposition Disposition: Acute Care Hospital [facility] Discharge Date/Time: 10/12/22 23:27
--- NOTE | 2022-10-12 17:05 | RAD_ITS ---
EXAM: XR CHEST, 1 VIEW CLINICAL INDICATION: Shortness of Breath TECHNIQUE: Frontal view of the chest. This report was created using [employer] report generation technology. COMPARISON: 09/12/2022 FINDINGS: LUNGS AND PLEURAL SPACES: There is vascular congestion and diffuse bilateral airspace disease which may represent edema or pneumonia. No pneumothorax. No effusion. HEART: Cardiac silhouette is enlarged in size. MEDIASTINUM: Central airways and mediastinal contour are unremarkable. BONES/JOINTS: Unremarkable. SOFT TISSUES: See above. RAD/Chest 1 View (Portable) IMPRESSION: Cardiomegaly with vascular congestion and diffuse bilateral airspace disease which may represent edema or pneumonia. This has progressed from the reference exam. Electronically Signed: Joey Richard MD at 17:23 EST ,
[2022-10-12 17:07] LABS: Absolute Lymphocyte Count 0.93 X10^3/uL (0.83-4.51); Absolute Neutrophil Count 10.1 X10^3/uL (2.0-7.7); Basophil# 0.03 X10^3/uL; Basophil% 0.3 % (0-1); Eosinophil# 0.02 X10^3/uL; Eosinophils% 0.2 % (0-5); Hematocrit 42.4 % (40-54); Hemoglobin 14.3 g/dL (13.0-16.5); Lymphocyte # 0.93 X10^3/ul (0.83-4.51); Lymphocyte % 7.8 % (19-41); Mean Corp Hgb Conc 33.7 g/dL (32-36); Mean Corpuscular Volume 83.1 fL (80-94); Mean Platelet Vol. 9.3 fl (6.2-12.0); Monocyte# 0.82 X10^3/uL; Monocyte% 6.8 % (0-10); NRBC Flagged by Analyzer 0 % (0-5); Neutrophil # 10.14 X10^3/uL (2.7-7.7); Neutrophil % 84.6 % (47-70); Platelet Count 278 K/mm3 (150-450); RBC Distribution Width CV 14.1 % (11.6-14.6); RBC Distribution Width SD 42.5 fl (35.1-43.9)
[2022-10-12 17:21] LABS: Anion Gap 5 (5-15); BUN 11 mg/dL (7-18); BUN/Creat Ratio 13.5 RATIO (10-20); Calcium,Total 9.4 mg/dL (8.5-10.1); Chloride 101 mmol/L (98-107); Creatinine, Serum 0.82 mg/dL (0.70-1.30); EST Glomerular Filtration Rate 100 mL/min (>60); Est Glom Filt Rate - Afr Amer 121 mL/min (>60); Glucose 266 mg/dL (74-106); Potassium 3.9 mmol/L (3.5-5.1); Sodium Level 131 mmol/L (136-145); Troponin-I HS 18 pg/mL (3.0-78.0)
[2022-10-12 17:48] LABS: Lactic Acid 2.1 mmol/L (0.4-1.9)
[2022-10-12 17:55] LABS: Allen Test Positive; Base Excess -3 mmol/L (-2 to +2); Bicarbonate 22.5 mmol/L (22-26); Blood Gas Specimen Type ART; FI02 50; O2 Delivery Device BiPAP; PO2 86 mmHG (75-100); SITE L Radial; SO2 96 % (95-99); Total Carbon Dioxide 24 mmol/L; pCO2 38.4 mmHg (35-45); pH 7.38 (7.35-7.45)
[2022-10-12 18:28] LABS: BNP,B-Type NATRIURETIC PEPTIDE 766.4 pg/mL (0-100)
[2022-10-12] MEDS: Furosemide 40 MG/4 ML Vial IV (19:52)
[2022-10-12 20:59] LABS: Reflex Lactate? Y
--- NOTE | 2022-10-12 21:14 | PCM.HP.STD ---
[facility] - General General Date of Admission: 10/12/22 Date of Service: 10/12/22 Chief Complaint: Shortness of breath HPI Narrative AYDIN DUTY, is a 67 M with a significant history former tobacco abuse; hypothyroidism on Synthroid; left gastrocnemius vein DVT on Eliquis; heart failure with reduced ejection fraction (EF of 20% in July 2022); ventricular thrombi; diastolic function and hypertension who presents emergency department with 2-day history of progressively worsening shortness of breath. His Shortness of breath increased with exertion. Associated with his symptoms is orthopnea. Also patient reports a productive cough of yellow to dark yellow sputum. He denies paroxysmal nocturnal dyspnea. However he reports nighttime cough. He reports anorexia. [facility] Medical History Acute systolic heart failure Arthritis COPD (chronic obstructive pulmonary disease) Essential (primary) hypertension GERD (gastroesophageal reflux disease) GI bleed Gout Hypothyroidism Left ventricular thrombus Severe left ventricular systolic dysfunction Type 2 diabetes mellitus Home Medications albuterol sulfate 90 mcg/actuation aerosol inhaler (ProAir HFA) 2 puff inhalation Q4H PRN PRN Sob &/Or Wheezing 08/06/18 [History Last Taken 08/25/22] aspirin 81 mg chewable tablet 81 mg PO DAILY [facility]. 08/10/22 [History Last Taken 08/25/22] glimepiride 4 mg tablet 4 mg PO BID DM 08/10/22 [History Last Taken 08/25/22] levothyroxine 75 mcg tablet 75 mcg PO DAILY THYROID 08/10/22 [History Last Taken 08/25/22] multivitamin 1 tab PO DAILY supplement 08/10/22 [History Last Taken 08/25/22] famotidine 20 mg tablet 20 mg PO DAILY heart burn 08/11/22 [History Last Taken 08/24/22] apixaban 5 mg tablet (Eliquis) 5 mg PO BID 30 days #60 tabs 10/10/22 [Rx Last Taken Unknown] carvedilol 6.25 mg tablet 6.25 mg PO BID 30 days #60 tabs 10/12/22 [Rx Last Taken Unknown] furosemide 40 mg tablet 20 mg PO DAILY 10/12/22 [History Last Taken Unknown] sacubitril 49 mg-valsartan 51 mg tablet (Entresto) 2 tab PO BID 10/12/22 [History Last Taken Unknown] Allergy/AdvReac Type Severity Reaction Status Date / Time No Known Allergies Allergy Verified 10/12/22 16:14 Family History Mother Hypertension Sister Hypertension Father Hypertension Myocardial infarction from [place] age 54 Surgical History H/O arthroscopy of right knee History of tonsillectomy History of total left knee replacement History of total right knee replacement Hx of cholecystectomy Social History Smoking Status: Former smoker ROS ROS Narrative Pertinent positives and pertinent negatives as noted in HPI. All other systems were reviewed and are negative Vital Signs Vital Signs Vital Signs: 10/12/22 16:15 10/12/22 16:17 10/12/22 16:29 Temperature 98.9 F Temperature Source Temporal Pulse Rate 119 H Respiratory Rate 26 H Respiratory Pattern Blood Pressure 147/102 H Blood Pressure Mean 117 Pulse Ox 68 89 94 Oxygen Delivery Method Room Air Nasal Cannula Non-Rebreather Oxygen Flow Rate (L/min) 5 10 Fraction of Inspired Oxygen (FIO2) 10/12/22 16:30 10/12/22 16:37 10/12/22 17:11 Temperature Temperature Source Pulse Rate 121 H 110 H Respiratory Rate 38 H 26 H Respiratory Pattern Tachypnea Tachypnea Blood Pressure 129/95 H Blood Pressure Mean 106 Pulse Ox 96 95 Oxygen Delivery Method Non-Rebreather Bi-pap Oxygen Flow Rate (L/min) 94 Fraction of Inspired Oxygen (FIO2) 50 10/12/22 19:47 Temperature Temperature Source Pulse Rate 101 H Respiratory Rate 25 H Respiratory Pattern Blood Pressure 127/95 H Blood Pressure Mean 105 Pulse Ox 94 Oxygen Delivery Method Bi-pap Oxygen Flow Rate (L/min) Fraction of Inspired Oxygen (FIO2) Weight Weight: 122.47 kg Body Mass Index (BMI) 37.6 Physical Exam Narrative Physical exam: General: Well-nourished, well-developed. Head: Normocephalic, atraumatic, no tenderness Eyes: Vision is grossly intact. EOMI ENT, no trauma, moist mucous membranes, no rhinorrhea Neck: Nontender, No thyromegaly. CVS: Regular rate and rhythm. S1-S2 present. No murmur, gallop or rub. Respiratory : On BiPAP. Diminished, chest wall nontender, no wheezing Abdomen: Soft, nontender, nondistended, normal bowel sounds, no masses : Deferred Back: Nontender, no CVA tenderness, no midline spinal tenderness, deformities, step-offs Extremities: Bilateral leg and feet edema 2+; no trauma Skin: Normal color, no trauma, abrasions Neuro: Alert, oriented, cranial nerves II through XII grossly intact. Psychiatry: Normal mood. Normal affect. Not depressed. Not anxious. Results Lab / Micro Data Result Diagrams: 10/12/22 16:08 10/12/22 16:08 Labs: Laboratory Results - last 24 hr 10/12/22 16:08: WBC 12.0 H, RBC 5.10, Hgb 14.3, Hct 42.4, MCV 83.1, MCH 28.0, MCHC 33.7, RDW Std Deviation 42.5, RDW Coeff of Sean 14.1, Plt Count 278, MPV 9.3, Immature Gran % (Auto) 0.300, Neut % (Auto) 84.6 H, Lymph % (Auto) 7.8 L, [place] % (Auto) 6.8, Eos % (Auto) 0.2, Baso % (Auto) 0.3, Absolute Neuts (auto) 10.1 H, Absolute Lymphs (auto) 0.93, Nucleated RBC % 0 10/12/22 16:08: Sodium 131 L, Potassium 3.9, Chloride 101, Carbon Dioxide 25.0, Anion Gap 5, BUN 11, Creatinine 0.82, Estim Creat Clear Calc 93.10, Est GFR (MDRD) Af Amer 121, Est GFR (MDRD) Non-Af 100, BUN/Creatinine Ratio 13.5, Glucose 266 H, Calcium 9.4, Troponin I High Sens 18 10/12/22 16:08: B-Natriuretic Peptide 766.4 H 10/12/22 16:08: Lactic Acid 2.1 H* Micro: Microbiology 10/12/22 16:57 Nasal Secretion SARS-CoV-2 & FLU Antigen (Rapid) - Final ABG Data ABG results: ABG 10/12/22 17:49 Specimen Type ART Sample Site L Radial pH 7.38 Bicarbonate Actual 22.5 Total CO2 24 Base Excess -3 L O2 Saturation 96 O2 % 50 ABG pCO2 38.4 ABG pO2 86 Evert Test Positive O2 Delivery Device BiPAP Radiology Impression Chest X-Ray 10/12/22 17:05 IMPRESSION: Cardiomegaly with vascular congestion and diffuse bilateral airspace disease which may represent edema or pneumonia. This has progressed from the reference exam. Electronically Signed: Joey Richard MD at 17:23 EST , Assessment & Plan Assessment/Plan (1) CHF (congestive heart failure): (2) Acute hypoxemic respiratory failure: PLAN: Plan Acute hypoxic respiratory failure secondary to acute exacerbation of heart failure with reduced ejection fraction On presentation oxygen saturation was 68% on room air. Patient with maximum respiratory rate 38. Started On BiPAP at the ED, continued. Impression of chest x-ray by radiology:Cardiomegaly with vascular congestion and diffuse bilateral airspace disease which may represent edema or pneumonia.? This has progressed from the reference exam. Chest x-ray on presentation and previous checks x-ray was visualized and independently interpreted and I agree radiologist interpretation. Likely secondary to Place on monitored bed on PCU Weight on admission to the floor; and then daily Strict I&O's BNP on presentation was 766.4. Old records reviewed shows that this is the highest BNP so far. Received Lasix IV at emergency department and continued. Hold home p.o. Lasix Metoprolol continued. Entresto continued. We will start patient on low-dose Aldactone. Echocardiogram on 08/10/2022 showed EF of 20%. Diastolic function was indeterminate. Mild to moderate mitral valve insufficiency. Mild tricuspid valve insufficiency. Mild pulmonary hypertension. Trivial aortic valve insufficiency. Mildly dilated aortic root. Patient had heart catheterization on 08/28/2022 that showed severe single-vessel disease distal occluded LAD with collaterals from right to left with severe left ventricular dysfunction. Recommendation was maximal guideline directed medical therapy as well as cardiac MRI to look for viability in the anterior wall Titrate diuretics and heart failure/blood pressure medications with blood pressure. Continue home OSMIN hose Fluid restriction of 1500 mls daily N.p.o. while on BiPAP. Review of cardiology notes showed that with time cardiology will monitor ejection fraction and if still remains less than 35% cardiology will consider preventative ICD. CBC showed white count of 12. Trend. Diabetes mellitus Patient with hyperglycemia on presentation Glimepiride continued Monitor Accu-Cheks Correction scale insulin ordered. DVT prophylaxis: Not indicated as patient is on Eliquis for left gastrocnemius DVT. Charges/Coding Visit Charges Inpatient E&M: 15496 Init Hosp L3
[2022-10-12 22:03] LABS: Lactic Acid 1.3 mmol/L (0.4-1.9)
[2022-10-13] VITALS (16 sets, daily range): BP systolic 102–146; BP diastolic 73–116; PULSE 81–106; RESP 12–32; TEMP 36.6–37.1; O2SAT 91–96
[2022-10-13 01:10] LABS: Bedside Glucose 171 mg/dL (74-106)
[2022-10-13 04:39] LABS: Absolute Lymphocyte Count 1.25 X10^3/uL (0.83-4.51); Absolute Neutrophil Count 7.8 X10^3/uL (2.0-7.7); Basophil# 0.04 X10^3/uL; Basophil% 0.4 % (0-1); Eosinophil# 0.13 X10^3/uL; Eosinophils% 1.3 % (0-5); Hematocrit 40.9 % (40-54); Hemoglobin 13.4 g/dL (13.0-16.5); Lymphocyte # 1.25 X10^3/ul (0.83-4.51); Lymphocyte % 12.5 % (19-41); Mean Corp Hgb Conc 32.8 g/dL (32-36); Mean Corpuscular Hgb 27.5 pg (27.0-32.0); Mean Corpuscular Volume 83.8 fL (80-94); Mean Platelet Vol. 9.3 fl (6.2-12.0); Monocyte# 0.73 X10^3/uL; Monocyte% 7.3 % (0-10); NRBC Flagged by Analyzer 0 % (0-5); Neutrophil # 7.79 X10^3/uL (2.7-7.7); Neutrophil % 78.1 % (47-70); Platelet Count 285 K/mm3 (150-450); RBC Distribution Width CV 14.1 % (11.6-14.6); RBC Distribution Width SD 42.9 fl (35.1-43.9); Red Blood Count 4.88 M/mm3 (4.6-6.2)
[2022-10-13 05:04] LABS: Anion Gap 7 (5-15); BUN 15 mg/dL (7-18); BUN/Creat Ratio 17.1 RATIO (10-20); Chloride 102 mmol/L (98-107); Creatinine, Serum 0.88 mg/dL (0.70-1.30); EST Glomerular Filtration Rate 92 mL/min (>60); Est Glom Filt Rate - Afr Amer 111 mL/min (>60); Estimated Creatinine Clearance 86.76 ml/min; Glucose 184 mg/dL (74-106); Potassium 3.9 mmol/L (3.5-5.1); Sodium Level 134 mmol/L (136-145)
[2022-10-13 06:09] LABS: Magnesium 1.9 mg/dL (1.6-2.6)
[2022-10-13 07:05] LABS: Bedside Glucose 181 mg/dL (74-106)
[2022-10-13] MEDS: Multivitamins,Therapeutic Tablet 1 TABLET PO (07:50)
[2022-10-13] MEDS: Famotidine 20 MG Tablet PO (07:50)
[2022-10-13] MEDS: Spironolactone 25 MG Tablet PO (07:50)
[2022-10-13] MEDS: Aspirin 81 MG TAB.CHEW PO (07:50)
[2022-10-13] MEDS: Glimepiride 4 MG Tablet PO ×2 (07:50→16:07)
[2022-10-13] MEDS: Carvedilol 6.25 MG Tablet PO ×2 (07:50→17:26)
[2022-10-13] MEDS: SACUBITRIL/VALSARTAN 49-51 MG TABLET 1 EACH PO ×2 (07:50→21:37)
[2022-10-13] MEDS: APIXABAN 5 MG TABLET PO ×2 (07:50→21:37)
[2022-10-13] MEDS: Furosemide 40 MG/4 ML Vial IV ×2 (09:57→17:26)
--- NOTE | 2022-10-13 11:00 | CASEMGMT ---
RN JERO Face to Face with patient for initial transition planning/care coordination assessment. RN CM introduced self and role at [facility]. Patient lying in bed, alert and oriented, at bedside. Patient willing to participate in assessment and is able to answer all questions appropriately. Care providers, pharmacy, and demographics verified. Patient wishes to discharge home, will monitor for HHC. Patient states he has no further needs or concerns at this time. CM to follow for discharge planning needs that may arise. PCP: Randa Specialists: Santosh assistant account executive Preferred Pharmacy: [facility] Insurance: [employer] [facility] Prescription Benefit: yes Living Will/HPOA: none, interested in completing, SW updated LNOK: Living Arrangements: Patient lives with in a split level home with 9 steps with railing. Patient states he is independent and able to ambulate stairs. Transportation: self, DME/HHC: Patient has cane, walker, pulse ox, glucometer and supplies. No previous HHC or SNF. Will monitor progress with therapy. Reviewed DME agencies with patient and prefers [employer] if he requires home oxygen at discharge. Disposition Plan: Patient to discharge home with family support and follow-up plans in place. Will monitor for HHC and home oxgyen at discharge. Daina GLYNN, RN, CM
[2022-10-13 11:35] LABS: Bedside Glucose 170 mg/dL (74-106)
[2022-10-13] MEDS: Insulin Lispro 100 UNIT/ML INSULN.PEN SC ×2 (11:35→16:07)
--- NOTE | 2022-10-13 12:19 | CHAPLAIN ---
Type of Pastoral Visit _x__ Initial Visit ___ Follow-up Visit ___ On-call Visit ___ General Patient Visit ___ Spiritual Assessment ___ Family Conference ___ Bereavement ___ Rapid Response ___ Code Blue ___ Other (describe below) Pastoral Care Referral From _x__ Patient ___ Family ___ Nurse ___ Physician ___ Director Of Veterans Affairs ___ Reed Maker ___ Other (describe below) Sacrament/Intervention _x__ Active listening ___ Anointing ___ Zoroastrian ___ Bereavement ___ Communion _x__ Haylie exploration ___ _x__ Life review _x__ Prayer ___ Reconciliation ___ Sacrament of Sick _x__ Supportive presence ___ Wedding ___ Other (describe below) Pastoral Comments patient is on bi-pap but able to talk through it; offered that pt remain slow to talk so that he can benefit from the breathing machine; at bedside also speaks and adds to conversation; pt has many thoughts and also asks for assurances about haylie, , reconciliation, and family; pt expresses gratitude for this spiritual care support and states I don't have my own education adviser; pt requests prayer and presence; pt requests future visits if he is still in hospital;
--- NOTE | 2022-10-13 13:54 | PCM.PN.HOSP ---
Subjective Subjective Follow-up on acute respiratory failure/acute exacerbation of heart failure reduced EF: Patient was seen and examined. He was seen earlier on home BiPAP, improved with 2 L of oxygen. He has been diuresing. Denied any chest pain or shortness of breath. He admits to eating a lot of salty food and eating out. Objective Data Objective Data Vital Signs: Vital Signs Temp Pulse Resp BP Pulse Ox O2 Del Method O2 Flow Rate 98.2 F 90 26 H 111/81 H 96 Bi-pap 50 10/13/22 12:00 10/13/22 12:00 10/13/22 12:00 10/13/22 12:00 10/13/22 12:00 10/13/22 12:00 10/13/22 12:00 FiO2 45 10/13/22 10:02 Oxygen Flow Rate (L/min) 50 Oxygen Delivery Method Bi-pap Weight: 119.8 kg Body Mass Index (BMI) 36.8 Intake & Output: Intake and Output for Last 24 Hours 10/11/22 10/12/22 10/13/22 23:59 23:59 23:59 Intake Total 150 / 150 Output Total 700 / 700 750 / 750 Balance -700 / -700 -600 / -600 Lab / Micro Data Result Diagrams: 10/13/22 04:18 10/13/22 04:18 Labs: Laboratory Results - last 24 hr 10/12/22 16:08: WBC 12.0 H, RBC 5.10, Hgb 14.3, Hct 42.4, MCV 83.1, MCH 28.0, MCHC 33.7, RDW Std Deviation 42.5, RDW Coeff of Sean 14.1, Plt Count 278, MPV 9.3, Immature Gran % (Auto) 0.300, Neut % (Auto) 84.6 H, Lymph % (Auto) 7.8 L, [place] % (Auto) 6.8, Eos % (Auto) 0.2, Baso % (Auto) 0.3, Absolute Neuts (auto) 10.1 H, Absolute Lymphs (auto) 0.93, Nucleated RBC % 0 10/12/22 16:08: Sodium 131 L, Potassium 3.9, Chloride 101, Carbon Dioxide 25.0, Anion Gap 5, BUN 11, Creatinine 0.82, Estim Creat Clear Calc 93.10, Est GFR (MDRD) Af Amer 121, Est GFR (MDRD) Non-Af 100, BUN/Creatinine Ratio 13.5, Glucose 266 H, Calcium 9.4, Troponin I High Sens 18 10/12/22 16:08: B-Natriuretic Peptide 766.4 H 10/12/22 16:08: Lactic Acid 2.1 H* 10/12/22 21:04: Lactic Acid 1.3 10/13/22 00:49: POC Glucose 171 H 10/13/22 04:18: WBC 10.0, RBC 4.88, Hgb 13.4, Hct 40.9, MCV 83.8, MCH 27.5, MCHC 32.8, RDW Std Deviation 42.9, RDW Coeff of Sean 14.1, Plt Count 285, MPV 9.3, Immature Gran % (Auto) 0.400, Neut % (Auto) 78.1 H, Lymph % (Auto) 12.5 L, [place] % (Auto) 7.3, Eos % (Auto) 1.3, Baso % (Auto) 0.4, Absolute Neuts (auto) 7.8 H, Absolute Lymphs (auto) 1.25, Nucleated RBC % 0 10/13/22 04:18: Sodium 134 L, Potassium 3.9, Chloride 102, Carbon Dioxide 25.0, Anion Gap 7, BUN 15, Creatinine 0.88, Estim Creat Clear Calc 86.76, Est GFR (MDRD) Af Amer 111, Est GFR (MDRD) Non-Af 92, BUN/Creatinine Ratio 17.1, Glucose 184 H, Calcium 9.0 10/13/22 04:18: Magnesium 1.9 10/13/22 06:02: POC Glucose 181 H 10/13/22 11:15: POC Glucose 170 H Micro: Microbiology 10/12/22 16:57 Nasal Secretion SARS-CoV-2 & FLU Antigen (Rapid) - Final ABG Data ABG results: ABG 10/12/22 17:49 Specimen Type ART Sample Site L Radial pH 7.38 Bicarbonate Actual 22.5 Total CO2 24 Base Excess -3 L O2 Saturation 96 O2 % 50 ABG pCO2 38.4 ABG pO2 86 Evert Test Positive O2 Delivery Device BiPAP Radiography Diagnostic Testing: Radiology Impression Chest X-Ray 10/12/22 17:05 IMPRESSION: Cardiomegaly with vascular congestion and diffuse bilateral airspace disease which may represent edema or pneumonia. This has progressed from the reference exam. Electronically Signed: Joey Richard MD at 17:23 EST , Physical Exam Narrative Physical exam: General: Alert, Oriented x3, Cooperative, on 2 L of oxygen HEENT: Atraumatic Oral: Moist Mucosa Neck: Supple Lungs: Diminished to auscultation, coarse crackles at lung bases Cardiovascular: HS I+II, regular, no murmurs Abdomen: Bowel Sounds Present, Soft, Non Tender Extremities: Bilateral leg edema +2 Skin: No rashes, No breakdown Neurological: Grossly intact Psych/Mental Status: Appropriate Assessment & Plan Assessment/Plan (1) CHF (congestive heart failure): (2) Acute hypoxemic respiratory failure: PLAN: Plan 1. Acute hypoxic respiratory failure secondary to acute exacerbation of heart failure with reduced ejection fraction, EF of 20% Oxygen appears improved, continue treatment for CHF management 2. Acute exacerbation of heart failure reduced EF, EF of 20%, he has been diuresing Continue on IV Lasix, CHF protocol Continue on aspirin, carvedilol, Entresto, spironolactone 3. Type II DM, BS is controlled, continue on Amaryl, continue blood glucose checks and sliding scale 4. Hypothyroidism, continue Synthroid 5. Recent left gastrocnemius DVT/history of ventricular thrombi, Continue on Eliquis 6. DVT PPx- On Eliquis Charges/Coding Visit Charges Inpatient E&M: 74588 Subs Hosp L3
--- NOTE | 2022-10-13 15:21 | CASEMGMT ---
Social Work Note DONTE and DONTE Pabon met with patient and patient's and introduced selves and role as [facility] Social Workers. Patient provided permission for SWs to speak with patient's present. SW inquired about patient's interest in completing AD paperwork; patient stated he was interested in HCPOA. SW educated patient on HCPOA and assisted patient in completing the document. Patient voiced he did not want extraordinary life saving measures but stated CRP was okay. SW reviewed the HCPOA document once completed and witnessed patient's signature. SW then inquired about patient's interest in completing the Living Will document; patient declined. SW offered to give patient a copy of the document for his review, however, patient's stated they have seen the document and have been given copies during previous appointments. No other needs or concerns voiced at this time. SW provided patient with the original document as well as two copies of the HCPOA for this agents: Marlen Lan, , and Sivan López, Step Daughter, alternative agent. Copy of HCPOA in patient's chart. Josselyn Gee MSW, [place]
[2022-10-13 16:31] LABS: Bedside Glucose 189 mg/dL (74-106)
[2022-10-13] MEDS: 0.9% Saline Lock 10 ML Syringe IV ×2 (17:26→21:39)
[2022-10-13 23:05] LABS: Bedside Glucose 147 mg/dL (74-106)
[2022-10-13] MEDS: Acetaminophen 325 MG Tablet 650 MG PO (23:20)
[2022-10-13] MEDS: MELATONIN 3 MG TABLET PO (23:20)
[2022-10-14] VITALS (8 sets, daily range): BP systolic 96–110; BP diastolic 52–76; PULSE 71–83; RESP 12–30; TEMP 36.2–36.9; O2SAT 90–100
--- NOTE | 2022-10-14 00:35 | EKG12_ITS ---
Test Reason : HR CHANGE Blood Pressure : / mmHG Vent. Rate : 145 BPM Atrial Rate : 145 BPM P-R Int : 280 ms QRS Dur : 104 ms QT Int : 320 ms P-R-T Axes : 000 -01 111 degrees QTc Int : 497 ms Sinus tachycardia with 1st degree A-V block Minimal voltage criteria for LVH, may be normal variant ( R in aVL ) Septal infarct , age undetermined Abnormal ECG When compared with ECG of 14-OCT-2022 05:08, MANUAL COMPARISON REQUIRED, DATA IS UNCONFIRMED Confirmed by GAVIN CORONEL, ARIC ([id number]), book editor VICTOR HUGO MAYORGA ([id number]) on 10/17/2022 11:30:42 AM Referred By: Confirmed By:ARIC ALONSO MD
[2022-10-14] MEDS: Levothyroxine 75 MCG Tablet PO (05:11)
--- NOTE | 2022-10-14 06:00 | EKG12_ITS ---
Test Reason : CP Blood Pressure : / mmHG Vent. Rate : 088 BPM Atrial Rate : 088 BPM P-R Int : 196 ms QRS Dur : 114 ms QT Int : 382 ms P-R-T Axes : 042 002 098 degrees QTc Int : 462 ms Normal sinus rhythm Septal infarct , age undetermined T wave abnormality, consider lateral ischemia Abnormal ECG When compared with ECG of 15-OCT-2022 07:55, MANUAL COMPARISON REQUIRED, DATA IS UNCONFIRMED Confirmed by GAVIN CORONEL, ARIC ([id number]), news copy editor VICTOR HUGO MAYORGA ([id number]) on 10/17/2022 11:31:28 AM Referred By: DR FISHER Confirmed By:ARIC ALONSO MD
[2022-10-14 07:01] LABS: Absolute Lymphocyte Count 1.59 X10^3/uL (0.83-4.51); Absolute Neutrophil Count 4.9 X10^3/uL (2.0-7.7); Basophil# 0.05 X10^3/uL; Basophil% 0.7 % (0-1); Eosinophil# 0.44 X10^3/uL; Eosinophils% 5.8 % (0-5); Hematocrit 41.2 % (40-54); Hemoglobin 13.3 g/dL (13.0-16.5); Lymphocyte # 1.59 X10^3/ul (0.83-4.51); Lymphocyte % 20.8 % (19-41); Mean Corp Hgb Conc 32.3 g/dL (32-36); Mean Corpuscular Hgb 27.7 pg (27.0-32.0); Mean Corpuscular Volume 85.7 fL (80-94); Mean Platelet Vol. 9.5 fl (6.2-12.0); Monocyte# 0.64 X10^3/uL; Monocyte% 8.4 % (0-10); NRBC Flagged by Analyzer 0 % (0-5); Neutrophil # 4.89 X10^3/uL (2.7-7.7); Neutrophil % 63.8 % (47-70); Platelet Count 300 K/mm3 (150-450); RBC Distribution Width CV 13.8 % (11.6-14.6); RBC Distribution Width SD 43.4 fl (35.1-43.9); Red Blood Count 4.81 M/mm3 (4.6-6.2); White Blood Count 7.7 K/mm3 (4.4-11.0)
[2022-10-14 07:01] LABS: Bedside Glucose 126 mg/dL (74-106)
[2022-10-14 07:31] LABS: ALB/GLOB Ratio 0.5 RATIO (0.9-2.4); AST(SGOT) 14 U/L (15-37); Alanine Aminotransfer ALT/SGPT 15 U/L (16-61); Albumin, Serum 2.5 g/dL (3.2-5.0); Alkaline Phosphatase 88 U/L (45-117); Anion Gap 6 (5-15); BUN 26 mg/dL (7-18); BUN/Creat Ratio 27.3 RATIO (10-20); Calcium,Total 9.5 mg/dL (8.5-10.1); Chloride 102 mmol/L (98-107); Creatinine, Serum 0.95 mg/dL (0.70-1.30); EST Glomerular Filtration Rate 84 mL/min (>60); Est Glom Filt Rate - Afr Amer 101 mL/min (>60); Estimated Creatinine Clearance 80.36 ml/min; Globulin 4.7 g/dL (2.2-4.2); Glucose 115 mg/dL (74-106); Potassium 3.7 mmol/L (3.5-5.1); Protein, Total 7.2 g/dL (6.4-8.2); Sodium Level 135 mmol/L (136-145)
[2022-10-14] MEDS: Spironolactone 25 MG Tablet PO (08:23)
[2022-10-14] MEDS: Furosemide 40 MG/4 ML Vial IV ×3 (08:23→21:41)
[2022-10-14] MEDS: Carvedilol 6.25 MG Tablet PO ×2 (08:23→16:39)
[2022-10-14] MEDS: Multivitamins,Therapeutic Tablet 1 TABLET PO (08:23)
[2022-10-14] MEDS: Aspirin 81 MG TAB.CHEW PO (08:23)
[2022-10-14] MEDS: SACUBITRIL/VALSARTAN 49-51 MG TABLET 1 EACH PO ×2 (08:23→21:41)
[2022-10-14] MEDS: APIXABAN 5 MG TABLET PO ×2 (08:23→21:41)
[2022-10-14] MEDS: Famotidine 20 MG Tablet PO (08:23)
[2022-10-14] MEDS: Glimepiride 4 MG Tablet PO ×2 (08:23→16:39)
[2022-10-14] MEDS: 0.9% Saline Lock 10 ML Syringe IV ×3 (08:23→21:41)
[2022-10-14] MEDS: Insulin Lispro 100 UNIT/ML INSULN.PEN SC ×2 (11:56→21:44)
--- NOTE | 2022-10-14 12:27 | PCM.PN.HOSP ---
Subjective Subjective Follow-up on acute respiratory failure/acute exacerbation of heart failure reduced EF: Patient was seen and examined.?He remains on Bipap/15 L of oxygen. He continues to diurese.? Denied any chest pain or shortness of breath.? Objective Data Objective Data Vital Signs: Vital Signs Temp Pulse Resp BP Pulse Ox O2 Del Method O2 Flow Rate 97.2 F L 83 24 H 106/72 91 Bi-pap 15 10/14/22 09:35 10/14/22 09:35 10/14/22 09:35 10/14/22 09:35 10/14/22 09:35 10/14/22 10:24 10/14/22 09:35 FiO2 45 10/14/22 02:50 Oxygen Flow Rate (L/min) 15 Oxygen Delivery Method Bi-pap Weight: 119 kg Body Mass Index (BMI) 36.8 Intake & Output: Intake and Output for Last 24 Hours 10/12/22 10/13/22 10/14/22 23:59 23:59 23:59 Intake Total 630 / 630 Output Total 700 / 700 1950 / 1950 400 / 400 Balance -700 / -700 -1320 / -1320 -400 / -400 Lab / Micro Data Result Diagrams: 10/14/22 06:07 10/14/22 06:07 Labs: Laboratory Results - last 24 hr 10/13/22 16:06: POC Glucose 189 H 10/13/22 21:35: POC Glucose 147 H 10/14/22 06:07: WBC 7.7, RBC 4.81, Hgb 13.3, Hct 41.2, MCV 85.7, MCH 27.7, MCHC 32.3, RDW Std Deviation 43.4, RDW Coeff of Sean 13.8, Plt Count 300, MPV 9.5, Immature Gran % (Auto) 0.500, Neut % (Auto) 63.8, Lymph % (Auto) 20.8, [place] % (Auto) 8.4, Eos % (Auto) 5.8 H, Baso % (Auto) 0.7, Absolute Neuts (auto) 4.9, Absolute Lymphs (auto) 1.59, Nucleated RBC % 0 10/14/22 06:07: Sodium 135 L, Potassium 3.7, Chloride 102, Carbon Dioxide 27.0, Anion Gap 6, BUN 26 H, Creatinine 0.95, Estim Creat Clear Calc 80.36, Est GFR (MDRD) Af Amer 101, Est GFR (MDRD) Non-Af 84, BUN/Creatinine Ratio 27.3 H, Glucose 115 H, Calcium 9.5, Total Bilirubin 0.60, AST 14 L, ALT 15 L, Alkaline Phosphatase 88, Total Protein 7.2, Albumin 2.5 L, Globulin 4.7 H, Albumin/Globulin Ratio 0.5 L 10/14/22 06:42: POC Glucose 126 H Micro: Microbiology 10/12/22 16:57 Nasal Secretion SARS-CoV-2 & FLU Antigen (Rapid) - Final Physical Exam Narrative Physical exam: General: Alert, Oriented x3, Cooperative, on 2 L of oxygen HEENT: Atraumatic Oral: Moist Mucosa Neck: Supple Lungs: Diminished to auscultation, coarse crackles at lung bases Cardiovascular: HS I+II, regular, no murmurs Abdomen: Bowel Sounds Present, Soft, Non Tender Extremities: Bilateral leg edema +2 Skin: No rashes, No breakdown Neurological: Grossly intact Psych/Mental Status: Appropriate Assessment & Plan Assessment/Plan (1) CHF (congestive heart failure): (2) Acute hypoxemic respiratory failure: PLAN: Plan 1. Acute hypoxic respiratory failure secondary to acute exacerbation of heart failure with reduced ejection fraction, EF of 20% Oxygen requirements remain the same continue treatment for CHF management Will repeat CXR 2. Acute exacerbation of heart failure reduced EF, EF of 20%, minimally improved Continue on IV Lasix, CHF protocol Continue on aspirin, carvedilol, Entresto, spironolactone 3. Type II DM, BS is controlled, continue on Amaryl, continue blood glucose checks and sliding scale 4. Hypothyroidism, continue Synthroid 5. Recent left gastrocnemius DVT/history of ventricular thrombi, Continue on Eliquis 6. DVT PPx- On Eliquis Charges/Coding Visit Charges Inpatient E&M: 13790 Subs Hosp L2
[2022-10-14 12:30] LABS: Bedside Glucose 275 mg/dL (74-106)
[2022-10-14 17:10] LABS: Bedside Glucose 139 mg/dL (74-106)
[2022-10-14] MEDS: Acetaminophen 325 MG Tablet 650 MG PO (21:40)
[2022-10-14] MEDS: MELATONIN 3 MG TABLET PO (21:40)
[2022-10-14 23:26] LABS: Bedside Glucose 186 mg/dL (74-106)
[2022-10-15] VITALS (12 sets, daily range): BP systolic 95–143; BP diastolic 67–119; PULSE 70–145; RESP 12–94; TEMP 36.2–37.2; O2SAT 17–99
[2022-10-15] MEDS: Levothyroxine 75 MCG Tablet PO (06:09)
[2022-10-15] MEDS: Insulin Lispro 100 UNIT/ML INSULN.PEN SC ×4 (06:09→22:04)
[2022-10-15] MEDS: Furosemide 40 MG/4 ML Vial IV ×3 (06:09→22:05)
[2022-10-15] MEDS: 0.9% Saline Lock 10 ML Syringe IV ×3 (06:10→22:05)
[2022-10-15 06:50] LABS: Bedside Glucose 154 mg/dL (74-106)
[2022-10-15 06:54] LABS: Absolute Lymphocyte Count 1.56 X10^3/uL (0.83-4.51); Absolute Neutrophil Count 4.3 X10^3/uL (2.0-7.7); Basophil# 0.04 X10^3/uL; Basophil% 0.6 % (0-1); Eosinophil# 0.49 X10^3/uL; Hematocrit 42.4 % (40-54); Lymphocyte # 1.56 X10^3/ul (0.83-4.51); Lymphocyte % 22.2 % (19-41); Mean Corpuscular Hgb 27.8 pg (27.0-32.0); Mean Corpuscular Volume 84.3 fL (80-94); Mean Platelet Vol. 8.8 fl (6.2-12.0); Monocyte# 0.64 X10^3/uL; Monocyte% 9.1 % (0-10); NRBC Flagged by Analyzer 0 % (0-5); Neutrophil # 4.29 X10^3/uL (2.7-7.7); Neutrophil % 60.8 % (47-70); Platelet Count 327 K/mm3 (150-450); RBC Distribution Width CV 13.8 % (11.6-14.6); RBC Distribution Width SD 42.6 fl (35.1-43.9); Red Blood Count 5.03 M/mm3 (4.6-6.2)
[2022-10-15 07:24] LABS: ALB/GLOB Ratio 0.5 RATIO (0.9-2.4); AST(SGOT) 40 U/L (15-37); Alanine Aminotransfer ALT/SGPT 18 U/L (16-61); Albumin, Serum 2.4 g/dL (3.2-5.0); Alkaline Phosphatase 82 U/L (45-117); Anion Gap 7 (5-15); BUN 27 mg/dL (7-18); BUN/Creat Ratio 27.1 RATIO (10-20); Calcium,Total 9.3 mg/dL (8.5-10.1); Chloride 99 mmol/L (98-107); EST Glomerular Filtration Rate 79 mL/min (>60); Est Glom Filt Rate - Afr Amer 96 mL/min (>60); Estimated Creatinine Clearance 76.35 ml/min; Globulin 5.2 g/dL (2.2-4.2); Glucose 154 mg/dL (74-106); Potassium 4.1 mmol/L (3.5-5.1); Protein, Total 7.6 g/dL (6.4-8.2); Sodium Level 135 mmol/L (136-145)
--- NOTE | 2022-10-15 08:02 | PCM.PN.HOSP ---
Subjective Subjective Follow-up on acute respiratory failure/acute exacerbation of heart failure reduced EF: Patient was seen and examined. Patient feels improved; on 7L oxygen now. Denied any chest pain or shortness of breath.? Telemetry shows occasional/paroxysmal fibrillation. Objective Data Objective Data Vital Signs: Vital Signs Temp Pulse Resp BP Pulse Ox O2 Del Method O2 Flow Rate 99.0 F 83 22 H 115/76 97 High Flow 10 10/15/22 06:07 10/15/22 06:07 10/15/22 06:07 10/15/22 06:07 10/15/22 07:43 10/15/22 07:43 10/15/22 07:43 FiO2 35 10/15/22 04:26 Oxygen Flow Rate (L/min) 10 Oxygen Delivery Method High Flow Weight: 115.4 kg Body Mass Index (BMI) 36.8 Intake & Output: Intake and Output for Last 24 Hours 10/13/22 10/14/22 10/15/22 23:59 23:59 23:59 Intake Total 630 / 630 620 / 740 170 / 170 Output Total 1950 / 1950 1350 / 1500 575 / 575 Balance -1320 / -1320 -730 / -760 -405 / -405 Lab / Micro Data Result Diagrams: 10/15/22 06:44 10/15/22 06:44 Labs: Laboratory Results - last 24 hr 10/14/22 11:53: POC Glucose 275 H 10/14/22 16:38: POC Glucose 139 H 10/14/22 21:38: POC Glucose 186 H 10/15/22 06:06: POC Glucose 154 H 10/15/22 06:44: WBC 7.0, RBC 5.03, Hgb 14.0, Hct 42.4, MCV 84.3, MCH 27.8, MCHC 33.0, RDW Std Deviation 42.6, RDW Coeff of Sean 13.8, Plt Count 327, MPV 8.8, Immature Gran % (Auto) 0.300, Neut % (Auto) 60.8, Lymph % (Auto) 22.2, [place] % (Auto) 9.1, Eos % (Auto) 7.0 H, Baso % (Auto) 0.6, Absolute Neuts (auto) 4.3, Absolute Lymphs (auto) 1.56, Nucleated RBC % 0 10/15/22 06:44: Sodium 135 L, Potassium 4.1, Chloride 99, Carbon Dioxide 29.0, Anion Gap 7, BUN 27 H, Creatinine 1.00, Estim Creat Clear Calc 76.35, Est GFR (MDRD) Af Amer 96, Est GFR (MDRD) Non-Af 79, BUN/Creatinine Ratio 27.1 H, Glucose 154 H, Calcium 9.3, Total Bilirubin 0.60, AST 40 H, ALT 18, Alkaline Phosphatase 82, Total Protein 7.6, Albumin 2.4 L, Globulin 5.2 H, Albumin/Globulin Ratio 0.5 L Micro: Microbiology 10/12/22 16:57 Nasal Secretion SARS-CoV-2 & FLU Antigen (Rapid) - Final Physical Exam Narrative Physical exam: General: Alert, Oriented x3, Cooperative, on 2 L of oxygen HEENT: Atraumatic Oral: Moist Mucosa Neck: Supple Lungs: Diminished to auscultation, few coarse crackles at lung bases Cardiovascular: HS I+II, regular, no murmurs Abdomen: Bowel Sounds Present, Soft, Non Tender Extremities: Bilateral leg edema +2 Skin: No rashes, No breakdown Neurological: Grossly intact Psych/Mental Status: Appropriate Assessment & Plan Assessment/Plan (1) CHF (congestive heart failure): (2) Acute hypoxemic respiratory failure: PLAN: Plan 1. Acute hypoxic respiratory failure secondary to acute exacerbation of heart failure with reduced ejection fraction, EF of 20% Oxygen requirements have slightly improved to 7L oxygen Continue treatment for CHF management 2. Acute exacerbation of heart failure reduced EF, EF of 20%, minimally improved Continue on IV Lasix Q8h, CHF protocol Continue on aspirin, carvedilol, Entresto, spironolactone 3. Paroxysmal atrial fibrillation, continue on coreg and Eliquis 4. Type II DM, BS is controlled, continue on Amaryl, continue blood glucose checks and sliding scale 5 Hypothyroidism, continue Synthroid 6. Recent left gastrocnemius DVT/history of ventricular thrombi, Continue on Eliquis 7. DVT PPx- On Eliquis Charges/Coding Visit Charges Inpatient E&M: 19252 Subs Hosp L2
[2022-10-15] MEDS: Glimepiride 4 MG Tablet PO ×2 (08:08→17:09)
[2022-10-15] MEDS: Famotidine 20 MG Tablet PO (08:08)
[2022-10-15] MEDS: Multivitamins,Therapeutic Tablet 1 TABLET PO (08:08)
[2022-10-15] MEDS: SACUBITRIL/VALSARTAN 49-51 MG TABLET 1 EACH PO ×2 (08:08→22:04)
[2022-10-15] MEDS: Carvedilol 6.25 MG Tablet PO ×2 (08:09→17:09)
[2022-10-15] MEDS: Aspirin 81 MG TAB.CHEW PO (08:09)
[2022-10-15] MEDS: Spironolactone 25 MG Tablet PO (08:09)
[2022-10-15] MEDS: APIXABAN 5 MG TABLET PO ×2 (08:09→22:02)
--- NOTE | 2022-10-15 08:48 | EX.PCM.CONCC ---
Assessment & Plan Assessment/Plan (1) Acute hypoxemic respiratory failure: (2) CHF (congestive heart failure): PLAN: Plan RECOMMENDATIONS: 1. Continue aggressive diuresis 2. Wean supplemental oxygen as tolerated 3. Continue BiPAP with sleep and rescue 4. Outpatient complete PFT and sleep study 5. Repeat chest x-ray in a.m. IMPRESSIONS: 1. Acute hypoxic respiratory failure secondary to acute on chronic systolic CHF Patient appears to be responding well to diuresis. However, patient will likely still require BiPAP rescue with sleep. Some concern for concomitant obstructive sleep apnea complicating overall condition. Did discuss with the patient the importance of avoiding excess salt (eating out) and avoiding future complications. Patient would benefit from a complete pulmonary function test for quantification clarification of lung function once euvolemic. Patient appears to be on maximal medical therapy for CHF. Low clinical suspicion for pulmonary embolism given chronic anticoagulation. Patient does have an elevated eosinophil count, so asthma is a consideration. We will repeat chest x-ray tomorrow to be sure patient is not developing a pleural effusion 2. Diabetes mellitus type 2/hypothyroidism/obesity/repeated admissions/hypertension/history of DVT Complicates care, management, recovery and prognosis. Blood sugars are marginally controlled at this time. It is unclear that steroids will be helpful in the overall recovery. Okay to continue with baseline medications. Continue systemic anticoagulation given recent DVT HPI Consult Data Date of Consult: 10/15/22 HPI Narrative Reason for Consultation: Hypoxia HPI Narrative: AYDIN GASTELUM is a 67 M, with past medical history listed below, who presented to [facility] 10/12/2022 secondary progressive shortness of breath, occasional cough and leg swelling. Patient is on Lasix at baseline and reportedly has been compliant. Patient has had similar type of presentations twice in the last 3 months. On arrival to the ER, patient was noted to be hypoxic in triage. Patient was saturating 68% on room air and was placed on a nonrebreather. At that time, patient was noted to have a blood pressure of 147/102, heart rate of 119 and respiratory rate of 26. Laboratory work-up showed a white blood cell count of 12, hemoglobin of 14 and a sodium level of 131. Renal function was within normal limits. BNP was elevated at 766. Lactate was slightly elevated at 2.1. An ABG showed relatively normal acid-base with increased AA gradient. Chest x-ray showed diffuse bilateral vascular congestion with significant worsening compared to previous. Patient was placed on BiPAP therapy and given Lasix intravenously. Patient was admitted to the PCU for further evaluation. Since being in the PCU, patient reports significant improvement in respiratory status. Patient states his cough is improving, but he still has significant shortness of breath with minimal exertion. Patient has been requiring up to 15 L/min to maintain saturations. Patient is stating that he feels that he can do better if I can just get to the chair. Patient did have an echocardiogram in July showing an EF of 20% with severe global left ventricular dysfunction. Mild pulmonary hypertension is reported, but no pressure was given. Patient has been diagnosed with chronic bronchitis, but no PFTs are available for review. Patient reports he did have several years of smoking a pipe, but quit in 2007 with cold turkey. 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 Patient states he was never told of any problems. Patient states his cough was nonproductive. Patient has had some lower extremity swelling. Patient states he has worked at cutting salt out of his diet. However, patient states he tends to go out frequently to eat with his . Patient denies any exposure to TB or asbestos. Review of systems otherwise negative from a constitutional, HEENT, respiratory, cardiovascular, GI, genitourinary, musculoskeletal, skin, neurologic, psychiatric and hematologic system unless stated above. [facility] Medical History Acute systolic heart failure Arthritis COPD (chronic obstructive pulmonary disease) Essential (primary) hypertension GERD (gastroesophageal reflux disease) GI bleed Gout Hypothyroidism Left ventricular thrombus Severe left ventricular systolic dysfunction Type 2 diabetes mellitus Home Medications albuterol sulfate 90 mcg/actuation aerosol inhaler (ProAir HFA) 2 puff inhalation Q4H PRN PRN Sob &/Or Wheezing 08/06/18 [History Last Taken 08/25/22] aspirin 81 mg chewable tablet 81 mg PO DAILY HE[facility]INT. 08/10/22 [History Last Taken 08/25/22] glimepiride 4 mg tablet 4 mg PO BID DM 08/10/22 [History Last Taken 08/25/22] levothyroxine 75 mcg tablet 75 mcg PO DAILY THYROID 08/10/22 [History Last Taken 08/25/22] multivitamin 1 tab PO DAILY supplement 08/10/22 [History Last Taken 08/25/22] famotidine 20 mg tablet 20 mg PO DAILY heart burn 08/11/22 [History Last Taken 08/24/22] apixaban 5 mg tablet (Eliquis) 5 mg PO BID 30 days #60 tabs 10/10/22 [Rx Last Taken Unknown] carvedilol 6.25 mg tablet 6.25 mg PO BID 30 days #60 tabs 10/12/22 [Rx Last Taken Unknown] furosemide 40 mg tablet 20 mg PO DAILY 10/12/22 [History Last Taken Unknown] sacubitril 49 mg-valsartan 51 mg tablet (Entresto) 2 tab PO BID 10/12/22 [History Last Taken Unknown] Allergy/AdvReac Type Severity Reaction Status Date / Time No Known Allergies Allergy Verified 10/12/22 16:14 Family History Mother Hypertension Sister Hypertension Father Hypertension Myocardial infarction from [place] age 54 Surgical History H/O arthroscopy of right knee History of tonsillectomy History of total left knee replacement History of total right knee replacement Hx of cholecystectomy Social History Smoking Status: Former smoker ROS ROS Narrative See HPI Physical Exam Const alert, oriented x3 and no apparent distress Constitutional Narrative: On nasal cannula General Appearance: cooperative HEENT hearing grossly normal bilaterally Head and Scalp: atraumatic Eyes EOMs intact bilaterally Neck General: normal visual inspection Chest inspection of chest normal and palpation of chest normal Resp Effort and Inspection: tachypneic Auscultation: rales and diminished lung sounds; Negative for rhonchi or wheezes Cardio regular rate, regular rhythm, S1 normal heart sound and S2 normal heart sound Jugular Venous Distention: JVD GI normal to inspection, nondistended, normoactive bowel sounds Extremity normal capillary refill and no pedal edema Peripheral Pulses: Yes pulses 2+ throughout and femoral pulses present Skin no rashes or lesions noted Neuro oriented x3, CN's II-XII intact bilaterally and moves all extremities Psych cooperative and affect normal Medical Records Data Attestation: I reviewed the patient's medical records Lab / Micro Data Attestation: I reviewed the patient's lab results. Result Diagrams: 10/15/22 06:44 10/15/22 06:44 Labs: Laboratory Results - last 24 hr 10/14/22 11:53: POC Glucose 275 H 10/14/22 16:38: POC Glucose 139 H 10/14/22 21:38: POC Glucose 186 H 10/15/22 06:06: POC Glucose 154 H 10/15/22 06:44: WBC 7.0, RBC 5.03, Hgb 14.0, Hct 42.4, MCV 84.3, MCH 27.8, MCHC 33.0, RDW Std Deviation 42.6, RDW Coeff of Sean 13.8, Plt Count 327, MPV 8.8, Immature Gran % (Auto) 0.300, Neut % (Auto) 60.8, Lymph % (Auto) 22.2, [place] % (Auto) 9.1, Eos % (Auto) 7.0 H, Baso % (Auto) 0.6, Absolute Neuts (auto) 4.3, Absolute Lymphs (auto) 1.56, Nucleated RBC % 0 10/15/22 06:44: Sodium 135 L, Potassium 4.1, Chloride 99, Carbon Dioxide 29.0, Anion Gap 7, BUN 27 H, Creatinine 1.00, Estim Creat Clear Calc 76.35, Est GFR (MDRD) Af Amer 96, Est GFR (MDRD) Non-Af 79, BUN/Creatinine Ratio 27.1 H, Glucose 154 H, Calcium 9.3, Total Bilirubin 0.60, AST 40 H, ALT 18, Alkaline Phosphatase 82, Total Protein 7.6, Albumin 2.4 L, Globulin 5.2 H, Albumin/Globulin Ratio 0.5 L Charges/Coding Visit Charges Inpatient E&M: 75579 Init Hosp L3
--- NOTE | 2022-10-15 09:00 | EKG12_ITS ---
Test Reason : RHYTHM CHANGE Blood Pressure : / mmHG Vent. Rate : 110 BPM Atrial Rate : 147 BPM P-R Int : 000 ms QRS Dur : 108 ms QT Int : 316 ms P-R-T Axes : 030 -02 119 degrees QTc Int : 427 ms Sinus tachycardia with 2nd degree A-V block ([place] I) Minimal voltage criteria for LVH, may be normal variant ( R in aVL ) Septal infarct , age undetermined T wave abnormality, consider lateral ischemia Abnormal ECG When compared with ECG of 12-OCT-2022 16:58, MANUAL COMPARISON REQUIRED, DATA IS UNCONFIRMED Confirmed by GAVIN CORONEL, ARIC ([id number]), scientific publications editor VICTOR HUGO MAYORGA ([id number]) on 10/17/2022 11:34:03 AM Referred By: MARTA Confirmed By:ARIC ALONSO MD
[2022-10-15 12:10] LABS: Bedside Glucose 272 mg/dL (74-106)
[2022-10-15 17:35] LABS: Bedside Glucose 222 mg/dL (74-106)
--- NOTE | 2022-10-15 22:09 | EKG12_ITS ---
Test Reason : am ekg Blood Pressure : / mmHG Vent. Rate : 075 BPM Atrial Rate : 075 BPM P-R Int : 210 ms QRS Dur : 112 ms QT Int : 388 ms P-R-T Axes : 019 -11 100 degrees QTc Int : 433 ms Sinus rhythm with 1st degree A-V block Possible Left atrial enlargement Minimal voltage criteria for LVH, may be normal variant ( R in aVL ) Septal infarct , age undetermined T wave abnormality, consider lateral ischemia Abnormal ECG When compared with ECG of 14-OCT-2022 00:43, MANUAL COMPARISON REQUIRED, DATA IS UNCONFIRMED Confirmed by GAVIN CORONEL, ARIC ([id number]), index editor VICTOR HUGO MAYORGA ([id number]) on 10/17/2022 11:33:12 AM Referred By: Migdalia Confirmed By:ARIC ALONSO MD
[2022-10-15 23:00] LABS: Bedside Glucose 204 mg/dL (74-106)
[2022-10-16] VITALS (12 sets, daily range): BP systolic 94–145; BP diastolic 80–95; PULSE 79–92; RESP 12–23; TEMP 36.6–36.8; O2SAT 85–96
[2022-10-16] MEDS: 0.9% Saline Lock 10 ML Syringe IV ×2 (05:35→17:47)
[2022-10-16] MEDS: Levothyroxine 75 MCG Tablet PO (05:35)
[2022-10-16] MEDS: Furosemide 40 MG/4 ML Vial IV ×2 (05:35→17:47)
[2022-10-16] MEDS: Insulin Lispro 100 UNIT/ML INSULN.PEN SC ×4 (06:19→22:19)
[2022-10-16 06:50] LABS: Bedside Glucose 218 mg/dL (74-106)
[2022-10-16] MEDS: Spironolactone 25 MG Tablet PO (08:01)
[2022-10-16] MEDS: APIXABAN 5 MG TABLET PO ×2 (08:01→22:14)
[2022-10-16] MEDS: Aspirin 81 MG TAB.CHEW PO (08:02)
[2022-10-16] MEDS: Multivitamins,Therapeutic Tablet 1 TABLET PO (08:02)
[2022-10-16] MEDS: Glimepiride 4 MG Tablet PO ×2 (08:02→16:46)
[2022-10-16] MEDS: Famotidine 20 MG Tablet PO (08:02)
--- NOTE | 2022-10-16 08:35 | RAD_ITS ---
STUDY: X-RAY CHEST REASON FOR EXAM: Male, 67 years old. CHF TECHNIQUE: PA and lateral views of the chest. COMPARISON: Comparison is made with prior study dated 04/11/2023. FINDINGS: EKG electrodes are seen. Persistent increased interstitial markings in both lungs with areas of confluence. There has been [id number] degree of improvement as compared to prior study. Further follow-up is recommended. There is no demonstrated pleural abnormality. Normal size heart. Normal mediastinum and [place]. Normal visualized pulmonary arteries. There is atherosclerotic calcification of the aortic arch with tortuosity. There are degenerative changes of the visualized thoracic spine. Normal visualized ribs, clavicles, and shoulders. There is no demonstrated abnormality of the visualized soft tissue structures of the upper abdomen. RAD/Chest PA and Lateral IMPRESSION: Persistent increased interstitial markings with areas of confluence although there has been a moderate degree of improvement as compared to prior study. Electronically Signed: Lavell Lin MD at 10:01 [facility] ,
--- NOTE | 2022-10-16 09:47 | PCM.PN.INT ---
Assessment & Plan Assessment/Plan (1) Acute hypoxemic respiratory failure: (2) CHF (congestive heart failure): PLAN: Plan RECOMMENDATIONS: 1. Continue diuresis as tolerated by hemodynamics and renal function. 2. Continue to wean supplemental oxygen to maintain saturations at or above 90%. 3. BiPAP with sleep. 4. Perform walking oximetry study prior to consideration for discharge home. 5. Recommend outpatient pulmonary follow-up so that baseline PFTs and sleep study can be completed. 6. Will sign off from a pulmonary perspective. Please call with any additional questions. IMPRESSIONS: 1. Acute hypoxemic respiratory failure secondary to acute on chronic systolic CHF The patient has improved from a respiratory perspective in the setting of diuresis. His oxygen requirement has decreased significantly. He is currently maintaining appropriate saturations on 2 L/min. Plan to continue diuresis as tolerated by hemodynamics and renal function. The patient would benefit from outpatient PFTs. Continue to encourage incentive spirometer use and mobilize patient as tolerated. 2. Diabetes mellitus/hypothyroidism/obesity/hypertension/history of DVT Complicates care, management, recovery and prognosis. Continue home medications as indicated. This note was generated with [employer] dictation software. It may contain incorrect words, spelling, and punctuation that were not noted in checking the note before signing. Subjective Subjective The patient was seen and examined at the bedside this morning. Events from the last 24 hours have been reviewed. The patient is currently afebrile, hemodynamically stable and maintaining appropriate oxygen saturations on 2 L/min via nasal cannula. The patient is currently documented to be overall net -3.7 L for the hospitalization. Oxygenation status has improved over the last 24 hours. The patient does report overall improvement in his breathing quality. Objective Data Objective Data The patient's most recent lab work, culture data and imaging studies have all been personally reviewed. Surface echocardiogram from July 2022 demonstrated severe global LV systolic dysfunction with an ejection fraction of 20%. Vital Signs: Vital Signs Temp Pulse Resp BP Pulse Ox O2 Del Method O2 Flow Rate 98.2 F 82 23 H 145/95 H 92 Nasal Cannula 2 10/16/22 03:56 10/16/22 07:13 10/16/22 07:13 10/16/22 03:56 10/16/22 09:07 10/16/22 09:07 10/16/22 09:07 FiO2 35 10/16/22 07:17 Oxygen Flow Rate (L/min) 2 Oxygen Delivery Method Nasal Cannula Weight: 253 lb 4.978 oz Body Mass Index (BMI) 36.8 Intake & Output: Intake and Output for Last 24 Hours 10/14/22 10/15/22 10/16/22 23:59 23:59 23:59 Intake Total 620 / 740 990 / 990 340 / 340 Output Total 1350 / 1500 1925 / 1925 400 / 400 Balance -730 / -760 -935 / -935 -60 / -60 Lab / Micro Data Attestation: I reviewed the patient's lab results. Result Diagrams: 10/15/22 06:44 10/15/22 06:44 Labs: Laboratory Results - last 24 hr 10/15/22 11:50: POC Glucose 272 H 10/15/22 17:07: POC Glucose 222 H 10/15/22 21:59: POC Glucose 204 H 10/16/22 06:18: POC Glucose 218 H Micro: Microbiology 10/12/22 16:57 Nasal Secretion SARS-CoV-2 & FLU Antigen (Rapid) - Final Physical Exam Const alert and no apparent distress General Appearance: cooperative HEENT normocephalic and head/scalp atraumatic Eyes PERRL, EOMs intact bilaterally and conjunctivae normal Neck supple General: trachea midline Chest inspection of chest normal Resp Auscultation: diminished lung sounds; Negative for rales, rhonchi or wheezes Cardio regular rate and regular rhythm GI normal to inspection, nondistended, normoactive bowel sounds Extremity no clubbing, cyanosis or edema Skin no rashes or lesions noted Neuro CN's II-XII intact bilaterally, moves all extremities and no focal motor deficits Psych cooperative and affect normal Charges/Coding Visit Charges Inpatient E&M: 14667 Subs Hosp L2
--- NOTE | 2022-10-16 09:51 | PCM.PN.HOSP ---
Objective Data Objective Data Vital Signs: Vital Signs Temp Pulse Resp BP Pulse Ox O2 Del Method O2 Flow Rate 98.2 F 82 23 H 145/95 H 92 Nasal Cannula 2 10/16/22 03:56 10/16/22 07:13 10/16/22 07:13 10/16/22 03:56 10/16/22 09:07 10/16/22 09:07 10/16/22 09:07 FiO2 35 10/16/22 07:17 Oxygen Flow Rate (L/min) 2 Oxygen Delivery Method Nasal Cannula Weight: 253 lb 4.978 oz Body Mass Index (BMI) 36.8 Intake & Output: Intake and Output for Last 24 Hours 10/14/22 10/15/22 10/16/22 23:59 23:59 23:59 Intake Total 620 / 740 990 / 990 340 / 340 Output Total 1350 / 1500 1925 / 1925 400 / 400 Balance -730 / -760 -935 / -935 -60 / -60 Lab / Micro Data Result Diagrams: 10/15/22 06:44 10/15/22 06:44 Labs: Laboratory Results - last 24 hr 10/15/22 11:50: POC Glucose 272 H 10/15/22 17:07: POC Glucose 222 H 10/15/22 21:59: POC Glucose 204 H 10/16/22 06:18: POC Glucose 218 H Micro: Microbiology 10/12/22 16:57 Nasal Secretion SARS-CoV-2 & FLU Antigen (Rapid) - Final Assessment & Plan Assessment/Plan (1) CHF (congestive heart failure): (2) Acute hypoxemic respiratory failure: PLAN: Plan 1. Acute hypoxic respiratory failure secondary to acute exacerbation of heart failure with reduced ejection fraction, EF of 20% Oxygen requirements have slightly improved to 7L oxygen Continue treatment for CHF management 2. Acute exacerbation of heart failure reduced EF, EF of 20%, minimally improved Continue on IV Lasix Q8h, CHF protocol Continue on aspirin, carvedilol, Entresto, spironolactone 3. Paroxysmal atrial fibrillation, continue on coreg and Eliquis 4. Type II DM, BS is controlled, continue on Amaryl, continue blood glucose checks and sliding scale 5 Hypothyroidism, continue Synthroid 6. Recent left gastrocnemius DVT/history of ventricular thrombi, Continue on Eliquis 7. DVT PPx- On Eliquis
--- NOTE | 2022-10-16 11:45 | DCINST_ITS ---
Discharge Instructions Follow Up Care Test Results: Test results from this visit will be discussed in further detail at your follow- up appointment, if applicable. Discharge Plan Admission Admit Date/Time: 10/12/22 21:03 Attending Provider: Ranjeet Mary Primary Care Provider: Leslie Tolentino Consulting Providers: Lucio Negron ; Francisco Haney ; Clem Bautista ; Chris Joseph ; Tushar Oquendo ; Isabella Foy NP ; Chastity Gray Discharge Orders/Prescriptions Prescriptions: No Action Eliquis 5 mg tablet 5 mg PO BID 30 Days Qty: 60 0RF albuterol sulfate [ProAir HFA] 1 PUFF inhaler 2 puff inhalation Q4H PRN PRN (Reason: Sob &/Or Wheezing) levothyroxine 75 mcg Tablet 75 mcg PO DAILY glimepiride 4 mg tablet 4 mg PO BID Label Comments: TAKE 1 TABLET BY MOUTH ONCE DAILY multivitamin Tablet 1 tab PO DAILY aspirin 81 mg Tablet,Chewable 81 mg PO DAILY famotidine 20 mg Tablet 20 mg PO DAILY Entresto 49-51 mg tablet 2 tab PO BID furosemide 40 mg tablet 20 mg PO DAILY carvedilol 6.25 mg tablet 6.25 mg PO BID 30 Days Qty: 60 11RF Referrals / Follow Up: Leslie Tolentino MD [Primary Care Provider] -
[2022-10-16 11:51] LABS: Bedside Glucose 216 mg/dL (74-106)
--- NOTE | 2022-10-16 12:09 | PCM.PN.HOSP ---
Subjective Subjective Follow-up for acute exacerbation of heart failure. Objective Data Objective Data Vital Signs: Vital Signs Temp Pulse Resp BP Pulse Ox O2 Del Method O2 Flow Rate 97.8 F 85 22 H 94/80 90 Nasal Cannula 2 10/16/22 09:56 10/16/22 09:56 10/16/22 09:56 10/16/22 09:56 10/16/22 11:31 10/16/22 09:56 10/16/22 11:31 FiO2 35 10/16/22 07:17 Oxygen Flow Rate (L/min) [ 6 AMBULATING with Oxygen #3] Oxygen Flow Rate (L/min) [ 4 AMBULATING with Oxygen #2] Oxygen Flow Rate (L/min) [ 2 AMBULATING with Oxygen #1] Oxygen Flow Rate (L/min) 2 Oxygen Delivery Method Nasal Cannula Weight: 253 lb 4.978 oz Body Mass Index (BMI) 36.8 Intake & Output: Intake and Output for Last 24 Hours 10/14/22 10/15/22 10/16/22 23:59 23:59 23:59 Intake Total 620 / 740 990 / 990 340 / 340 Output Total 1350 / 1500 1925 / 1925 400 / 400 Balance -730 / -760 -935 / -935 -60 / -60 Lab / Micro Data Result Diagrams: 10/15/22 06:44 10/15/22 06:44 Labs: Laboratory Results - last 24 hr 10/15/22 11:50: POC Glucose 272 H 10/15/22 17:07: POC Glucose 222 H 10/15/22 21:59: POC Glucose 204 H 10/16/22 06:18: POC Glucose 218 H 10/16/22 11:07: POC Glucose 216 H Micro: Microbiology 10/12/22 16:57 Nasal Secretion SARS-CoV-2 & FLU Antigen (Rapid) - Final Radiography Diagnostic Testing: Radiology Impression Chest X-Ray 10/16/22 08:35 IMPRESSION: Persistent increased interstitial markings with areas of confluence although there has been a moderate degree of improvement as compared to prior study. Electronically Signed: Lavell Lin MD at 10:01 EST , Physical Exam Narrative Patient denies chest pain or tightness. Patient has shortness of breath on exertion. On 2 L of oxygen at rest, patient not on oxygen at home. Seen and examined. General: Alert, Oriented x3, Cooperative HEENT: Atraumatic, PERRLA, EOMI, Normocephalic Oral: No Gingival or Mucosal Lesions/ Ulcerations Neck: Supple, No JVD, Negative Carotid Bruits Lungs: Air entry diminished in bilateral lung bases. No crepitation/rhonchi Cardiovascular: Regular rate, Regular Rhythm, Normal S1, Normal S2, No murmurs Abdomen: Bowel Sounds Present, Soft, Non Tender, Non-Distended : No renal angle tenderness. No suprapubic tenderness. Extremities: No edema, Capillary Refill Less than 3 Seconds Skin: No rashes, No breakdown Musculoskeletal: No Tenderness to Palpation of Joints or Extremities Neurological: Cranial nerves II-XII grossly intact, DTR 2+/4 and Symmetrical, Neuro grossly intact Psych/Mental Status: Flat affect. Assessment & Plan Assessment/Plan (1) CHF (congestive heart failure): (2) Acute hypoxemic respiratory failure: PLAN: Plan 67-year-old gentleman was admitted with 2-day history of progressive worsening of shortness of breath, increases with exertion. Patient had orthopnea with productive yellow cough. EF 20% in echo in07/2020 1. Acute hypoxic respiratory failure secondary to acute exacerbation of heart failure with reduced ejection fraction, EF of 20%: Patient oxygen requirement was 7 L yesterday, improved to 2 L today but increased to 6 L oxygen. Patient also visibly gets dyspneic on exertion. We will anticipate discharge tomorrow. 2. Acute exacerbation of heart failure reduced EF, EF of 20%, minimally improved Heart failure core measures including intake and output, fluid restriction less than 1500 mL, daily weight monitoring, kidney and electrolytes monitoring. Patient was started on Lasix 40 mg IV every 8 hourly decrease to every 12 hourly. Continue baby aspirin, carvedilol, Entresto, spironolactone 3. Paroxysmal atrial fibrillation, continue on coreg and Eliquis 4. Type II DM, BS is controlled, continue on Amaryl, continue blood glucose checks and sliding scale 5 Hypothyroidism, continue Synthroid 6. Recent left gastrocnemius DVT/history of ventricular thrombi, Continue on Eliquis 7. DVT PPx- On Eliquis Charges/Coding Visit Charges Inpatient E&M: 98525 Subs Hosp L2
[2022-10-16 13:55] LABS: Magnesium 2.2 mg/dL (1.6-2.6)
[2022-10-16 13:59] LABS: Phosphorus 2.8 mg/dL (2.5-4.9)
--- NOTE | 2022-10-16 14:59 | CHAPLAIN ---
Type of Pastoral Visit ___ Initial Visit _x__ Follow-up Visit ___ On-call Visit ___ General Patient Visit ___ Spiritual Assessment ___ Family Conference ___ Bereavement ___ Rapid Response ___ Code Blue ___ Other (describe below) Pastoral Care Referral From _x__ Patient ___ Family ___ Nurse ___ Physician ___ Livestock Speculator ___ Creative Arts Therapist ___ Other (describe below) Sacrament/Intervention _x__ Active listening ___ Anointing ___ Lutheran ___ Bereavement ___ Communion ___ Haylie exploration ___ _x__ Life review ___ Prayer ___ Reconciliation ___ Sacrament of Sick _x__ Supportive presence ___ Wedding ___ Other (describe below) Pastoral Comments follow up to patient as requested; pt is sitting at beds edge; pt states that he is doing some better and was able to walk in the halls; pt goal is to get home and get better at walking around before he has another hospitalization planned for October; pt talks about his family support from a granddaughter and then also about broken relationships in family; care planning team came into room at this time so the visit was interrupted
[2022-10-16] MEDS: Carvedilol 6.25 MG Tablet PO (16:46)
[2022-10-16 17:05] LABS: Bedside Glucose 186 mg/dL (74-106)
[2022-10-16] MEDS: Atorvastatin Calcium 40 MG Tablet PO (22:14)
[2022-10-16] MEDS: SACUBITRIL/VALSARTAN 49-51 MG TABLET 1 EACH PO (22:14)
[2022-10-16 22:41] LABS: Bedside Glucose 170 mg/dL (74-106)
[2022-10-17 03:06] VITALS: PULSE 75
[2022-10-17 03:55] VITALS: BP 106/37; PULSE 83; RESP 18; TEMP 36.4; O2SAT 95
[2022-10-17 06:13] LABS: Anion Gap 8 (5-15); BUN 24 mg/dL (7-18); BUN/Creat Ratio 24.8 RATIO (10-20); Calcium,Total 9.6 mg/dL (8.5-10.1); Chloride 98 mmol/L (98-107); Cholesterol 181 mg/dL (200); Creatinine, Serum 0.97 mg/dL (0.70-1.30); EST Glomerular Filtration Rate 82 mL/min (>60); Est Glom Filt Rate - Afr Amer 100 mL/min (>60); Estimated Creatinine Clearance 78.71 ml/min; Glucose 165 mg/dL (74-106); High Density Lipoprotein 33 mg/dL; Potassium 3.6 mmol/L (3.5-5.1); Sodium Level 136 mmol/L (136-145); Triglycerides 120 mg/dL; Very Low Density Lipoprotein 24 mg/dL (5-40)
[2022-10-17] MEDS: Levothyroxine 75 MCG Tablet PO (06:29)
[2022-10-17] MEDS: Insulin Lispro 100 UNIT/ML INSULN.PEN SC ×2 (06:32→11:55)
[2022-10-17 06:50] LABS: Bedside Glucose 180 mg/dL (74-106)
[2022-10-17 07:45] VITALS: O2SAT 95
[2022-10-17] MEDS: APIXABAN 5 MG TABLET PO (08:37)
[2022-10-17] MEDS: Glimepiride 4 MG Tablet PO (08:37)
[2022-10-17] MEDS: Famotidine 20 MG Tablet PO (08:37)
[2022-10-17] MEDS: Aspirin 81 MG TAB.CHEW PO (08:37)
[2022-10-17] MEDS: Multivitamins,Therapeutic Tablet 1 TABLET PO (08:37)
[2022-10-17] MEDS: Furosemide 40 MG/4 ML Vial IV (08:38)
[2022-10-17] MEDS: 0.9% Saline Lock 10 ML Syringe IV (08:38)
[2022-10-17 09:55] VITALS: BP 106/83; PULSE 88; RESP 20; TEMP 36.3; O2SAT 98
--- NOTE | 2022-10-17 10:36 | DCINST_ITS ---
Discharge Instructions Diet Discharge Diet: Low fat / Low cholesterol, 1800 Calorie Control Diet and 2000 mg Sodium Diet Activity Discharge Activity: Return to Normal Activity Weight Bearing Status: Weight bearing as tolerated Dressing / Incision Call your doctor if you observe: Fever of 101 or Higher, Coldness, Increased Pain, Numbness or Tingling, Change in Color, Inability to urinate, Inability to have a bowel movement, Shortness of breath, Dizziness, Fainting spells, Swelling in the ankles, Chest pain, Prolonged hiccupping, Increased palpitations (irregular heartbeat) and Calf discomfort Follow Up Care When: IN 2 WEEKS Test Results: Test results from this visit will be discussed in further detail at your follow- up appointment, if applicable. Discharge Plan Admission Admit Date/Time: 10/12/22 21:03 Primary Reason for Your Visit: CHF exacerbation Attending Provider: Ranjeet Mary Primary Care Provider: Leslie Tolentino Consulting Providers: Lucio Negron ; Francisco Haney ; Clem Bautista ; Chris Joseph ; Tushar Oquendo ; Isabella Foy NP ; Chastity Gray Instructions Additional Instructions / Restrictions: Patient is ambulatory in home and in the community and requires home oxygen with portability for CHF exacerbation Discharge Orders/Prescriptions Prescriptions: New atorvastatin 40 mg Tablet 40 mg PO QHS 30 Days Qty: 30 2RF sennosides-docusate sodium [Stool Softener-Stimulant Laxat] 8.6-50 mg Tablet 2 tab PO BID PRN PRN (Reason: Constipation) Qty: 0 0RF spironolactone 25 mg Tablet 25 mg PO DAILYCM 30 Days Qty: 30 2RF torsemide 20 mg tablet 20 mg PO BID 30 Days Qty: 60 2RF Continued Eliquis 5 mg tablet 5 mg PO BID 30 Days Qty: 60 0RF albuterol sulfate [ProAir HFA] 1 PUFF inhaler 2 puff inhalation Q4H PRN PRN (Reason: Sob &/Or Wheezing) levothyroxine 75 mcg Tablet 75 mcg PO DAILY glimepiride 4 mg tablet 4 mg PO BID Label Comments: TAKE 1 TABLET BY MOUTH ONCE DAILY multivitamin Tablet 1 tab PO DAILY aspirin 81 mg Tablet,Chewable 81 mg PO DAILY famotidine 20 mg Tablet 20 mg PO DAILY Entresto 49-51 mg tablet 2 tab PO BID carvedilol 6.25 mg tablet 6.25 mg PO BID 30 Days Qty: 60 11RF Discontinued furosemide 40 mg tablet 20 mg PO DAILY Referrals / Follow Up: Leslie Tolentino MD [Primary Care Provider] - Within 2 Weeks Dakota Frost MD [Med Staff - Active Staff] - Within 1 Month (FOR HF exacerbation ) Clem Bautista DO [Med Staff - Active Staff] - Within 2 Weeks (Follow-up with Isabella Foy) Disposition Disposition (needs filled in before D/C Order can be placed): Home, Self Care
[2022-10-17 12:15] LABS: Bedside Glucose 209 mg/dL (74-106)
[2022-10-17 12:18] VITALS: O2SAT 85; O2SAT 86; O2SAT 90; O2SAT 92
--- NOTE | 2022-10-17 12:45 | DS.PCM_ITS ---
Providers Date of Admission: 10/12/22 Date of Discharge: 10/17/22 Primary Care Physician: Dr. Leslie Tolentino MD Consultations 10/14/22 11:40 Consult: Television Actor / Pulmonary Medicine Routine Consulting Provider: Pulmonary Medicine paris [place] Reason for Consult: Resp failure EMERGENT Consult: No MD Notified: Yes Date Notified: 10/14/22 Time Notified: 13:09 Method of Notification: Text Reason For Visit: ACUTE HYPOXEMIC RESPIRATORY FAILURE,ACUTE HEART FA Diagnosis Discharge Diagnosis (1) CHF (congestive heart failure): Status: Acute Code(s): I50.9 - Heart failure, unspecified (2) Acute hypoxemic respiratory failure: Status: Acute Code(s): J96.01 - Acute respiratory failure with hypoxia Plan 67-year-old gentleman was admitted with 2-day history of progressive worsening of shortness of breath, increases with exertion. Patient had orthopnea with productive yellow cough. EF 20% in echo in07/2020 1. Acute hypoxic respiratory failure secondary to acute exacerbation of heart failure with reduced ejection fraction, EF of 20%: Patient oxygen requirement was 7 L yesterday, improved to 2 L today but increased to 6 L oxygen. Patient also visibly gets dyspneic on exertion. 10/17: Home qualification oxygen shows pulse ox 85% at rest on room air, 92% at rest with 2 L oxygen and 90% on 4 L of oxygen on ambulation. Patient is ambulatory in home and in the community and requires home oxygen with portability due to CHF exacerbation 2. Acute exacerbation of heart failure reduced EF, EF of 20%, minimally improved Heart failure core measures including intake and output, fluid restriction less than 1500 mL, daily weight monitoring, kidney and electrolytes monitoring. Patient was started on Lasix 40 mg IV every 8 hourly decrease to every 12 hourly. Continue baby aspirin, carvedilol, Entresto, spironolactone 10/17: Patient is well diuresed. Discharged on torsemide 20 mg twice daily as patient was on Lasix before. Continue baby aspirin carvedilol, Entresto and spironolactone and Eliquis. 3. Paroxysmal atrial fibrillation, continue on coreg and Eliquis 4. Type II DM, BS is controlled, continue on Amaryl, continue blood glucose checks and sliding scale 5 Hypothyroidism, continue Synthroid 6. Recent left gastrocnemius DVT/history of ventricular thrombi, Continue on Eliquis 7. DVT PPx- On Eliquis Discharge medication reconciliation done. Discharge follow-up instructions completed. Discharge process discussed with the patient and all questions were answered to patient's satisfaction. Total time spent, exact 35 minutes on discharge meds reconciliation, examination, coordination of care with nurses and ancillary staff, review of imaging and blood test and discussion with the patient on follow-up instructions. Medications at Discharge Home Medications albuterol sulfate 90 mcg/actuation aerosol inhaler (ProAir HFA) 2 puff inhalation Q4H PRN PRN Sob &/Or Wheezing 08/06/18 aspirin 81 mg chewable tablet 81 mg PO DAILY HEALTH MAINT. 08/10/22 glimepiride 4 mg tablet 4 mg PO BID DM 08/10/22 levothyroxine 75 mcg tablet 75 mcg PO DAILY THYROID 08/10/22 multivitamin 1 tab PO DAILY supplement 08/10/22 famotidine 20 mg tablet 20 mg PO DAILY heart burn 08/11/22 apixaban 5 mg tablet (Eliquis) 5 mg PO BID 30 days #60 tabs 10/10/22 carvedilol 6.25 mg tablet 6.25 mg PO BID 30 days #60 tabs 10/12/22 sacubitril 49 mg-valsartan 51 mg tablet (Entresto) 2 tab PO BID 10/12/22 atorvastatin 40 mg tablet 40 mg PO QHS 30 days #30 tabs 10/17/22 sennosides 8.6 mg-docusate sodium 50 mg tablet (Stool Softener-Stimulant Laxative) 2 tab PO BID PRN PRN Constipation #0 tabs 10/17/22 spironolactone 25 mg tablet 25 mg PO DAILYCM 30 days #30 tabs 10/17/22 torsemide 20 mg tablet 20 mg PO BID 30 days #60 tabs 10/17/22 Physical Exam Narrative Patient denies chest pain or tightness. Patient has shortness of breath on exertion, better than yesterday. On 2 L of oxygen at rest, patient not on oxygen at home. Seen and examined. General: Alert, Oriented x3, Cooperative HEENT: Atraumatic, PERRLA, EOMI, Normocephalic Oral: No Gingival or Mucosal Lesions/ Ulcerations Neck: Supple, No JVD, Negative Carotid Bruits Lungs: Air entry diminished in bilateral lung bases. Mild expiratory rhonchi on deep breathing. Mild hypoxia Cardiovascular: Regular rate, Regular Rhythm, Normal S1, Normal S2, No murmurs Abdomen: Bowel Sounds Present, Soft, Non Tender, Non-Distended : No renal angle tenderness. No suprapubic tenderness. Extremities: No edema, Capillary Refill Less than 3 Seconds Skin: No rashes, No breakdown Musculoskeletal: No Tenderness to Palpation of Joints or Extremities Neurological: Cranial nerves II-XII grossly intact, DTR 2+/4 and Symmetrical, Neuro grossly intact Psych/Mental Status: Flat affect. Weight / BMI Weight Weight: 253 lb 4.978 oz Body Mass Index (BMI) 36.8 ABG / Lab / Microbiology Data Result Diagrams: 10/15/22 06:44 10/17/22 04:22 Laboratory: Laboratory Results - last 24 hr 10/16/22 13:25: Magnesium 2.2 10/16/22 13:25: Phosphorus 2.8 10/16/22 16:44: POC Glucose 186 H 10/16/22 22:18: POC Glucose 170 H 10/17/22 04:22: Sodium 136, Potassium 3.6, Chloride 98, Carbon Dioxide 30.0, Anion Gap 8, BUN 24 H, Creatinine 0.97, Estim Creat Clear Calc 78.71, Est GFR (MDRD) Af Amer 100, Est GFR (MDRD) Non-Af 82, BUN/Creatinine Ratio 24.8 H, Glucose 165 H, Calcium 9.6, Triglycerides 120, Cholesterol 181, LDL Cholesterol 124, VLDL Cholesterol 24, HDL Cholesterol 33 L 10/17/22 06:32: POC Glucose 180 H 10/17/22 11:54: POC Glucose 209 H Microbiology: Microbiology 10/12/22 16:57 Nasal Secretion SARS-CoV-2 & FLU Antigen (Rapid) - Final D/C Instructions Discharge Diet: Low fat / Low cholesterol, 1800 Calorie Control Diet and 2000 mg Sodium Diet Weight Bearing Status: Weight bearing as tolerated Call your doctor if you observe: Fever of 101 or Higher, Coldness, Increased Pain, Numbness or Tingling, Change in Color, Inability to urinate, Inability to have a bowel movement, Shortness of breath, Dizziness, Fainting spells, Swelling in the ankles, Chest pain, Prolonged hiccupping, Increased palpitations (irregular heartbeat) and Calf discomfort When: IN 2 WEEKS Meaningful Use Info Meaningful Use Diagnoses (Choose all that apply): None applicable and CHF CHF MONO/ARB ordered at discharge?: Yes Documented LVEF (%): 20 Discharge Plan Admission Admit Date/Time: 10/12/22 21:03 Primary Reason for Your Visit: CHF exacerbation Attending Provider: Ranjeet Mary Primary Care Provider: Leslie Tolentino Consulting Providers: Lucio Negron ; Francisco Haney ; Clem Bautista ; Chris Joseph ; Tushar Oquendo ; Isabella Foy [employer] MANAGER ; Chastity Gray Instructions Additional Instructions / Restrictions: Patient is ambulatory in home and in the community and requires home oxygen with portability for CHF exacerbation Discharge Orders/Prescriptions Prescriptions: New atorvastatin 40 mg Tablet 40 mg PO QHS 30 Days Qty: 30 2RF sennosides-docusate sodium [Stool Softener-Stimulant Laxat] 8.6-50 mg Tablet 2 tab PO BID PRN PRN (Reason: Constipation) Qty: 0 0RF spironolactone 25 mg Tablet 25 mg PO DAILYCM 30 Days Qty: 30 2RF torsemide 20 mg tablet 20 mg PO BID 30 Days Qty: 60 2RF Continued Eliquis 5 mg tablet 5 mg PO BID 30 Days Qty: 60 0RF albuterol sulfate [ProAir HFA] 1 PUFF inhaler 2 puff inhalation Q4H PRN PRN (Reason: Sob &/Or Wheezing) levothyroxine 75 mcg Tablet 75 mcg PO DAILY glimepiride 4 mg tablet 4 mg PO BID Label Comments: TAKE 1 TABLET BY MOUTH ONCE DAILY multivitamin Tablet 1 tab PO DAILY aspirin 81 mg Tablet,Chewable 81 mg PO DAILY famotidine 20 mg Tablet 20 mg PO DAILY Entresto 49-51 mg tablet 2 tab PO BID carvedilol 6.25 mg tablet 6.25 mg PO BID 30 Days Qty: 60 11RF Discontinued furosemide 40 mg tablet 20 mg PO DAILY Referrals / Follow Up: Leslie Tolentino MD [Primary Care Provider] - Within 2 Weeks Dakota Frost MD [Med Staff - Active Staff] - Within 1 Month (FOR HF exacerbation ) Clem Bautista DO [Med Staff - Active Staff] - Within 2 Weeks (Follow-up with Isabella Foy) Disposition Disposition (needs filled in before D/C Order can be placed): Home, Self Care Charges/Coding Visit Charges Inpatient E&M: 76010 Disch Hosp >30min
--- NOTE | 2022-10-17 13:29 | CASEMGMT ---
IRINA NOGUEIRA updated that patient will be discharging today. Patient will need home oxygen referral. Script received and sent to [facility], preferred provider. IRINA NOGUEIRA called Karlie at [facility] to arrange for portable tank to be delivered. Patient is being setup with [facility] for at discharge. Patient denied further questions or needs at this time.
== END 2022-10-17 14:50 | disposition home or self-care (01) | DRG 291 ==
LOC: ED 21:12 → PCU 21:43
PROVIDERS: Internal Medicine; Admitting Provider Hospitalist; Emergency Provider Emergency Medicine; PCP Family Medicine; Visit Provider Internal Medicine
DX: I11.0 Hypertensive heart disease with heart failure (principal); J96.01 Acute respiratory failure with hypoxia; I50.23 Acute on chronic systolic (congestive) heart failure; E87.1 Hypo-osmolality and hyponatremia; I27.20 Pulmonary hypertension, unspecified; J44.9 Chronic obstructive pulmonary disease, unspecified; E11.65 Type 2 diabetes mellitus with hyperglycemia; I82.462 Acute embolism and thrombosis of left calf muscular vein; I48.0 Paroxysmal atrial fibrillation; I08.1 Rheumatic disorders of both mitral and tricuspid valves; E03.9 Hypothyroidism, unspecified; I49.3 Ventricular premature depolarization; E66.9 Obesity, unspecified; Z79.01 Long term (current) use of anticoagulants; Z79.82 Long term (current) use of aspirin; Z79.84 Long term (current) use of oral hypoglycemic drugs; Z20.822 Contact with and (suspected) exposure to COVID-19; Z87.891 Personal history of nicotine dependence; Z96.653 Presence of artificial knee joint, bilateral; Z68.37 Body mass index [BMI] 37.0-37.9, adult
CPT/HCPCS: 36415; 36600; 71045; 71046; 80048; 80053; 80061; 82803; 82962; 83605; 83735; 83880; 84100; 84484; 85025; 87428; 93005; 94002; 94003; 94762; 97802; 97803; 99285; A4216; J1940

== ENCOUNTER → 2022-12-07 | Outpatient (CLI) | payer MEDICARE, SELFPAY ==
--- NOTE | 2022-12-07 14:56 | PFTCOMP_ITS ---
COMPLETE PULMONARY FUNCTION TEST INTERPRETATION Brief HPI: Patient is a 67-year-old male, currently under the care of Dr. Bautista, who presents to [facility] for complete pulmonary function tests secondary to diagnosis of nicotine dependence. Respiratory therapist reports good effort and reproducible results. Interpretation: Forced expiration spirometry shows no large airways obstructive ventilatory defect with an FEV1 of 78% predicted. There is no significant bronchodilator response by strict ATS criteria. Spirograms are of good quality and plateau normally. The respiratory flow volume loop shows a normal pattern. Lung volumes by body plethysmography show a normal total lung capacity at 6.46 L, 95% predicted. All other lung volumes are within normal limits. Diffusion capacity by carbon monoxide is decreased at 59% predicted. The airway resistance is normal. No previous pulmonary function tests were available for review. Impression: Isolated reduction in diffusion capacity consistent with a pulmonary vascular disorder
== END | disposition home or self-care (01) ==
LOC: PSN 12:34
PROVIDERS: PCP Family Medicine; Visit Provider Internal Medicine Critical Care Medicine
DX: J96.11 Chronic respiratory failure with hypoxia (principal); F17.201 Nicotine dependence, unspecified, in remission
CPT/HCPCS: 94060; 94726; 94729

== ENCOUNTER → 2022-12-22 | Outpatient (CLI) | payer MEDICARE, SELFPAY ==
--- NOTE | 2022-12-22 07:59 | ECHOLC_ITS ---
Reason For Study: CHF Procedure This was a limited 2D transthoracic echocardiogram. The study was technically difficult. Contrast injection was performed. Exam performed in department. Left Ventricle Severely dilated left ventricle. The estimated ejection fraction is 15 %. Severe segmental systolic dysfunction (see wall motion). Mid-Inferior: Akinetic. Infero-Basal: Akinetic. The rest of the wall segments are hypokinetic. Right Ventricle Normal RV size. Normal systolic function. Atria Normal left atrium. Normal right atrium. Mitral Valve Mitral valve not well visualized. Tricuspid Valve The tricuspid valve is not well visualized. Aortic Valve Trisinus/trileaflet aortic valve. Mild focal aortic valve calcification. Pulmonic Valve Normal pulmonic valve. Great Vessels Normal aortic root. The pulmonary artery is normal size. Normal inferior vena cava. Pericardium/Pleural No pericardial effusion. Medication 22 gauge I.V. with prn adaptor inserted into right arm. Diluted definity 2ml given slow IV push to enhance endocardial definition. MMode/2D Measurements & Calculations Ao root diam: 3.8 cm LAV(MOD-bp): 55.4 ml LVAd ap4: 71.7 cm2 LAV(MOD-bp) Indexed: 23.5 ml/m2 LVLd ap4: 11.3 cm LAV(MOD-sp2): 54.3 ml EDV(MOD-sp4): 375.2 ml LAV(MOD-sp4): 55.3 ml EDV(sp4-el): 385.8 ml LVAs ap4: 61.2 cm2 LVLs ap4: 10.3 cm ESV(MOD-sp4): 296.0 ml ESV(sp4-el): 308.1 ml EF(MOD-sp4): 21.1 % EF(sp4-el): 20.1 % LVAd ap2: 64.4 cm2 SV(MOD-sp4): 79.2 ml SV(MOD-sp2): 78.5 ml LVLd ap2: 10.8 cm EDV(MOD-sp2): 319.8 ml EDV(sp2-el): 327.2 ml LVAs ap2: 55.3 cm2 LVLs ap2: 10.5 cm ESV(MOD-sp2): 241.3 ml ESV(sp2-el): 247.8 ml EF(MOD-sp2): 24.6 % SV(sp4-el): 77.7 ml LA A4 area: 18.6 cm2 LA dimension(2D): 4.1 cm RA A4 area: 12.8 cm2 ECHO/Echo Limited w/Contrast Interpretation Summary Severely dilated left ventricle. The estimated ejection fraction is 15 %. Severe segmental systolic dysfunction (see wall motion). Compared to previous study, the left ventricular systolic function is the same. . Ordering Physician: Christo Hoff Referring Physician: Leslie Tolentino M.D. Performed By: Velvet Sharma RCS
== END | disposition home or self-care (01) ==
LOC: CVS 07:58
PROVIDERS: PCP Family Medicine; Visit Provider Nurse Practitioner Family
DX: I50.21 Acute systolic (congestive) heart failure (principal)
CPT/HCPCS: 93308; Q9957; A4216; C8924

== ENCOUNTER → 2022-12-29 | Outpatient (CLI) | payer MEDICARE, SELFPAY ==
[2022-12-29 12:43] VITALS: PULSE 92; PULSE 93; PULSE 95; PULSE 97; PULSE 98; PULSE 99; O2SAT 92; O2SAT 93; O2SAT 95; O2SAT 96
--- NOTE | 2023-01-01 06:00 | PCM.PSN.6M ---
PSN 6 Minute Walk Test 6 Minute Walk Test 6 Minute Walk Test: 6 Minute Walk Test PSN:6-Minute Walk Test Start: 12/29/22 12:43 Freq: Status: Active Protocol: [id number].[id number] Document 12/29/22 12:43 [facility] (Rec: 12/29/22 12:47 [facility] [id number]) 6 Minute Walk Test Date Performed 12/29/22 Time Performed 12:30 Height 5 ft 11 in Weight: 117.027 kg Weight in Pounds 258.[address]: Clem Bautista Assistive device used: None Pre-test Oxygen Delivery Method Room Air Pulse Ox (%) 96 Pulse Rate (60-100 beats/min) 93 Dyspnea Beba Scale (0-10) 0 1st minute Oxygen Delivery Method Room Air Pulse Ox (%) 95 Pulse Rate (60-100 beats/min) 97 Dyspnea Beba Scale (0-10) 1 Number of Rests Taken 0 2nd minute Oxygen Delivery Method Room Air Pulse Ox (%) 93 Pulse Rate (60-100 beats/min) 98 Dyspnea Beba Scale (0-10) 1 Number of Rests Taken 0 3rd minute Oxygen Delivery Method Room Air Pulse Ox (%) 92 Pulse Rate (60-100 beats/min) 98 Dyspnea Beba Scale (0-10) 2 Number of Rests Taken 1 Reported Symptoms Increased Work of Breathing 4th minute Oxygen Delivery Method Room Air Pulse Ox (%) 95 Pulse Rate (60-100 beats/min) 93 Dyspnea Beba Scale (0-10) 2 Number of Rests Taken 0 Reported Symptoms Increased Work of Breathing 5th minute Oxygen Delivery Method Room Air Pulse Ox (%) 92 Pulse Rate (60-100 beats/min) 95 Dyspnea Beba Scale (0-10) 3 Number of Rests Taken 0 Reported Symptoms Increased Work of Breathing 6th minute Oxygen Delivery Method Room Air Pulse Ox (%) 92 Pulse Rate (60-100 beats/min) 99 Dyspnea Beba Scale (0-10) 3 Number of Rests Taken 0 Reported Symptoms Increased Work of Breathing Post-test Oxygen Delivery Method Room Air Pulse Ox (%) 95 Pulse Rate (60-100 beats/min) 92 Dyspnea Beba Scale (0-10) 1 Full Laps Walked 12 Partial Lap, Number of Tiles Walked 41 Total Distance Walked (ft) 749 Interpretation Interpretation: The patient was able to ambulate 749 feet over the course of 6 minutes on room air with no assistive devices, but 1 break taken secondary to leg fatigue. Patient did experience significant desaturation from a baseline of 96% to as low as 92% and no significant tachycardia was noted with a peak heart rate of 98 bpm. These findings are consistent with a respiratory limitation exercise tolerance. Recommendations Recommendations: No supplemental oxygen is indicated at this time, but will need to be followed closely given level of desaturation.
== END | disposition home or self-care (01) ==
LOC: PSN 12:25
PROVIDERS: PCP Family Medicine; Referring Provider Internal Medicine Critical Care Medicine; Visit Provider Internal Medicine Critical Care Medicine
DX: J96.11 Chronic respiratory failure with hypoxia (principal)
CPT/HCPCS: 94618

== ENCOUNTER → 2023-04-27 | Outpatient (CLI) | payer OTHER, MEDICARE, SELFPAY ==
--- NOTE | 2023-04-27 14:12 | CT_ITS ---
INDICATION: ABNORMAL CHEST XR EXAMINATION: CT CHEST WITHOUT CONTRAST - CT Chest W/O Contrast Injection TECHNIQUE: Helically acquired images were obtained of the chest. A radiation dose optimization technique was used for this scan. IV Contrast dosage and agent: None. RADIATION DOSAGE (If Supplied By Facility): CTDIvol = ( 19.56 ) mGy, DLP = ( 693.91 ) mGycm COMPARISON: FINDINGS: LUNGS, PLEURA AND LARGE AIRWAYS: Right basilar calcified granuloma. No masses, consolidation, or edema. No pleural effusion or thickening. Mild peripheral interstitial prominence in the right lung. No pneumothorax. THYROID: No thyroid lesions. HEART AND PERICARDIUM: Heart size is normal. No pericardial effusion. CORONARY ARTERIES: Coronary artery calcifications are noted VESSELS: Thoracic aorta is not dilated. MEDIASTINUM AND JOSHUA: No mediastinal adenopathy. Right hilar granulomatous calcification. Esophagus is unremarkable. No hiatal hernia. UPPER ABDOMEN: No acute pathology. BONES: No suspicious lytic or blastic abnormality. CT/Chest without Contrast IMPRESSION: Mild right pulmonary interstitial prominence in the periphery. Right pulmonary and hilar granulomatous calcifications. Electronically Signed: Tay Heredia DO at 20:19 EDT ,
== END | disposition home or self-care (01) ==
LOC: CT 14:09
PROVIDERS: PCP Family Medicine
DX: R91.8 Other nonspecific abnormal finding of lung field (principal)
CPT/HCPCS: 71250

== ENCOUNTER 2024-05-27 10:35 | Emergency (ER) | payer OTHER, SELFPAY ==
[2024-05-27] VITALS (12 sets, daily range): BP systolic 106–131; BP diastolic 65–96; PULSE 55–108; RESP 16–30; TEMP 36.2–36.8; O2SAT 92–100; BMI 32.5
--- NOTE | 2024-05-27 11:12 | EKG12_ITS ---
Test Reason : CP Blood Pressure : / mmHG Vent. Rate : 101 BPM Atrial Rate : 101 BPM P-R Int : 212 ms QRS Dur : 106 ms QT Int : 348 ms P-R-T Axes : 039 009 105 degrees QTc Int : 451 ms Sinus tachycardia with 1st degree A-V block Septal infarct , age undetermined T wave abnormality, consider lateral ischemia Abnormal ECG Confirmed by GAVIN CORONEL, ARIC ([id number]), state editor VICTOR HUGO MAYORGA ([id number]) on 05/29/2024 1:37:02 PM Referred By: Confirmed By:ARIC ALONSO MD
--- NOTE | 2024-05-27 11:12 | RAD_ITS ---
STUDY: X-RAY CHEST REASON FOR EXAM: Male, 68 years old. Chest pain. TECHNIQUE: Single frontal view of the chest. COMPARISON: October 16, 2022 FINDINGS: Low volume inspiration with mild diffuse interstitial prominence. Decreased interstitial opacities compared to the prior study. There is no demonstrated pleural abnormality. Stable marked cardiomegaly. Normal mediastinum and eden. Normal visualized pulmonary arteries. Aortic tortuosity unchanged. No abnormality of the visualized soft tissue structures of the upper abdomen. RAD/Chest 1 View (Portable) IMPRESSION: Cardiomegaly with decreased interstitial prominence. No active or acute finding. Electronically Signed: Sid Jordan MD at 12:30 EDT ,
[2024-05-27 11:29] LABS: Absolute Lymphocyte Count 2.12 X10^3/uL (0.83-4.51); Absolute Neutrophil Count 10.9 X10^3/uL (2.0-7.7); Basophil# 0.09 X10^3/uL; Basophil% 0.6 % (0-1); Eosinophil# 0.01 X10^3/uL; Eosinophils% 0.1 % (0-5); Hematocrit 47.1 % (40-54); Lymphocyte # 2.12 X10^3/ul (0.83-4.51); Lymphocyte % 14.5 % (19-41); Mean Corpuscular Hgb 28.8 pg (27.0-32.0); Mean Corpuscular Volume 84.9 fL (80-94); Mean Platelet Vol. 9.3 fl (6.2-12.0); Monocyte% 9.6 % (0-10); NRBC Flagged by Analyzer 0 % (0-5); Neutrophil # 10.88 X10^3/uL (2.7-7.7); Neutrophil % 74.6 % (47-70); Platelet Count 392 K/mm3 (150-450); RBC Distribution Width CV 12.7 % (11.6-14.6); RBC Distribution Width SD 38.6 fl (35.1-43.9); Red Blood Count 5.55 M/mm3 (4.6-6.2); White Blood Count 14.6 K/mm3 (4.4-11.0)
[2024-05-27 11:44] LABS: Anion Gap 11 (5-15); BUN 30 mg/dL (7-18); BUN/Creat Ratio 20.4 RATIO (10-20); Chloride 95 mmol/L (98-107); Creatinine, Serum 1.47 mg/dL (0.70-1.30); EST Glomerular Filtration Rate 51 mL/min (>60); Est Glom Filt Rate - Afr Amer 61 mL/min (>60); Glucose 452 mg/dL (74-106); Sodium Level 129 mmol/L (136-145); Troponin-I HS (w/2H Reflex) 14 pg/mL (3.0-78.0)
--- NOTE | 2024-05-27 11:46 | ED.RN ---
DR. SWARTZ INFORMED OF CRITICAL RESULT
--- NOTE | 2024-05-27 12:21 | CT_ITS ---
EXAM: CT ANGIOGRAPHY CHEST WITHOUT AND WITH INTRAVENOUS CONTRAST CLINICAL INDICATION: Chest pain. TECHNIQUE: Helically acquired angiography images were obtained of the chest without and with intravenous contrast. This CT exam was performed using one or more of the following dose reduction techniques: automated exposure control, adjustment of the mA and/or kV according to patient size, and/or use of iterative reconstruction technique. MIP reconstructed images were created and reviewed. CONTRAST: IV 100mL Isovue-370 RADIATION DOSE: CTDIvol = 18.59 mGy, DLP = 546.84 mGy-cm COMPARISON: CT chest without contrast 04/27/2023. FINDINGS: PULMONARY ARTERIES: Unremarkable. Normal in caliber. No evidence of pulmonary embolism. AORTA: Unremarkable. Normal in caliber. No evidence of dissection. GREAT VESSELS OF AORTIC ARCH: Unremarkable. Normal in caliber. No evidence of dissection. LUNGS AND PLEURAL SPACES: Thick oblique linear subsegmental atelectasis in the left anterior peripheral lung base rather than pulmonary nodule with a tail on the coronal reconstructed images. No suspicious infiltrates. No consolidation or edema. No pleural effusion. No pneumothorax. HEART: 0.62 cm right anterior pericardial effusion and 0.83 cm left pericardial effusion. Mild cardiomegaly. No coronary artery calcifications or plaques. MEDIASTINUM: Unremarkable. No mediastinal or hilar adenopathy. Esophagus is unremarkable. No hiatal hernia. THYROID: Unremarkable. No thyroid lesions. BONES/JOINTS: Minimal degenerative anterolisthesis of T3 on T4 minimal anterior wedging of the upper T7 vertebral body is presumably from remote injury. No lytic or blastic lesions. CT/CTA Chest W/WO Contrast IMPRESSION: 1. No CTA evidence of pleural with thromboemboli, thoracic aortic aneurysm or dissection. 2. 0.62 cm thick right anterior pericardial effusion and 0.83 cm thick left pericardial effusion. This was not present previously. Cardiomegaly without visible coronary artery plaques or calcifications are unchanged. 3. Short but thick oblique linear subsegmental atelectases in the left anterior peripheral lung base. 4. Minimal degenerative anterolisthesis of T3 on T4. 5. Minimal old anterior wedge compression fracture of the upper T7 vertebral body. 6. No other additional findings or changes. Electronically Signed: Tirso Ulloa MD at 13:40 EDT ,
--- NOTE | 2024-05-27 12:22 | ED.VIS.CHEST ---
HPI History of Present Illness Chief Complaint: Chest Pain Detail of Chief Complaint: Chest pain Informant: patient Narrative Narrative: Chest pain that started last evening around midnight. Sudden onset of sharp stabbing pain in the upper chest and radiating towards the left shoulder. He complains of worse pain with deep breath. He feels somewhat short of breath. Patient tells me that he had a procedure May 12 where [facility]. Patient currently on Eliquis. Denies fever or cough. No history of PE or DVT. [facility] Medical History (Updated 05/27/24 @ 16:[address] Gabbi Patel, DO) Acute hypoxemic respiratory failure Hypoxia CHF (congestive heart failure) Type 2 diabetes mellitus Hypothyroidism Acute systolic heart failure Arthritis COPD (chronic obstructive pulmonary disease) GERD (gastroesophageal reflux disease) Gout GI bleed Severe left ventricular systolic dysfunction Left ventricular thrombus Essential (primary) hypertension Home Medications ?Medication ?Instructions ?Recorded ?Last Taken ?Type albuterol sulfate 90 mcg/actuation 2 puff inhalation Q4H PRN PRN Sob 08/06/18 08/25/22 History aerosol inhaler (ProAir HFA) &/Or Wheezing aspirin 81 mg chewable tablet 81 mg PO DAILY [facility]. 08/10/22 08/25/22 History glimepiride 4 mg tablet 4 mg PO BID DM 08/10/22 08/25/22 History multivitamin 1 tab PO DAILY supplement 08/10/22 08/25/22 History famotidine 20 mg tablet 20 mg PO DAILY heart burn 08/11/22 08/24/22 History sennosides 8.6 mg-docusate sodium 2 tab PO BID PRN PRN Constipation 10/17/22 Unknown Rx 50 mg tablet (Stool #0 tabs Softener-Stimulant Laxative) empagliflozin 10 mg tablet 10 mg PO DAILY 90 days #90 tabs 10/30/22 Unknown Rx (Jardiance) sacubitril 97 mg-valsartan 103 mg 1 tab PO BID #180 tabs 10/30/22 Unknown Rx tablet (Entresto) apixaban 5 mg tablet (Eliquis) See Rx Instructions .Route 11/22/22 Unknown Rx .COMPLEX #60 tabs levothyroxine 75 mcg capsule 75 mcg PO DAILY 03/23/23 Unknown History carvedilol 25 mg tablet 25 mg PO BID Awaiting meds from 03/29/23 [facility] spironolactone 25 mg tablet 25 mg PO DAILY Awaiting RX from 03/29/23 Unknown [facility] #30 tabs torsemide 20 mg tablet 20 mg PO BID awaiting RX from the 03/29/23 Unknown Rx [facility] #[facility] tabs Allergy/AdvReac Type Severity Reaction Status Date / Time No Known Allergies Allergy Verified 05/27/24 10:37 Family History Mother Hypertension Sister Hypertension Father Hypertension Myocardial infarction from OR age 54 Surgical History History of total left knee replacement Hx of cholecystectomy History of total right knee replacement H/O arthroscopy of right knee History of tonsillectomy Social History Smoking Status: Former smoker Tobacco: How many years used: 34 ROS ROS ED Review of Systems ROS Unobtainable: other Constitutional Constitutional ED: Reports lethargy; Denies chills, fever(s), sweats or weight loss Eyes Eyes: Denies blurry vision, change in vision or diplopia ENT ENT ED: Denies rhinorrhea or sore throat Cardiovascular Cardiovascular: Reports chest pain and other Details: Sharp stabbing and pleuritic chest pain ; Denies orthopnea or racing heartbeat Respiratory/Chest Respiratory/Chest: Reports dyspnea; Denies cough, dyspnea on exertion, orthopnea or sputum Gastrointestinal Gastrointestinal: Denies abdominal pain, diarrhea, nausea or vomiting Genitourinary Genitourinary ED: Denies dysuria, hematuria or urinary frequency Musculoskeletal Musculoskeletal: Denies arthralgias, back pain, myalgias or neck pain Integumentary Denies abscess, Abrasions or rash Neurologic Neurologic: Denies headache(s) or weakness Psychiatric Psychiatric: Denies anxiety, depression or suicidal thoughts Endocrine Endocrinology: Denies polydipsia, polyphagia or polyuria Hematologic/Lymphatic Hematologic/Lymphatic: Denies easy bleeding, easy bruising or lymphadenopathy Allergic/Immunologic Allergic/Immunologic ED: Denies mouth swelling, tongue swelling or urticaria EXAM Physical Exam Const Vital Signs: 05/27/24 10:35 05/27/24 11:18 05/27/24 11:35 Temperature 97.1 F L Temperature Source Temporal Pulse Rate 55 L 105 H Respiratory Rate 19 H 30 H Blood Pressure 110/65 106/88 H Blood Pressure Mean 80 94 Pulse Ox 95 95 Oxygen Delivery Method Room Air Room Air Room Air 05/27/24 12:00 05/27/24 13:00 05/27/24 14:00 Temperature Temperature Source Pulse Rate 102 H 94 96 Respiratory Rate 22 H 21 H 19 H Blood Pressure 121/81 H 122/92 H 116/88 H Blood Pressure Mean 94 102 97 Pulse Ox 93 92 94 Oxygen Delivery Method Room Air Room Air Room Air 05/27/24 15:00 05/27/24 16:00 Temperature Temperature Source Pulse Rate 99 99 Respiratory Rate 22 H 19 H Blood Pressure 116/82 H 123/92 H Blood Pressure Mean 93 102 Pulse Ox 94 100 Oxygen Delivery Method Room Air Positive well nourished and well developed General Appearance ED: well developed and NAD HEENT Reports TM's clear and moist mucous membranes normocephalic and atraumatic; Negative for trauma or tenderness Tympanic Membrane ED: Yes TM's clear Eyes PERRL and EOMs intact bilaterally General Eye ED: Negative for pale conjunctiva or scleral icterus Neck no lymphadenopathy, supple and no JVD General: Negative for tenderness Chest Wall inspection of chest normal and palpation of chest normal Chest: Negative for tenderness Resp normal respiratory effort and clear to auscultation bilaterally Effort and Inspection: Negative for respiratory distress or pain with movement Auscultation: Negative for rhonchi, wheezes or diminished lung sounds Cardio regular rate, regular rhythm, S1 normal heart sound, S2 normal heart sound and no murmurs Peripheral Pulses: pulses 2+ throughout GI soft to palpation, non-tender, non-distended and no masses GI Narrative: Patient has well-healing incisions and wounds noted to the left chest wall. Back/Spine no CVA tenderness and no thoracic nor lumbar tenderness Extremity normal to inspection General Extremety ED: Negative for edema General Extremity: Negative for edema Neuro oriented x3, CN's II-XII intact bilaterally, no sensory deficits noted and gait normal Sensorium / Orientation: awake, alert, oriented to person, oriented to place and oriented to time Motor Exam: strength 5/5 throughout and strength abnormal Psych mental status grossly normal Skin no rashes or lesions noted and no wounds MDM MDM MDM Narrative Medical decision making narrative: Patient presents with pleuritic type chest pain that started last evening. Pain worse with breathing and movement. Had recent cardiac surgery for bypass of the left coronary artery. IV line established. EKG obtained and patient placed on a media monitor. EKG showed a sinus rhythm with rate of 101 bpm with old anterior septal infarct noted. When compared with prior EKG from September 2022 no significant new changes noted. No significant evidence for ND depression and no diffuse ST elevation or ST changes to indicate pericarditis. CBC with differential white count of 14.6 with hemoglobin 16 and platelet count of 392. Chemistries unremarkable. BUN 30 creatinine 1.47. Troponin was normal at 14 and delta troponin was normal at 14. Initial blood sugar was elevated 452 therefore he received 10 units of subcu insulin and repeat glucose was 337. Patient had a CTA of the chest which showed small pericardial effusions and a compression fracture of T7 vertebral body that was old. No other significant findings as there was no evidence of PE or dissection or aneurysm. Case discussed with patient's surgeon Dr. Garcia who felt symptoms may be indicative of pericarditis and that is why they discharge patient home with colchicine which patient apparently has been taking. I was [facility]. Discussed this with the patient and his and they will be [facility] due to postop chest pain. Lab Data Attestation: I reviewed the patient's lab results. Labs: Laboratory Results - last 24 hr 05/27/24 05/27/24 05/27/24 10:55 13:30 14:09 WBC 14.6 H RBC 5.55 Hgb 16.0 Hct 47.1 MCV 84.9 MCH 28.8 MCHC 34.0 RDW Std Deviation 38.6 RDW Coeff of Sean 12.7 Plt Count 392 MPV 9.3 Immature Gran % (Auto) 0.600 Neut % (Auto) 74.6 H Lymph % (Auto) 14.5 L [place] % (Auto) 9.6 Eos % (Auto) 0.1 Baso % (Auto) 0.6 Absolute Neuts (auto) 10.9 H Absolute Lymphs (auto) 2.12 Nucleated RBC % 0 Sodium 129 L Potassium 4.0 Chloride 95 L Carbon Dioxide 23.0 Anion Gap 11 BUN 30 H Creatinine 1.47 H Estim Creat Clear Calc 59.50 Est GFR (MDRD) Af Amer 61 Est GFR (MDRD) Non-Af 51 L BUN/Creatinine Ratio 20.4 H Glucose 452 H* Calcium 10.0 Troponin I High Sens 14 14 POC Glucose 337 H Radiography Diagnostic Testing: Clinical Impression(s) from Imaging Studies Chest X-Ray 05/27/24 11:12 IMPRESSION: Cardiomegaly with decreased interstitial prominence. No active or acute finding. Electronically Signed: Sid Jordan MD at 12:30 EDT , Chest CTA 05/27/24 12:21 IMPRESSION: 1. No CTA evidence of pleural with thromboemboli, thoracic aortic aneurysm or dissection. 2. 0.62 cm thick right anterior pericardial effusion and 0.83 cm thick left pericardial effusion. This was not present previously. Cardiomegaly without visible coronary artery plaques or calcifications are unchanged. 3. Short but thick oblique linear subsegmental atelectases in the left anterior peripheral lung base. 4. Minimal degenerative anterolisthesis of T3 on T4. 5. Minimal old anterior wedge compression fracture of the upper T7 vertebral body. 6. No other additional findings or changes. Electronically Signed: Tirso Ulloa MD at 13:40 EDT , EKG Initial EKG: Attestation: I personally reviewed and interpreted this EKG as follows: Comments: Sinus rhythm with ventricular rate of [address] changes and old septal infarct. Prior EKG tracings: available for review Prior: Unchanged Discharge Plan Triage Chief Complaint: Chest Pain ED Provider: Gabbi Patel Dx/Rx/DC Orders Clinical Impression: Chest pain, Post-op pain, Hyperglycemia, History of heart failure Prescriptions: No Action Jardiance 10 mg tablet 10 mg PO DAILY 90 Days Qty: 90 3RF Entresto 97-103 mg tablet 1 tab PO BID Qty: 180 3RF levothyroxine 75 mcg capsule 75 mcg PO DAILY albuterol sulfate [ProAir HFA] 1 PUFF inhaler 2 puff inhalation Q4H PRN PRN (Reason: Sob &/Or Wheezing) glimepiride 4 mg tablet 4 mg PO BID Patient Comments: TAKE 1 TABLET BY MOUTH ONCE DAILY multivitamin Tablet 1 tab PO DAILY aspirin 81 mg Tablet,Chewable 81 mg PO DAILY famotidine 20 mg Tablet 20 mg PO DAILY sennosides-docusate sodium [Stool Softener-Stimulant Laxat] 8.6-50 mg Tablet 2 tab PO BID PRN PRN (Reason: Constipation) Qty: 0 0RF Eliquis 5 mg tablet See Rx Instructions .ROUTE .COMPLEX Qty: 60 3RF Dose Instruction: TAKE ONE TABLET BY MOUTH TWICE A DAY Rx Instructions: TAKE ONE TABLET BY MOUTH TWICE A DAY carvedilol 25 mg tablet 25 mg PO BID Qty: 60 1RF spironolactone 25 mg tablet 25 mg PO DAILY Qty: 30 1RF torsemide 20 mg tablet 20 mg PO BID Qty: 60 1RF Primary Care Provider: Leslie Tolentino Referrals: Leslie Tolentino MD [Primary Care Provider] - Print Language: Irish Disposition Disposition: DC/Tx to Another Type of [facility]CF
[2024-05-27] MEDS: Insulin Lispro 100 UNIT/ML INSULN.PEN 10 UNIT SC (12:40)
[2024-05-27 13:17] LABS: Reflex Troponin-HS? (from REC) Y
[2024-05-27 13:55] LABS: Troponin-I HS 14 pg/mL (3.0-78.0)
[2024-05-27 15:39] LABS: Bedside Glucose 337 mg/dL (74-106)
--- NOTE | 2024-05-27 15:58 | NURSING ---
DR NICOLE ROWLEY [phone] HER AND RN WERE LEFT MESSAGES TO CALL BACK
--- NOTE | 2024-05-27 16:43 | NURSING ---
[facility]ART TO [facility]
[2024-05-27 17:15] LABS: Bedside Glucose 259 mg/dL (74-106)
--- NOTE | 2024-05-27 17:51 | ED.RN ---
Attempted to call report. [facility] stated they would call me back.
--- NOTE | 2024-05-27 18:44 | ED.RN ---
Report called to Nelli at [facility]
== END 2024-05-27 19:57 | disposition other institution (70) ==
PROVIDERS: Emergency Provider Emergency Medicine; PCP Family Medicine; Visit Provider Emergency Medicine
DX: R07.9 Chest pain, unspecified (principal); I11.0 Hypertensive heart disease with heart failure; I50.21 Acute systolic (congestive) heart failure; J44.9 Chronic obstructive pulmonary disease, unspecified; E11.65 Type 2 diabetes mellitus with hyperglycemia; Z79.01 Long term (current) use of anticoagulants; G89.18 Other acute postprocedural pain; Z87.891 Personal history of nicotine dependence; Z95.1 Presence of aortocoronary bypass graft; Z98.890 Other specified postprocedural states; K21.9 Gastro-esophageal reflux disease without esophagitis; I25.2 Old myocardial infarction
CPT/HCPCS: 71045; 71275; 80048; 82962; 84484; 85025; 93005; 99285; Q9967; A4216

== ENCOUNTER → 2024-06-25 | Outpatient (CLI) | payer OTHER, SELFPAY ==
--- NOTE | 2024-06-25 09:43 | CR.HP_ITS ---
CR - History & Physical General Arrival date:: 06/25/24 Arrival time:: 09:44 Date of Referral:: 05/30/24 Date of CR Evaluation:: 06/25/24 Referring Physician: ASHA Primary Diagnosis: HF, CAD s/p MIDCABG History of Present Cardiac Event Onset Date Coronary Artery Bypass Graft:: Yes (onset 05/12/24) Medications Ambulatory Orders ?Medication ?Instructions ?Recorded albuterol sulfate 90 mcg/actuation 2 puff inhalation Q4H PRN PRN Sob 08/06/18 aerosol inhaler (ProAir HFA) &/Or Wheezing aspirin 81 mg chewable tablet 81 mg PO DAILY [facility]. 08/10/22 multivitamin 1 tab PO DAILY supplement 08/10/22 sennosides 8.6 mg-docusate sodium 2 tab PO BID PRN PRN Constipation 10/17/22 50 mg tablet (Stool #0 tabs Softener-Stimulant Laxative) apixaban 5 mg tablet (Eliquis) See Rx Instructions .Route 11/22/22 .COMPLEX #60 tabs levothyroxine 75 mcg capsule 75 mcg PO DAILY 03/23/23 spironolactone 25 mg tablet 25 mg PO DAILY [facility] torsemide 20 mg tablet 20 mg PO BID awaiting [facility] colchicine 0.6 mg tablet 0.6 mg PO DAILY 05/27/24 empagliflozin 25 mg tablet 25 mg PO DAILY 05/27/24 methocarbamol 500 mg tablet 500 mg PO BID PRN spasms 05/27/24 metoprolol tartrate 25 mg tablet 25 mg PO BID 05/27/24 omeprazole 20 mg capsule,delayed 20 mg PO DAILY 05/27/24 release valacyclovir 500 mg tablet 500 mg PO TID 05/27/24 Allergies Allergies No Known Allergies Allergy (Verified 05/27/24 10:37) Sleep Disorder Evaluation Hx of Sleep Apnea: No Do you snore loudly (louder than talking or can be heard through closed doors)?: No Do you often feel tired/ fatigued/ sleepy during daytime?: No Has anyone observed you stop breathing during sleep?: No History of Hypertension (for STOP score): Yes STOP Results: Negative Advanced Directives Advanced Directives Power of Manager Urgent Care: Yes Living Will: Yes Advance Directives Information Provided: Yes Advance Directives on File: No DNR Order?:: No Past Medical History Covid-19 Screening Physicial Symptoms Other Clinical Concerns Exposure Risk Pertinent Comorbidities 65 years or older:: Yes Has a serious heart condition:: Yes Diabetic:: Yes Past Medical Illness Past Medical History (Updated 06/04/24 @ 00:01 by Rosita Weaver) Acute hypoxemic respiratory failure J96.01 Hypoxia R09.02 CHF (congestive heart failure) I50.9 Type 2 diabetes mellitus E11.9 Hypothyroidism E03.9 Acute systolic heart failure I50.21 Arthritis M19.90 COPD (chronic obstructive pulmonary disease) J44.9 GERD (gastroesophageal reflux disease) K21.9 Gout M10.9 GI bleed K92.2 Severe left ventricular systolic dysfunction I51.9 Left ventricular thrombus I51.3 Essential (primary) hypertension I10 Past Surgical History Past Surgical History History of total left knee replacement Z96.652 Hx of cholecystectomy Z90.49 History of total right knee replacement Z96.651 H/O arthroscopy of right knee Z98.890 History of tonsillectomy Z90.89 Family History Summary Family History (Reviewed 03/23/23 @ 10:04 by Christo Hoff REGULATORY AFFAIRS SPECIALIST, REGULATORY AFFAIRS SPECIALIST-C) Mother Hypertension Sister Hypertension Father Hypertension Myocardial infarction from HI age 54 Social History Smoking History Smoking Status: Former smoker Years Smokin (smoked a pipe and stopped in 2007) Alcohol Use Alcohol Usage: Yes (occasional ) Substance Abuse Hx Substance Use: No Occupation Occupation (List type of work in comments):: Retired Hobbies, Recreation, Social Activities Hobbies: Reading and Other (travel, writing) Recreational Activities: I am able to engage in all my recreational activities Social Environment Status Marital Status: Current Living Arrangements Living Environment:: Spouse Children How many children do you have?: 3 Do any of your children live nearby?: Yes Safety Do you feel safe in your surroundings?: Yes Assistance Do you need any assistance at home?: no Review of Systems Review of Systems Hints Review of Present Symptoms: Reports Shortness of Breath at Rest, Shortness of Breath with Exertion, Dizziness/Lightheadedness, Fatigue, Appetite - Normal and Appetite - Special Diet; Denies PVD, Operative Discomfort, Angina, Wound Healing, Heart Arrhythmia/Irregularities, Sleep - Normal or Sexual Changes Pain Is Patient Pain Free?: Yes Pain Location: upper extremity Pain Level: 4/10 Risk Factor Assessment Chief Complaint Chief Complaint: HF, s/p MIDCABG Vital Signs Pulse Ox: 97 Blood Pressure: 82/60 Pulse Pulse Rate: 91 Pulse Rhythm: Regular Hypertension Blood Pressure Sitting - Right Arm: 82/60 Stress Stress: Work-related (not working is stressful) Diabetes Diabetic History: Type II Nutrition Referral for Diabetes: Yes Obesity Height: 5 ft 11 in Weight:: 230 lb Weight in Pounds: 230.0 lbs Body Mass Index (BMI): 32.1 Nutritional Referral for Obesity: No Physical Inactivity Physical Inactivity: Recreational activity Risk Stratification Risk Guidelines: Moderate Risk: Risk Factor for Smoking, Risk Factor for Dyslipidemia, Risk Factor for Sedentary Lifestyle and Risk Factor for Depression and Highest Risk: Risk Factor for Diabetes, Risk Factor for Obesity and Risk Factor for Hypertension For Smoking Smoking Risk Guidelines For Dyslipidemia Dyslipidemia Risk Guidelines For Diabetes Mellitus Diabetes Risk Guidelines For Obesity/Overweight Obesity/Overweight Risk Guidelines For Hypertension Hypertension Risk Guidelines For Sedentary Lifestyle Sedentary Lifestyle Risk Guidelines For Depression Depression Risk Guidelines Family History Family History (Reviewed 03/23/23 @ 10:04 by Christo Hoff REGULATORY AFFAIRS SPECIALIST, REGULATORY AFFAIRS SPECIALIST-C) Mother Hypertension Sister Hypertension Father Hypertension Myocardial infarction Motivation Motivation to Participate On a scale of 1 to 10, how prepared are you to commit to attending program?: 9 What do you see as barriers to successfully being able to complete the program?: nothing What do you see as the benefits of succesfully completing the program? In other words, what do you hope to get out of participating in the program?: strength Are there issues you are dealing with that will interfere with completing the program?: no Do you have a spouse or signficant other, family or friends who will help support you to complete the program?: yes
--- NOTE | 2024-06-25 09:51 | PCM.CR.ITP ---
Diagnosis General Information Admitting Diagnosis: HF, s/p MIDCABG Personal Learning Style:: Audio/Visual Barriers to Learning: No Barriers Stage of change r/t lifestyle modifications:: Contemplation Gave educational material for:: Treating Heart Disease, How The Heart Works, What it means to have Heart Disease, How Coronary Artery Disease is Diagnosed, Heart Procedures, What Heart Medications Do, Risk Factors & Modifications, Living an Active Life, Nutrition, Emotions & Heart Disease, Stress Management & Relaxation and Sleep Disorders & Heart Disease Education/Goals Cardiac Rehabilitation Goals Personal Goals: Initial Assessment: Improve management of stress and emotions, Improve energy level, Get back to work, or to resume activities faster, Improve knowledge of cardiac disease, Improve muscle strength and endurance, Improve diet and eating habits (eat healthier) and Control risk factors (learn risk factor modification) Scale for measuring improvement of personal goals Diagnosis & Disease Process Outcomes/Goals: Pt IDs own risk factors & lifestyle modifications by Session 10, Verbalizes symptoms of angina & response by session 3., Pt independently manages and Other Additional Outcomes/Goals: Plan/Interventions: Assist Pt to ID & engage in lifestyle modification to reduce CVD risk, Instruct on individual risk factors, Review symptoms of angina & emergency actions, Review secondary diagnosis & identify educational needs. and Other see comment 30 day Reassessments:: Not Met 30 day Reassessments:: Not Met 30 day Reassessments:: Not Met 30 day Reassessments:: Not Met Final Reassessments:: Not Met Safety Referral to Physical Therapy: No Referral to [facility] Case Management: No Fall Risk Assessed:: Yes Assistive Devices:: None Exercise - Initial Assessment Visit Date of Eval: 06/25/24 (initial eval ) Mets: Pre-: >3 METS for 30 minutes by discharge, >5 METS for 30 minutes by discharge, >7 METS for 30 minutes by discharge and Unable to meet goal due to: (see comment below) Physician Prescribed Exercise Modalities: Treadmill, [employer] Airdyne AD-7, SciFit Stepper, OQOFit Pro-II Ergometer and OQOFit Lateral Swimming Pool Attendant Frequency: 3x/week for 12 weeks [36 sessions] Intensity: 60-80% of age predicted maximum heart rate reserve Duration: 30 - 45 minutes Current METSs:: 3 Target Heart Rate:: 91-114 EKG Type: ST with 1st degree AV block, Twave abnormality Outcomes & Goals Goals:: Verbalizes understanding of THR, RPE & goal METS by session 6, Documents in home exercise log/reports 30 min aerobic 5 day/wk by DC, Demonstrates accurate pulse taking by DC and Other additional outcome/goals: see below Intervention & Plan Exercise Program Goals: Instruct on personal THR & RPE, Instruct on MET level & personal MET goal, Show patient to take own pulse /validate performance until accurate, Instruct on home exercise and Other additional plan/int Physical Activity Home Exercise Physical Activity - Home Exercise: Safe Exercise, Warm-up, Self-monitoring, Cool-Down, Home Exercise > 30 min Daily and Sitting Time <3 hours/daily Outcomes & Goals Outcomes/Goals: Demonstrates correct Warm-up/exercise Cool-Down (S3) if = 2.5 METs, Verbalizes symptoms of exercise intolerance by Session 3 (S3), Demonstrate safe equipment use (S3) & follows exercise prescrition (6) and Other: See below Intervention & Plan Plan/Intervention: Instruct warm-up & cool-down if exercising at > 2 METs, Instruct on symptoms of exercise intolerance & actions to take, Instruct & monitor on saf, Assess intial functional capacity & safety risk and Other See below Nutrition - Initial Assessment Program Goals Nutrition Program Goals Patient has diagnosis of Hyperlipidemia (ICD E78)?: No Visit Date of Eval: 06/25/24 (initial eval ) Cholesterol/Lipids (Other Core Measures) Determine presence & major risk factors that modify LDL goal: Cigarette smoking, Hypertension or hypertensive medication, Low HDL cholesterol <40 mg/dL*, Family history of premature CHD in Male < 55 years: female <65 yearsFa and Age men > 45 years; women >/= 55 years Outcomes/Goals: Pt IDs own risk factors & lifestyle modifications by Session 10, Verbalizes symptoms of angina & response by session 3., Pt independently manages and Other Additional Outcomes/Goals: Intervention/Plan: Advocate for lipid panel cholesterol medication if applicable, Instruct on personal lipid levels & lipid goals/NCEP guidelines, Instruct on cholesterol and Other additional plan/int Diabetes (Other Core Measures) Diabetes Type: Diagnosis Type II ICD-10 E11 Insulin dependent injection/pump?: Yes Non-Insulin Dependent?: No Do you monitor your blood sugar at home?: Yes Referral to Diabetic Clinic:: Yes Outcomes/Goals:: Able to state symptoms of, Able to state, Able to state and Other additional Intervention/Plan:: Instruct on, Refer to, Instruct on and Other Weight Mgt (Other Care) Height: 5 ft 11 in Weight:: 230 lb BMI: 32.1 Diagnosis Overweight/Obesity BMI> 30% ICD-10 E66: Yes Diagnosis High BMI/Morbid Obesity BMI> 35% ICD-10 Z68: No Outcomes/Goals: Pt sets, maintains & shows weight loss goal & trend during rehab and Other additional outcomes/goals Intervention/Plan: Instruct on ideal BMI & set weight loss goal w/patient, Assist pt to ID & incorporate diet changes for weight loss by S9, Refer to Structured Weight Loss program as appropriate, Encourage goal of using 250-300dcal per session for weight loss and Other additional plan/interventions Healthy Eating Habits Will attend diet classes:: Yes Outcomes/Goals:: Consume diet rich in vegs,fruits,whole grain/high fiber,fish,lean meat, Limit sat/trans fats,cholesterol & added salts & sugars and Other additional outcome/goals: Intervention/Plan:: Assess current eating habits and Other Additional plan/interventions Education Gave educational materials for:: Signs & symptoms of hypoglycemia, Signs & symptoms of hyperglycemia, Relate diabetes to coronary artery disease and Healthy eating Core - Initial Assessment Visit Date of Eval: 06/25/24 (initial eval ) Medication Compliance Preventative Medication(s):: Aspirin, Statin/lipid, Beta christy and Eliquis H/O mental health issues: depression, anxiety, or addiction?: No Doesn?t believe in the benefits of treatment?: No Believes medications are unnecessary or harmful?: No Has a concern about medication side effects?: No Expresses concern over the cost of medications?: No Outcomes/Goals: Verbalizes medications,desired effect & common side effects @ DC, Pt self-reports following medication regimen, Keeps card in wallet w/medications listed by DC and Other additional outcome/goals: Interventions/plans: Instruct on medication effects & side effects, Review medication list w/patient every two weeks, Instruct importance of taking meds as ordered & assist problem solving and Other additional Tobacco Use Tobacco Use: Non-smoker How long ago did you quit using tobacco products?: Greater than or equal to 6 months ago Years Smokin (smoked a pipe stopped in 2007) Hypertension Hypertension Diagnosis:: Hypertension ICD-10 I10 Resting Blood Pressure:: 82/60 [place] [employer] Hypertension Guidelines Outcomes/Goals: Able to verbalize/achieve optimal blood pressure <130/80, Incorporates diet changes & exercise for blood pressure control by DC and Other additional outcomes/goals Interventions/plan: Instruct on optimal blood pressure, hypertension & medications, Instruct on effects of sodium, alcohol, stress, exercise &hypertension and Other additional plan/interventions Tobacco Cessation Referral Smoking Cessation Referral:: No Individual Education/Counseling:: No Education Schedule Given:: Yes Psychosocial - Initial Assess VIsit Date of Eval: 06/25/24 (initial eval ) History of previous Mental disease:: No Target Goals Target Goals Psychosocial Test Tool Used:: [employer] QOL Cardiac and PHQ-9 Questionnaire phq-9 Severity Referral to Behavioral Health PS - Interventions: Yes: Attend Stress Management Classes Outcomes/Goals: See list Psychosocial Outcomes/Goals:: ID's personal stressors & 2 strategies to manage stress by discharge and Other Additional outcome/goals: Intervention/Plan: See List Interventions/Plan:: Assess stressors,coping strategies & signs of derpression on admission, Instruct/assist pt to develop coping & personal stress Mgt strategies, Refer to Behavioral Health if appropriate, Refer to Physician if appropriate, Instruct patient to recognize signs & symptoms of depression, Instruct patient to recog and Other additional plan/intervention Patient Health Questionnaire PHQ-9 Screening Initial Assessment: 1. Little interest or pleasure in doing things: More than half the days 2. Feeling down, depressed, or hopeless: Several days 3. Trouble falling or staying asleep, or sleeping too much: Nearly every day 4. Feeling tired or having little energy: More than half the days 5. Poor appetite or overeating: More than half the days 6. Feeling bad about yourself -- or that you are a failure or have let yourself or your family down: More than half the days 7. Trouble concentrating on things, such as reading the newspaper or watching television: More than half the days 8. Moving or speaking so slowly that other people could have noticed. Or the opposite - being so fidgety or restless that you have been moving around a lot more than usual: More than half the days 9. Thoughts that you would be better off , or of hurting yourself in some way: Not at all How difficult have these problems made it for you to do your work, take care of things at home, or get along with other people?: Somewhat difficult Total Score: 16 ANGELIKA-Q SV Test Statements CAD is a disease of the arteries in the heart: False Examples of risk factors for heart disease: True Angina is chest pain or discomfort: True The benefits of resistance training include: True Eating more meat and dairy products: I Don't Know Anti-platelet medications such as aspirin are important: I Don't Know The only effective way to manage stress: False An exercise warm-up slowly increases heart rate: True Prepared, processed foods usually have high sodium: True Depression is common after a heart attack: True The statin medications lower cholesterol: True To control blood pressure, lower the amount of sodium: True If someone gets chest discomfort during walking: False Transfats are partially hydrogenated vegetable oils: True Sleep apnea that is not treated increases the risk: True To control cholesterol, one should become a vegetarian: False Someone knows if he/she is exercising at the right level: True Diabetes cannot be prevented with exercise & health eating: False Stress is a large risk for heart attack: True A diet that can help lower blood pressure is rich in: True Total Score Total Correct Responses: 17 Self-Efficacy 6-Item Scale Initial Assessment: We would like to know how confident you are in doing certain activities. Please select your confidence level for: Fatigue Select Number: 7 Physical Discomfort or Pain Select Number: 5 Emotional Distress Select Number: 5 Other Symptoms or Health Problems Select Number: 6 Different Tasks and Activities Select Number: 8 Medication Select Number: 8 Total Score:: 6 Nutrition Survey Nutrition Survey Instructions Scoring Instructions Nutrition Survey Initial: Have you lost >10 lbs over the past 2 months without trying?: No Are you following a special diet at home for diabetes, low fat, or low salt?: Yes Are you interested in meeting with a dietitian for help understanding your diet?: Yes Do you eat less than 3 meals a day?: No Do you eat fatty meats (low, sausage, ribs, etc), fried foods, desserts, large amounts of salad dressings, margarine, butter, or cheese most days?: No Do you have food allergies? [Enter types in comment field]: No Do you eat in restaurants more than 3 times a week?: Yes Do you season food with salt, seasoning salt, or garlic salt?: Yes Do you used canned, boxed, frozen meals, or soups, seasoning packets?: Yes Total Score:: 5 Exercise - 30-day Assessment Physician Prescribed Exercise Modalities: Treadmill, Schwinn Airdyne AD-7, SciFit Stepper, SciFit Pro-II Ergometer and SciFit Lateral Swimming Pool Attendant Exercise - 60-day Assessment Physician Prescribed Exercise Modalities: Treadmill, Schwinn Airdyne AD-7, SciFit Stepper, SciFit Pro-II Ergometer and SciFit Lateral Cerulean Exercise - 90-day Assessment Physician Prescribed Exercise Modalities: Treadmill, Schwinn Airdyne AD-7, SciFit Stepper, SciFit Pro-II Ergometer and SciFit Lateral Swimming Pool Attendant Exercise - Final/Discharge Physician Prescribed Exercise Modalities: Treadmill, Schwinn Airdyne AD-7, SciFit Stepper, SciFit Pro-II Ergometer and SciFit Lateral Cerulean Frequency: 3x/week for 12 weeks [36 sessions] Intensity: 60-80% of age predicted maximum heart rate reserve Current METSs:: 3 Target Heart Rate:: 91-114 Nutrition - 30-Day Assessment Weight Mgt (Other Care) Height: 5 ft 11 in Weight:: 230 lb BMI: 32.1 Nutrition - 60-Day Assessment Weight Mgt (Other Care) Height: 5 ft 11 in Weight:: 230 lb BMI: 32.1 Core - 30-Day Assessment Tobacco Use Years Smokin (smoked a pipe stopped in 2007) Core - Final Assessment Hypertension Resting Blood Pressure:: 82/60 [place] [employer] Hypertension Guidelines Core - 60-Day Assessment Hypertension Resting Blood Pressure:: 82/60 [place] [employer] Hypertension Guidelines Psychosocial - 30-Day Assess Target Goals Target Goals Referral to Behavioral Health PS - Interventions: Yes: Attend Stress Management Classes Psychosocial - 60-Day Assess Target Goals Target Goals Referral to Behavioral Health PS - Interventions: Yes: Attend Stress Management Classes Psychosocial - 90-Day Assess Target Goals Target Goals Referral to Behavioral Health PS - Interventions: Yes: Attend Stress Management Classes Psychosocial - Final Assessmen Target Goals Target Goals Referral to Behavioral Health PS - Interventions: Yes: Attend Stress Management Classes Nutrition - 90-Day Assessment Weight Mgt (Other Care) Height: 5 ft 11 in Weight:: 230 lb BMI: 32.1 Nutrition - Final Assessment Program Goals Patient has diagnosis of Hyperlipidemia (ICD E78)?: No Weight Mgt (Other Care) Height: 5 ft 11 in Weight:: 230 lb BMI: 32.1
[2024-06-25 10:09] VITALS: BMI 32.1
[2024-06-25 10:18] VITALS: BP 82/60; PULSE 91; O2SAT 97
[2024-06-25 11:08] VITALS: BP 82/60; BMI 32.1
== END | disposition home or self-care (01) ==
PROVIDERS: PCP Family Medicine
DX: I25.10 Atherosclerotic heart disease of native coronary artery without angina pectoris (principal)

== ENCOUNTER 2024-07-23 09:15 | Outpatient (RCR) | payer OTHER, SELFPAY ==
[2024-06-25 11:08] VITALS: BMI 32.1
--- NOTE | 2024-07-24 14:03 | PCM.CR.ITP ---
Exercise - Initial Assessment Visit Session #:: 4 Physician Prescribed Exercise Modalities: Treadmill, Schwinn Airdyne AD-7 and SciFit Stepper Nutrition - Initial Assessment Weight Mgt (Other Care) Height: 5 ft 11 in Weight:: 241 lb BMI: 33.6 Psychosocial - Initial Assess Target Goals Target Goals Referral to Behavioral Health PS - Interventions: Yes: Attend Stress Management Classes Patient Health Questionnaire PHQ-9 Screening 30-Day Re-eval Assessment: 1. Little interest or pleasure in doing things: More than half the days 2. Feeling down, depressed, or hopeless: Several days 3. Trouble falling or staying asleep, or sleeping too much: Nearly every day 4. Feeling tired or having little energy: More than half the days 5. Poor appetite or overeating: More than half the days 6. Feeling bad about yourself -- or that you are a failure or have let yourself or your family down: More than half the days 7. Trouble concentrating on things, such as reading the newspaper or watching television: More than half the days 8. Moving or speaking so slowly that other people could have noticed. Or the opposite - being so fidgety or restless that you have been moving around a lot more than usual: More than half the days 9. Thoughts that you would be better off , or of hurting yourself in some way: Not at all How difficult have these problems made it for you to do your work, take care of things at home, or get along with other people?: Somewhat difficult Total Score: 16 Self-Efficacy 6-Item Scale 30-Day Re-eval Assessment: We would like to know how confident you are in doing certain activities. Please select your confidence level for: Fatigue Select Number: 7 Physical Discomfort or Pain Select Number: 5 Emotional Distress Select Number: 5 Other Symptoms or Health Problems Select Number: 6 Different Tasks and Activities Select Number: 8 Medication Select Number: 8 Total Score:: 6 Nutrition Survey Nutrition Survey Instructions Scoring Instructions Exercise - 30-day Assessment Visit Date of Eval: 07/24/24 Session #:: 4 Physician Prescribed Exercise Modalities: Treadmill, Schwinn Airdyne AD-7 and SciFit Stepper Frequency: 3x/week for 12 weeks [36 sessions] Intensity: 60-80% of age predicted maximum heart rate reserve Duration: 30 - 45 minutes Current METSs:: 3.2 Target Heart Rate:: 91-114 Current RPE:: 13 Maximum Excercise HR:: 104 Resting Blood Pressure: 104/70 Maximum Exercise Blood Pressure: 106/78 EKG Type: NSR to ST w 1st degree AVB w/Twave inversion with rare PVC Outcomes & Goals Goals:: Verbalizes understanding of THR, RPE & goal METS by session 6, Documents in home exercise log/reports 30 min aerobic 5 day/wk by DC, Demonstrates accurate pulse taking by DC and Other additional outcome/goals: see below Intervention & Plan Exercise Program Goals: Instruct on personal THR & RPE, Instruct on MET level & personal MET goal, Show patient to take own pulse /validate performance until accurate, Instruct on home exercise and Other additional plan/int 30-day Reassessments 30 day Reassessments:: Progressing Reassessment Notes & Comments:: RPE explained Physical Activity Home Exercise Physical Activity - Home Exercise: Safe Exercise, Warm-up, Self-monitoring, Cool-Down, Home Exercise > 30 min Daily and Sitting Time <3 hours/daily Outcomes & Goals Outcomes/Goals: Demonstrates correct Warm-up/exercise Cool-Down (S3) if = 2.5 METs, Verbalizes symptoms of exercise intolerance by Session 3 (S3), Demonstrate safe equipment use (S3) & follows exercise prescrition (6) and Other: See below Intervention & Plan Plan/Intervention: Instruct warm-up & cool-down if exercising at > 2 METs, Instruct on symptoms of exercise intolerance & actions to take, Instruct & monitor on saf, Assess intial functional capacity & safety risk and Other See below 30-day Reassessments 30 day Reassessments:: Progressing Reassessment Notes & Comments:: safe exercise explained to pt. Exercise - 60-day Assessment Physician Prescribed Exercise Modalities: Treadmill, Schwinn Airdyne AD-7 and SciFit Stepper Exercise - 90-day Assessment Physician Prescribed Exercise Modalities: Treadmill, Schwinn Airdyne AD-7 and SciFit Stepper Exercise - Final/Discharge Physician Prescribed Exercise Modalities: Treadmill, Schwinn Airdyne AD-7 and SciFit Stepper Nutrition - 30-Day Assessment Program Goals Nutrition Program Goals Patient has diagnosis of Hyperlipidemia (ICD E78)?: No Visit Date of Eval: 07/24/24 Session #:: 4 Cholesterol/Lipids (Other Core Measures) Determine presence & major risk factors that modify LDL goal: Cigarette smoking, Hypertension or hypertensive medication, Low HDL cholesterol <40 mg/dL*, Family history of premature CHD in Male < 55 years: female <65 yearsFa and Age men > 45 years; women >/= 55 years Outcomes/Goals: Pt IDs own risk factors & lifestyle modifications by Session 10, Verbalizes symptoms of angina & response by session 3., Pt independently manages and Other Additional Outcomes/Goals: Intervention/Plan: Advocate for lipid panel cholesterol medication if applicable, Instruct on personal lipid levels & lipid goals/NCEP guidelines, Instruct on cholesterol and Other additional plan/int 30-day Reassessments:: Progressing Reassessment Notes & Comments:: risk factors reviewed Diabetes (Other Core Measures) Diabetes Type: Diagnosis Type II ICD-10 E11 Insulin dependent injection/pump?: Yes Non-Insulin Dependent?: No Do you monitor your blood sugar at home?: Yes Referral to Diabetic Clinic:: Yes 30-day Reassessments:: Progressing Reassessment Notes & Comments:: pt is to attend nutrition class Weight Mgt (Other Care) Height: 5 ft 11 in Weight:: 241 lb BMI: 33.6 Diagnosis Overweight/Obesity BMI> 30% ICD-10 E66: Yes Diagnosis High BMI/Morbid Obesity BMI> 35% ICD-10 Z68: Yes Outcomes/Goals: Pt sets, maintains & shows weight loss goal & trend during rehab and Other additional outcomes/goals Intervention/Plan: Instruct on ideal BMI & set weight loss goal w/patient, Assist pt to ID & incorporate diet changes for weight loss by S9, Refer to Structured Weight Loss program as appropriate, Encourage goal of using 250-300dcal per session for weight loss and Other additional plan/interventions 30 day Reassessments:: Progressing Healthy Eating Habits Will attend diet classes:: Yes Outcomes/Goals:: Consume diet rich in vegs,fruits,whole grain/high fiber,fish,lean meat, Limit sat/trans fats,cholesterol & added salts & sugars and Other additional outcome/goals: Intervention/Plan:: Assess current eating habits and Other Additional plan/interventions 30-day Reassessments:: Progressing Reassessment Notes & Comments:: pt is to attend nutrition class next week Education Gave educational materials for:: Signs & symptoms of hypoglycemia, Signs & symptoms of hyperglycemia, Relate diabetes to coronary artery disease and Healthy eating Nutrition - 60-Day Assessment Weight Mgt (Other Care) Height: 5 ft 11 in Weight:: 241 lb BMI: 33.6 Core - 30-Day Assessment Visit Date of Eval: 07/24/24 Session #:: 4 Medication Compliance Preventative Medication(s):: Aspirin, Statin/lipid, Beta christy and Eliquis H/O mental health issues: depression, anxiety, or addiction?: No Doesn?t believe in the benefits of treatment?: No Believes medications are unnecessary or harmful?: No Has a concern about medication side effects?: No Expresses concern over the cost of medications?: No Outcomes/Goals: Verbalizes medications,desired effect & common side effects @ DC, Pt self-reports following medication regimen, Keeps card in wallet w/medications listed by DC and Other additional outcome/goals: Interventions/plans: Instruct on medication effects & side effects, Review medication list w/patient every two weeks, Instruct importance of taking meds as ordered & assist problem solving and Other additional 30-day Reassessments:: Progressing Reassessment Notes & Comments:: pt encouraged to take his meds as prescribed Tobacco Use Tobacco Use: Non-smoker Hypertension Hypertension Diagnosis:: Hypertension ICD-10 I10 Resting Blood Pressure:: 104/70 [place] [employer] Hypertension Guidelines Peak Exercise Blood Pressure:: 106/78 Outcomes/Goals: Able to verbalize/achieve optimal blood pressure <130/80, Incorporates diet changes & exercise for blood pressure control by DC and Other additional outcomes/goals Interventions/plan: Instruct on optimal blood pressure, hypertension & medications, Instruct on effects of sodium, alcohol, stress, exercise &hypertension and Other additional plan/interventions 30 day Reassessments:: Met Tobacco Cessation Referral Smoking Cessation Referral:: No Individual Education/Counseling:: No Education Schedule Given:: Yes Psychosocial - 30-Day Assess VIsit Date of Eval: 07/24/24 Session #:: 4 History of previous Mental disease:: No Target Goals Target Goals Psychosocial Test Tool Used:: [employer] QOL Cardiac and PHQ-9 Questionnaire phq-9 Severity Referral to Behavioral Health PS - Interventions: Yes: Attend Stress Management Classes Outcomes/Goals: See list Psychosocial Outcomes/Goals:: ID's personal stressors & 2 strategies to manage stress by discharge and Other Additional outcome/goals: Intervention/Plan: See List Interventions/Plan:: Assess stressors,coping strategies & signs of derpression on admission, Instruct/assist pt to develop coping & personal stress Mgt strategies, Refer to Behavioral Health if appropriate, Refer to Physician if appropriate, Instruct patient to recognize signs & symptoms of depression, Instruct patient to recog and Other additional plan/intervention 30-day Reassessments: 30 day Reassessments:: Met Reassessment Notes & Comments:: pt denies any psychosocial issues at this time. Psychosocial - 60-Day Assess Target Goals Target Goals Referral to Behavioral Health PS - Interventions: Yes: Attend Stress Management Classes Outcomes/Goals: See list Psychosocial Outcomes/Goals:: ID's personal stressors & 2 strategies to manage stress by discharge and Other Additional outcome/goals: Psychosocial - 90-Day Assess Target Goals Target Goals Referral to Behavioral Health PS - Interventions: Yes: Attend Stress Management Classes Psychosocial - Final Assessmen Target Goals Target Goals Referral to Behavioral Health PS - Interventions: Yes: Attend Stress Management Classes Nutrition - 90-Day Assessment Weight Mgt (Other Care) Height: 5 ft 11 in Weight:: 241 lb BMI: 33.6 Nutrition - Final Assessment Weight Mgt (Other Care) Height: 5 ft 11 in Weight:: 241 lb BMI: 33.6
[2024-07-24 14:17] VITALS: BP 104/70; BMI 33.6
== END 2024-07-24 23:59 ==
LOC: CR 09:15
PROVIDERS: PCP Family Medicine
DX: I25.10 Atherosclerotic heart disease of native coronary artery without angina pectoris (principal); Z95.1 Presence of aortocoronary bypass graft
CPT/HCPCS: 93798; 97802

== ENCOUNTER 2024-07-28 09:15 | Outpatient (RCR) | payer OTHER, SELFPAY ==
[2024-07-25 00:50] VITALS: BP 104/70
== END 2024-08-23 23:59 ==
LOC: CR 09:15
PROVIDERS: PCP Family Medicine
DX: I25.10 Atherosclerotic heart disease of native coronary artery without angina pectoris (principal)
CPT/HCPCS: 93798

== ENCOUNTER → 2024-08-18 | Outpatient (CLI) | payer MEDICARE, SELFPAY ==
[2024-07-24 14:17] VITALS: BMI 33.6
[2024-08-18 18:33] LABS: PSA,Total - Annual Screen 0.46 ng/mL (0.00-4.00)
== END | disposition home or self-care (01) ==
LOC: MFPLAB 15:21
PROVIDERS: PCP Family Medicine; Visit Provider Family Medicine
DX: Z12.5 Encounter for screening for malignant neoplasm of prostate (principal); I50.9 Heart failure, unspecified
CPT/HCPCS: 36415; 84153; 84443; G0103

== ENCOUNTER 2025-09-16 10:15 | Outpatient (CLI) | payer MEDICARE, OTHER, SELFPAY ==
[2025-09-16 10:26] LABS: Mucous, Urine 0 SEEN /hpf (<or=2+); Red Blood Cells-Urine 0 SEEN /hpf (0-5); Squamous Epithelial Cells - UA 0 SEEN /hpf (0-5)
--- OUTSIDE RECORDS SUMMARY | 2025-09-16 10:40 | XMS RPT_ITS | CCD ---
Author Organization [facility] Care Team Providers Care Chair Car Attendant Name Role Phone Dr. Leslie Tolentino Primary Care Provider Dr. Arash Wen Emergency Provider Dr. Jo Vidal Admit Provider Dr. Jo Vidal Attending Provider Dr. Jo Vidal Other Provider Dr. Dean Yeung Attending Provider Dr. Leslie Tolentino Referring Provider [phone] Della DERAS, PA Maria Guadalupe Epstein Attending Provider Dr. Des Bates Attending Provider Dr. Thony Montalvo Emergency Provider Dr. Lula Braswell Admit Provider Dr. Lula Braswell Attending Provider Dr. Lula Braswell Other Provider Dr. Rob Alvarez Other Provider Dr. Dakota Frost Attending Provider Dr. Thony Montalvo Referring Provider Dr. Rob Alvarez Attending Provider Roof DESIGN PRINTING MACHINE SET UP OPERATOR, DESIGN PRINTING MACHINE SET UP OPERATORKatiuska Montiel Attending Provider Dr. Juan Alberto Mackay Attending Provider Yovani DERAS, PA Barb Attending Provider MD Tirso Polo Emergency Provider Dr. Lucio Negron Admit Provider Dr. Lucio Negron Attending Provider [phone] Dr. Lucio Negron Other Provider Dr. Chastity Gray Attending Provider Dr. Chastity Gray Other Provider Dr. Francisco Haney Other Provider Dr. Clem Bautista Other Provider Dr. Chris Joseph Other Provider Dr. Tushar Oquendo Other Provider Unavailab holger Foy DESIGN PRINTING MACHINE SET UP OPERATOR, DESIGN PRINTING MACHINE SET UP OPERATOR-C Isabella Other Provider Dr. Francisco Haney Attending Provider Dr. Clem Bautista Attending Provider Dr. Ranjeet Mary Other Provider Dr. Ranjeet Mary Attending Provider Dr. Leslie Tolentino S Primary Care Provider Dr. Leslie Tolentino Referring Provider Roof DESIGN PRINTING MACHINE SET UP OPERATOR, DESIGN PRINTING MACHINE SET UP OPERATOR-C Richard Montiel Attending Provider Dr. Juan Alberto Mackay Attending Provider Roof DESIGN PRINTING MACHINE SET UP OPERATOR, DESIGN PRINTING MACHINE SET UP OPERATOR-C Richard Montiel Referring Provider AUGUSTA Marques Attending Provider MD Tirso Polo Emergency Provider Dr. Lucio Negron Admit Provider Dr. Lucio Negron Attending Provider [phone] Dr. Lucio Negron Other Provider Dr. Dakota Frost Attending Provider Dr. Lucio Negron Referring Provider Dr. Chastity Gray Attending Provider Dr. Chastity Gray Other Provider Dr. Francisco Haney Other Provider Dr. Clem Bautista Other Provider Dr. Chris Joseph Other Provider Dr. Tushar Oquendo Other Provider Unavailab holger Foy DESIGN PRINTING MACHINE SET UP OPERATOR, DESIGN PRINTING MACHINE SET UP OPERATOR-C Isabella Other Provider Dr. Chastity Gray Referring Provider Dr. Francisco Haney Attending Provider Dr. Dakota Frost Referring Provider 1([facility])[phone] Clem Bautista Attending Provider 1([facility])[phone] Ranjeet Mary Other Provider 1([facility])[phone] Ranjeet Mary Attending Provider 1([facility])[phone] Yoli Sarmiento Attending Provider Unavailable Dr. Clem Bautista Referring Provider 1([facility])[phone] Leslie Tolentino Primary Care Provider 1([facility])[phone] Roof DESIGN PRINTING MACHINE SET UP OPERATOR, DESIGN PRINTING MACHINE SET UP OPERATOR-Ximena Montiel Attending Provider Dr. Leslie Tolentino Referring Provider 1([facility])[phone] Dr. Clem Bautista Attending Provider 1([facility])[phone] Clem Bautista Other Provider Dr. Francisco Haney Attending Provider 1([facility])[phone] Francisco Haney Referring Provider 1([facility])[phone] Dakota Frost Attending Provider 1([facility])[phone]. Leslie Tolentino Primary Care Provider 1([facility])[phone] Dr. Leslie Tolentino Referring Provider 1([facility])[phone] Dr. Clem Bautista Attending Provider Dr. Clem Bautista Other Provider Dr. Francisco Haney Attending Provider 1([facility])[phone] Roof DESIGN PRINTING MACHINE SET UP OPERATOR, DESIGN PRINTING MACHINE SET UP OPERATOR-Xiemna Montiel Attending Provider 1([facility])[phone] Dr. Leslie Tolentino Primary Care Provider Dr. Leslie Tolentino Referring Provider [phone] Unavailable Primary Care Provider Unavailabl e Jolliff, Leslie S Primary Care Unavailable Jolliff, Leslie S Referring Unavailable Dakota Frost Attending Unavailable Jolliff, Leslie S Primary Care Unavailable MIGUEL, MARIA GUADALUPE Referring Unavailable MIGUELMARIA GUADALUPE ROME Attending Unavailable Jolliff, Leslie S Primary Care Unavailable MIGUELMARIA GUADALUPE ROME Attending Unavailable MIGUEL, MARIA GUADALUPE Referring Unavailable Jolliff, Leslie S Primary Care Unavailable MIGUEL, MARIA GUADALUPE Attending Unavailable MIGUEL, MARIA GUADALUPE Referring Unavailable Jolliff, Leslie S Primary Care Unavailable Gabbi Patel Attending Unavailable Jolliff, Leslie S Attending Unavailable Jolliff, Leslie S Primary Care Unavailable Jolliff, Leslie S Primary Care Unavailable MIGUELMARIA GUADALUPE Attending Unavailable MIGUELMARIA GUADALUPE ROME Referring Unavailable JOLLIFF, LESLIE JOEY Primary Care Unavailable HAYDEE GAN Attending Unavailable FRANCISCO FRANK Admitting Unavailable SYSTEM, PROVIDER NOT IN Referring Unavaila ble Allergies Allergy Classification Reported Allergen(s) Allergy Type Date of Onset Reaction(s) Facility (1 source) ALLERGIES NOT ON FILE; Translations: [ALLERGIES NOT ON FILE] Propensity to adverse reactions (disorder) [facility] Medications Current Medications Medication Drug Class(es) Dates Sig (Normalized) Sig (Original) [id number] 200 actuat albuterol 0.09 mg/actuat metered dose inhaler (2 sources) beta2-Adrenergic Agonist Start: 08-06-2018 take 1 puff(s) by inhalation every four hours as needed Albuterol Sulfate (Proair Hfa (Sp)Vent Pts) 1 PUFF inhaler Active 2 PUFF INHALATION EVERY 4 HOURS NEEDED August 06, 2018 1:00am Albuterol Sulfate (Proair Hfa (Sp)Vent Pts) 1 PUFF inhaler (1 source) Start: 08-06-2018 take 1 puff(s) by inhalation every four hours as needed Albuterol Sulfate (Proair Hfa (Sp)Vent Pts) 1 PUFF inhaler Active 2 PUFF INHALATION EVERY 4 HOURS NEEDED August 06, 2018 12:00am Albuterol Sulfate (Proair Hfa) 1 PUFF inhaler (11 sources) Start: 08-06-2018 take 1 puff(s) by inhalation every four hours as needed Albuterol Sulfate (Proair Hfa) 1 PUFF inhaler Active 2 PUFF INHALATION EVERY 4 HOURS NEEDED August 06, 2018 1:00am Start: 08-06-2018 take 1 puff(s) by in halation every four hours as needed Albuterol Sulfate (Proair Hfa) 1 PUFF inhaler Active 2 PUFF INHALATION EVERY 4 HOURS NEEDED August 06, 2018 12:00am aspirin 81 mg chewable tablet (11 sources) Platelet Aggregation Inhibitor, Nonsteroidal Anti-inflammatory Drug Start: 08-10-2022 take 81 mg by mouth once daily Aspirin Active 81 MG PO DAILY August 10, 2022 1:00am carvedilol 25 mg oral tablet (20 sources) alpha-Adrenergic Sameera, beta-Adrenergic Sameera Start: 03-23-2023 End: 03-29-2023 take 25 mg by mouth twice daily Carvedilol Active 25 MG PO TWICE A DAY 60 March 29, 2023 8:50am Start: 12-08-2022 End: 03-23-2023 take 12.5 mg by mouth twice daily Carvedilol Discontinued 12.5 MG PO TWICE A DAY 120 December 08, 2022 11:11am March 23, 2023 10:30am Start: 08-28-2022 End: 12-08-2022 take 6.25 mg by mouth twice daily Carvedilol Discontinued 6.25 MG PO TWICE A DAY 60 October 12, 2022 6:17pm December 08, 2022 11:13am Start: 08-21-2018 End: 12-30-2020 take 1 tablet by mouth twice daily at mealtime Carvedilol (Coreg) 3.125 mg tablet Discontinued 3.125 MG PO TWICE A DAY 180 December 24, 2020 4:24pm December 30, 2020 10:44am administer with food (meal or snack) docusate sodium 50 mg / sennosides, pen[facility] 8.6 mg oral tablet (5 sources) Start: 10-17-2022 take 2 tablets by mouth twice daily as needed Sennosides-Docusate Sodium (Stool Softener-Stimulant Laxat) 8.6-50 mg Tablet Active 2 TABLET PO TWICE DAILY NEEDED October 17, 2022 1:00am empagliflozin 10 mg oral tablet (7 sources) Sodium-Glucose Cotransporter 2 Inhibitor Start: 10-30-2022 take 1 tablet by mouth once daily Empagliflozin (Jardiance) 10 mg tablet Active 10 MG PO DAILY October 30, 2022 11:08am Start: 08-28-2022 take 1 tablet by patty th once daily Empagliflozin (Jardiance) 10 mg Tablet Active 10 MG PO DAILY August 28, 2022 12:00am famotidine 20 mg oral tablet (11 sources) Histamine-2 Receptor Antagonist Start: 08-11-2022 take 20 mg by mouth once daily Famotidine Active 20 MG PO DAILY August 11, 2022 1:00am Fluticasone Propion-Salmeterol (16 sources) Corticosteroid, beta2-Adrenergic Agonist Start: 08-19-2018 Fluticasone Propion-Salmeterol (Advair Diskus) 250-50 mcg/dose blister with device Active 1 INH INHALATION TWICE A DAY August 19, 2018 1:00am Start: 01-24-2016 End: 08-19-2018 take 1 puff(s) by inhalation once daily Advair 100/50 Diskus Discontinued 1 PUFF IH DAILY January 23, 2016 11:00pm August 19, 2018 8:33am Start: 01-24-2016 End: 08-19-2018 take 1 puff(s) by inhalation once daily Advair 100/50 Diskus Discontinued 1 PUFF IH DAILY January 24, 2016 12:00am August 19, 2018 9:33am glimepiride 4 mg oral tablet (12 sources) Sulfonylurea Start: 08-10-2022 take 4 mg by mouth twice daily Glimepiride Active 4 MG PO TWICE A DAY August 10, 2022 1:00am Start: 08-10-2022 take 4 mg by mouth once daily Glimepiride Active 4 MG PO DAILY August 10, 2022 12:00am levothyroxine sodium 0.075 mg oral capsule (14 sources) l-Thyroxine Start: 03-23-2023 take 75 ug by mouth once daily Levothyroxine Active 75 MCG PO DAILY March 23, 2023 12:00am Start: 08-10-2022 End: 11-07-2022 take 75 ug by mouth once daily Levothyroxine Discontin ued 75 MCG PO DAILY August 10, 2022 1:00am November 07, 2022 11:30am metFORMIN hydrochloride 500 mg oral tablet (2 sources) Biguanide Start: 11-12-2018 take 1000 mg by mouth at bedtime Metformin Active 1000 MG PO AT BEDTIME November 12, 2018 1:00am Multivitamin preparation (11 sources) Start: 08-10-2022 take 1 tablet by mouth once daily Multivitamin Active 1 TABLET PO DAILY August 10, 2022 1:00am Start: 08-10-2022 take 1 tablet by patty th once daily Multivitamin Active 1 TABLET PO DAILY August 10, 2022 12:00am pantoprazole 40 mg delayed release oral tablet (2 sources) Proton Pump Inhibitor Start: 12-22-2018 take 40 mg by mouth once daily Pantoprazole Active 40 MG PO DAILY December 22, 2018 12:00am sacubitril 97 mg / valsartan 103 mg oral tablet (20 sources) Angiotensin 2 Receptor Sameera Start: 10-30-2022 take 1 tablet by mouth twice daily Sacubitril-Valsart an (Entresto) 97-103 mg tablet Active 1 TABLET PO TWICE A DAY 180 October 30, 2022 1:00am Start: 10-12-2022 End: 10-30-2022 take 2 tablets by mouth twice daily Sacubitril-Valsartan (Entresto) 49-51 mg tablet Discontinued 2 TABLET PO TWICE A DAY October 12, 2022 1:00am October 30, 2022 11:10am Start: 09-19-2022 End: 10-10-2022 take 1 tablet by mouth twice daily Sacubitril-Valsartan (Entresto) 49-51 mg tablet Discontinued 1 TABLET PO TWICE A DAY 180 September 20, 2022 9:44am October 10, 2022 2:32pm Start: 08-28-2022 End: 09-19-2022 Sacubitril-Valsartan (Entres to) 24-26 mg Tablet Discontinued 1 EACH PO TWICE A DAY 60 August 28, 2022 1:00am September 19, 2022 11:02am spironolactone 25 mg oral tablet (7 sources) Aldosterone Antagonist Start: 10-17-2022 End: 03-29-2023 take 25 mg by mouth once daily Spironolactone Active 25 MG PO DAILY 30 March 29, 2023 8:52am sucralfate 1000 mg oral tablet (2 sources) Aluminum Complex Start: 12-22-2018 take 1 g by mouth four times daily Sucralfate Active 1 GM PO 4 TIMES DAILY 40 December 22, 2018 12:00am torsemide 20 mg oral tablet (7 sources) Loop Diuretic Start: 10-17-2022 End: 03-29-2023 take 20 mg by mouth twice daily Torsemide Active 20 MG PO TWICE A DAY 60 March 29, 2023 8:53am Completed/Discontinued Medications Medication Drug Class(es) Dates Sig (Normalized) Sig (Original) acetaminophen 325 mg / HYDROcodone bitartrate 5 mg oral tablet (14 sources) Opioid Agonist Start: 01-24-2016 End: 02-02-2016 take 1 tablet by mouth every six hours as needed Hydrocodone-Acetam inophen Discontinued 1 - 2 TABLET PO EVERY 6 HOURS NEEDED January 24, 2016 12:00am February 02, 2016 10:53am apixaban 5 mg oral tablet (20 sources) Factor Xa Inhibitor Start: 08-28-2022 End: 11-22-2022 take 1 tablet by mouth twice daily Apixaban (Eliquis) 5 mg tablet Discontinued 5 MG PO TWICE A DAY 60 October 10, 2022 5:43pm November 22, 2022 9:41am Start: 11-12-2018 take 1 tablet by patty th twice daily Apixaban (Eliquis) 5 mg tablet Active 5 MG PO TWICE A DAY 60 November 12, 2018 1:00am atorvastatin 40 mg oral tablet (5 sources) HMG-CoA Reductase Inhibitor Start: 10-17-2022 End: 03-23-2023 take 40 mg by mouth at bedtime Atorvastatin Discontinued 40 MG PO AT BEDTIME October 17, 2022 1:00am March 23, 2023 9:45am furosemide 40 mg oral tablet (20 sources) Loop Diuretic Start: 10-12-2022 End: 10-17-2022 take 20 mg by mouth once daily Furosemide Discontinued 20 MG PO DAILY October 12, 2022 6:22pm October 17, 2022 1:39pm Start: 10-12-2022 End: 10-12-2022 take 1 dose by mouth twice daily Furosemide Discontinued 40 MG PO .COMPLEX 180 October 12, 2022 1:00am October 12, 2022 6:22pm 40 mg orally daily: needs extra pills as he sometimes needs to take twice a day for SOB; Start: 08-28-2022 End: 10-12-2022 take 40 mg by mouth once daily Furosemide Discontinued 40 MG PO DAILY August 28, 2022 1:36pm October 12, 2022 4:35pm Start: 08-12-2022 End: 08-28-2022 take 20 mg by mouth once daily Furosemide Discontinued 20 MG PO DAILY August 12, 2022 1:00am August 28, 2022 1:36pm Start: 08-21-2018 take 1 tablet by patty th once daily Furosemide (Lasix) 40 mg tablet Active 40 MG PO DAILY August 21, 2018 1:00am gadoterate meglumine (Dotarem) 0.5 mmol/mL contrast injection 40 mL (1 source) Start: 02-04-2024 End: 02-04-2024 inject 40 mL intravenously once 40 mL, intravenous, Once in imaging, Starting on Sun02/04/24 at 1500, For 1 dose, Administer undiluted as rapid I.V. bolus injection hydroCHLOROthiazide 25 mg oral tablet (12 sources) Thiazide Diuretic Start: 08-10-2022 End: 08-12-2022 take 25 mg by mouth once daily Hydrochlorothiazide Discontinued 25 MG PO DAILY August 10, 2022 1:00am August 12, 2022 11:00am hydroCHLOROthiazide 12.5 mg / lisinopril 20 mg oral tablet (14 sources) Thiazide Diuretic, Angiotensin Converting Enzyme Inhibitor Start: 01-24-2016 End: 08-19-2018 take 1 tablet by mouth once daily Lisinopril-Hydrochlor othiazide Discontinued 1 TABLET PO DAILY January 24, 2016 12:00am August 19, 2018 9:58am hydroCHLOROthiazide 12.5 mg / losartan potassium 100 mg oral tablet (16 sources) Thiazide Diuretic, Angiotensin 2 Receptor Sameera Start: 08-19-2018 End: 08-19-2018 take 1 tablet by mouth once daily Losartan-Hydrochlorot hiazide Discontinued 1 TABLET PO DAILY August 19, 2018 1:00am August 19, 2018 10:00am losartan potassium 25 mg oral tablet (11 sources) Angiotensin 2 Receptor Sameera Start: 08-12-2022 End: 08-28-2022 take 25 mg by mouth once daily Losartan Discontinued 25 MG PO DAILY August 12, 2022 1:00am August 28, 2022 1:35pm 24 hr metoprolol succinate 25 mg extended release oral tablet (11 sources) beta-Adrenergi c Sameera Start: 08-12-2022 End: 08-28-2022 take 12.5 mg by mouth once daily Metoprolol Succinate Discontinued 12.5 MG PO DAILY August 12, 2022 1:00am August 28, 2022 1:35pm rivaroxaban 20 mg oral tablet (14 sources) Factor Xa Inhibitor Start: 08-19-2018 End: 11-12-2018 take 1 tablet by mouth once daily Rivaroxaban (Xarelto) 20 mg tablet Discontinued 20 MG PO DAILY August 19, 2018 1:00am November 12, 2018 11:45am Problems Problem Classification Problem Date Documented Da te Episodic/Chronic Cardiac dysrhythmias (16 sources) Palpitations; Translations: [Palpitations] Episodic Congestive heart failure; nonhypertensive (20 sources) Acute systolic heart failure; Translations: [Acute systolic (congestive) heart failure] Chronic Coronary atherosclerosis and other heart disease (20 sources) Coronary atherosclerosis; Translations: [Atherosclerotic heart disease of [place] coronary artery without angina pectoris] Onset: 11-01-2022 Chronic Diabetes mellitus without complication (14 sources) Prediabetes; Translations: [Prediabetes] 12-22-2018 Episodic Essential hypertension (20 sources) Essential hypertension; Translations: [Essential (primary) hypertension] Chronic Fluid and electrolyte disorders (9 sources) Hyponatremia; Translations: [Hypo-osmolality and hyponatremia] 10-12-2022 Episodic Gastrointestinal hemorrhage (14 sources) Peptic ulcer with hemorrhage; Translations: [Chronic or unspecified peptic ulcer, site unspecified, with hemorrhage] 12-23-2018 Chronic Nonspecific chest pain (3 sources) Chest pain, unspecified; Translations: [Chest pain, unspecified] Onset: 06-16-2024 Episodic Other and ill-defined heart disease (14 sources) Left ventricular systolic dysfunction; Translations: [Heart disease, unspecified] 12-22-2018 Chronic Other and ill-defined heart disease (14 sources) Left ventricular thrombus; 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, not elsewhere classified] 12-22-2018 Chronic Other and ill-defined heart disease (18 sources) Heart disease, unspecified; Translations: [Heart disease, unspecified] Chronic Other and ill-defined heart disease (4 sources) Intracardiac thrombosis, not elsewhere classified; Translations: [Acute myocardial infarction of unspecified site, episode of care unspecified] 12-08-2022 Chronic Other lower respiratory disease (6 sources) Hypoxia; Translations: [Hypoxemia] 10-12-2022 Episodic Other lower respiratory disease (2 sources) Hypoxemia; Translations: [Hypoxemia] 10-12-2022 Episodic Other screening for suspected conditions (not mental disorders or infectious disease) (1 source) Encounter for screening for malignant neoplasm of prostate; Translations: [Encounter for screening for malignant neoplasm of prostate] Onset: 09-16-2024 Episodic Phlebitis; thrombophlebitis and thromboembolism (20 sources) Deep venous thrombosis; Translations: [Acute embolism and thrombosis of unspecified deep veins of unspecified lower extremity] Episodic Residual codes; unclassified (8 sources) Hypersomnia; Translations: [Hypersomnia, unspecified] 09-19-2022 Chronic Residual codes; unclassified (5 sources) Hypersomnia, unspecified; Translations: [Hypersomnia, unspecified] Chronic Residual codes; unclassified (10 sources) Edema of left lower limb; Translations: [Localized edema] 08-25-2022 Episodic Residual codes; unclassified (6 sources) Localized edema; Translations: [Edema] Episodic Respiratory failure; insufficiency; arrest (adult) (9 sources) Chronic hypoxemic respiratory failure; Translations: [Chronic respiratory failure with hypoxia] 11-07-2022 Chronic Respiratory failure; insufficiency; arrest (adult) (12 sources) Acute hypoxemic respiratory failure; Translations: [Acute respiratory failure with hypoxia] 10-12-2022 Episodic Substance-related disorders (9 sources) Nicotine dependence, unspecified, in remission; Translations: [Nicotine dependence in remission] 11-07-2022 Chronic Superficial injury; contusion (14 sources) Contusion of rib; Translations: [Contusion of left front wall of thorax, initial encounter] 09-15-2016 Episodic Syncope (16 sources) Near syncope; Translations: [Syncope and collapse] Episodic Results Test Name Value Interpretation Reference Range Facility CBC WITH AUTO DIFFERENTIALon 10-08-2024 AUTO NRBC 0.0 % Normal [facility] Comment on above: Performed By: #### L [id number] #### LAB [address] [address] Mainor Parikh M.D. [id number] AUTO NRBC ABS COUNT 0.00 K/mcL Normal 0.00-0.00 [facility] Comment on above: Performed By: #### L [id number] #### LAB [address] [address] Mainor Parikh M.D. [id number] BASOPHILS ABSOLUTE COUNT 0.06 K/mcL Normal 0.00-0.30 [facility] Comment on above: Performed By: #### L [id number] #### LAB [address] [address] Mainor Parikh M.D. [id number] Basophils/100 WBC (Bld) 0.8 % Normal [facility] Comment on above: Performed By: #### L [id number] #### LAB [address] [address] Mainor Parikh M.D. [id number] Eosinophils (Bld) [#/Vol] 0.13 10*3/uL Normal 0.00-0.50 [facility] Comment on above: Performed By: #### L [id number] #### LAB [address] [place] [address] Mainor Parikh M.D. [id number] Eosinophils/100 WBC (Bld) 1.7 % Normal [facility] Comment on above: Performed By: #### L [id number] #### LAB [address] [address] Mainor Parikh M.D. [id number] Erythrocyte distribution width (RBC) [Ratio] 14.3 % Normal 11.6-14.8 [facility] Comment on above: Performed By: #### L [id number] #### LAB [address] [place] [address] Mainor Parikh M.D. [id number] Hematocrit (Bld) [Volume fraction] 46.2 % Normal 41.0-53.0 [facility] Comment on above: Performed By: #### L [id number] #### LAB [address] [address] Mainor Parikh M.D. [id number] Hemoglobin (Bld) [Mass/Vol] 15.8 g/dL Normal 13.5-17.5 [facility] Comment on above: Performed By: #### L [id number] #### LAB [address] [address] Mainor Parikh M.D. [id number] IG ABSOLUTE 0.02 K/mcL Normal 0.00-0.30 [facility] Comment on above: Performed By: #### L [id number] #### LAB [address] [address] Mainor Parikh M.D. [id number] IG PERCENT 0.30 % Normal [facility] Comment on above: Result Comment: The IG parameter is the percentage of metamyelocytes, myelocytes and promyelocytes. An immature granulocyte count (IG) of 1% or more suggests the possibility of infection, an IG count of 3% is very likely related to an infection. Performed By: #### L [id number] #### LAB [address] [place] [address] Mainor Parikh M.D. [id number] Lymphocytes (Bld) [#/Vol] 3.20 10*3/uL Normal 0.90-4.00 [facility] Comment on above: Performed By: #### L [id number] #### LAB [address] [address] Mainor Parikh M.D. [id number] Lymphocytes/100 WBC (Bld) 40.8 % Normal [facility] Comment on above: Performed By: #### L [id number] #### LAB [address] [place] [address] Mainor Parikh M.D. [id number] MCH (RBC) [Entitic mass] 28.3 pg Normal 26.0-34.0 [facility] Comment on above: Performed By: #### L [id number] #### LAB [address] [address] Mainor Parikh M.D. [id number] MCV (RBC) [Entitic vol] 82.6 fL Normal 80.0-100.0 [facility] Comment on above: Performed By: #### L [id number] #### LAB [address] [address] Mainor Parikh M.D. [id number] MEAN CORPUSCULAR HEMOGLOBIN CONC 34.2 g/dL Normal 31.0-37.0 [facility] Comment on above: Performed By: #### L [id number] #### LAB [address] [address] Mainor Parikh M.D. [id number] Monocytes (Bld) [#/Vol] 0.81 10*3/uL Normal 0.30-0.90 [facility] Comment on above: Performed By: #### L [id number] #### LAB [address] [address] Mainor Parikh M.D. [id number] Monocytes/100 WBC (Bld) 10.3 % Normal [facility] Comment on above: Performed By: #### L [id number] #### LAB [address] [address] Mainor Parikh M.D. [id number] NEUTROPHILS ABSOLUTE COUNT 3.63 K/mcL Normal 1.70-7.00 [facility] Comment on above: Performed By: #### L [id number] #### LAB [address] [address] Mainor Parikh M.D. [id number] Neutrophils/100 WBC (Bld) 46.1 % Normal [facility] Comment on above: Performed By: #### L [id number] #### LAB [address] [address] Mainor Parikh M.D. [id number] Platelet mean volume (Bld) [Entitic vol] 9.9 fL Normal 9.4-12.4 [facility] Comment on above: Performed By: #### L [id number] #### [facility] [address] [address] Mainor Parikh M.D. [id number] Platelets (Bld) [#/Vol] 224 10*3/uL Normal 150-400 [facility] Comment on above: Performed By: #### L [id number] #### [facility] [address] [address] Mainor Parikh M.D. [id number] RBC (Bld) [#/Vol] 5.59 10*6/uL Normal 4.50-5.90 [facility] Comment on above: Performed By: #### L [id number] #### [facility] LAB [address] [address] Mainor Parikh M.D. [id number] WBC (Bld) [#/Vol] 7.85 10*3/uL Normal 4.50-11.00 [facility] Comment on above: Performed By: #### L [id number] #### LAB [address] [address] Mainor Parikh M.D. [id number] COMPREHENSIVE METABOLIC PANE [facility] 10-08-2024 Albumin [Mass/Vol] 4.1 g/dL Normal 3.2-5.2 [facility] Comment on above: Order Comment: [facility] Services has implemented the eGFR calculation approach that does not have a coefficient for race that conforms to the NKF-ASN Task Force Recommendations. Performed By: #### 4 6126 #### MH LAB [address] [address] Mainor Parikh M.D. [id number] ALP [Catalytic activity/Vol] 96 U/L Normal 40-150 [facility] Comment on above: Order Comment: [facility] Services has implemented the eGFR calculation approach that does not have a coefficient for race that conforms to the NKF-ASN Task Force Recommendations. Performed By: #### 4 6126 #### LAB [address] [address] Mainor Parikh M.D. [id number] ALT [Catalytic activity/Vol] 32 U/L Normal 0-50 U/L [facility] Comment on above: Order Comment: [facility] Services has implemented the eGFR calculation approach that does not have a coefficient for race that conforms to the NKF-ASN Task Force Recommendations. Performed By: #### 4 6126 #### LAB [address] [address] Mainor Parikh M.D. [id number] Anion gap [Moles/Vol] 20 mmol/L Normal 10-20 [facility] Comment on above: Order Comment: [facility] Services has implemented the eGFR calculation approach that does not have a coefficient for race that conforms to the NKF-ASN Task Force Recommendations. Performed By: #### 4 6126 #### LAB [address] [address] Mainor Parikh M.D. [id number] AST [Catalytic activity/Vol] 24 U/L Normal 0-50 U/L [facility] Comment on above: Order Comment: [facility] Laboratory [facility] has implemented the eGFR calculation approach that does not have a coefficient for race that conforms to the NKF-ASN Task Force Recommendations. Result Comment: Slig htly Hemolyzed Performed By: #### 4 6126 #### LAB [address] [address] Mainor Parikh M.D. [id number] Bilirubin [Mass/Vol] 0.3 mg/dL Normal 0.0-1.3 [facility] Comment on above: Order Comment: [facility] Laboratory [facility] has implemented the eGFR calculation approach that does not have a coefficient for race that conforms to the NKF-ASN Task Force Recommendations. Performed By: #### 4 6126 #### LAB [address] [address] Mainor Parikh M.D. [id number] Calcium [Mass/Vol] 9.1 mg/dL Normal 8.4-10.2 [facility] Comment on above: Order Comment: [facility] Services has implemented the eGFR calculation approach that does not have a coefficient for race that conforms to the NKF-ASN Task Force Recommendations. Performed By: #### 4 6126 #### LAB [address] [address] Mainor Parikh M.D. [id number] Chloride [Moles/Vol] 100 mmol/L Normal 98-108 [facility] Comment on above: Order Comment: [facility] Services has implemented the eGFR calculation approach that does not have a coefficient for race that conforms to the NKF-ASN Task Force Recommendations. Performed By: #### 4 6126 #### LAB [address] [address] Mainor Parikh M.D. [id number] Creatinine [Mass/Vol] 1.47 mg/dL High 0.80-1.30 [facility] Comment on above: Order Comment: [facility] Services has implemented the eGFR calculation approach that does not have a coefficient for race that conforms to the NKF-ASN Task Force Recommendations. Performed By: #### 4 6126 #### LAB [address] [address] Mainor Parikh M.D. [id number] EGFR 51 mL/min/1.73 m2 Low >=60 [facility] Comment on above: Order Comment: [facility] Services has implemented the eGFR calculation approach that does not have a coefficient for race that conforms to the NKF-ASN Task Force Recommendations. Result Comment: Luz Elena mated GFR was calculated using the 2020 CKD-EPI creatinine equation. Performed By: #### 4 6126 #### LAB [address] [address] Mainor Parikh M.D. [id number] Glucose [Mass/Vol] 197 mg/dL High 65-99 [facility] Comment on above: Order Comment: [facility] Services has implemented the eGFR calculation approach that does not have a coefficient for race that conforms to the NKF-ASN Task Force Recommendations. Performed By: #### 4 6126 #### LAB [address] [address] Mainor Parikh M.D. [id number] HCO3 (Bld) [Moles/Vol] 20 mmol/L Low 21-32 [facility] Comment on above: Order Comment: [facility] Services has implemented the eGFR calculation approach that does not have a coefficient for race that conforms to the NKF-ASN Task Force Recommendations. Performed By: #### 4 6126 #### LAB [address] [id number] Mainor Parikh M.D. [id number] Potassium [Moles/Vol] 3.6 mmol/L Normal 3.5-5.1 [facility] Comment on above: Order Comment: [facility] Services has implemented the eGFR calculation approach that does not have a coefficient for race that conforms to the NKF-ASN Task Force Recommendations. Result Comment: Slig htly Hemolyzed Performed By: #### 4 6126 #### LAB [address] [address] Mainor Parikh M.D. [id number] Protein [Mass/Vol] 7.2 g/dL Normal 6.0-8.0 [facility] Comment on above: Order Comment: [facility] has implemented the eGFR calculation approach that does not have a coefficient for race that conforms to the NKF-ASN Task Force Recommendations. Performed By: #### 4 6126 #### LAB [address] [address] Mainor Parikh M.D. [id number] Sodium [Moles/Vol] 136 mmol/L Normal 135-145 [facility] Comment on above: Order Comment: [facility] has implemented the eGFR calculation approach that does not have a coefficient for race that conforms to the NKF-ASN Task Force Recommendations. Performed By: #### 4 6193 #### MH LAB [address] [address] Mainor Parikh M.D. [id number] Urea nitrogen [Mass/Vol] 28 mg/dL High 8-25 [facility] Comment on above: Order Comment: [facility] Services has implemented the eGFR calculation approach that does not have a coefficient for race that conforms to the NKF-ASN Task Force Recommendations. Performed By: #### 4 6126 #### LAB [address] [place], [place] [address] Mainor Parikh M.D. [id number] Urea nitrogen/Creatinine [Mass ratio] 19.0 mg/mg Normal 10.0-20.0 [facility] Comment on above: Order Comment: [facility] Services has implemented the eGFR calculation approach that does not have a coefficient for race that conforms to the NKF-ASN Task Force Recommendations. Performed By: #### 4 6126 #### LAB [address] [place], [place] [address] Mainor Parikh M.D. [id number] D-DIMER, QUANTITATIVEon 09-24 D-DIMER QUANTITATIVE 0.29 mcg/mL FEU Normal 0.27-0.49 [facility] Comment on above: Order Comment: A D-d kemal concentration of <0.5 micrograms per milliliter FEU is considered a low probability for pulmonary embolus (PE) and deep venous thrombosis (DVT). Results of this test should always be interpreted in conjunction with the patient's medical history,clinical presentation, and other findings. Clinical diagnosis should not be based on the results of the D-dimer alone. Performed By: #### 4 5434 #### LAB [address] [place], [place] [address] Mainor Parikh M.D. [id number] ED Prov Noteon 10-08-2024 ED Prov Note [facility] ED note NAME: Aydin Duty 69 y.o. CSN: [id number] PCP: Leslie Tolentino MD History: Chief Complaint: Chest Pain HPI: Patient is a 69-year-old male multiple medical problems including a history of CAD paroxysmal atrial fibrillation [facility]. [facility] ED patient is awake alert he states he has been having intermittent midsternal chest pain nonradiating left upper arm [facility] they recommend that he be evaluated in the ED. no bowel or bladder complaints. PMHx: History reviewed. No pertinent past medical history. PMSx: History reviewed. No pertinent surgical history. FAM. Hx: History reviewed. No pertinent family history. SOC. Hx: Social History Socioeconomic History Marital status: Tobacco Use Smoking status: Unknown MEDs: No current outpatient medications on file prior to encounter. ALL: No Known Allergies ROS: Review of Systems Positives and pertinent negatives as per HPI. All other systems were reviewed and are negative. Physical Exam: Patient Vitals for the past 24 hrs: BP Temp Pulse Resp SpO2 Height Weight 10/08/24 1608 110/80 -- 75 18 95 % -- -- 10/08/24 1430 108/85 -- 77 (!) 27 92 % -- -- 10/08/24 1415 133/70 -- 77 (!) 23 96 % -- -- 10/08/24 1224 111/74 98.2 degrees F (36.8 degrees C) 80 18 95 % -- -- 10/08/24 1223 -- -- -- -- -- 5' 11 107.5 kg (237 lb) Physical Exam Vitals and nursing note reviewed. HENT: Head: Normocephalic. Eyes: Extraocular Movements: Extraocular movements intact. Pupils: Pupils are equal, round, and reactive to light. Cardiovascular: Rate and Rhythm: Normal rate and regular rhythm. Heart sounds: Normal heart sounds. Musculoskeletal: General: Normal range of motion. Cervical back: Normal range of motion and neck supple. Right lower leg: No edema. Left lower leg: No edema. Pulmonary: Effort: Pulmonary effort is normal. Breath sounds: Normal breath sounds. Abdominal: General: Bowel sounds are normal. Palpations: Abdomen is soft. Skin: General: Skin is warm. Neurological: General: No focal deficit present. Mental Status: He is alert. Laboratory & Radiological Imaging (if done): Labs Reviewed COMPREHENSIVE METABOLIC PANEL - Abnormal; Notable for the following components: Result Value Bicarbonate 20 (*) Glucose 197 (*) BUN 28 (*) Creatinine 1.47 (*) eGFR 51 (*) All other components within normal limits Narrative: [facility] Services has implemented the eGFR calculation approach that does not have a coefficient for race that conforms to the NKF-ASN Task Force Recommendations. NT PRO BNP - Normal Narrative: Pride Study Cut-offs Rule In: < /= 50 Years >450 pg/mL 51 Years - 75 Years >900 pg/mL 76 Years - 99 Years >1800 pg/mL Rule Out: All patients <300 pg/mL D-DIMER, QUANTITATIVE - Normal Narrative: A D-dimer concentration of <0.5 micrograms per milliliter FEU is considered a low probability for pulmonary embolus (PE) and deep venous thrombosis (DVT). Results of this test should always be interpreted in conjunction with the patient's medical history,clinical presentation, and other findings. Clinical diagnosis should not be based on the results of the D-dimer alone. CBC AND DIFFERENTIAL Narrative: The following orders were created for panel order CBC w/ Diff. Procedure Abnormality Status --------- ------ CBC Auto Differential[[id number]] Final result Please view results for these tests on the individual orders. TROPONIN TROPONIN CBC WITH AUTO DIFFERENTIAL XR Chest 1 View Final Result No acute cardiopulmonary disease. KKV/jcw Workstation ID: [id number] Procedures: EKG 12-lead Date/Time: 10/08/2024 12:55 PM Performed by: Haydee Gan MD Authorized by: Haydee Gan MD Interpreted by ED attending physician Rhythm: sinus rhythm BPM: 81 Conduction: conduction normal ST Segments: ST segments normal T Waves: T waves normal [facility] Interval: 252 QRS Interval: 108 QT Interval: 464 Clinical impression: normal ECG and non-specific ECG His past medical problem list included: Active Ambulatory Problems Diagnosis Date Noted No Active Ambulatory Problems Resolved Ambulatory Problems Diagnosis Date Noted No Resolved Ambulatory Problems No Additional Past Medical History ED MEDICATIONS GIVEN: Medications - No data to display After reviewing the items above, I look at previous medical documentation, such as recent hospitalizations, office visits, and/or recent consultations with PCP/specialist. SDOH: Another factor that I considered in Aydin's care was his Social Determinants of Health (SDOH). During this ED encounter, he LAB TESTING: Ancillary lab testing . CBC CMP troponins BNP D-dimer RADIOLOGY: I did consider radiological studies for Aydin's care today, . Chest x-ray ED (more content not included)... Normal [facility] NT PRO BNPon 10-08-2024 Natriuretic peptide B (Bld) [Mass/Vol] 162 pg/mL Normal 0-300 [facility] Comment on above: Order Comment: Pride Study Cut-offs Rule In: < /= 50 Years >450 pg/mL 51 Years - 75 Years >900 pg/mL 76 Years - 99 Years >1800 pg/mL Rule Out: All patients <300 pg/mL Performed By: #### 4 7395 #### LAB [address] [address] Mainor Parikh M.D. [id number] TROPONINon 10-08-2024 TROPONIN T DELTA CHANGE INTERPRETATION No biomarker evidence of cardiac injury. Normal [facility] Comment on above: Performed By: #### 4 6608 #### LAB [address] [address] Mainor Parikh M.D. [id number] TROPONIN T DELTA DIFFERENCE -6 ng/L Normal < = -/+ 7 change [facility] Comment on above: Performed By: #### 4 6608 #### LAB [address] [address] Mainor Parikh M.D. [id number] TROPONIN T NG/L 12 ng/L Normal <=22 [facility] Comment on above: Performed By: #### 4 6608 #### LAB [address] [address] Mainor Parikh M.D. [id number] BASELINE TROPONIN T NG/L 18 ng/L Normal <=22 [facility] Comment on above: Performed By: #### 4 6608 #### LAB [address] [address] Mainor Parikh M.D. [id number] TROPONIN T INTERPRETATION Normal Normal [facility] Comment on above: Performed By: #### 4 6608 #### LAB [address] [address] Mainor Parikh M.D. [id number] XR CHEST PA/APon 10-08-2024 XR CHEST PA/AP EXAMINATION: PORTABLE AP UPRIGHT CHEST: 10/08/2024 AT 1240 HOURS. HISTORY: Injury/Trauma or Illness?:Illness/Othe r How long have you had these symptoms (acute/chronic)?:Acut e chest pain COMPARISON FILMS: None. FINDINGS: The visualized osseous structures are normal. The trachea is midline. The aorta has normal contour. The patient is somewhat lordotic. The heart size seems normal. There are no focal infiltrates, pleural effusions, pulmonary edema or pneumothorax. IMPRESSION: No acute cardiopulmonary disease. KKV/michaelw Workstation ID: [id number] Dictated by: JAYLAN MOREJON on SunOct 08, 2024 12:58:30 PM EST Transcribed by: RICHARD AVALOS on SunOct 08, 2024 1:16:14 PM EST Finalized by: JAYLAN MOREJON on SunOct 08, 2024 1:19:15 PM EST Normal [facility] Comment on above: Order Comment: Injur y/Trauma or Illness?:Illness/Other How long have you had these symptoms (acute/chronic)?:Acute Reason for exam?:CHEST PAIN History of cancer?:UNK Surgeries, chemotherapy, or radiation?:UNK Type of Exam?:Initial Additional signs and symptoms?:. PSA,Total - Annual Screenon 08-18-2024 PSA,TOT SCREEN 0.46 ng/mL Normal 0.00-4.00 [facility] Comment on above: Result Comment: This test was performed using the TPSA assay method for the [employer] chemistry system. Values obtained with different assay methods cannot be used interchangably. When changing PSA assays in the course of monitoring a patient, additional sequential testing should be carried out to confirm baseline values. Performed By: #### L 501.9520, L501.9910 #### [facility] [address], [place], [id number] Thyroid Stim Hormone (TSH)on 08-18-2024 TSH 4.530 uIU/mL High 0.358-3.740 [facility] Comment on above: Performed By: #### L 501.9520, L501.9910 #### [facility] [address] [facility] [place], [place], [id number] CR - History AND Physicalon 06-25-2024 CR - History & Physical [facility] Cardiac Rehab [address] [place] [address] CR - History Physical MR#: [id number] Acct: [id number] Name: AYDIN GASTELUM Rep #: [id number] : 1955 68 From: Miki Yin BS, RVT PCP: Dr. Leslie Tolentino MD DOS: 06/25/24 CR - History Physical General Arrival date:: 06/25/24 Arrival time:: 09:44 Date of Referral:: 05/30/24 Date of CR Evaluation:: 06/25/24 Referring Physician: ASHA Primary Diagnosis: HF, CAD s/p MIDCABG History of Present Cardiac Event Onset Date Coronary Artery Bypass Graft:: Yes (onset 05/12/24) Medications Ambulatory Orders ???Medication ???Instructions ???Recorded albuterol sulfate 90 mcg/actuation 2 puff inhalation Q4H PRN PRN Sob 08/06/18 aerosol inhaler (ProAir HFA) /Or Wheezing aspirin 81 mg chewable tablet 81 mg PO DAILY [facility]. 08/10/22 multivitamin 1 tab PO DAILY supplement 08/10/22 sennosides 8.6 mg-docusate sodium 2 tab PO BID PRN PRN Constipation 10/17/22 50 mg tablet (Stool #0 tabs Softener-Stimulant Laxative) apixaban 5 mg tablet (Eliquis) See Rx Instructions .Route 11/22/22 .COMPLEX #60 tabs levothyroxine 75 mcg capsule 75 mcg PO DAILY 03/23/23 spironolactone 25 mg tablet 25 mg PO DAILY [facility] torsemide 20 mg tablet 20 mg PO BID [facility] tabs colchicine 0.6 mg tablet 0.6 mg PO DAILY 05/27/24 empagliflozin 25 mg tablet 25 mg PO DAILY 05/27/24 methocarbamol 500 mg tablet 500 mg PO BID PRN spasms 05/27/24 metoprolol tartrate 25 mg tablet 25 mg PO BID 05/27/24 omeprazole 20 mg capsule,delayed 20 mg PO DAILY 05/27/24 release valacyclovir 500 mg tablet 500 mg PO TID 05/27/24 Allergies Allergies No Known Allergies Allergy (Verified 05/27/24 10:37) Sleep Disorder Evaluation Hx of Sleep Apnea: No Do you snore loudly (louder than talking or can be heard through closed doors)?: No Do you often feel tired/ fatigued/ sleepy during daytime?: No Has anyone observed you stop breathing during sleep?: No History of Hypertension (for STOP score): Yes STOP Results: Negative Advanced Directives Advanced Directives Power of Finish Saw Operator: Yes Living Will: Yes Advance Directives Information Provided: Yes Advance Directives on File: No DNR Order?:: No Past Medical History Covid-19 Screening Physicial Symptoms Other Clinical Concerns Exposure Risk Pertinent Comorbidities 65 years or older:: Yes Has a serious heart condition:: Yes Diabetic:: Yes Past Medical Illness Past Medical History (Updated 06/04/24 @ 00:01 by Rosita Weaver) Acute hypoxemic respiratory failure J96.01 Hypoxia R09.02 CHF (congestive heart failure) I50.9 Type 2 diabetes mellitus E11.9 Hypothyroidism E03.9 Acute systolic heart failure I50.21 Arthritis M19.90 COPD (chronic obstructive pulmonary disease) J44.9 GERD (gastroesophageal reflux disease) K21.9 Gout M10.9 GI bleed K92.2 Severe left ventricular systolic dysfunction I51.9 Left ventricular thrombus I51.3 Essential (primary) hypertension I10 Past Surgical History Past Surgical History History of total left knee replacement Z96.652 Hx of cholecystectomy Z90.49 History of total right knee replacement Z96.651 H/O arthroscopy of right knee Z98.890 History of tonsillectomy Z90.89 Family History Summary Family History Mother Hypertension Sister Hypertension Father Hypertension Myocardial infarction from [place] age 54 Social History Smoking History Smoking Status: Former smoker Years Smokin (smoked a pipe and stopped in 2007) Alcohol Use Alcohol Usage: Yes (occasional ) Substance Abuse Hx Substance Use: No Occupation Occupation (List type of work in comments):: Retired Hobbies, Recreation, Social Activities Hobbies: Reading and Other (travel, writing) Recreational Activities: I am able to engage in all my recreational activities Social Environment Status Marital Status: Current Living Arrangements Living Environment:: Spouse Children How many children do you have?: 3 Do any of your children live nearby?: Yes Safety Do you feel safe in your surroundings?: Yes Assistance Do you need any assistance at home?: no Review of Systems Review of Systems Hints Review of Present Symptoms: Reports Shortness of Breath at Rest, Shortness of Breath with Exertion, Dizziness/Lightheaded ness, Fatigue, Appetite - Normal and Appetite - Special Diet; Denies PVD, Operative Discomfort, Angina, Wound Healing, Heart Arrhythmia/Irregulari ties, Sleep - Normal or Sexual Changes Pain Is Patient Pain Free?: Yes Pain Location: upper extremity Pain Level: 10 Risk Factor Assessment Chief Complaint Chief Complaint: HF, s/p MIDCABG (more content not included)... Normal [facility] 12 Lead EKGon 05-27-2024 12 Lead EKG [facility] Cardiovascular Services [address] [place] [address] 12 Lead EKG 05/27/24 1042 MR#: [id number] Acct: [id number] Name: AYDIN GASTELUM Rep #: [id number] : 1955 68 From: Dakota Frost MD Attending Dr: Status: DEP ER Ordering Dr: Gabbi Patel DO Date: 05/27/24 Location: ED Sex: M C Admitted: Test Reason : CP Blood Pressure : / mmHG Vent. Rate : 101 BPM Atrial Rate : 101 BPM P-R Int : 212 ms QRS Dur : 106 ms QT Int : 348 ms P-R-T Axes : 039 009 105 degrees QTc Int : 451 ms Sinus tachycardia with 1st degree A-V block Septal infarct , age undetermined T wave abnormality, consider lateral ischemia Abnormal ECG Confirmed by DAKOTA FROST MD ([id number]), editor dictionary VICTOR HUGO MAYORGA ([id number]) on 05/29/2024 1:37:02 PM Referred By: Confirmed By:DAKOTA FROST MD 05/29/24 1337 Date Dakota Frost MD CC: Dr. Leslie Tolentino MD; Dr. Gabbi Patel DO Signed Normal [facility] Basic Metabolic Profile (BMP )on 05-27-2024 BUN/CRE 20.4 RATIO High 10-20 [facility] Comment on above: Order Comment: 1Y Performed By: #### L 100.0100, L500.2500, L501.5425 ####[facility] [address] [place], [address] CA,Total 10.0 mg/dL Normal 8.5-10.1 [facility] Comment on above: Order Comment: 1Y Performed By: #### L 100.0100, L500.2500, L501.5425 ####[facility] [address] [place], [address] Chloride [Moles/Vol] 95 mmol/L Low 98-107 [facility] Comment on above: Order Comment: 1Y Performed By: #### L 100.0100, L500.2500, L501.5425 ####[facility] [address] [place], [address] CO2 [Moles/Vol] 23.0 mmol/L Normal 21.0-32.0 [facility] Comment on above: Order Comment: 1Y Performed By: #### L 100.0100, L500.2500, L501.5425 ####[facility] [address] [place], [address] Creatinine [Mass/Vol] 1.47 mg/dL High 0.70-1.30 [facility] Comment on above: Order Comment: 1Y Result Comment: The validity of the calculated GFR GFRAA in patients over 70 years has not been determined. Clinical correlation is essential. Performed By: #### L 100.0100, L500.2500, L501.5425 ####[facility] [address] [place], [address] ECRCL 59.50 ml/min Normal [facility] Comment on above: Order Comment: 1Y Performed By: #### L 100.0100, L500.2500, L501.5425 ####[facility] [address] [place], [address] EST GFR - AA 61 mL/min Normal >60 [facility] Comment on above: Order Comment: 1Y Result Comment: Afri can Tunisian GFR Calc Performed By: #### L 100.0100, L500.2500, L501.5425 ####[facility] [address] [place], [address] GAP 11 Normal 5-15 [facility] Comment on above: Order Comment: 1Y Performed By: #### L 100.0100, L500.2500, L501.5425 ####[facility] [address] [place], [address] GFR/1.73 sq M.predicted among non-blacks MDRD (S/P/Bld) [Vol rate/Area] 51 mL/min/{1.73_m2} Low >60 [facility] Comment on above: Order Comment: 1Y Result Comment: Non- GFR Calc Performed By: #### L 100.0100, L500.2500, L501.5425 ####[facility] [address] [place], [address] Glucose [Mass/Vol] 452 mg/dL Invalid Interpretation Code 74-106 [facility] Comment on above: Order Comment: 1Y Result Comment: Crit ical Result(s) Called at: 11:43:14 05/27/2024 by: Briatny Fox to [facility]. Results read back by same. Glucose result greater than or equal to 200 mg/dL suggests DIABETES MELLITUS per A.D.A. criteria. Performed By: #### L 100.0100, L500.2500, L501.5425 ####[facility] [address] [place], [address] Potassium [Moles/Vol] 4.0 mmol/L Normal 3.5-5.1 [facility] Comment on above: Order Comment: 1Y Performed By: #### L 100.0100, L500.2500, L501.5425 ####[facility] [address] [place], [address] Sodium [Moles/Vol] 129 mmol/L Low 136-145 [facility] Comment on above: Order Comment: 1Y Performed By: #### L 100.0100, L500.2500, L501.5425 ####[facility] [address] [place], [address] Urea nitrogen [Mass/Vol] 30 mg/dL High 7-18 [facility] Comment on above: Order Comment: 1Y Performed By: #### L 100.0100, L500.2500, L501.5425 ####[facility] [address] [place], [address] Bedside Glucoseon --2023 FINGERSTICK GLU 259 mg/dL High 74-106 [facility] Comment on above: Result Comment: MORAIMA GEMENT OF PATIENT CARE PER NURSING PROTOCOL Performed By: #### L 501.080 #### [facility] [address] [place], [address] FINGERSTICK GLU 337 mg/dL High 74-106 [facility] Comment on above: Result Comment: MORAIMA GEMENT OF PATIENT CARE PER NURSING PROTOCOL Performed By: #### L 501.080 #### [facility] [address] [place], [address] CBC W/Diff, Automatedon 09-0 Absolute Lymph 2.12 X10 3/uL Normal 0.83-4.51 [facility] Comment on above: Performed By: #### L 100.0100, L500.2500, L501.5425 ####[facility] [address] [place], [address] Absolute Neut 10.9 X10 3/uL High 2.0-7.7 [facility] Comment on above: Performed By: #### L 100.0100, L500.2500, L501.5425 ####[facility] [address] [place], [address] Basophils/100 WBC (Bld) 0.6 % Normal 0-1 [facility] Comment on above: Performed By: #### L 100.0100, L500.2500, L501.5425 ####[facility] [address] [place], [address] Eosinophils/100 WBC (Bld) 0.1 % Normal 0-5 [facility] Comment on above: Performed By: #### L 100.0100, L500.2500, L501.5425 ####[facility] [address] [place], [address] Erythrocyte distribution width (RBC) [Ratio] 12.7 % Normal 11.6-14.6 [facility] Comment on above: Performed By: #### L 100.0100, L500.2500, L501.5425 ####[facility] [address] [place], [address] Hematocrit (Bld) [Volume fraction] 47.1 % Normal 40-54 [facility] Comment on above: Performed By: #### L 100.0100, L500.2500, L501.5425 ####[facility] [address] [place], [address] Hemoglobin (Bld) [Mass/Vol] 16.0 g/dL Normal 13.0-16.5 [facility] Comment on above: Performed By: #### L 100.0100, L500.2500, L501.5425 ####[facility] [address] [place], [address] IG% 0.600 Normal 0.0-0.9 [facility] Comment on above: Result Comment: IG% - Immature Granulocytes (promyelocytes, myelocytes and metamyelocytes) > 1% indicates that a LEFT SHIFT is Present. Performed By: #### L 100.0100, L500.2500, L501.5425 ####[facility] [address] [place], [address] Lymphocytes/100 WBC (Bld) 14.5 % Low 19-41 [facility] Comment on above: Performed By: #### L 100.0100, L500.2500, L501.5425 ####[facility] [address] [place], [address] MCH (RBC) [Entitic mass] 28.8 pg Normal 27.0-32.0 [facility] Comment on above: Performed By: #### L 100.0100, L500.2500, L501.5425 ####[facility] [address] [place], [address] MCHC (RBC) [Mass/Vol] 34.0 g/dL Normal 32-36 [facility] Comment on above: Performed By: #### L 100.0100, L500.2500, L501.5425 ####[facility] [address] [place], [address] MCV (RBC) [Entitic vol] 84.9 fL Normal 80-94 [facility] Comment on above: Performed By: #### L 100.0100, L500.2500, L501.5425 ####[facility] [address] [place], [address] Monocytes/100 WBC (Bld) 9.6 % Normal 0-10 [facility] Comment on above: Performed By: #### L 100.0100, L500.2500, L501.5425 ####[facility] [address] [place], [address] Neutrophils/100 WBC (Bld) 74.6 % High 47-70 [facility] Comment on above: Performed By: #### L 100.0100, L500.2500, L501.5425 ####[facility] [address] [place], [address] Nucleated RBC (Bld) [#/Vol] 0 10*3/uL Normal 0-5 [facility] Comment on above: Performed By: #### L 100.0100, L500.2500, L501.5425 ####[facility] [address] [place], [address] Platelet mean volume (Bld) [Entitic vol] 9.3 fL Normal 6.2-12.0 [facility] Comment on above: Performed By: #### L 100.0100, L500.2500, L501.5425 ####[facility] [address] [place], [address] Platelets (Bld) [#/Vol] 392 10*3/uL Normal 150-450 [facility] Comment on above: Performed By: #### L 100.0100, L500.2500, L501.5425 ####[facility] [address] [place], [address] RBC (Bld) [#/Vol] 5.55 10*6/uL Normal 4.6-6.2 [facility] Comment on above: Performed By: #### L 100.0100, L500.2500, L501.5425 ####[facility] [address] [place], [address] RDW SD 38.6 fl Normal 35.1-43.9 [facility] Comment on above: Performed By: #### L 100.0100, L500.2500, L501.5425 ####[facility] [address] [place], [address] WBC (Bld) [#/Vol] 14.6 10*3/uL High 4.4-11.0 [facility] Comment on above: Performed By: #### L 100.0100, L500.2500, L501.5425 ####[facility] [address] [place], [address] CTA Chest W/WO Contraston CTA Chest W/WO Contrast [facility] Imaging Services [address] [place] [address] CTA Chest W/WO Contrast MR#: [id number] Acct: [id number] Name: AYDIN GASTELUM Rep #: [id number] : 1955 M 68 From: Tirso Ulloa MD PCP: Dr. Leslie Tolentino MD Status: REG ER Study: CTA Chest W/WO Contrast Date of Exam: 05/27/24 Exam# [id number] Ordering Dr: Gabbi Patel DO [id number] EXAM: CT ANGIOGRAPHY CHEST WITHOUT AND WITH INTRAVENOUS CONTRAST CLINICAL INDICATION: Chest pain. TECHNIQUE: Helically acquired angiography images were obtained of the chest without and with intravenous contrast. This CT exam was performed using one or more of the following dose reduction techniques: automated exposure control, adjustment of the mA and/or kV according to patient size, and/or use of iterative reconstruction technique. MIP reconstructed images were created and reviewed. CONTRAST: IV 100mL Isovue-370 RADIATION DOSE: CTDIvol = 18.59 mGy, DLP = 546.84 mGy-cm COMPARISON: CT chest without contrast 04/27/2023. FINDINGS: PULMONARY ARTERIES: Unremarkable. Normal in caliber. No evidence of pulmonary embolism. AORTA: Unremarkable. Normal in caliber. No evidence of dissection. GREAT VESSELS OF AORTIC ARCH: Unremarkable. Normal in caliber. No evidence of dissection. LUNGS AND PLEURAL SPACES: Thick oblique linear subsegmental atelectasis in the left anterior peripheral lung base rather than pulmonary nodule with a tail on the coronal reconstructed images. No suspicious infiltrates. No consolidation or edema. No pleural effusion. No pneumothorax. HEART: 0.62 cm right anterior pericardial effusion and 0.83 cm left pericardial effusion. Mild cardiomegaly. No coronary artery calcifications or plaques. MEDIASTINUM: Unremarkable. No mediastinal or hilar adenopathy. Esophagus is unremarkable. No hiatal hernia. THYROID: Unremarkable. No thyroid lesions. BONES/JOINTS: Minimal degenerative anterolisthesis of T3 on T4 minimal anterior wedging of the upper T7 vertebral body is presumably from remote injury. No lytic or blastic lesions. CT/CTA Chest W/WO Contrast IMPRESSION: 1. No CTA evidence of pleural with thromboemboli, thoracic aortic aneurysm or dissection. 2. 0.62 cm thick right anterior pericardial effusion and 0.83 cm thick left pericardial effusion. This was not present previously. Cardiomegaly without visible coronary artery plaques or calcifications are unchanged. 3. Short but thick oblique linear subsegmental atelectases in the left anterior peripheral lung base. 4. Minimal degenerative anterolisthesis of T3 on T4. 5. Minimal old anterior wedge compression fracture of the upper T7 vertebral body. 6. No other additional findings or changes. Electronically Signed: Tirso Ulloa MD at 13:40 EDT , CC: Dr. Leslie Tolentino MD; Dr. Gabbi Patel DO J2Ee Programmer: Signed Normal [facility] Chest 1 View (Portable)on Chest 1 View (Portable) [facility] Imaging Services [address] [place] [address] Chest 1 View (Portable) MR#: [id number] Acct: [id number] Name: AYDIN GASTELUM Rep #: [id number] : 1955 68 From: Sid Jordan MD PCP: Dr. Leslie Tolentino MD Status: PRE ER Study: Chest 1 View (Portable) Date of Exam: 05/27/24 Exam# [id number] Ordering Dr: Gabbi Patel DO [id number] STUDY: X-RAY CHEST REASON FOR EXAM: Male, 68 years old. Chest pain. TECHNIQUE: Single frontal view of the chest. COMPARISON: October 16, 2022 FINDINGS: Low volume inspiration with mild diffuse interstitial prominence. Decreased interstitial opacities compared to the prior study. There is no demonstrated pleural abnormality. Stable marked cardiomegaly. Normal mediastinum and [place]. Normal visualized pulmonary arteries. Aortic tortuosity unchanged. No abnormality of the visualized soft tissue structures of the upper abdomen. RAD/Chest 1 View (Portable) IMPRESSION: Cardiomegaly with decreased interstitial prominence. No active or acute finding. Electronically Signed: Sid Jordan MD at 12:30 EDT Reading Location ID and State: [facility] / [place] , Service support , CC: Dr. Leslie Tolentino MD; Dr. Gabbi Patel DO J2Ee Programmer: Signed Normal [facility] Emergency Department Summary on 05-27-2024 Emergency Department Summary [facility] Medical Records Department [address] [place] [id number] Emergency Department Summary 05/27/24 MR#: [id number] Acct: [id number] Name: AYDIN GASTELUM Rep #: [id number] : 1955 68 From: Gabbi Patel DO PCP: Dr. Leslie Tolentino MD Status:REG ER Location: ED HPI History of Present Illness Chief Complaint: Chest Pain Detail of Chief Complaint: Chest pain Informant: patient Narrative Narrative: Chest pain that started last evening around midnight. Sudden onset of sharp stabbing pain in the upper chest and radiating towards the left shoulder. He complains of worse pain with deep breath. He feels somewhat short of breath. Patient tells me that he had a procedure May 12 where [facility]. Patient currently on Eliquis. Denies fever or cough. No history of PE or DVT. [facility] Medical History (Updated 05/27/24 @ 16:[address] Gabbi Patel DO) Acute hypoxemic respiratory failure Hypoxia CHF (congestive heart failure) Type 2 diabetes mellitus Hypothyroidism Acute systolic heart failure Arthritis COPD (chronic obstructive pulmonary disease) GERD (gastroesophageal reflux disease) Gout GI bleed Severe left ventricular systolic dysfunction Left ventricular thrombus Essential (primary) hypertension Home Medications ???Medication ???Instructions ???Recorded ???Last Taken ???Type albuterol sulfate 90 mcg/actuation 2 puff inhalation Q4H PRN PRN Sob 08/06/18 08/25/22 History aerosol inhaler (ProAir HFA) /Or Wheezing aspirin 81 mg chewable tablet 81 mg PO DAILY [facility]. 08/10/22 08/25/22 History glimepiride 4 mg tablet 4 mg PO BID DM 08/10/22 08/25/22 History multivitamin 1 tab PO DAILY supplement 08/10/22 08/25/22 History famotidine 20 mg tablet 20 mg PO DAILY heart burn 08/11/22 08/24/22 History sennosides 8.6 mg-docusate sodium 2 tab PO BID PRN PRN Constipation 10/17/22 Unknown Rx 50 mg tablet (Stool #0 tabs Softener-Stimulant Laxative) empagliflozin 10 mg tablet 10 mg PO DAILY 90 days #90 tabs 10/30/22 Unknown Rx (Jardiance) sacubitril 97 mg-valsartan 103 mg 1 tab PO BID #180 tabs 10/30/22 Unknown Rx tablet (Entresto) apixaban 5 mg tablet (Eliquis) See Rx Instructions .Route 11/22/22 Unknown Rx .COMPLEX #60 tabs levothyroxine 75 mcg capsule 75 mcg PO DAILY 03/23/23 Unknown History carvedilol 25 mg tablet 25 mg PO BID Awaiting meds from 03/29/23 [facility] spironolactone 25 mg tablet 25 mg PO DAILY Awaiting RX from 03/29/23 Unknown [facility] #30 tabs torsemide 20 mg tablet 20 mg PO BID awaiting RX from the 03/29/23 Unknown Rx [facility] tabs Allergy/AdvReac Type Severity Reaction Status Date / Time No Known Allergies Allergy Verified 05/27/24 10:37 Family History Mother Hypertension Sister Hypertension Father Hypertension Myocardial infarction from [place] age 54 Surgical History History of total left knee replacement Hx of cholecystectomy History of total right knee replacement H/O arthroscopy of right knee History of tonsillectomy Social History (Reviewed 03/23/23 @ 10:04 by Richard Hoff DESIGN PRINTING MACHINE SET UP OPERATOR, DESIGN PRINTING MACHINE SET UP OPERATOR-C) Smoking Status: Former smoker Tobacco: How many years used: 34 ROS ROS ED Review of Systems ROS Unobtainable: other Constitutional Constitutional ED: Reports lethargy; Denies chills, fever(s), sweats or weight loss Eyes Eyes: Denies blurry vision, change in vision or diplopia ENT ENT ED: Denies rhinorrhea or sore throat Cardiovascular Cardiovascular: Reports chest pain and other Details: Sharp stabbing and pleuritic chest pain ; Denies orthopnea or racing heartbeat Respiratory/Chest Respiratory/Chest: Reports dyspnea; Denies cough, dyspnea on exertion, orthopnea or sputum Gastrointestinal Gastrointestinal: Denies abdominal pain, diarrhea, nausea or vomiting Genitourinary Genitourinary ED: Denies dysuria, hematuria or urinary frequency Musculoskeletal Musculoskeletal: Denies arthralgias, back pain, myalgias or neck pain Integumentary Denies abscess, Abrasions or rash Neurologic Neurologic: Denies headache(s) or weakness Psychiatric Psychiatric: Denies anxiety, depression or suicidal thoughts Endocrine Endocrinology: Denies polydipsia, polyphagia or polyuria Hematologic/Lymphatic Hematologic/Lymphatic : Denies easy bleeding, easy bruising or lymphadenopathy Allergic/Immunologic Allergic/Immunologic ED: Denies mouth swelling, tongue swelling or urticaria EXAM Physical Exam Const Vital Signs: 05/27/24 10:35 05/27/24 11:18 05/27/24 11:35 Temperature 97.1 F L Temperature Source Temporal Pulse Rate 55 L 105 H Respiratory Rate 19 H 30 H Blood Pressure 110/65 (more content not included)... Normal [facility] L501.4020on 05-27-2024 TROPONIN-I HS 14 pg/mL Normal 3.0-78.0 [facility] Comment on above: Result Comment: Plebubba langston Note: New Test Units and Gender Specific Reference Ranges. For more information see Policy Stat Procedure [place] High Sensitivity Troponin (TNIH) and attachments. Performed By: #### L 501.4020 #### [facility] [address] [place], [address] L501.5425on 05-27-2024 TROPONIN-I HS 14 pg/mL Normal 3.0-78.0 [facility] Comment on above: Order Comment: 1Y Result Comment: Elena se Note: New Test Units and Gender Specific Reference Ranges. For more information see Policy Stat Procedure [place] High Sensitivity Troponin (TNIH) and attachments. Performed By: #### L 100.0100, L500.2500, L501.5425 ####[facility] [address] [place], [address] MR CARDIAC MORPHOLOGY AND FU NCTION W AND WO IV CONTRASTon 02-04-2024 MR CARDIAC MORPHOLOGY AND FUNCTION W AND WO IV CONTRAST Interpreted By: Emerald Shah, STUDY: MR CARDIAC MORPHOLOGY AND FUNCTION W AND WO IV CONTRAST; 02/04/2024 3:42 pm INDICATION: Signs/Symptoms:HEART DISEASE. This study is performed to assess myocardial viability and damage, and to quantitate left ventricular and valvular function. COMPARISON: None. ACCESSION NUMBER(S): [id number] ORDERING CLINICIAN: GEORGE WEINBERG TECHNIQUE: Siemens1.5 Shirley MRI scanner. Turbo spin echo and balanced steady state free precession (bSSFP) imaging for anatomic definition. Dynamic cine bSSFP for cardiac chamber and wall-motion analysis, and valvular analysis. Flow quantification sequences for hemodynamics. Delayed gadolinium enhancement analysis after injection of gadolinium-chelate (40mL of Dotarem, 0.2 mmol/kg). HT- 180 cm; WT-119; BSA- 2.44 m2 FINDINGS: CARDIAC CHAMBERS Normal atrioventricular and ventriculoarterial concordance LEFT ATRIUM Mildly dilated (Area-23 cm2) RIGHT ATRIUM Normal size (Area-16 cm2) INTERATRIAL SEPTUM Lipomatous hypertrophy. LEFT VENTRICLE 1. Normal LV size (EDVi 75 ml/m2) with moderately impaired systolic function (LVEF 39%). 2. The mid-apical anterior/anteroseptal wall and true apex severely hypokinetic. 3. Normal myocardial T2 values. Normal myocardial signal on STIR imaging. 4. No evidence of LV thrombus or microvascular obstruction. 5. Following administration of gadolinium, in the late phase, there is subendocardial enhancement of the mid anteroseptal/anterior wall and all apical segments (25-50% wall thickness) with residual viability. EDV = 182 cc; EDVi = 75 cc/m2 ESV = 111 cc; Stroke volume = 71 cc; LVEF = 39 % LV mass = 189 gm; LVMi = 77 gm/m2 RIGHT VENTRICLE Normal RV size (EDVi 55 ml/m2) and systolic function (RVEF 62%). INTERVENTRICULAR SEPTUM Intact. AORTIC VALVE Mildly thickened leaflets, normal excursion. There is mild aortic regurgitation. Flow quantification through the ascending aorta: Forward volume =67 cc/beat Reverse volume = 6 cc/beat Net forward volume = 61 cc/beat Aortic regurgitant fraction = 9 % MITRAL VALVE Mildly thickened leaflets. There is trivial-mild mitral regurgitation. Integrating LV volumetric and aortic flow quantification data reveals: Quantitative mitral regurgitant volume = 4 cc/beat Quantitative mitral regurgitant fraction = 6 % TRICUSPID VALVE There is qualitative no tricuspid regurgitation. THORACIC AORTA The thoracic aorta appears normal in course and contour. Mildly dilated ascending aorta (3.8 cm). There is no evidence for acute aortic pathology. The arch vessel branching pattern is normal. All the arch branch vessels appear widely patent in their proximal portions. PULMONARY ARTERIES The central pulmonary arteries appear normal (MPA-2.9 cm, RP A-2.3 cm, LPA-1.8 cm). SYSTEMIC AND PULMONARY VEINS Normal systemic venous and pulmonary venous return. The SVC and IVC are of normal caliber. Normal pulmonary venous anatomy. CHEST The chest wall is normal. No significant lymphadenopathy or mass is seen in limited images of the mediastinum. Limited imaging through the lungs reveals no gross abnormalities. No pleural effusion. UPPER ABDOMEN Limited imaging through the upper abdomen reveals no abnormalities of the visualized organs. IMPRESSION: 1. Normal LV size (EDVi 75 ml/m2) with moderately impaired systolic function (LVEF 39%). 2. The mid-apical anterior/anteroseptal wall and true apex severely hypokinetic. 3. No evidence of myocardial inflammation/edema on T2 weighted imaging. 4. No evidence of LV thrombus. 5. Subendocardial infarction of the mid anterior/anteroseptal segments and all apical segments with residual viability. 6. Normal RV size (EDVi 55 ml/m2) and systolic function (RVEF 62%). 7. Mildly dilated ascending aorta (3.8 cm). CMR findings are consistent with ischemic cardiomyopathy with evidence of prior LAD territory infarct. MACRO: None Signed by: Emerald Shah 02/05/2024 8:01 AM Dictation workstation: [id number] [facility] Comment on above: Order Comment: [facility] PROVED Sadie 10-26-2022 CNPN Telephone ([facility]) DUTY,AYDIN Tejeda ([id number]) 1955 M Date Time Provider Department 10/26/22 [facility] During your visit today, we recorded the following information about you: RT Winston(Genevieve) 10/26/2022 11:09 AM Signed CMR Protocol needed for this outpatient scheduled on 11/01/22. Outside order and Echo report in Scanned Documents. Thank you Allergies As of Date: 10/26/2022 (No Known Allergies) Date Reviewed: 02/25/2013 Reviewed by: Fatmata Ocasio Ma - Fully Assessed Reason for Visit: Orders [681] Prescriptions as of 10/26/2022 - METOPROLOL TARTRATE ORAL Take by mouth. - PAROXETINE HCL (PAXIL ORAL) Take by mouth. - RANITIDINE HCL ORAL Take by mouth. - acetaminophen-HYDROco done 5-500 mg tablet Take 1 tablet by mouth every 6 hours as needed. Problem List As Of Date: 10/26/2022 (None) Encounter Status:Closed by JONO MORENO on 10/26/22 [facility] Basophil percentageOrdered B y: Dr. Mary on 10-17-2022 Chloride [Moles/Vol] 98 mmol/L 98-107 [facility] Cholesterol [Mass/Vol] 181 mg/dL <200 [facility] Comment on above: <200 mg/dL Desirable 200-240 mg/dL Borderline >240 mg/dL High Risk Glucose [Mass/Vol] 165 mg/dL 74-106 [facility] Comment on above: Fasting Glucose resu lt greater than or equal to 126 mg/dL suggests DIABETES MELLITUS per A.D.A. criteria. Potassium [Moles/Vol] 3.6 mmol/L 3.5-5.1 [facility] Sodium [Moles/Vol] 136 mmol/L 136-145 [facility] Triglyceride [Mass/Vol] 120 mg/dL <199 [facility] Comment on above: The drugs N-Acetylcy steine and Metamizole may falsely depress this assay.Serum Triglycerides Reference Interval Normal <150 mg/dL Borderline high 150 - 199 mg/dL High 200 - 499 mg/dL Very High > or = 500 mg/dL Glucose Glucometer (BldC) [M ass/Vol]Ordered By: Dr. Mary on 10-17-2022 Glucose [Mass/Vol] 209 mg/dL 74-106 [facility] Comment on above: MANAGEMENT OF PATIEN T CARE PER NURSING PROTOCOL Laboratory - Chemistry and C hemistry - challengeOrdered By: Dr. Mary on 10-17-2022 CO2 [Moles/Vol] 30.0 mmol/L 21.0-32.0 [facility] Urea nitrogen/Creatinine [Mass ratio] 24.8 mg/mg 10-20 [facility] No Panel InformationOrdered By: Dr. Mary on 10-17-2022 Estimated Creatinine Clearance Calc 78.71 ml/min [facility] Estimated GFR (MDRD) Amer 100 mL/min >60 [facility] Comment on above: GFR Calc Estimated GFR (MDRD) Non-Af Amer 82 mL/min >60 [facility] Comment on above: Non- GFR Calc Serum or plasma calcium jia urement (mass/volume)Ordered By: Dr. Mary on 10-17-2022 Calcium [Mass/Vol] 9.6 mg/dL 8.5-10.1 [facility] Serum or plasma cholesterol in HDL measurement (mass/volume)Ordered By: Dr. Mary on 10-17-2022 Cholesterol in HDL [Mass/Vol] 33 mg/dL >40 [facility] Comment on above: The drugs N-Acetylcy steine and Metamizole may falsely depress this assay. Reference Range HDL <40 mg/dL Low HDL Cholesterol HDL >or= 60 mg/dL High HDL Cholesterol Serum or plasma cholesterol in VLDL measurement (mass/volume)Ordered By: Dr. Mary on 10-17-2022 Cholesterol in VLDL [Mass/Vol] 24 mg/dL 5-40 [facility] Serum or plasma creatinine m easurement (mass/volume)Ordered By: Dr. Mary on 10-17-2022 Creatinine [Mass/Vol] 0.97 mg/dL 0.70-1.30 [facility] Comment on above: The validity of the calculated GFR & GFRAA in patients over 70 years has not been determined. Clinical correlation is essential. Serum or plasma low density lipoprotein (LDL) cholesterol measurement (mass/volume)Ordered By: Dr. Mary on 10-17-2022 Cholesterol in LDL [Mass/Vol] 124 mg/dL 0-130 [facility] Serum or plasma urea nitroge n measurement (mass/volume)Ordered By: Dr. Mary on 10-17-2022 Urea nitrogen [Mass/Vol] 24 mg/dL 7-18 [facility] Thin prep Papanicolaou smear with manual screeningOrdered By: Dr. Mary on 10-17-2022 Thin prep Papanicolaou smear with manual screening 8 5-15 [facility] Basophil percentageOrdered B y: Dr. Mary on 10-16-2022 Basophil percentage 2.8 mg/dL 2.5-4.9 [facility] Laboratory - Chemistry and C hemistry - challengeOrdered By: Dr. Mary on 10-16-2022 Magnesium [Mass/Vol] 2.2 mg/dL 1.6-2.6 [facility] Absolute lymphocyte countOrd ered By: Dr. Gray on 10-15-2022 Lymphocytes Auto (Unsp spec) [#/Vol] 1.56 10*3/uL 0.83-4.51 [facility] Basophil percentageOrdered B y: Dr. Gray on 10-15-2022 Basophils/100 WBC (Bld) 0.6 % 0-1 [facility] Bilirubin [Mass/Vol] 0.60 mg/dL 0.20-1.00 [facility] Comment on above: For patients on eltr ombopag therapy, use of Dimension [place] TBIL is not recommended. Eosinophils/100 WBC (Bld) 7.0 % 0-5 [facility] Neutrophils (Bld) [#/Vol] 4.3 10*3/uL 2.0-7.7 [facility] Neutrophils/100 WBC (Bld) 60.8 % 47-70 [facility] Protein [Mass/Vol] 7.6 g/dL 6.4-8.2 [facility] WBC (Bld) [#/Vol] 7.0 10*3/uL 4.4-11.0 [facility] Blood erythrocytes count (nu mber/volume)Ordered By: Dr. Gray on 10-15-2022 RBC (Bld) [#/Vol] 5.03 10*6/uL 4.6-6.2 [facility] Blood hemoglobin measurement (mass/volume)Ordered By: Dr. Gray on 10-15-2022 Hemoglobin (Bld) [Mass/Vol] 14.0 g/dL 13.0-16.5 [facility] Blood lymphocytes/100 leukoc ytesOrdered By: Dr. Gray on 10-15-2022 Lymphocytes/100 WBC (Bld) 22.2 % 19-41 [facility] Blood monocytes/100 leukocyt esOrdered By: Dr. Gray on 10-15-2022 Monocytes/100 WBC (Bld) 9.1 % 0-10 [facility] Blood platelet mean volumeOr dered By: Dr. Gray on 10-15-2022 Platelet mean volume (Bld) [Entitic vol] 8.8 fL 6.2-12.0 [facility] Determination of erythrocyte mean corpuscular volume (MCV)Ordered By: Dr. Gray on 10-15-2022 MCV (RBC) [Entitic vol] 84.3 fL 80-94 [facility] Hematocrit Auto (Bld) [Volum e fraction]Ordered By: Dr. Gray on 10-15-2022 Hematocrit (Bld) [Volume fraction] 42.4 % 40-54 [facility] Laboratory - Chemistry and C hemistry - challengeOrdered By: Dr. Gray on 10-15-2022 ALP [Catalytic activity/Vol] 82 U/L 45-117 [facility] ALT [Catalytic activity/Vol] 18 U/L 16-61 [facility] Globulin (S) [Mass/Vol] 5.2 g/dL 2.2-4.2 [facility] Laboratory - Hematology and Cell countsOrdered By: Dr. Gray on 01-22-2023 Erythrocyte distribution width (RBC) [Entitic vol] 42.6 fL 35.1-43.9 [facility] Erythrocyte distribution width (RBC) [Ratio] 13.8 % 11.6-14.6 [facility] Immature granulocytes/100 WBC (Bld) 0.300 % 0.0-0.9 [facility] Comment on above: IG% - Immature Granu locytes (promyelocytes, myelocytes and metamyelocytes) > 1% indicates that a LEFT SHIFT is Present. MCH (RBC) [Entitic mass] 27.8 pg 27.0-32.0 [facility] Nucleated RBC/100 WBC (Bld) [Ratio] 0 % 0-5 [facility] MCHC Auto (RBC) [Mass/Vol]Or dered By: Dr. Gray on 10-15-2022 MCHC (RBC) [Mass/Vol] 33.0 g/dL 32-36 [facility] Platelets bldOrdered By: Dr. Gray on 10-15-2022 Platelets (Bld) [#/Vol] 327 10*3/uL 150-450 [facility] Serum or plasma albumin jia urement (mass/volume)Ordered By: Dr. Gray on 10-15-2022 Albumin [Mass/Vol] 2.4 g/dL 3.2-5.0 [facility] Serum or plasma albumin/glob ulin mass ratioOrdered By: Dr. Gray on 10-15-2022 Albumin/Globulin [Mass ratio] 0.5 {ratio} 0.9-2.4 [facility] Thin prep Papanicolaou smear with manual screeningOrdered By: Dr. Gray on 10-15-2022 Thin prep Papanicolaou smear with manual screening 40 U/L 15-37 [facility] Comment on above: Slight Hemolysis, Re sult may be falsely increased. Absolute lymphocyte countOrd ered By: Dr. Polo on 10-12-2022 Lymphocytes Auto (Unsp spec) [#/Vol] 0.93 10*3/uL 0.83-4.51 [facility] Assessment of wrist artery p atency prior to arterial punctureOrdered By: Dr. Polo on 10-12-2022 Arterial patency Wrist artery --pre arterial puncture Positive [facility] Base excessOrdered By: Dr. Genevieve spears on 10-12-2022 Base excess Calc (BldV) [Moles/Vol] -3 mmol/L -2-2 [facility] Basophil percentageOrdered B y: Dr. Polo on 10-12-2022 Lactate [Moles/Vol] 1.3 mmol/L 0.4-2.0 [facility] Basophil percentage 22.5 mmol/L 22-26 [facility] Basophils/100 WBC (Bld) 96 % 95-99 [facility] Basophils/100 WBC (Bld) 0.3 % 0-1 [facility] Chloride [Moles/Vol] 101 mmol/L 98-107 [facility] Eosinophils/100 WBC (Bld) 0.2 % 0-5 [facility] Glucose [Mass/Vol] 266 mg/dL 74-106 [facility] Comment on above: Glucose result great er than or equal to 200 mg/dLsuggests DIABETES MELLITUS per A.D.A. criteria. Neutrophils (Bld) [#/Vol] 10.1 10*3/uL 2.0-7.7 [facility] Neutrophils/100 WBC (Bld) 84.6 % 47-70 [facility] Potassium [Moles/Vol] 3.9 mmol/L 3.5-5.1 [facility] Sodium [Moles/Vol] 131 mmol/L 136-145 [facility] WBC (Bld) [#/Vol] 12.0 10*3/uL 4.4-11.0 [facility] Blood erythrocytes count (nu mber/volume)Ordered By: Dr. Polo on 10-12-2022 RBC (Bld) [#/Vol] 5.10 10*6/uL 4.6-6.2 [facility] Blood hemoglobin measurement (mass/volume)Ordered By: Dr. Polo on 10-12-2022 Hemoglobin (Bld) [Mass/Vol] 14.3 g/dL 13.0-16.5 [facility] Blood lymphocytes/100 leukoc ytesOrdered By: Dr. Polo on 10-12-2022 Lymphocytes/100 WBC (Bld) 7.8 % 19-41 [facility] Blood monocytes/100 leukocyt esOrdered By: Dr. Polo on 10-12-2022 Monocytes/100 WBC (Bld) 6.8 % 0-10 [facility] Blood platelet mean volumeOr dered By: Dr. Polo on 10-12-2022 Platelet mean volume (Bld) [Entitic vol] 9.3 fL 6.2-12.0 [facility] CO2 (BldA) [Partial pressure ]Ordered By: Dr. Polo on 10-12-2022 CO2 (Bld) [Partial pressure] 38.4 mm[Hg] 35-45 [facility] Determination of erythrocyte mean corpuscular volume (MCV)Ordered By: Dr. Polo on 10-12-2022 MCV (RBC) [Entitic vol] 83.1 fL 80-94 [facility] Hematocrit Auto (Bld) [Volum e fraction]Ordered By: Dr. Polo on 10-12-2022 Hematocrit (Bld) [Volume fraction] 42.4 % 40-54 [facility] Influenza virus A and B and SARS-CoV-2 (COVID-19) Ag panel - Upper respiratory specimOrdered By: Dr. Polo on 10-12-2022 SARS-CoV-2 (COVID-19) RNA FUNMILAYO+probe Ql (Resp) [facility] Laboratory - Chemistry and C hemistry - challengeOrdered By: Dr. Polo on 10-12-2022 CO2 [Moles/Vol] 25.0 mmol/L 21.0-32.0 [facility] Natriuretic peptide B (Bld) [Mass/Vol] 766.4 pg/mL 0-100 [facility] Urea nitrogen/Creatinine [Mass ratio] 13.5 mg/mg 10-20 [facility] Laboratory - Hematology and Cell countsOrdered By: Dr. Polo on 10-12-2022 Erythrocyte distribution width (RBC) [Entitic vol] 42.5 fL 35.1-43.9 [facility] Erythrocyte distribution width (RBC) [Ratio] 14.1 % 11.6-14.6 [facility] Immature granulocytes/100 WBC (Bld) 0.300 % 0.0-0.9 [facility] Comment on above: IG% - Immature Granu locytes (promyelocytes, myelocytes and metamyelocytes) > 1% indicates that a LEFT SHIFT is Present. MCH (RBC) [Entitic mass] 28.0 pg 27.0-32.0 [facility] Nucleated RBC/100 WBC (Bld) [Ratio] 0 % 0-5 [facility] MCHC Auto (RBC) [Mass/Vol]Or dered By: Dr. Polo on 10-12-2022 MCHC (RBC) [Mass/Vol] 33.7 g/dL 32-36 [facility] No Panel InformationOrdered By: Dr. Polo on 10-12-2022 Blood Gas Oxygen Percent 50 [facility] Blood Gas Sample Site L Radial [facility] Blood Gas Specimen Type ART [facility] Blood Gas Total CO2 24 mmol/L [facility] Oxygen Delivery Device BiPAP [facility] Estimated Creatinine Clearance Calc 93.10 ml/min [facility] Estimated GFR (MDRD) Amer 121 mL/min >60 [facility] Comment on above: GFR Calc Estimated GFR (MDRD) Non-Af Amer 100 mL/min >60 [facility] Comment on above: Non- GFR Calc Troponin I High Sensitivity 18 pg/mL 3.0-78.0 [facility] Comment on above: Please Note: New [place] Units and Gender Specific Reference Ranges. For more information see Policy Stat Procedure [place] High Sensitivity Troponin (TNIH) and attachments. Oxygen (BldA) [Partial press ure]Ordered By: Dr. Polo on 10-12-2022 Oxygen (Bld) [Partial pressure] 86 mmHG 75-100 [facility] Platelets bldOrdered By: Dr. Polo on 10-12-2022 Platelets (Bld) [#/Vol] 278 10*3/uL 150-450 [facility] Serum or plasma calcium jia urement (mass/volume)Ordered By: Dr. Polo on 10-12-2022 Calcium [Mass/Vol] 9.4 mg/dL 8.5-10.1 [facility] Serum or plasma creatinine m easurement (mass/volume)Ordered By: Dr. Polo on 10-12-2022 Creatinine [Mass/Vol] 0.82 mg/dL 0.70-1.30 [facility] Comment on above: The validity of the calculated GFR & GFRAA in patients over 70 years has not been determined. Clinical correlation is essential. Serum or plasma urea nitroge n measurement (mass/volume)Ordered By: Dr. Polo on 10-12-2022 Urea nitrogen [Mass/Vol] 11 mg/dL 7-18 [facility] Thin prep Papanicolaou smear with manual screeningOrdered By: Dr. Polo on 10-12-2022 Thin prep Papanicolaou smear with manual screening 5 5-15 [facility] pH measurementOrdered By: Dr Te Polo on 10-12-2022 pH (Unsp spec) 7.38 [pH] 7.35-7.45 [facility] Basophil percentageOrdered B y: Richard Hoff on 09-21-2022 Chloride [Moles/Vol] 107 mmol/L 98-107 [facility] Glucose [Mass/Vol] 182 mg/dL 74-106 [facility] Comment on above: Fasting Glucose resu lt greater than or equal to 126 mg/dL suggests DIABETES MELLITUS per A.D.A. criteria. Potassium [Moles/Vol] 4.3 mmol/L 3.5-5.1 [facility] Sodium [Moles/Vol] 137 mmol/L 136-145 [facility] Laboratory - Chemistry and C hemistry - challengeOrdered By: Richard Hoff on 09-21-2022 CO2 [Moles/Vol] 25.0 mmol/L 21.0-32.0 [facility] Urea nitrogen/Creatinine [Mass ratio] 13.2 mg/mg 10-20 [facility] No Panel InformationOrdered By: Richard Hoff on 09-21-2022 Estimated GFR (MDRD) Amer 98 mL/min >60 [facility] Comment on above: GFR Calc Estimated GFR (MDRD) Non-Af Amer 81 mL/min >60 [facility] Comment on above: Non- GFR Calc Serum or plasma calcium jia urement (mass/volume)Ordered By: Richard Hoff on 09-21-2022 Calcium [Mass/Vol] 9.3 mg/dL 8.5-10.1 [facility] Serum or plasma creatinine m easurement (mass/volume)Ordered By: Richard Hoff on 09-21-2022 Creatinine [Mass/Vol] 0.98 mg/dL 0.70-1.30 [facility] Comment on above: The validity of the calculated GFR & GFRAA in patients over 70 years has not been determined. Clinical correlation is essential. Serum or plasma urea nitroge n measurement (mass/volume)Ordered By: Richard Hoff on 09-21-2022 Urea nitrogen [Mass/Vol] 13 mg/dL 7-18 [facility] Thin prep Papanicolaou smear with manual screeningOrdered By: Richard Hoff on 09-21-2022 Thin prep Papanicolaou smear with manual screening 5 5-15 [facility] Glucose Glucometer (BldC) [M ass/Vol]Ordered By: Dr. Alvarez on 08-28-2022 Glucose [Mass/Vol] 166 mg/dL 74-106 [facility] Comment on above: MANAGEMENT OF PATIEN T CARE PER NURSING PROTOCOL Absolute lymphocyte countOrd ered By: Dr. Braswell on 08-26-2022 Lymphocytes Auto (Unsp spec) [#/Vol] 1.73 10*3/uL 0.83-4.51 [facility] Basophil percentageOrdered B y: Dr. Braswell on 08-26-2022 Basophils/100 WBC (Bld) 0.6 % 0-1 [facility] Chloride [Moles/Vol] 101 mmol/L 98-107 [facility] Eosinophils/100 WBC (Bld) 3.4 % 0-5 [facility] Glucose [Mass/Vol] 172 mg/dL 74-106 [facility] Comment on above: Fasting Glucose resu lt greater than or equal to 126 mg/dL suggests DIABETES MELLITUS per A.D.A. criteria. Neutrophils (Bld) [#/Vol] 5.2 10*3/uL 2.0-7.7 [facility] Neutrophils/100 WBC (Bld) 65.3 % 47-70 [facility] Potassium [Moles/Vol] 3.7 mmol/L 3.5-5.1 [facility] Sodium [Moles/Vol] 135 mmol/L 136-145 [facility] WBC (Bld) [#/Vol] 7.9 10*3/uL 4.4-11.0 [facility] Blood erythrocytes count (nu mber/volume)Ordered By: Dr. Braswell on 08-26-2022 RBC (Bld) [#/Vol] 5.07 10*6/uL 4.6-6.2 [facility] Blood hemoglobin measurement (mass/volume)Ordered By: Dr. Braswell on 08-26-2022 Hemoglobin (Bld) [Mass/Vol] 14.4 g/dL 13.0-16.5 [facility] Blood lymphocytes/100 leukoc ytesOrdered By: Dr. Braswell on 08-26-2022 Lymphocytes/100 WBC (Bld) 21.9 % 19-41 [facility] Blood monocytes/100 leukocyt esOrdered By: Dr. Braswell on 08-26-2022 Monocytes/100 WBC (Bld) 8.7 % 0-10 [facility] Blood platelet mean volumeOr dered By: Dr. Braswell on 08-26-2022 Platelet mean volume (Bld) [Entitic vol] 9.2 fL 6.2-12.0 [facility] Determination of erythrocyte mean corpuscular volume (MCV)Ordered By: Dr. Braswell on 08-26-2022 MCV (RBC) [Entitic vol] 83.4 fL 80-94 [facility] Hematocrit Auto (Bld) [Volum e fraction]Ordered By: Dr. Braswell on 08-26-2022 Hematocrit (Bld) [Volume fraction] 42.3 % 40-54 [facility] Laboratory - Chemistry and C hemistry - challengeOrdered By: Dr. Braswell on 08-26-2022 CO2 [Moles/Vol] 29.0 mmol/L 21.0-32.0 [facility] Urea nitrogen/Creatinine [Mass ratio] 17.9 mg/mg 10-20 [facility] Laboratory - Chemistry and C hemistry - challengeOrdered By: Dr. Negron on 08-26-2022 Magnesium [Mass/Vol] 2.2 mg/dL 1.6-2.6 [facility] Laboratory - Hematology and Cell countsOrdered By: Dr. Braswell on 08-26-2022 Erythrocyte distribution width (RBC) [Entitic vol] 40.9 fL 35.1-43.9 [facility] Erythrocyte distribution width (RBC) [Ratio] 13.4 % 11.6-14.6 [facility] Immature granulocytes/100 WBC (Bld) 0.100 % 0.0-0.9 [facility] Comment on above: IG% - Immature Granu locytes (promyelocytes, myelocytes and metamyelocytes) > 1% indicates that a LEFT SHIFT is Present. MCH (RBC) [Entitic mass] 28.4 pg 27.0-32.0 [facility] Nucleated RBC/100 WBC (Bld) [Ratio] 0 % 0-5 [facility] MCHC Auto (RBC) [Mass/Vol]Or dered By: Dr. Braswell on 08-26-2022 MCHC (RBC) [Mass/Vol] 34.0 g/dL 32-36 [facility] No Panel InformationOrdered By: Dr. Braswell on 08-26-2022 Estimated Creatinine Clearance Calc 72.02 ml/min [facility] Estimated GFR (MDRD) Amer 90 mL/min >60 [facility] Comment on above: GFR Calc Estimated GFR (MDRD) Non-Af Amer 74 mL/min >60 [facility] Comment on above: Non- GFR Calc Platelets bldOrdered By: Dr. Braswell on 08-26-2022 Platelets (Bld) [#/Vol] 320 10*3/uL 150-450 [facility] Serum or plasma calcium jia urement (mass/volume)Ordered By: Dr. Braswell on 08-26-2022 Calcium [Mass/Vol] 9.9 mg/dL 8.5-10.1 [facility] Serum or plasma creatinine m easurement (mass/volume)Ordered By: Dr. Braswell on 08-26-2022 Creatinine [Mass/Vol] 1.06 mg/dL 0.70-1.30 [facility] Comment on above: The validity of the calculated GFR & GFRAA in patients over 70 years has not been determined. Clinical correlation is essential. Serum or plasma urea nitroge n measurement (mass/volume)Ordered By: Dr. Braswell on 08-26-2022 Urea nitrogen [Mass/Vol] 19 mg/dL 7-18 [facility] Thin prep Papanicolaou smear with manual screeningOrdered By: Dr. Braswell on 08-26-2022 Thin prep Papanicolaou smear with manual screening 5 5-15 [facility] Absolute lymphocyte counton 08-25-2022 Lymphocytes Auto (Unsp spec) [#/Vol] 1.10 10*3/uL 0.83-4.51 [facility] Work Phone: Basophil percentageon 2021 Basophils/100 WBC (Bld) 0.4 % 0-1 [facility] Work Phone: [phone] Chloride [Moles/Vol] 103 mmol/L 98-107 [facility] Work Phone: [phone] Eosinophils/100 WBC (Bld) 1.6 % 0-5 [facility] Work Phone: [phone] Glucose [Mass/Vol] 239 mg/dL 74-106 [facility] Work Phone: [phone] Comment on above: Glucose result great er than or equal to 200 mg/dLsuggests DIABETES MELLITUS per A.D.A. criteria. Neutrophils (Bld) [#/Vol] 7.3 10*3/uL 2.0-7.7 [facility] Work Phone: Neutrophils/100 WBC (Bld) 78.3 % 47-70 [facility] Work Phone: [phone] Potassium [Moles/Vol] 4.1 mmol/L 3.5-5.1 [facility] Work Phone: [phone] Sodium [Moles/Vol] 134 mmol/L 136-145 [facility] Work Phone: [phone] WBC (Bld) [#/Vol] 9.3 10*3/uL 4.4-11.0 [facility] Work Phone: [phone] Basophil percentageOrdered B y: Dr. Montalvo on 08-25-2022 Bilirubin [Mass/Vol] 1.00 mg/dL 0.20-1.00 [facility] Comment on above: For patients on eltr ombopag therapy, use of Dimension [place] TBIL is not recommended. Protein [Mass/Vol] 7.5 g/dL 6.4-8.2 [facility] Blood erythrocytes count (nu mber/volume)on 08-25-2022 RBC (Bld) [#/Vol] 4.69 10*6/uL 4.6-6.2 [facility] Work Phone: Blood hemoglobin measurement (mass/volume)on 08-25-2022 Hemoglobin (Bld) [Mass/Vol] 13.2 g/dL 13.0-16.5 [facility] Work Phone: Blood lymphocytes/100 leukoc yteson 08-25-2022 Lymphocytes/100 WBC (Bld) 11.8 % 19-41 [facility] Work Phone: Blood monocytes/100 leukocyt eson 08-25-2022 Monocytes/100 WBC (Bld) 7.6 % 0-10 [facility] Work Phone: Blood platelet mean volumeon 08-25-2022 Platelet mean volume (Bld) [Entitic vol] 9.1 fL 6.2-12.0 [facility] Work Phone: Determination of erythrocyte mean corpuscular volume (MCV)on 08-25-2022 MCV (RBC) [Entitic vol] 84.0 fL 80-94 [facility] Work Phone: Hematocrit Auto (Bld) [Volum e fraction]on 08-25-2022 Hematocrit (Bld) [Volume fraction] 39.4 % 40-54 [facility] Work Phone: INR in Blood by Coagulation assayOrdered By: Dr. Montalvo on 08-25-2022 INR Coag (Bld) [Relative time] 1.2 {INR} [facility] Laboratory - Chemistry and C hemistry - challengeOrdered By: Dr. Montalvo on 08-25-2022 ALP [Catalytic activity/Vol] 85 U/L 45-117 [facility] ALT [Catalytic activity/Vol] 26 U/L 16-61 [facility] Globulin (S) [Mass/Vol] 4.5 g/dL 2.2-4.2 [facility] Natriuretic peptide B (Bld) [Mass/Vol] 460.8 pg/mL 0-100 [facility] Laboratory - Chemistry and C hemistry - challengeon 08-25-2022 CO2 [Moles/Vol] 25.0 mmol/L 21.0-32.0 [facility] Work Phone: Urea nitrogen/Creatinine [Mass ratio] 13.1 mg/mg 10-20 [facility] Work Phone: Laboratory - CoagulationOrde red By: Dr. Montalvo on 08-25-2022 aPTT Coag (Bld) [Time] 34.3 s 24.1-36.2 [facility] PT Coag (PPP) [Time] 14.8 s 11.7-14.9 [facility] Laboratory - Hematology and Cell countson 08-25-2022 Erythrocyte distribution width (RBC) [Entitic vol] 41.5 fL 35.1-43.9 [facility] Work Phone: Erythrocyte distribution width (RBC) [Ratio] 13.6 % 11.6-14.6 [facility] Work Phone: Immature granulocytes/100 WBC (Bld) 0.300 % 0.0-0.9 [facility] Work Phone: Comment on above: IG% - Immature Granu locytes (promyelocytes, myelocytes and metamyelocytes) > 1% indicates that a LEFT SHIFT is Present. MCH (RBC) [Entitic mass] 28.1 pg 27.0-32.0 [facility] Work Phone: Nucleated RBC/100 WBC (Bld) [Ratio] 0 % 0-5 [facility] Work Phone: MCHC Auto (RBC) [Mass/Vol]on 08-25-2022 MCHC (RBC) [Mass/Vol] 33.5 g/dL 32-36 [facility] Work Phone: No Panel InformationOrdered By: Dr. Braswell on 08-25-2022 Troponin I High Sensitivity 38 pg/mL 3.0-78.0 [facility] Comment on above: Please Note: New [place] t Units and Gender Specific Reference Ranges. For more information see Policy Stat Procedure [place] High Sensitivity Troponin (TNIH) and attachments. No Panel Informationon 08-25 Estimated Creatinine Clearance Calc 82.98 ml/min [facility] Work Phone: Estimated GFR (MDRD) Amer 106 mL/min >60 [facility] Work Phone: Comment on above: GFR Calc Estimated GFR (MDRD) Non-Af Amer 88 mL/min >60 [facility] Work Phone: Comment on above: Non- GFR Calc Troponin I High Sensitivity 36 pg/mL 3.0-78.0 [facility] Work Phone: Comment on above: Please Note: New [place] t Units and Gender Specific Reference Ranges. For more information see Policy Stat Procedure [place] High Sensitivity Troponin (TNIH) and attachments. Platelets bldon 08-25-2022 Platelets (Bld) [#/Vol] 277 10*3/uL 150-450 [facility] Work Phone: Serum or plasma albumin jia urement (mass/volume)Ordered By: Dr. Montalvo on 08-25-2022 Albumin [Mass/Vol] 3.0 g/dL 3.2-5.0 [facility] Serum or plasma albumin/glob ulin mass ratioOrdered By: Dr. Montalvo on 08-25-2022 Albumin/Globulin [Mass ratio] 0.7 {ratio} 0.9-2.4 [facility] Serum or plasma calcium jia urement (mass/volume)on 08-25-2022 Calcium [Mass/Vol] 8.8 mg/dL 8.5-10.1 [facility] Work Phone: Serum or plasma creatinine m easurement (mass/volume)on 08-25-2022 Creatinine [Mass/Vol] 0.92 mg/dL 0.70-1.30 [facility] Work Phone: Comment on above: The validity of the calculated GFR & GFRAA in patients over 70 years has not been determined. Clinical correlation is essential. Serum or plasma urea nitroge n measurement (mass/volume)on 08-25-2022 Urea nitrogen [Mass/Vol] 12 mg/dL 7-18 [facility] Work Phone: Thin prep Papanicolaou smear with manual screeningOrdered By: Dr. Montalvo on 08-25-2022 Thin prep Papanicolaou smear with manual screening 17 U/L 15-37 [facility] Thin prep Papanicolaou smear with manual screeningon 08-25-2022 Thin prep Papanicolaou smear with manual screening 6 5-15 [facility] Work Phone: Absolute lymphocyte countOrd ered By: Dr. Vidal on 08-12-2022 Lymphocytes Auto (Unsp spec) [#/Vol] 2.22 10*3/uL 0.83-4.51 [facility] Basophil percentageOrdered B y: Dr. Vidal on 08-12-2022 Basophils/100 WBC (Bld) 0.6 % 0-1 [facility] Chloride [Moles/Vol] 103 mmol/L 98-107 [facility] Eosinophils/100 WBC (Bld) 4.0 % 0-5 [facility] Glucose [Mass/Vol] 165 mg/dL 74-106 [facility] Comment on above: Fasting Glucose resu lt greater than or equal to 126 mg/dL suggests DIABETES MELLITUS per A.D.A. criteria. Neutrophils (Bld) [#/Vol] 4.0 10*3/uL 2.0-7.7 [facility] Neutrophils/100 WBC (Bld) 54.9 % 47-70 [facility] Potassium [Moles/Vol] 3.5 mmol/L 3.5-5.1 [facility] Sodium [Moles/Vol] 135 mmol/L 136-145 [facility] WBC (Bld) [#/Vol] 7.2 10*3/uL 4.4-11.0 [facility] Blood erythrocytes count (nu mber/volume)Ordered By: Dr. Vidal on 08-12-2022 RBC (Bld) [#/Vol] 5.31 10*6/uL 4.6-6.2 [facility] Blood hemoglobin measurement (mass/volume)Ordered By: Dr. Vidal on 08-12-2022 Hemoglobin (Bld) [Mass/Vol] 15.0 g/dL 13.0-16.5 [facility] Blood lymphocytes/100 leukoc ytesOrdered By: Dr. Vidal on 08-12-2022 Lymphocytes/100 WBC (Bld) 30.8 % 19-41 [facility] Blood monocytes/100 leukocyt esOrdered By: Dr. Vidal on 08-12-2022 Monocytes/100 WBC (Bld) 9.4 % 0-10 [facility] Blood platelet mean volumeOr dered By: Dr. Vidal on 08-12-2022 Platelet mean volume (Bld) [Entitic vol] 9.7 fL 6.2-12.0 [facility] Determination of erythrocyte mean corpuscular volume (MCV)Ordered By: Dr. Vidal on 08-12-2022 MCV (RBC) [Entitic vol] 84.4 fL 80-94 [facility] Hematocrit Auto (Bld) [Volum e fraction]Ordered By: Dr. Vidal on 08-12-2022 Hematocrit (Bld) [Volume fraction] 44.8 % 40-54 [facility] Laboratory - Chemistry and C hemistry - challengeOrdered By: Dr. Vidal on 08-12-2022 CO2 [Moles/Vol] 23.0 mmol/L 21.0-32.0 [facility] Cobalamin (Vitamin B12) [Mass/Vol] 522 pg/mL 211-911 [facility] Free T4 [Mass/Vol] 1.30 ng/dL 0.76-1.46 [facility] Urea nitrogen/Creatinine [Mass ratio] 17.8 mg/mg 10-20 [facility] - Hematology and Cell countsOrdered By: Dr. Vidal on 08-12-2022 Erythrocyte distribution width (RBC) [Entitic vol] 41.1 fL 35.1-43.9 [facility] Erythrocyte distribution width (RBC) [Ratio] 13.4 % 11.6-14.6 [facility] Immature granulocytes/100 WBC (Bld) 0.300 % 0.0-0.9 [facility] Comment on above: IG% - Immature Granu locytes (promyelocytes, myelocytes and metamyelocytes) > 1% indicates that a LEFT SHIFT is Present. MCH (RBC) [Entitic mass] 28.2 pg 27.0-32.0 [facility] Nucleated RBC/100 W[facility] (Bld) [[facility]] 0 % [facility] [[facility]/Vol]Or dered By: Dr. Vidal on 08-12-2022 MCHC (RBC) [Mass/Vol] 33.5 g/dL 32-36 [facility] No Panel InformationOrdered By: Dr. Vidal on 08-12-2022 Estimated Creatinine Clearance Calc 71.35 ml/min [facility] Estimated GFR (MDRD) Amer 89 mL/min >60 [facility] Comment on above: GFR Calc Estimated GFR (MDRD) Non-Af Amer 73 mL/min >60 [facility] Comment on above: Non- GFR Calc Platelets bldOrdered By: Dr. Vidal on 08-12-2022 Platelets (Bld) [#/Vol] 248 10*3/uL 150-450 [facility] Serum or plasma calcium jia urement (mass/volume)Ordered By: Dr. Vidal on 08-12-2022 Calcium [Mass/Vol] 8.8 mg/dL 8.5-10.1 [facility] Serum or plasma creatinine m easurement (mass/volume)Ordered By: Dr. Vidal on 08-12-2022 Creatinine [Mass/Vol] 1.07 mg/dL 0.70-1.30 [facility] Comment on above: The validity of the calculated GFR & GFRAA in patients over 70 years has not been determined. Clinical correlation is essential. Serum or plasma urea nitroge n measurement (mass/volume)Ordered By: Dr. Vidal on 08-12-2022 Urea nitrogen [Mass/Vol] 19 mg/dL -18 [facility] Thin prep Papanicolaou smear with manual screeningOrdered By: Dr. Vidal on 08-12-2022 Thin prep Papanicolaou smear with manual screening 9 5-15 [facility] Basophil percentageOrdered B y: Dr. Vidal on 08-11-2022 Bilirubin [Mass/Vol] 1.00 mg/dL 0.20-1.00 [facility] Comment on above: For patients on eltr ombopag therapy, use of Dimension [place] TBIL is not recommended. Protein [Mass/Vol] 7.2 g/dL 6.4-8.2 [facility] Laboratory - Chemistry and C hemistry - challengeOrdered By: Dr. Vidal on 08-11-2022 ALP [Catalytic activity/Vol] 77 U/L 45-117 [facility] ALT [Catalytic activity/Vol] 21 U/L 16-61 [facility] Globulin (S) [Mass/Vol] 3.8 g/dL 2.2-4.2 [facility] No Panel InformationOrdered By: Dr. Vidal on 08-11-2022 Thyroid Stimulating Hormone (TSH) 6.11 uIU/mL 0.358-3.74 [facility] Serum or plasma albumin jia urement (mass/volume)Ordered By: Dr. Vidal on 08-11-2022 Albumin [Mass/Vol] 3.4 g/dL 3.2-5.0 [facility] Serum or plasma albumin/glob ulin mass ratioOrdered By: Dr. Vidal on 08-11-2022 Albumin/Globulin [Mass ratio] 0.9 {ratio} 0.9-2.4 [facility] Thin prep Papanicolaou smear with manual screeningOrdered By: Dr. Vidal on 08-11-2022 Thin prep Papanicolaou smear with manual screening 19 U/L 15-37 [facility] Whole blood hemoglobin A1c/t otal hemoglobin ratio (mass fraction)Ordered By: Dr. Vidal on 08-11-2022 HbA1c (Bld) [Mass fraction] 7.6 % 3.8-5.6 [facility] Comment on above: Normal < 5.7 % Predi abetic 5.7 - 6.4 % Diabetic >or= 6.5 % Please note range changes. Absolute lymphocyte counton 08-10-2022 Lymphocytes Auto (Unsp spec) [#/Vol] 1.96 10*3/uL 0.83-4.51 [facility] Work Phone: Basophil percentageon 2021 Basophils/100 WBC (Bld) 0.6 % 0-1 [facility] Work Phone: Chloride [Moles/Vol] 106 mmol/L 98-107 [facility] Work Phone: Eosinophils/100 WBC (Bld) 3.5 % 0-5 [facility] Work Phone: Glucose [Mass/Vol] 207 mg/dL 74-106 [facility] Work Phone: Comment on above: Glucose result great er than or equal to 200 mg/dLsuggests DIABETES MELLITUS per A.D.A. criteria. Neutrophils (Bld) [#/Vol] 3.5 10*3/uL 2.0-7.7 [facility] Work Phone: Neutrophils/100 WBC (Bld) 55.9 % 47-70 [facility] Work Phone: Potassium [Moles/Vol] 3.6 mmol/L 3.5-5.1 [facility] Work Phone: [phone] Sodium [Moles/Vol] 139 mmol/L 136-145 [facility] Work Phone: WBC (Bld) [#/Vol] 6.2 10*3/uL 4.4-11.0 [facility] Work Phone: Blood erythrocytes count (nu mber/volume)on 08-10-2022 RBC (Bld) [#/Vol] 5.35 10*6/uL 4.6-6.2 [facility] Work Phone: Blood hemoglobin measurement (mass/volume)on 08-10-2022 Hemoglobin (Bld) [Mass/Vol] 15.0 g/dL 13.0-16.5 [facility] Work Phone: Blood lymphocytes/100 leukoc yteson 08-10-2022 Lymphocytes/100 WBC (Bld) 31.5 % 19-41 [facility] Work Phone: Blood monocytes/100 leukocyt eson 08-10-2022 Monocytes/100 WBC (Bld) 8.2 % 0-10 [facility] Work Phone: Blood platelet mean volumeon 08-10-2022 Platelet mean volume (Bld) [Entitic vol] 10.0 fL 6.2-12.0 [facility] Work Phone: COVID-19 virus antigen assay Ordered By: Dr. Vidal on 08-10-2022 SARS-CoV-2 (COVID-19) Ag IA.rapid Ql (Resp) [facility] Determination of erythrocyte mean corpuscular volume (MCV)on 08-10-2022 MCV (RBC) [Entitic vol] 83.4 fL 80-94 [facility] Work Phone: Hematocrit Auto (Bld) [Volum e fraction]on 08-10-2022 Hematocrit (Bld) [Volume fraction] 44.6 % 40-54 [facility] Work Phone: Laboratory - Chemistry and C hemistry - challengeon 08-10-2022 CO2 [Moles/Vol] 26.0 mmol/L 21.0-32.0 [facility] Work Phone: Urea nitrogen/Creatinine [Mass ratio] 13.7 mg/mg 10-20 [facility] Work Phone: Laboratory - Chemistry and C hemistry - challengeOrdered By: Dr. Wen on 08-10-2022 Natriuretic peptide B (Bld) [Mass/Vol] 264.5 pg/mL 0-100 [facility] - Hematology and Cell countson 08-10-2022 Erythrocyte distribution width (RBC) [Entitic vol] 41.1 fL 35.1-43.9 [facility] Work Phone: Erythrocyte distribution width (RBC) [Ratio] 13.5 % 11.6-14.6 [facility] Work Phone: Immature granulocytes/100 WBC (Bld) 0.300 % 0.0-0.9 [facility] Work Phone: Comment on above: IG% - Immature Granu locytes (promyelocytes, myelocytes and metamyelocytes) > 1% indicates that a LEFT SHIFT is Present. MCH (RBC) [Entitic mass] 28.0 pg 27.0-32.0 [facility] Work Phone: Nucleated RBC/100 WBC (Bld) [Ratio] 0 % 0-5 [facility] Work Phone: MCHC Auto (RBC) [Mass/Vol]on 08-10-2022 MCHC (RBC) [Mass/Vol] 33.6 g/dL 32-36 [facility] Work Phone: No Panel InformationOrdered By: Dr. Wen on 08-10-2022 Troponin I High Sensitivity 55 pg/mL 3.0-78.0 [facility] Comment on above: Please Note: New Brittanie t Units and Gender Specific Reference Ranges. For more information see Policy Stat Procedure [place] High Sensitivity Troponin (TNIH) and attachments. No Panel Informationon 08-10 Estimated Creatinine Clearance Calc 61.57 ml/min [facility] Work Phone: Estimated GFR (MDRD) Amer 75 mL/min >60 [facility] Work Phone: Comment on above: GFR Calc Estimated GFR (MDRD) Non-Af Amer 62 mL/min >60 [facility] Work Phone: Comment on above: Non- GFR Calc Troponin I High Sensitivity 48 pg/mL 3.0-78.0 [facility] Work Phone: Comment on above: Please Note: New Brittanie t Units and Gender Specific Reference Ranges. For more information see Policy Stat Procedure [place] High Sensitivity Troponin (TNIH) and attachments. Platelets bldon 08-10-2022 Platelets (Bld) [#/Vol] 269 10*3/uL 150-450 [facility] Work Phone: Serum or plasma calcium jia urement (mass/volume)on 08-10-2022 Calcium [Mass/Vol] 9.4 mg/dL 8.5-10.1 [facility] Work Phone: Serum or plasma creatinine m easurement (mass/volume)on 08-10-2022 Creatinine [Mass/Vol] 1.24 mg/dL 0.70-1.30 [facility] Work Phone: Comment on above: The validity of the calculated GFR & GFRAA in patients over 70 years has not been determined. Clinical correlation is essential. Serum or plasma urea nitroge n measurement (mass/volume)on 08-10-2022 Urea nitrogen [Mass/Vol] 17 mg/dL 7-18 [facility] Work Phone: Thin prep Papanicolaou smear with manual screeningon 08-10-2022 Thin prep Papanicolaou smear with manual screening 7 5-15 [facility] Work Phone: Absolute lymphocyte counton 06-12-2022 Lymphocytes Auto (Unsp spec) [#/Vol] 1.84 10*3/uL 0.83-4.51 [facility] Work Phone: Basophil percentageon 2021 Basophils/100 WBC (Bld) 0.9 % 0-1 [facility] Work Phone: Bilirubin [Mass/Vol] 0.60 mg/dL 0.20-1.00 [facility] Work Phone: Comment on above: For patients on eltr ombopag therapy, use of Dimension [place] TBIL is not recommended. Chloride [Moles/Vol] 105 mmol/L 98-107 [facility] Work Phone: Eosinophils/100 WBC (Bld) 2.9 % 0-5 [facility] Work Phone: Glucose [Mass/Vol] 221 mg/dL 74-106 [facility] Work Phone: Comment on above: Glucose result great er than or equal to 200 mg/dLsuggests DIABETES MELLITUS per A.D.A. criteria. Neutrophils (Bld) [#/Vol] 4.3 10*3/uL 2.0-7.7 [facility] Work Phone: [phone] Neutrophils/100 WBC (Bld) 61.8 % 47-70 [facility] Work Phone: [phone] Potassium [Moles/Vol] 4.1 mmol/L 3.5-5.1 [facility] Work Phone: Protein [Mass/Vol] 7.2 g/dL 6.4-8.2 [facility] Work Phone: Sodium [Moles/Vol] 136 mmol/L 136-145 [facility] Work Phone: WBC (Bld) [#/Vol] 7.0 10*3/uL 4.4-11.0 [facility] Work Phone: [phone] Blood erythrocytes count (nu mber/volume)on 06-12-2022 RBC (Bld) [#/Vol] 5.14 10*6/uL 4.6-6.2 [facility] Work Phone: Blood hemoglobin measurement (mass/volume)on 06-12-2022 Hemoglobin (Bld) [Mass/Vol] 14.6 g/dL 13.0-16.5 [facility] Work Phone: Blood lymphocytes/100 leukoc yteson 06-12-2022 Lymphocytes/100 WBC (Bld) 26.3 % 19-41 [facility] Work Phone: Blood monocytes/100 leukocyt eson 06-12-2022 Monocytes/100 WBC (Bld) 7.7 % 0-10 [facility] Work Phone: Blood platelet mean volumeon 06-12-2022 Platelet mean volume (Bld) [Entitic vol] 10.2 fL 6.2-12.0 [facility] Work Phone: Determination of erythrocyte mean corpuscular volume (MCV)on 06-12-2022 MCV (RBC) [Entitic vol] 85.0 fL 80-94 [facility] Work Phone: Erythrocyte sedimentation ra therese 06-12-2022 ESR (Bld) [Velocity] 28 mm[facility]h 0-[facility]: Hematocrit Auto (Bld) [Volum e fraction]on 06-12-2022 Hematocrit (Bld) [Volume fraction] 43.7 % 40-54 [facility] Work Phone: Laboratory - Chemistry and C hemistry - challengeon 06-12-2022 ALP [Catalytic activity/Vol] 81 U/L 45-117 [facility] Work Phone: ALT [Catalytic activity/Vol] 17 U/L 16-61 [facility] Work Phone: CO2 [Moles/Vol] 22.0 mmol/L 21.0-32.0 [facility] Work Phone: Globulin (S) [Mass/Vol] 3.9 g/dL 2.2-4.2 [facility] Work Phone: Urea nitrogen/Creatinine [Mass ratio] 12.6 mg/mg 10-20 [facility] Work Phone: Laboratory - Hematology and Cell countson 06-12-2022 Erythrocyte distribution width (RBC) [Entitic vol] 40.7 fL 35.1-43.9 [facility] Work Phone: Erythrocyte distribution width (RBC) [Ratio] 13.2 % 11.6-14.6 [facility] Work Phone: Immature granulocytes/100 WBC (Bld) 0.400 % 0.0-0.9 [facility] Work Phone: Comment on above: IG% - Immature Granu locytes (promyelocytes, myelocytes and metamyelocytes) > 1% indicates that a LEFT SHIFT is Present. MCH (RBC) [Entitic mass] 28.4 pg 27.0-32.0 [facility] Work Phone: Nucleated RBC/100 WBC (Bld) [Ratio] 0 % 0-5 [facility] Work Phone: MCHC Auto (RBC) [Mass/Vol]on 06-12-2022 MCHC (RBC) [Mass/Vol] 33.4 g/dL 32-36 [facility] Work [facility]: No Panel Informationon 06-12 Estimated GFR (MDRD) Amer 93 mL/min >60 [facility] Work Phone: Comment on above: GFR Calc Estimated GFR (MDRD) Non-Af Amer 77 mL/min >60 [facility] Work Phone: Comment on above: Non- GFR Calc Thyroid Stimulating Hormone (TSH) 8.42 uIU/mL 0.358-3.74 [facility] Work Phone: Platelets bldon 06-12-2022 Platelets (Bld) [#/Vol] 232 10*3/uL 150-450 [facility] Work Phone: Serum or plasma albumin jia urement (mass/volume)on 06-12-2022 Albumin [Mass/Vol] 3.3 g/dL 3.2-5.0 [facility] Work Phone: Serum or plasma albumin/glob ulin mass ratioon 06-12-2022 Albumin/Globulin [Mass ratio] 0.8 {ratio} 0.9-2.4 [facility] Work Phone: Serum or plasma calcium jia urement (mass/volume)on 06-12-2022 Calcium [Mass/Vol] 9.0 mg/dL 8.5-10.1 [facility] Work Phone: Serum or plasma creatinine m easurement (mass/volume)on 06-12-2022 Creatinine [Mass/Vol] 1.03 mg/dL 0.70-1.30 [facility] Work Phone: Comment on above: The validity of the calculated GFR & GFRAA in patients over 70 years has not been determined. Clinical correlation is essential. Serum or plasma urea nitroge n measurement (mass/volume)on 06-12-2022 Urea nitrogen [Mass/Vol] 13 mg/dL 7-18 [facility] Work Phone: Thin prep Papanicolaou smear with manual screeningon 06-12-2022 Thin prep Papanicolaou smear with manual screening 11 U/L 15-37 [facility] Work Phone: Thin prep Papanicolaou smear with manual screening 9 5-15 [facility] Work Phone: Bronchoalveolar lavage cultu re with Gram stain Respiratory Culture Staphylococcus aureus [facility] Work Phone: Respiratory Culture Streptococcus agalactiae (B) [facility] Work Phone: COVID-19 virus antigen assay SARS-CoV-2 (COVID-19) Ag IA.rapid Ql (Resp) [facility] Work Phone: Gram stain for investigation of transfusion reaction Microscopic observation Gram stain Nom (Unsp spec) [facility] Work Phone: Vital Signs Date Time Vital Sign Value Performing Clinician Facility 02-04-2024 15:00-0400 Body height [address] 02-04-2024 15:00-0400 Body mass index (BMI) [Ratio] 36.73 kg/m2 [address] 02-04-2024 15:00-0400 Body weight [address] 03-23-2023 09:40-0400 Body height 180.[address] Leslie Tolentino Work Phone: [facility] 03-23-2023 09:40-0400 Body mass index (BMI) [Ratio] 38.2 kg/m2 Dr. Leslie Tolentino Work Phone: [facility] 03-23-2023 09:40-0400 Body weight 124.[address] Leslie Tolentino Work Phone: [facility] 03-23-2023 09:40-0400 Diastolic blood pressure 75 mm[Hg] Dr. Leslie Tolentino Work Phone: [facility] 03-23-2023 09:40-0400 Heart rate 81 /min Dr. Leslie Tolentino Work Phone: [facility] 03-23-2023 09:40-0400 Inhaled oxygen flow rate 4 L/min Dr. Leslie Tolentino Work Phone: [facility] 03-23-2023 09:40-0400 Respiratory rate 18 /min Dr. Leslie Tolentino Work Phone: [facility] 03-23-2023 09:40-0400 SaO2% (BldA) [Mass fraction] 94 % Dr. Leslie Tolentino Work Phone: [facility] 03-23-2023 09:40-0400 Systolic blood pressure 122 mm[Hg] Dr. Leslie Tolentino Work Phone: [facility] 12-29-2022 12:43-0400 Body height 180.[address] Leslie Tolentino Work Phone: [facility] 12-29-2022 12:43-0400 Body weight 117.[address] Leslie Tolentino Work Phone: [facility] 12-29-2022 12:43-0400 Heart rate 93 /min Dr. Leslie Tolentino Work Phone: [facility] 12-29-2022 12:43-0400 SaO2% (BldA) [Mass fraction] 96 % Dr. Leslie Tolentino Work Phone: [facility] 12-19-2022 06:42-0400 Body mass index (BMI) [Ratio] 36.5 kg/m2 Dr. Leslie Tolentino Work Phone: [facility] 12-19-2022 06:42-0400 Body temperature 97.5 [degF] Dr. Leslie Tolentino Work Phone: [facility] 12-19-2022 06:42-0400 Body weight 118.[address] Leslie Tolentino Work Phone: [facility] 12-19-2022 06:42-0400 Diastolic blood pressure 70 mm[Hg] Dr. Leslie Tolentino Work Phone: [facility] 12-19-2022 06:42-0400 Heart rate 80 /min Dr. Leslie Tolentino Work Phone: [facility] 12-19-2022 06:42-0400 Inhaled oxygen flow rate 2 L/min Dr. Leslie Tolentino Work Phone: [facility] 12-19-2022 06:42-0400 Respiratory rate 22 /min Dr. Leslie Tolentino Work Phone: [facility] 12-19-2022 06:42-0400 SaO2% (BldA) [Mass fraction] 89 % Dr. Leslie Tolentino Work Phone: [facility] 12-19-2022 06:42-0400 Systolic blood pressure 106 mm[Hg] Dr. Leslie Tolentino Work Phone: [phone] [address] 12-08-2022 10:28-0400 Body mass index (BMI) [Ratio] 36.2 kg/m2 Dr. Leslie Tolentino Work Phone: 5(069)728-743718 [address] 12-08-2022 10:28-0400 Body weight 117.[address] Leslie Tolentino Work Phone: 6(480)978-606278 [place] [address] 12-08-2022 10:28-0400 Diastolic blood pressure 72 mm[Hg] Dr. Leslie Tolentino Work Phone: 8(173)375-931978 [place] [address] 12-08-2022 10:28-0400 Heart rate 83 /min Dr. Leslie Tolentino Work Phone: 8(781)[phone] [place] [address] 12-08-2022 10:28-0400 Respiratory rate 22 /min Dr. Leslie Tolentino Work Phone: 5(530)[phone] [place] [address] 12-08-2022 10:28-0400 SaO2% (BldA) [Mass fraction] 96 % Dr. Leslie Tolentino Work Phone: 5(264)[phone] [place] [address] 12-08-2022 10:28-0400 Systolic blood pressure 112 mm[Hg] Dr. Leslie Tolentino Work Phone: 4(668)[phone] [address] 11-07-2022 06:44-0500 Body mass index (BMI) [Ratio] 36.2 kg/m2 Dr. Leslie Tolentino Work Phone: 7(143)955-566878 [place] [address] 11-07-2022 06:44-0500 Body temperature 97.6 [degF] Dr. Leslie Tolentino Work Phone: [facility] 11-07-2022 06:44-0500 Body weight 117.[address] Leslie Tolentino Work Phone: [facility] 11-07-2022 06:44-0500 Diastolic blood pressure 82 mm[Hg] Dr. Leslie Tolentino Work Phone: [facility] 11-07-2022 06:44-0500 Heart rate 88 /min Dr. Leslie Tolentino Work Phone: [facility] 11-07-2022 06:44-0500 Inhaled oxygen flow rate 2 L/min Dr. Leslie Tolentino Work Phone: 2(056)[phone] [address] 11-07-2022 06:44-0500 Respiratory rate 18 /min Dr. Leslie Tolentino Work Phone: 4([phone])[phone] [place] [address] 11-07-2022 06:44-0500 SaO2% (BldA) [Mass fraction] 90 % Dr. Leslie Tolentino Work Phone: [facility] 11-07-2022 06:44-0500 Systolic blood pressure 140 mm[Hg] Dr. Leslie Tolentino Work Phone: [facility] 10-30-2022 09:10-0500 Body mass index (BMI) [Ratio] 36.8 kg/m2 Dr. Leslie Tolentino Work Phone: [facility] 10-30-2022 09:10-0500 Body weight 119.[address] Leslie Tolentino Work Phone: [facility] 10-30-2022 09:10-0500 Diastolic blood pressure 88 mm[Hg] Dr. Leslie Tolentino Work Phone: [facility] 10-30-2022 09:10-0500 Heart rate 87 /min Dr. Leslie Tolentino Work Phone: [facility] 10-30-2022 09:10-0500 Respiratory rate 22 /min Dr. Leslie Tolentino Work Phone: [facility] 10-30-2022 09:10-0500 SaO2% (BldA) [Mass fraction] 92 % Dr. Leslie Tolentino Work Phone: [facility] 10-30-2022 09:10-0500 Systolic blood pressure 139 mm[Hg] Dr. Leslie Tolentino Work Phone: [facility] 10-17-2022 12:18-0500 Inhaled oxygen flow rate 2 L/min Dr. Leslie Tolentino Work Phone: [facility] 10-17-2022 12:18-0500 SaO2% (BldA) [Mass fraction] 92 % Dr. Leslie Tolentino Work Phone: [facility] 10-17-2022 09:55-0500 Body temperature 97.3 [degF] Dr. Leslie Tolentino Work Phone: [facility] 10-17-2022 09:55-0500 Diastolic blood pressure 83 mm[Hg] Dr. Leslie Tolentino Work Phone: [facility] 10-17-2022 09:55-0500 Heart rate 88 /min Dr. Leslie Tolentino Work Phone: [facility] 10-17-2022 09:55-0500 Respiratory rate 20 /min Dr. Leslie Tolentino Work Phone: [facility] 10-17-2022 09:55-0500 Systolic blood pressure 106 mm[Hg] Dr. Leslie Tolentino Work Phone: [facility] 10-17-2022 06:00-0500 Body weight 114.[address] Leslie Tolentino Work Phone: [facility] 10-16-2022 19:10-0500 Inhaled oxygen concentration 35 % Dr. Leslie Tolentino Work Phone: [facility] 10-16-2022 14:25-0500 Body height 180.[address] Leslie Tolentino Work Phone: [facility] 10-12-2022 23:38-0500 Body mass index (BMI) [Ratio] 36.8 kg/m2 Dr. Leslie Tolentino Work Phone: [facility] 10-12-2022 22:20-0500 Diastolic blood pressure 86 mm[Hg] Dr. Leslie Tolentino Work Phone: 5(073)833-375378 [place] [address] 10-12-2022 22:20-0500 Heart rate 108 /min Dr. Leslie Tolentino Work Phone: [facility] 10-12-2022 22:20-0500 Respiratory rate 22 /min Dr. Leslie Tolentino Work Phone: 5(251)[phone] [address] 10-12-2022 22:20-0500 SaO2% (BldA) [Mass fraction] 93 % Dr. Leslie Tolentino Work Phone: 3([phone])470-937178 [place] [address] 10-12-2022 22:20-0500 Systolic blood pressure 122 mm[Hg] Dr. Leslie Tolentino Work Phone: [facility] 10-12-2022 21:40-0500 Body temperature 97.7 [degF] Dr. Leslie Tolentino Work Phone: 7(203)740-555578 [place] [address] 10-12-2022 16:37-0500 Inhaled oxygen concentration 50 % Dr. Leslie Tolentino Work Phone: 4(625)[phone] [place] [address] 10-12-2022 16:30-0500 Inhaled oxygen flow rate 94 L/min Dr. Leslie Tolentino Work Phone: [facility] 10-12-2022 16:15-0500 Body height 180.[address] Leslie Tolentino Work Phone: 4([phone] [address] 10-12-2022 16:15-0500 Body mass index (BMI) [Ratio] 37.6 kg/m2 Dr. Leslie Tolentino Work Phone: [facility] 10-12-2022 16:15-0500 Body weight 122.[address] Leslie Tolentino Work Phone: [facility] 10-10-2022 13:29-0500 Body temperature 97.7 [degF] Dr. Leslie Tolentino Work Phone: [facility] 10-10-2022 13:29-0500 Body weight 122.[address] Leslie Tolentino Work Phone: [facility] 10-10-2022 13:29-0500 Diastolic blood pressure 95 mm[Hg] Dr. Leslie Tolentino Work Phone: [facility] 10-10-2022 13:29-0500 Heart rate 114 /min Dr. Leslie Tolentino Work Phone: [facility] 10-10-2022 13:29-0500 Respiratory rate 20 /min Dr. Leslie Tolentino Work Phone: [facility] 10-10-2022 13:29-0500 SaO2% (BldA) [Mass fraction] 91 % Dr. Leslie Tolentino Work Phone: [facility] 10-10-2022 13:29-0500 Systolic blood pressure 134 mm[Hg] Dr. Leslie Tolentino Work Phone: [facility] 09-19-2022 09:09-0500 Body height 180.[address] Leslie Tolentino Work Phone: [facility] Work Phone: 09-19-2022 09:09-0500 Body mass index (BMI) [Ratio] 36.3 kg/m2 Dr. Leslie Tolentino Work Phone: [facility] 09-19-2022 09:09-0500 Body weight 118.[address] Leslie Tolentino Work Phone: [facility] 09-19-2022 09:09-0500 Diastolic blood pressure 83 mm[Hg] Dr. Leslie Tolentino Work Phone: [facility] 09-19-2022 09:09-0500 Heart rate 90 /min Dr. Leslie Tolentino Work Phone: [facility] 09-19-2022 09:09-0500 Respiratory rate 22 /min Dr. Leslie Tolentino Work Phone: [facility] 09-19-2022 09:09-0500 SaO2% (BldA) [Mass fraction] 94 % Dr. Leslie Tolentino Work Phone: [facility] 09-19-2022 09:09-0500 Systolic blood pressure 124 mm[Hg] Dr. Leslie Tolentino Work Phone: [facility] 08-28-2022 14:45-0500 Diastolic blood pressure 76 mm[Hg] Dr. Leslie Tolentino Work Phone: [facility] 08-28-2022 14:45-0500 Heart rate 74 /min Dr. Leslie Tolentino Work Phone: [phone] [place] [address] 08-28-2022 14:45-0500 Respiratory rate 16 /min Dr. Leslie Tolentino Work Phone: [facility] 08-28-2022 14:45-0500 SaO2% (BldA) [Mass fraction] 95 % Dr. Leslie Tolentino Work Phone: [facility] 08-28-2022 14:45-0500 Systolic blood pressure 95 mm[Hg] Dr. Leslie Tolentino Work Phone: [facility] 08-28-2022 10:15-0500 Inhaled oxygen flow rate 2 L/min Dr. Leslie Tolentino Work Phone: [facility] 08-28-2022 09:48-0500 Body temperature 97.4 [degF] Dr. Leslie Tolentino Work Phone: [facility] 08-28-2022 05:16-0500 Body weight 115.[address] Leslie Tolentino Work Phone: [facility] 08-25-2022 16:35-0500 Body height 180.[address] Leslie Tolentino Work Phone: [facility] Work Phone: 08-25-2022 13:13-0500 Body mass index (BMI) [Ratio] 36.5 kg/m2 Dr. Leslie Tolentino Work Phone: [facility] 08-25-2022 12:07-0500 Body temperature 96.9 [degF] Dr. Leslie Tolentino Work Phone: [facility] Work Phone: 08-25-2022 12:07-0500 Diastolic blood pressure 80 mm[Hg] Dr. Leslie Tolentino Work Phone: [facility] Work Phone: 08-25-2022 12:07-0500 Heart rate 108 /min Dr. Leslie Tolentino Work Phone: [facility] Work Phone: 08-25-2022 12:07-0500 Respiratory rate 20 /min Dr. Leslie Tolentino Work Phone: [facility] Work Phone: 08-25-2022 12:07-0500 SaO2% (BldA) [Mass fraction] 94 % Dr. Leslie Tolentino Work Phone: [facility] Work Phone: 08-25-2022 12:07-0500 Systolic blood pressure 121 mm[Hg] Dr. Leslie Tolentino Work Phone: [facility] Work Phone: 08-25-2022 10:15-0500 Body height 180.[address] Leslie Tolentino Work Phone: [facility] Work Phone: 08-25-2022 10:15-0500 Body mass index (BMI) [Ratio] 36.5 kg/m2 Dr. Leslie Tolentino Work Phone: [facility] Work Phone: 08-25-2022 10:15-0500 Body weight 118.[address] Leslie Tolentino Work Phone: [facility] Work Phone: 08-25-2022 09:25-0500 Body mass index (BMI) [Ratio] 37 kg/m2 Dr. Leslie Tolentino Work Phone: [facility] 08-25-2022 09:25-0500 Body weight 120.[address] Leslie Tolentino Work Phone: [facility] 08-25-2022 09:25-0500 Diastolic blood pressure 84 mm[Hg] Dr. Leslie Tolentino Work Phone: [facility] 08-25-2022 09:25-0500 Heart rate 106 /min Dr. Leslie Tolentino Work Phone: [facility] 08-25-2022 09:25-0500 Respiratory rate 36 /min Dr. Leslie Tolentino Work Phone: [facility] 08-25-2022 09:25-0500 SaO2% (BldA) [Mass fraction] 87 % Dr. Leslie Tolentino Work Phone: [facility] 08-25-2022 09:25-0500 Systolic blood pressure 120 mm[Hg] Dr. Leslie Tolentino Work Phone: [facility] 08-12-2022 10:45-0500 SaO2% (BldA) [Mass fraction] 92 % Dr. Leslie Tolentino Work Phone: [facility] 08-12-2022 08:59-0500 Heart rate 95 /min Dr. Leslie Tolentino Work Phone: [facility] 08-12-2022 08:57-0500 Body temperature 98.1 [degF] Dr. Leslie Tolentino Work Phone: [facility] 08-12-2022 08:57-0500 Diastolic blood pressure 81 mm[Hg] Dr. Leslie Tolentino Work Phone: [facility] 08-12-2022 08:57-0500 Respiratory rate 18 /min Dr. Leslie Tolentino Work Phone: [facility] 08-12-2022 08:57-0500 Systolic blood pressure 110 mm[Hg] Dr. Leslie Tolentino Work Phone: [facility] 08-12-2022 05:52-0500 Body weight 119.[address] Leslie Tolentino Work Phone: [facility] 08-11-2022 11:58-0500 Body height 180.[address] Leslie Tolentino Work Phone: [facility] Work Phone: 08-10-2022 17:29-0500 Body mass index (BMI) [Ratio] 37 kg/m2 Dr. Leslie Tolentino Work Phone: [facility] 08-10-2022 16:49-0500 Body temperature 97.8 [degF] [facility] Work Phone: 08-10-2022 16:49-0500 Diastolic blood pressure 78 mm[Hg] [facility] Work Phone: 08-10-2022 16:49-0500 Heart rate 100 /min [facility] Work Phone: 08-10-2022 16:49-0500 Respiratory rate 18 /min [facility] Work Phone: 08-10-2022 16:49-0500 SaO2% (BldA) [Mass fraction] 95 % [facility] Work Phone: 08-10-2022 16:49-0500 Systolic blood pressure 134 mm[Hg] [facility] Work Phone: 08-10-2022 13:52-0500 Body height 181.61 cm [facility] Work Phone: 08-10-2022 13:52-0500 Body mass index (BMI) [Ratio] 37.3 kg/m2 [facility] Work Phone: 08-10-2022 13:52-0500 Body weight 122.92 kg [facility] Work Phone: Encounters Encounter Date Encounter Type Care Provider Facility Start: 10-08-2024 End: 10-08-2024 Emergency department patient visit LESLIE TOLENTINO [facility] Start: 09-03-2024 ambulatory Leslie Tolentino Facility: [facility] Start: 08-18-2024 End: 08-18-2024 ambulatory Leslie Tolentino Facility:[facility] Start: 07-28-2024 End: 08-23-2024 ambulatory Leslie S Randa Facility:[facility] Start: 07-23-2024 End: 07-24-2024 ambulatory Leslie S Randa Facility:[facility] Start: 06-25-2024 End: 06-25-2024 ambulatory Leslie S Randa Facility:[facility] Start: 05-27-2024 End: 05-27-2024 Emergency department patient visit Leslie Tolentino Facility:[facility] Start: 02-04-2024 End: 02-04-2024 Subsequent hospital visit by physician [facility] Comment on above: 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 Leslie Tolentino Work Phone: [facility] Work Phone: Start: 04-27-2023 End: 04-27-[address] Leslie Tolentino Work Phone: [facility] Work Phone: Start: 03-23-2023 End: 03-23-[address] Leslie Tolentino Work Phone: [facility] Work Phone: Start: 03-09-2023 End: 04-16-[address] Leslie Tolentino Work Phone: [facility] Work Phone: Start: 03-09-2023 End: 04-16-[address] Leslie Tolentino Work Phone: [facility] Work Phone: Start: 01-01-2023 Non-patient / Non-visit Dr. Don Tolentino Work Phone: [facility] Start: 12-29-2022 End: 12-29-[address] Leslie Tolentino Work Phone: [facility] Work Phone: Start: 12-29-2022 End: 12-29-[address] Leslie Tolentino Work Phone: [facility]-Pulmonary Services/Neurology Start: 12-22-2022 Non-patient / Non-visit Dr. Don Tolentino Work Phone: [facility] Start: 12-22-2022 End: 12-22-[address] Leslie Tolentino Work Phone: [facility]-Cardiovascula r Services Start: 12-19-2022 End: 12-19-[address] [facility] Start: 12-08-2022 End: 12-08-[address] Leslei Tolentino Work Phone: [facility] Start: 12-07-2022 Non-patient / Non-visit Dr. Don Tolentino Work Phone: [facility] Start: 12-07-2022 End: 12-07-[address] Leslie Tolentino Work Phone: [facility]-Pulmonary Services/Neurology Start: 11-07-2022 End: 11-07-[address] Leslie Tolentino Work Phone: [facility]-Pulmonary Medicine [facility] Start: 11-06-2022 Non-patient / Non-visit Dr. Don Tolentino Work Phone: [facility] Start: 11-03-2022 Non-patient / Non-visit Dr. Don Tolentino Work Phone: [facility] Start: 11-01-2022 ambulatory Facility:[facility] Start: 10-30-2022 End: 10-30-[address] Leslie Tolentino Work Phone: [facility] Start: 10-17-2022 Non-patient / Non-visit Dr. Don Tolentino Work Phone: [facility] Start: 10-16-2022 Non-patient / Non-visit Dr. Don Tolentino Work Phone: [facility] Start: 10-16-2022 Non-patient / Non-visit Dr. Don Tolentino Work Phone: [facility] Start: 10-15-2022 End: 10-15-2022 Non-patient / Non-visit Dr. Leslie Tolentino Work Phone: [facility] Start: 10-15-2022 Non-patient / Non-visit Dr. Don Tolentino Work Phone: [facility] Start: 10-14-2022 Non-patient / Non-visit Dr. Don Tolentino Work Phone: [facility] Start: 10-13-2022 Non-patient / Non-visit Dr. Don Tolentino Work Phone: [facility] Start: 10-13-2022 End: 10-13-2022 Non-patient / Non-visit Dr. Leslie Tolentino Work Phone: [facility] Start: 10-12-2022 Non-patient / Non-visit Dr. Don Tolentino Work Phone: [facility] Start: 10-12-2022 End: 10-17-2022 Evaluation and management of inpatient Dr. Leslie Tolentino Work Phone: [facility]-Progressive Care Unit Start: 10-10-2022 End: 10-10-[address] Leslie Tolentino Work Phone: [facility] Start: 09-22-2022 Non-patient / Non-visit Dr. Don Tolentino Work Phone: [facility] Start: 09-22-2022 End: 09-22-[address] Leslie Tolentino Work Phone: [facility] Work Phone: Start: 09-22-2022 End: 09-22-[address] Leslie Tolentino Work Phone: [facility]-Cardiovascula r Services Start: 09-21-2022 End: 09-21-[address] Leslie Tolentino Work Phone: [facility] Work Phone: Start: 09-21-2022 End: 09-21-[address] Leslie Tolentino Work Phone: [facility]-Laboratory Start: 09-19-2022 End: 09-19-[address] Leslie Tolentino Work Phone: [facility] Start: 08-28-2022 Non-patient / Non-visit Dr. Don Tolentino Work Phone: [facility] Start: 08-28-2022 Non-patient / Non-visit Dr. Don Tolentino Work Phone: [facility] Start: 08-27-2022 Non-patient / Non-visit Dr. Don Tolentino Work Phone: [facility] Start: 08-26-2022 Non-patient / Non-visit Dr. Don Tolentino Work Phone: [facility] Start: 08-25-2022 End: 08-28-2022 Evaluation and management of inpatient Dr. Leslie Tolentino Work Phone: [facility]-Progressive Care Unit Start: 08-25-2022 End: 08-25-2022 Emergency department patient visit Dr. Leslie Tolentino Work Phone: [facility]-Emergency Department Start: 08-25-2022 Non-patient / Non-visit Dr. Don Tolentino Work Phone: [facility] Start: 08-25-2022 End: 08-25-[address] Leslie Tolentino Work Phone: [facility] Start: 08-12-2022 Non-patient / Non-visit Dr. Don Tolentino Work Phone: [facility] Start: 08-11-[address] Leslie lock Work Phone: [facility]-Patient Link Start: 08-11-2022 Non-patient / Non-visit Dr. Don Tolentino Work Phone: [facility] Start: 08-11-2022 End: 08-12-2022 Evaluation and management of inpatient Dr. Leslie [facility] Start: 08-11-2022 Non-patient / Non-visit Dr. Don Tolentino Work Phone: [facility] Start: 08-10-2022 Non-patient / Non-visit Dr. Don Tolentino Work Phone: [facility] Start: 08-10-2022 Evaluation and manag ement of inpatient [facility]gressive Care [facility] Start: 08-10-[address] [facility] Work Phone: Start: 2022 End: 2022 ambulatory [facility] Work Phone: Start: 2022 End: 2022 Patient encounter procedure [facility]-Radiology, [place] Start: 06-12-2022 End: 06-12-2022 ambulatory [facility] Work Phone: Start: 06-12-2022 End: 06-12-2022 Patient encounter procedure [facility]Laboratory, [place] Family Procedures Date Procedure Procedure Detail Performing Clinician Start: 02-04-2024 MR CARDIAC MORPHOLOG Y AND FUNCTION W AND WO IV CONTRAST Start: 04-27-2023 CT of chest without contrast Dr. Leslie Tolentino Work Phone: Start: 10-16-2022 Plain chest X-ray Dr. Bubba Tolentino Work Phone: Start: 10-12-2022 Plain chest X-ray Dr. Bubba Tolentino Work Phone: Start: 08-26-2022 CT angiography of ch est with contrast Dr. Leslie Tolentino Work Phone: Start: 08-25-2022 Plain chest X-ray Dr. Bubba Tolentino Work Phone: Start: 08-11-2022 Plain chest X-ray Dr. Bubba Tolentino Work Phone: Start: 08-10-2022 CT of head without contrast Dr. Leslie Tolentino Work Phone: Start: 08-10-2022 Plain chest X-ray Start: 2022 Plain chest X-ray Start: 06-12-2022 Plain chest X-ray Bacteria identificat ion test Investigation of transfusion reaction Microscopic observat ion [Identifier] in Unspecified specimen by Gram stain Respiratory microbia l culture SARS-CoV-2 & FLU Ant igen (Rapid) Dr. Leslie Tolentino Work Phone: Viral antigen assay Dr. Leslie Tolentino Work Phone: Viral antigen assay Dr. Leslie Tolentino Work Phone: Plan of Treatment Date Care Activity Detail Author Start: 06-07-2031 DTaP/Tdap/Td Vaccine s (3 - Td or Tdap) DTaP/Tdap/Td Vaccines (3 - Td or Tdap) [facility] Start: 05-25-2023 COVID-19 Vaccine () COVID-19 Vaccine () [facility] Start: 10-18-2022 Blood chemistry [facility] Start: 10-17-2022 Patient discharge [facility] Start: 10-14-2022 Consultation [facility] Start: 10-13-2022 Verification routine [facility] Start: 10-12-2022 Following clinical p athway protocol [facility] Start: 10-12-2022 Assessment of risk o f venous thromboembolism [facility] Start: 10-12-2022 Care regimes management [facility] Start: 10-12-2022 Continuous pulse oximetry [facility] Start: 10-12-2022 Elevation of affecte d extremity [facility] Start: 10-12-2022 Fluid restriction [facility] Start: 10-12-2022 Insertion of cathete r into peripheral vein [facility] Start: 10-12-2022 Measuring intake and output [facility] Start: 10-12-2022 Notification of physician [facility] Start: 10-12-2022 Oxygen therapy [facility] Start: 10-12-2022 Patient education [facility] Start: 10-12-2022 Providing care accor ding to standard [facility] Start: 10-12-2022 Provision of activit y privileges [facility] Start: 10-12-2022 Referral to service [facility] Start: 10-12-2022 End: 10-13-2022 [facility] Start: 10-12-2022 Verification routine [facility] Start: 10-12-2022 Admission procedure [facility] Start: 10-12-2022 Continuous pulse oximetry [facility] Start: 10-12-2022 Dual pressure sponta neous ventilation support [facility] Start: 10-12-2022 Patient referral to dietitian [facility] Start: 08-28-2022 Notification of physician [facility] Start: 08-28-2022 Patient discharge [facility] Start: 08-28-2022 Patient education [facility] Start: 08-28-2022 Provision of activit y privileges [facility] Start: 08-28-2022 Pulse taking [facility] Start: 08-28-2022 Scheduling [facility] Start: 08-28-2022 Taking patient vital signs [facility] Start: 08-28-2022 Vascular disease ris k assessment [facility] Start: 08-28-2022 Wound care [facility] Start: 08-28-2022 [facility] Start: 08-28-2022 Catheterization of vein [facility] Start: 08-28-2022 Medication not administered [facility] Start: 08-28-2022 [facility] Start: 08-28-2022 [facility] Start: 08-28-2022 Inhalation therapy procedure [facility] Start: 08-26-2022 Following clinical p athway protocol [facility] Start: 08-25-2022 Fluid restriction [facility] Start: 08-25-2022 Measuring intake and output [facility] Start: 08-25-2022 Following clinical p athway protocol [facility] Start: 08-25-2022 Assessment of risk o f venous thromboembolism [facility] Start: 08-25-2022 Care regimes management [facility] Start: 08-25-2022 Insertion of cathete r into peripheral vein [facility] Start: 08-25-2022 Measuring intake and output [facility] Start: 08-25-2022 Providing care accor ding to standard [facility] Start: 08-25-2022 Provision of activit y privileges [facility] Start: 08-25-2022 Referral to occupati onal therapist [facility] Start: 08-25-2022 Referral to service [facility] Start: 08-25-2022 [facility] Start: 08-25-2022 Admission procedure [facility] Start: 08-12-2022 Patient discharge [facility] Start: 08-12-2022 Vitamin B12 measurement [facility] Work Phone: Start: 08-11-2022 Admission procedure [facility] Start: 08-10-2022 Assessment of risk o f venous thromboembolism [facility] Start: 08-10-2022 Insertion of cathete r into peripheral vein [facility] Start: 08-10-2022 Measuring intake and output [facility] Start: 08-10-2022 Providing care accor ding to standard [facility] Start: 08-10-2022 Provision of activit y privileges [facility] Start: 08-10-2022 Referral to occupati onal therapist [facility] Start: 08-10-2022 Referral to service [facility] Start: 08-10-2022 [facility] Start: 08-10-2022 Following clinical p athway protocol [facility] Start: 08-10-2022 Admission procedure [facility] Start: 08-10-2022 Troponin I measurement [facility] Work Phone: Start: 08-10-2022 End: 08-11-2022 [facility] Start: 2015 RSV patient s and/or patients aged 60+ years (1 - 1-dose 60+ series) RSV patients and/or patients aged 60+ years (1 - 1-dose 60+ series) [facility] Start: 1973 Diabetes mellitus screening Diabetes Screening [facility] Start: 1973 Hepatitis C screening Hepatitis C [facility] Start: 1955 Creatinine measurement Creatinine Le stephanie [facility] Start: 1955 Echocardiography Echocardiogram [facility] Start: 1955 Lipid panel Lipid Panel [facility] Start: 1955 Potassium measurement Potassium Leve l [facility] Start: 1955 Screening for malign ant neoplasm of colon [facility] Start: 1955 Yearly Adult Physical Yearly Adult P hycal [facility] Anion gap measurement [facility] BUN/Creatinine ratio [facility] Calcium [Mass/volume ] in Serum or Plasma [facility] Carbon dioxide, tota l [Moles/volume] in Serum or Plasma [facility] Chloride [Moles/volu me] in Serum or Plasma [facility] Creatinine [Moles/vo lume] in Serum or Plasma [facility] Exercise tolerance test [facility] Glucose [Mass/volume ] in Serum or Plasma [facility] Measurement of renal function [facility] End: 02-04-2024 MR Heart WO and W contrast IV [facility] Service Area Comment on above: Once for 1 Occurrenc es starting 02/04/2024 until 02/04/2024 Patient Education Cardiomyopathy Dc [facility] Work Phone: Patient referral [facility] Work Phone: Potassium [Moles/vol ume] in Serum or Plasma [facility] Sodium [Moles/volume ] in Serum or Plasma [facility] Troponin I measurement [facility] Work Phone: Urea nitrogen [Mass/volume] in Serum or Plasma [facility] Vitamin B12 measurement [facility] Work Phone: Payers Date Payer Category Payer Medicaid [id number] 2023 Unknown [facility] [id number] 2023-Present [id number] [facility] Attn: [address] [place] [address] [id number] 2022 Private Health Insurance [id number] 2022 Private Health Insurance [id number] 2022 Self-pay [id number] 2011 Private Health Insurance [employer] [id number] 1955 Unknown [id number] 1955 Unknown [id number] Medicare MEDICARE PART A B [id number] Unknown [id number] Unknown [id number] Unknown [id number] Unknown [id number] Unknown [id number] Unknown [id number] Unknown [id number] Unknown [id number] Social History Date Type Detail Facility Start: 12-22-2018 End: 03-23-2023 Tobacco smoking status NHIS Unknown if ever smoked [facility] Start: 10-17-2021 None [facility] Start: 12-22-2018 Spouse/ Signif icant Other [facility] Start: 1955 Sex Assigned At Male [facility] Start: 1955 Sex assigned at Not on file [facility] Work Phone: Gender identity Not on file [facility] Work Phone: Start: 01-25-2024 End: 02-04-2024 Exposure to SARS-CoV-2 (event) Not sure [facility] Goals Date Patient Goal Desired Activity /State Functional Status Date Assessment Result Facility 10-17-2022 Functional status Bedrest [facility] Work Phone: 08-28-2022 Functional status Bedrest [facility] Work Phone: 08-12-2022 Functional status Ambulates [facility] Work Phone: 08-11-2022 Functional status None [facility] Work Phone: Mental Status Date Assessment Result Facility 10-17-2022 Cognitive function Voice/Name [facility] Work Phone: 08-27-2022 Cognitive function Voice/Name [facility] Work Phone: 08-12-2022 Cognitive function Voice/Name [facility] Work Phone: 08-10-2022 Cognitive function Voice/Name [facility] Work Phone: Clinical Notes 10-13-2022 to 01-01-2023 Note Date & Type Note Facility 01-01-2023 Procedure note [facility] 11-01-2022 Note HNO ID: [id number] Author: Fatmata Navarro RT(R) Service: ? Author Type: Technologist Type: Progress Notes Filed: 11/01/2022 9:45 AM Note Text: Radiology Service Progress Note DATE OF SERVICE: November 01, 2022 TIME: 9:43 AM PATIENT IDENTITY VERIFICATION COMPLETED USING TWO (2) STANDARD IDENTIFIERS: Name and Date of confirmed by patient verbally. FALL SCREENING: Has the patient had 2 falls in the last year or 1 fall with injury or currently using an Ambulatory Assistive Device (Walker, Cane, Wheelchair, Crutches, etc.)? No PATIENT GENDER DATA: Male PATIENT RELEVANT IMPLANT DATA REVIEWED: Yes ALLERGIES: Reviewed and unchanged CONTRAST ALLERGY: NO. EXAM: MRI - CONTRAST TYPE: GROUP II PERIPHERAL IV DATA: Ambulatory: A peripheral IV was started in the Left forearm with a Angio cath: 22 gauge. RADIOLOGY DEPARTMENT: MR; Exam(s) Completed: Cardiac: Cardiac SIGNATURE: Fatmataanton Navarro RT(R) PATIENT NAME: Aydin Tejeda Duty DATE: November 01, 2022 TIME: 9:43 AM [facility] 10-17-2022 Discharge summary Note Date/Time October 17, 2022 12:49pm [facility] Medical Records Department [address] [place] [address] Discharge Summary 10/17/22 1245 MR#: [id number] Acct: [id number] Name: AYDIN GASTELUM Rep #:[id number] : 1955 67 From: Ranjeet Horne PCP: Dr. Leslie Tolentino MD Status:ADM IN Location: [place] [id number] Providers Date of Admission: 10/12/22 Date of Discharge: 10/17/22 Primary Care Physician: Dr. Leslie Tolentino MD Consultations 10/14/22 11:40 Consult: Strategic Client Executive / Pulmonary Medicine Routine Consulting Provider: [facility] Reason for Consult: Resp failure EMERGENT Consult: No MD Notified: Yes Date Notified: 10/14/22 Time Notified: 13:09 Method of Notification: Text Reason For Visit: ACUTE HYPOXEMIC RESPIRATORY FAILURE,ACUTE HEART FA Diagnosis Discharge Diagnosis (1) CHF (congestive heart failure): Status: Acute Code(s): I50.9 - Heart failure, unspecified (2) Acute hypoxemic respiratory failure: Status: Acute Code(s): J96.01 - Acute respiratory failure with hypoxia Plan 67-year-old gentleman was admitted with 2-day history of progressive worsening of shortness of breath, increases with exertion. Patient had orthopnea with productive yellow cough. EF 20% in echo in07/2020 1. Acute hypoxic respiratory failure secondary to acute exacerbation of heart failure with reduced ejection fraction, EF of 20%: Patient oxygen requirement was 7 L yesterday, improved to 2 L today but increased to 6 L oxygen. Patient also visibly gets dyspneic on exertion. 10/17: Home qualification oxygen shows pulse ox 85% at rest on room air, 92% at rest with 2 L oxygen and 90% on 4 L of oxygen on ambulation. Patient is ambulatory in home and in the community and requires home oxygen with portability due to CHF exacerbation 2. Acute exacerbation of heart failure reduced EF, EF of 20%, minimally improved Heart failure core measures including intake and output, fluid restriction lessthan 1500 mL, daily weight monitoring, kidney and electrolytes monitoring. Patient was started on Lasix 40 mg IV every 8 hourly decrease to every 12 hourly. Continue baby aspirin, carvedilol, Entresto, spironolactone 10/17: Patient is well diuresed. Discharged on torsemide 20 mg twice daily as patient was on Lasix before. Continue baby aspirin carvedilol, Entresto and spironolactone and Eliquis. 3. Paroxysmal atrial fibrillation, continue on coreg and Eliquis 4. Type II DM, BS is controlled, continue on Amaryl, continue blood glucose checks and sliding scale 5 Hypothyroidism, continue Synthroid 6. Recent left gastrocnemius DVT/history of ventricular thrombi, Continue on Eliquis 7. DVT PPx- On Eliquis Discharge medication reconciliation done. Discharge follow-up instructions completed. Discharge process discussed with the patient and all questions wereanswered to patient's satisfaction. Total time spent, exact 35 minutes on discharge meds reconciliation, examination, coordination of care with nurses and ancillary staff, review of imaging and blood test and discussion with the patient on follow-up instructions. Medications at Discharge Home Medications albuterol sulfate 90 mcg/actuation aerosol inhaler (ProAir HFA) 2 puff inhalation Q4H PRN PRN Sob &/Or Wheezing 08/06/18 aspirin 81 mg chewable tablet 81 mg PO DAILY HEALTH MAINT. 08/10/22 glimepiride 4 mg tablet 4 mg PO BID DM 08/10/22 levothyroxine 75 mcg tablet 75 mcg PO DAILY THYROID 08/10/22 multivitamin 1 tab PO DAILY supplement 08/10/22 famotidine 20 mg tablet 20 mg PO DAILY heart burn 08/11/22 apixaban 5 mg tablet (Eliquis) 5 mg PO BID 30 days #60 tabs 10/10/22 carvedilol 6.25 mg tablet 6.25 mg PO BID 30 days #60 tabs 10/12/22 sacubitril 49 mg-valsartan 51 mg tablet (Entresto) 2 tab PO BID 10/12/22 atorvastatin 40 mg tablet 40 mg PO QHS 30 days #30 tabs 10/17/22 sennosides 8.6 mg-docusate sodium 50 mg tablet (Stool Softener-Stimulant Laxative) 2 tab PO BID PRN PRN Constipation #0 tabs 10/17/22 spironolactone 25 mg tablet 25 mg PO DAILYCM 30 days #30 tabs 10/17/22 torsemide 20 mg tablet 20 mg PO BID 30 days #60 tabs 10/17/22 Physical Exam Narrative Patient denies chest pain or tightness. Patient has shortness of breath on exertion, better than yesterday. On 2 L of oxygen at rest, patient not on oxygen at home. Seen and examined. General: Alert, Oriented x3, Cooperative HEENT: Atraumatic, PERRLA, EOMI, Normocephalic Oral: No Gingival or Mucosal Lesions/ Ulcerations Neck: Supple, No JVD, Negative Carotid Bruits Lungs: Air entry diminished in bilateral lung bases. Mild expiratory rhonchi on deep breathing. Mild hypoxia Cardiovascular: Regular rate, Regular Rhythm, Normal S1, Normal S2, No murmurs Abdomen: Bowel Sounds Present, Soft, Non Tender, Non-Distended : No renal angle tenderness. No suprapubic tenderness. Extremities: No edema, Capillary Refill Less than 3 Seconds Skin: No rashes, No breakdown Musculoskeletal: No Tenderness to Palpation of Joints or Extremities Neurological: Cranial nerves II-XII grossly intact, DTR 2+/4 and Symmetrical, Neuro grossly intact Psych/Mental Status: Flat affect. Weight / BMI Weight Weight: 253 lb 4.978 oz Body Mass Index (BMI) 36.8 ABG / Lab / Microbiology Data Result Diagrams: 10/15/22 06:44 10/17/22 04:22 Laboratory: Laboratory Results - last 24 hr 10/16/22 13:25: Magnesium 2.2 10/16/22 13:25: Phosphorus 2.8 10/16/22 16:44: POC Glucose 186 H 10/16/22 22:18: POC Glucose 170 H 10/17/22 04:22: Sodium 136, Potassium 3.6, Chloride 98, Carbon Dioxide 30.0, Anion Gap 8, BUN 24 H, Creatinine 0.97, Estim Creat Clear Calc 78.71, Est GFR (MDRD) Af Amer 100, Est GFR (MDRD) Non-Af 82, BUN/Creatinine Ratio 24.8 H, Glucose 165 H, Calcium 9.6, Triglycerides 120, Cholesterol 181, LDL Cholesterol 124, VLDL Cholesterol 24, HDL Cholesterol 33 L 10/17/22 06:32: POC Glucose 180 H 10/17/22 11:54: POC Glucose 209 H Microbiology: Microbiology 10/12/22 16:57 Nasal Secretion SARS-CoV-2 & FLU Antigen (Rapid) - Final D/C Instructions Discharge Diet: Low fat / Low cholesterol, 1800 Calorie Control Diet and 2000 mgSodium Diet Weight Bearing Status: Weight bearing as tolerated Call your doctor if you observe: Fever of 101 or Higher, Coldness, Increased Pain, Numbness or Tingling, Change in Color, Inability to urinate, Inability to have a bowel movement, Shortness of breath, Dizziness, Fainting spells, Swellingin the ankles, Chest pain, Prolonged hiccupping, Increased palpitations (irregular heartbeat) and Calf discomfort When: IN 2 WEEKS Meaningful Use Info Meaningful Use Diagnoses (Choose all that apply): None applicable and CHF CHF MONO/ARB ordered at discharge?: Yes Documented LVEF (%): 20 Discharge Plan Admission Admit Date/Time: 10/12/22 21:03 Primary Reason for Your Visit: CHF exacerbation Attending Provider: Ranjeet Mary Primary Care Provider: Leslie Tolentino Consulting Providers: Lucio Negron ; Francisco Haney ; Clem Bautista ; Jeff Joseph ; Tushar Oquendo ; Isabella Foy DESIGN PRINTING MACHINE SET UP OPERATOR ; Chastity Gray Instructions Additional Instructions / Restrictions: Patient is ambulatory in home and in the community and requires home oxygen with portability for CHF exacerbation Discharge Orders/Prescriptions Prescriptions: New atorvastatin 40 mg Tablet 40 mg PO QHS 30 Days Qty: 30 2RF sennosides-docusate sodium [Stool Softener-Stimulant Laxat] 8.6-50 mg Tablet 2 tab PO BID PRN PRN (Reason: Constipation) Qty: 0 0RF spironolactone 25 mg Tablet 25 mg PO DAILYCM 30 Days Qty: 30 2RF torsemide 20 mg tablet 20 mg PO BID 30 Days Qty: 60 2RF Continued Eliquis 5 mg tablet 5 mg PO BID 30 Days Qty: 60 0RF albuterol sulfate [ProAir HFA] 1 PUFF inhaler 2 puff inhalation Q4H PRN PRN (Reason: Sob &/Or Wheezing) levothyroxine 75 mcg Tablet 75 mcg PO DAILY glimepiride 4 mg tablet 4 mg PO BID Label Comments: TAKE 1 TABLET BY MOUTH ONCE DAILY multivitamin Tablet 1 tab PO DAILY aspirin 81 mg Tablet,Chewable 81 mg PO DAILY famotidine 20 mg Tablet 20 mg PO DAILY Entresto 49-51 mg tablet 2 tab PO BID carvedilol 6.25 mg tablet 6.25 mg PO BID 30 Days Qty: 60 11RF Discontinued furosemide 40 mg tablet 20 mg PO DAILY Referrals / Follow Up: Leslie Tolentino MD [Primary Care Provider] - Within 2 Weeks SantoshDakota vieira MD [Med Staff - Active Staff] - Within 1 Month (FOR HF exacerbation ) Clem Bautista DO [Med Staff - Active Staff] - Within 2 Weeks (Follow-up with Isabella Foy) Disposition Disposition (needs filled in before D/C Order can be placed): Home, Self Care Charges/Coding Visit Charges Inpatient E&M: 55661 Disch Hosp >30min 10/17/22 1249 <Electronically signed by Ranjeet Mary MD> Cosigner Signature (if applicable): CC: Dr. Leslie Tolentino MD; Dr. Ranjeet Mary MD~ Signed [facility] Work Phone: 1(960) 670-879801-24-[address] Mary [facility] October 17, 2022 12:45pm Note Date/Time October 17, 2022 1 2:37pm [facility] Medical Records Department [address] [place] [address] Instructions for Home/Discharge Instructions 10/17/22 1036 MR#: [id number] Acct: [id number] Name: AYDIN GASTELUM Rep #:[id number] : 1955 67 From: Ranjeet Horne PCP: Dr. Leslie Tolentino MD Status:ADM IN Discharge Instructions Diet Discharge Diet: Low fat / Low cholesterol, 1800 Calorie Control Diet and 2000 mgSodium Diet Activity Discharge Activity: Return to Normal Activity Weight Bearing Status: Weight bearing as tolerated Dressing / Incision Call your doctor if you observe: Fever of 101 or Higher, Coldness, Increased Pain, Numbness or Tingling, Change in Color, Inability to urinate, Inability to have a bowel movement, Shortness of breath, Dizziness, Fainting spells, Swellingin the ankles, Chest pain, Prolonged hiccupping, Increased palpitations (irregular heartbeat) and Calf discomfort Follow Up Care When: IN 2 WEEKS Test Results: Test results from this visit will be discussed in further detail at your follow- up appointment, if applicable. Discharge Plan Admission Admit Date/Time: 10/12/22 21:03 Primary Reason for Your Visit: CHF exacerbation Attending Provider: Ranjeet Mary Primary Care Provider: Leslie Tolentino Consulting Providers: Lucio Negron ; Francisco Haney ; Clem Bautista ; Jeff Joseph ; Tushar Oquendo ; Isabella Foy NP ; Chastity Gray Instructions Additional Instructions / Restrictions: Patient is ambulatory in home and in the community and requires home oxygen with portability for CHF exacerbation Discharge Orders/Prescriptions Prescriptions: New atorvastatin 40 mg Tablet 40 mg PO QHS 30 Days Qty: 30 2RF sennosides-docusate sodium [Stool Softener-Stimulant Laxat] 8.6-50 mg Tablet 2 tab PO BID PRN PRN (Reason: Constipation) Qty: 0 0RF spironolactone 25 mg Tablet 25 mg PO DAILYCM 30 Days Qty: 30 2RF torsemide 20 mg tablet 20 mg PO BID 30 Days Qty: 60 2RF Continued Eliquis 5 mg tablet 5 mg PO BID 30 Days Qty: 60 0RF albuterol sulfate [ProAir HFA] 1 PUFF inhaler 2 puff inhalation Q4H PRN PRN (Reason: Sob &/Or Wheezing) levothyroxine 75 mcg Tablet 75 mcg PO DAILY glimepiride 4 mg tablet 4 mg PO BID Label Comments: TAKE 1 TABLET BY MOUTH ONCE DAILY multivitamin Tablet 1 tab PO DAILY aspirin 81 mg Tablet,Chewable 81 mg PO DAILY famotidine 20 mg Tablet 20 mg PO DAILY Entresto 49-51 mg tablet 2 tab PO BID carvedilol 6.25 mg tablet 6.25 mg PO BID 30 Days Qty: 60 11RF Discontinued furosemide 40 mg tablet 20 mg PO DAILY Referrals / Follow Up: Leslie Tolentino MD [Primary Care Provider] - Within 2 Weeks Dakota Frost MD [Med Staff - Active Staff] - Within 1 Month (FOR HF exacerbation ) Clem Bautista DO [Med Staff - Active Staff] - Within 2 Weeks (Follow-up with Isabella Foy) Disposition Disposition (needs filled in before D/C Order can be placed): Home, Self Care 10/17/22 1244<Electronically signed by Ranjeet Mary MD>Ranjeet Mary MD CC: BALA-Ximena Foy; Dr. Chastity Gray MD; Dr. Leslie Tolentino MD; Dr. Francisco Haney MD; Dr. Clem Bautista DO; Dr. Lucio Negron MD; Dr. Chris Joseph MD; Dr. Tushar Oquendo MD ~ Signed ADDENDUM by Dr. Ranjeet Mary MD on 10/17/22 at 1244 Follow-up with the keno clerk. 10/17/22 1245<Electronically signed by Ranjeet Mary MD>Ranjeet Mary MD cc: SEBASTIEN Foy; Dr. Chastity Gray MD; Dr. Leslie Tolentino MD; Dr. Francisco Haney MD; Dr. Clem Bautista DO; Dr. Lucio Negron MD; Dr. Chris Joseph MD; Dr. Tushar Oquendo MD ~* Signed [facility] Work Phone: [phone]) 816-189301-23-[address] Mary [facility] October 16, 2022 12:18pm Note Date/Time October 16, 2022 1 2:18pm [facility] Medical Records Department [facility] [place] [address] Progress Note - Hospitalist 10/16/22 1209 MR#: [id number] Acct: [id number] Name: AYDIN GASTELUM Rep #:[id number] : 1955 67 From: Ranjeet Horne PCP: Dr. Leslie Tolentino MD Status:ADM IN [facility] Subjective Subjective Follow-up for acute exacerbation of heart failure. Objective Data Objective Data Vital Signs: Vital Signs Temp Pulse Resp BP Pulse Ox O2 Del Method O2 Flow Rate 97.8 F 85 22 H 94/80 90 Nasal Cannula 2 10/16/22 09:56 10/16/22 09:56 10/16/22 09:56 10/16/22 09:56 10/16/22 11:31 10/16/22 09:56 10/16/22 11:31 FiO2 35 10/16/22 07:17 Oxygen Flow Rate (L/min) [ 6 AMBULATING with Oxygen #3] Oxygen Flow Rate (L/min) [ 4 AMBULATING with Oxygen #2] Oxygen Flow Rate (L/min) [ 2 AMBULATING with Oxygen #1] Oxygen Flow Rate (L/min) 2 Oxygen Delivery Method Nasal Cannula Weight: 253 lb 4.978 oz Body Mass Index (BMI) 36.8 Intake & Output: Intake and Output for Last 24 Hours 10/14/22 10/15/22 10/16/22 23:59 23:59 23:59 Intake Total 620 / 740 990 / 990 340 / 340 Output Total 1350 / 1500 1925 / 1925 400 / 400 Balance -730 / -760 -935 / -935 -60 / -60 Lab / Micro Data Result Diagrams: 10/15/22 06:44 10/15/22 06:44 Labs: Laboratory Results - last 24 hr 10/15/22 11:50: POC Glucose 272 H 10/15/22 17:07: POC Glucose 222 H 10/15/22 21:59: POC Glucose 204 H 10/16/22 06:18: POC Glucose 218 H 10/16/22 11:07: POC Glucose 216 H Micro: Microbiology 10/12/22 16:57 Nasal Secretion SARS-CoV-2 & FLU Antigen (Rapid) - Final Radiography Diagnostic Testing: Radiology Impression Chest X-Ray 10/16/22 08:35 IMPRESSION: Persistent increased interstitial markings with areas of confluence although there has been a moderate degree of improvement as compared to prior study. Electronically Signed: Lavell Lin MD at 10:01 EST , Physical Exam Narrative Patient denies chest pain or tightness. Patient has shortness of breath on exertion. On 2 L of oxygen at rest, patient not on oxygen at home. Seen and examined. General: Alert, Oriented x3, Cooperative HEENT: Atraumatic, PERRLA, EOMI, Normocephalic Oral: No Gingival or Mucosal Lesions/ Ulcerations Neck: Supple, No JVD, Negative Carotid Bruits Lungs: Air entry diminished in bilateral lung bases. No crepitation/rhonchi Cardiovascular: Regular rate, Regular Rhythm, Normal S1, Normal S2, No murmurs Abdomen: Bowel Sounds Present, Soft, Non Tender, Non-Distended : No renal angle tenderness. No suprapubic tenderness. Extremities: No edema, Capillary Refill Less than 3 Seconds Skin: No rashes, No breakdown Musculoskeletal: No Tenderness to Palpation of Joints or Extremities Neurological: Cranial nerves II-XII grossly intact, DTR 2+/4 and Symmetrical, Neuro grossly intact Psych/Mental Status: Flat affect. Assessment & Plan Assessment/Plan (1) CHF (congestive heart failure): (2) Acute hypoxemic respiratory failure: PLAN: Plan 67-year-old gentleman was admitted with 2-day history of progressive worsening of shortness of breath, increases with exertion. Patient had orthopnea with productive yellow cough. EF 20% in echo in07/2020 1. Acute hypoxic respiratory failure secondary to acute exacerbation of heart failure with reduced ejection fraction, EF of 20%: Patient oxygen requirement was 7 L yesterday, improved to 2 L today but increased to 6 L oxygen. Patient also visibly gets dyspneic on exertion. We will anticipate discharge tomorrow. 2. Acute exacerbation of heart failure reduced EF, EF of 20%, minimally improved Heart failure core measures including intake and output, fluid restriction lessthan 1500 mL, daily weight monitoring, kidney and electrolytes monitoring. Patient was started on Lasix 40 mg IV every 8 hourly decrease to every 12 hourly. Continue baby aspirin, carvedilol, Entresto, spironolactone 3. Paroxysmal atrial fibrillation, continue on coreg and Eliquis 4. Type II DM, BS is controlled, continue on Amaryl, continue blood glucose checks and sliding scale 5 Hypothyroidism, continue Synthroid 6. Recent left gastrocnemius DVT/history of ventricular thrombi, Continue on Eliquis 7. DVT PPx- On Eliquis Charges/Coding Visit Charges Inpatient E&M: 05147 Subs Hosp L2 10/16/22 1218 <Electronically signed by Ranjeet Mary MD> Cosigner Signature (if applicable): CC: ~ Signed [facility] Work Phone: 1(338) 666-560201-23-[address] Bautista [facility] October 16, 2022 12:12pm Note Date/Time October 16, 2022 9 :50am [facility] Medical Records Department [address] [address] Progress Note - Strategic Client Executive 10/16/22 0947 MR#: [id number] Acct: [id number] Name: AYDIN GASTELUM Rep #:[id number] : 1955 67 From: Clem Bautista DO PCP: Dr. Leslie Tolentino MD Status:ADM IN Location: [place] [address] Assessment & Plan Assessment/Plan (1) Acute hypoxemic respiratory failure: (2) CHF (congestive heart failure): PLAN: Plan RECOMMENDATIONS: 1. Continue diuresis as tolerated by hemodynamics and renal function. 2. Continue to wean supplemental oxygen to maintain saturations at or above 90%. 3. BiPAP with sleep. 4. Perform walking oximetry study prior to consideration for discharge home. 5. Recommend outpatient pulmonary follow-up so that baseline PFTs and sleep study can be completed. 6. Will sign off from a pulmonary perspective. Please call with any additionalquestions. IMPRESSIONS: 1. Acute hypoxemic respiratory failure secondary to acute on chronic systolic CHF The patient has improved from a respiratory perspective in the setting of diuresis. His oxygen requirement has decreased significantly. He is currently maintaining appropriate saturations on 2 L/min. Plan to continue diuresis as tolerated by hemodynamics and renal function. The patient would benefit from outpatient PFTs. Continue to encourage incentive spirometer use and mobilize patient as tolerated. 2. Diabetes mellitus/hypothyroidism/obesity/hypertension/history of DVT Complicates care, management, recovery and prognosis. Continue home medicationsas indicated. This note was generated with [employer] software. It may contain incorrectwords, spelling, and punctuation that were not noted in checking the note beforesigning. Subjective Subjective The patient was seen and examined at the bedside this morning. Events from the last 24 hours have been reviewed. The patient is currently afebrile, hemodynamically stable and maintaining appropriate oxygen saturations on 2 L/minvia nasal cannula. The patient is currently documented to be overall net -3.7 Lfor the hospitalization. Oxygenation status has improved over the last 24 hours. The patient does report overall improvement in his breathing quality. Objective Data Objective Data The patient's most recent lab work, culture data and imaging studies have all been personally reviewed. Surface echocardiogram from July 2022 demonstrated severe global LV systolic dysfunction with an ejection fraction of 20%. Vital Signs: Vital Signs Temp Pulse Resp BP Pulse Ox O2 Del Method O2 Flow Rate 98.2 F 82 23 H 145/95 H 92 Nasal Cannula 2 10/16/22 03:56 10/16/22 07:13 10/16/22 07:13 10/16/22 03:56 10/16/22 09:07 10/16/22 09:07 10/16/22 09:07 FiO2 35 10/16/22 07:17 Oxygen Flow Rate (L/min) 2 Oxygen Delivery Method Nasal Cannula Weight: 253 lb 4.978 oz Body Mass Index (BMI) 36.8 Intake & Output: Intake and Output for Last 24 Hours 10/14/22 10/15/22 10/16/22 23:59 23:59 23:59 Intake Total 620 / 740 990 / 990 340 / 340 Output Total 1350 / 1500 1925 / 1925 400 / 400 Balance -730 / -760 -935 / -935 -60 / -60 Lab / Micro Data Attestation: I reviewed the patient's lab results. Result Diagrams: 10/15/22 06:44 10/15/22 06:44 Labs: Laboratory Results - last 24 hr 10/15/22 11:50: POC Glucose 272 H 10/15/22 17:07: POC Glucose 222 H 10/15/22 21:59: POC Glucose 204 H 10/16/22 06:18: POC Glucose 218 H Micro: Microbiology 10/12/22 16:57 Nasal Secretion SARS-CoV-2 & FLU Antigen (Rapid) - Final Physical Exam Const alert and no apparent distress General Appearance: cooperative HEENT normocephalic and head/scalp atraumatic Eyes PERRL, EOMs intact bilaterally and conjunctivae normal Neck supple General: trachea midline Chest inspection of chest normal Resp Auscultation: diminished lung sounds; Negative for rales, rhonchi or wheezes Cardio regular rate and regular rhythm GI normal to inspection, nondistended, normoactive bowel sounds Extremity no clubbing, cyanosis or edema Skin no rashes or lesions noted Neuro CN's II-XII intact bilaterally, moves all extremities and no focal motor deficits Psych cooperative and affect normal Charges/Coding Visit Charges Inpatient E&M: 30295 Subs Hosp L2 10/16/22 1212 <Electronically signed by Clem Bautista DO> Cosigner Signature (if applicable): CC: ~ Signed [facility] Work Phone: 1(230) 186-125001-22-[address] Gray [facility] October 15, 2022 12:25pm Note Date/Time October 15, 2022 8 :02am [facility] Medical Records Department [address] [place] [id number] Progress Note - Hospitalist 10/15/22 0802 MR#: [id number] Acct: [id number] Name: AYDIN GASTELUM Rep #:[id number] : 1955 67 From: Chastity Gray MD PCP: Dr. Leslie Tolentino MD Status:ADM IN Location: [place] [address] Subjective Subjective Follow-up on acute respiratory failure/acute exacerbation of heart failure reduced EF: Patient was seen and examined. Patient feels improved; on 7L oxygen now. Denied any chest pain or shortness of breath.? Telemetry shows occasional/paroxysmal fibrillation. Objective Data Objective Data Vital Signs: Vital Signs Temp Pulse Resp BP Pulse Ox O2 Del Method O2 Flow Rate 99.0 F 83 22 H 115/76 97 High Flow 10 10/15/22 06:07 10/15/22 06:07 10/15/22 06:07 10/15/22 06:07 10/15/22 07:43 10/15/22 07:43 10/15/22 07:43 FiO2 35 10/15/22 04:26 Oxygen Flow Rate (L/min) 10 Oxygen Delivery Method High Flow Weight: 115.4 kg Body Mass Index (BMI) 36.8 Intake & Output: Intake and Output for Last 24 Hours 10/13/22 10/14/22 10/15/22 23:59 23:59 23:59 Intake Total 630 / 630 620 / 740 170 / 170 Output Total 1950 / 1950 1350 / 1500 575 / 575 Balance -1320 / -1320 -730 / -760 -405 / -405 Lab / Micro Data Result Diagrams: 10/15/22 06:44 10/15/22 06:44 Labs: Laboratory Results - last 24 hr 10/14/22 11:53: POC Glucose 275 H 10/14/22 16:38: POC Glucose 139 H 10/14/22 21:38: POC Glucose 186 H 10/15/22 06:06: POC Glucose 154 H 10/15/22 06:44: WBC 7.0, RBC 5.03, Hgb 14.0, Hct 42.4, MCV 84.3, MCH 27.8, MCHC 33.0, RDW Std Deviation 42.6, RDW Coeff of Sean 13.8, Plt Count 327, MPV 8.8, Immature Gran % (Auto) 0.300, Neut % (Auto) 60.8, Lymph % (Auto) 22.2, Phillips % (Auto) 9.1, Eos % (Auto) 7.0 H, Baso % (Auto) 0.6, Absolute Neuts (auto) 4.3, Absolute Lymphs (auto) 1.56, Nucleated RBC % 0 10/15/22 06:44: Sodium 135 L, Potassium 4.1, Chloride 99, Carbon Dioxide 29.0, Anion Gap 7, BUN 27 H, Creatinine 1.00, Estim Creat Clear Calc 76.35, Est GFR (MDRD) Af Amer 96, Est GFR (MDRD) Non-Af 79, BUN/Creatinine Ratio 27.1 H, Glucose 154 H, Calcium 9.3, Total Bilirubin 0.60, AST 40 H, ALT 18, Alkaline Phosphatase 82, Total Protein 7.6, Albumin 2.4 L, Globulin 5.2 H, Albumin/Globulin Ratio 0.5 L Micro: Microbiology 10/12/22 16:57 Nasal Secretion SARS-CoV-2 & FLU Antigen (Rapid) - Final Physical Exam Narrative Physical exam: General: Alert, Oriented x3, Cooperative, on 2 L of oxygen HEENT: Atraumatic Oral: Moist Mucosa Neck: Supple Lungs: Diminished to auscultation, few coarse crackles at lung bases Cardiovascular: HS I+II, regular, no murmurs Abdomen: Bowel Sounds Present, Soft, Non Tender Extremities: Bilateral leg edema +2 Skin: No rashes, No breakdown Neurological: Grossly intact Psych/Mental Status: Appropriate Assessment & Plan Assessment/Plan (1) CHF (congestive heart failure): (2) Acute hypoxemic respiratory failure: PLAN: Plan 1. Acute hypoxic respiratory failure secondary to acute exacerbation of heart failure with reduced ejection fraction, EF of 20% Oxygen requirements have slightly improved to 7L oxygen Continue treatment for CHF management 2. Acute exacerbation of heart failure reduced EF, EF of 20%, minimally improved Continue on IV Lasix Q8h, CHF protocol Continue on aspirin, carvedilol, Entresto, spironolactone 3. Paroxysmal atrial fibrillation, continue on coreg and Eliquis 4. Type II DM, BS is controlled, continue on Amaryl, continue blood glucose checks and sliding scale 5 Hypothyroidism, continue Synthroid 6. Recent left gastrocnemius DVT/history of ventricular thrombi, Continue on Eliquis 7. DVT PPx- On Eliquis Charges/Coding Visit Charges Inpatient E&M: 27844 Subs Hosp L2 10/15/22 1225 <Electronically signed by Chastity Gray MD> Cosigner Signature (if applicable): CC: ~ Signed [facility] Work Phone: 1(486) 738-375201-22-[address] Haney [facility] October 15, 2022 10:21am Note Date/Time October 15, 2022 8 :53am [facility] Medical Records Department [address] [place] [address] Consultation - Strategic Client Executive 10/15/22 0848 MR#: [id number] Acct: [id number] Name: AYDIN GASTELUM Rep #:[id number] : 1955 67 From: Francisco Haney MD PCP: Dr. Leslie Tolentino MD Status:ADM IN Location: [place] [address] Assessment & Plan Assessment/Plan (1) Acute hypoxemic respiratory failure: (2) CHF (congestive heart failure): PLAN: Plan RECOMMENDATIONS: 1. Continue aggressive diuresis 2. Wean supplemental oxygen as tolerated 3. Continue BiPAP with sleep and rescue 4. Outpatient complete PFT and sleep study 5. Repeat chest x-ray in a.m. IMPRESSIONS: 1. Acute hypoxic respiratory failure secondary to acute on chronic systolic CHF Patient appears to be responding well to diuresis. However, patient will likely still require BiPAP rescue with sleep. Some concern for concomitant obstructive sleep apnea complicating overall condition. Did discuss with the patient the importance of avoiding excess salt (eating out) and avoiding future complications. Patient would benefit from a complete pulmonary function test for quantification clarification of lung function once euvolemic. Patient appears to be on maximal medical therapy for CHF. Low clinical suspicion for pulmonary embolism given chronic anticoagulation. Patient does have an elevatedeosinophil count, so asthma is a consideration. We will repeat chest x-ray tomorrow to be sure patient is not developing a pleural effusion 2. Diabetes mellitus type 2/hypothyroidism/obesity/repeated admissions/hypertension/history of DVT Complicates care, management, recovery and prognosis. Blood sugars are marginally controlled at this time. It is unclear that steroids will be helpfulin the overall recovery. Okay to continue with baseline medications. Continue systemic anticoagulation given recent DVT HPI Consult Data Date of Consult: 10/15/22 HPI Narrative Reason for Consultation: Hypoxia HPI Narrative: AYDIN GASTELUM is a 67 M, with past medical history listed below, who presented to [facility] 10/12/2022 secondary progressive shortness of breath, occasional cough and leg swelling. Patient is on Lasix at baseline and reportedly has been compliant. Patient has had similar type of presentations twice in the last 3 months. On arrival to the ER, patient was noted to be hypoxic in triage. Patient was saturating 68% on room air and was placed on a nonrebreather. At that time, patient was noted to have a blood pressure of 147/102, heart rate of 119 and respiratory rate of 26. Laboratory work-up showed a white blood cell count of 12, hemoglobin of 14 and a sodium level of 131. Renal function was within normal limits. BNP was elevated at 766. Lactate was slightly elevated at 2.1. An ABG showed relatively normal acid- base with increased AA gradient. Chest x-ray showed diffuse bilateral vascular congestion with significant worsening compared to previous. Patient was placed on BiPAP therapy and given Lasix intravenously. Patient was admitted to the PCU for further evaluation. Since being in the PCU, patient reports significant improvement in respiratory status. Patient states his cough is improving, but he still has significant shortness of breath with minimal exertion. Patient has been requiring up to 15 L/min to maintain saturations. Patient is stating that he feels that he can do better if I can just get to the chair. Patient did have an echocardiogram in July showing an EF of 20% with severe global left ventricular dysfunction. Mild pulmonary hypertension is reported, but no pressure was given. Patient hasbeen diagnosed with chronic bronchitis, but no PFTs are available for review. Patient reports he did have several years of smoking a pipe, but quit in 2007 with cold turkey. 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 Patient states he was never told of any problems. Patient states his cough was nonproductive. Patient has had some lower extremity swelling. Patient states he has worked at cutting salt out of his diet. However, patient states he tends to go out frequently to eat with his . Patient denies any exposure to TB or asbestos. Review of systems otherwise negative from a constitutional, HEENT, respiratory, cardiovascular, GI, genitourinary, musculoskeletal, skin, neurologic, psychiatric and hematologic system unless stated above. [facility] Medical History Acute systolic heart failure Arthritis COPD (chronic obstructive pulmonary disease) Essential (primary) hypertension GERD (gastroesophageal reflux disease) GI bleed Gout Hypothyroidism Left ventricular thrombus Severe left ventricular systolic dysfunction Type 2 diabetes mellitus Home Medications albuterol sulfate 90 mcg/actuation aerosol inhaler (ProAir HFA) 2 puff inhalation Q4H PRN PRN Sob &/Or Wheezing 08/06/18 [History Last Taken 08/25/22] aspirin 81 mg chewable tablet 81 mg PO DAILY [facility]. 08/10/22 [History Last Taken 08/25/22] glimepiride 4 mg tablet 4 mg PO BID DM 08/10/22 [History Last Taken 08/25/22] levothyroxine 75 mcg tablet 75 mcg PO DAILY THYROID 08/10/22 [History Last Taken 08/25/22] multivitamin 1 tab PO DAILY supplement 08/10/22 [History Last Taken 08/25/22] famotidine 20 mg tablet 20 mg PO DAILY heart burn 08/11/22 [History Last Taken 08/24/22] apixaban 5 mg tablet (Eliquis) 5 mg PO BID 30 days #60 tabs 10/10/22 [Rx Last Taken Unknown] carvedilol 6.25 mg tablet 6.25 mg PO BID 30 days #60 tabs 10/12/22 [Rx Last Taken Unknown] furosemide 40 mg tablet 20 mg PO DAILY 10/12/22 [History Last Taken Unknown] sacubitril 49 mg-valsartan 51 mg tablet (Entresto) 2 tab PO BID 10/12/22 [History Last Taken Unknown] Allergy/AdvReac Type Severity Reaction Status Date / Time No Known Allergies Allergy Verified 10/12/22 16:14 Family History Mother Hypertension Sister Hypertension Father Hypertension Myocardial infarction from [place] age 54 Surgical History H/O arthroscopy of right knee History of tonsillectomy History of total left knee replacement History of total right knee replacement Hx of cholecystectomy Social History Smoking Status: Former smoker ROS ROS Narrative See HPI Physical Exam Const alert, oriented x3 and no apparent distress Constitutional Narrative: On nasal cannula General Appearance: cooperative HEENT hearing grossly normal bilaterally Head and Scalp: atraumatic Eyes EOMs intact bilaterally Neck General: normal visual inspection Chest inspection of chest normal and palpation of chest normal Resp Effort and Inspection: tachypneic Auscultation: rales and diminished lung sounds; Negative for rhonchi or wheezes Cardio regular rate, regular rhythm, S1 normal heart sound and S2 normal heart sound Jugular Venous Distention: JVD GI normal to inspection, nondistended, normoactive bowel sounds Extremity normal capillary refill and no pedal edema Peripheral Pulses: Yes pulses 2+ throughout and femoral pulses present Skin no rashes or lesions noted Neuro oriented x3, CN's II-XII intact bilaterally and moves all extremities Psych cooperative and affect normal Medical Records Data Attestation: I reviewed the patient's medical records Lab / Micro Data Attestation: I reviewed the patient's lab results. Result Diagrams: 10/15/22 06:44 01/22/23 06:44 Labs: Laboratory Results - last 24 hr 10/14/22 11:53: POC Glucose 275 H 10/14/22 16:38: POC Glucose 139 H 10/14/22 21:38: POC Glucose 186 H 10/15/22 06:06: POC Glucose 154 H 10/15/22 06:44: WBC 7.0, RBC 5.03, Hgb 14.0, Hct 42.4, MCV 84.3, MCH 27.8, MCHC 33.0, RDW Std Deviation 42.6, RDW Coeff of Sean 13.8, Plt Count 327, MPV 8.8, Immature Gran % (Auto) 0.300, Neut % (Auto) 60.8, Lymph % (Auto) 22.2, Phillips % (Auto) 9.1, Eos % (Auto) 7.0 H, Baso % (Auto) 0.6, Absolute Neuts (auto) 4.3, Absolute Lymphs (auto) 1.56, Nucleated RBC % 0 10/15/22 06:44: Sodium 135 L, Potassium 4.1, Chloride 99, Carbon Dioxide 29.0, Anion Gap 7, BUN 27 H, Creatinine 1.00, Estim Creat Clear Calc 76.35, Est GFR (MDRD) Af Amer 96, Est GFR (MDRD) Non-Af 79, BUN/Creatinine Ratio 27.1 H, Glucose 154 H, Calcium 9.3, Total Bilirubin 0.60, AST 40 H, ALT 18, Alkaline Phosphatase 82, Total Protein 7.6, Albumin 2.4 L, Globulin 5.2 H, Albumin/Globulin Ratio 0.5 L Charges/Coding Visit Charges Inpatient E&M: 58364 Init Hosp L3 10/15/22 1021 <Electronically signed by Francisco Haney MD> Cosigner Signature (if applicable): CC: SEBASTIEN Foy; Dr. Leslie Tolentino MD; Dr. Francisco Haney MD; Dr. Clem Bautista DO; Dr. Lucio Negron MD; Dr. Chris Joseph MD; Dr. Tushar Oquendo MD~ Signed [facility] Work Phone: 1(854) 975-259601-21-[address] Gray [facility] October 14, 2022 3:25pm Note Date/Time October 14, 2022 1 2:27pm [facility] Medical Records Department [address] [place] [address] Progress Note - Hospitalist 10/14/22 1227 MR#: [id number] Acct: [id number] Name: AYDIN GASTELUM Rep #:[id number] : 1955 67 From: Chastity Gray MD PCP: Dr. Leslie Tolentino MD Status:ADM IN Location: [place] [address] Subjective Subjective Follow-up on acute respiratory failure/acute exacerbation of heart failure reduced EF: Patient was seen and examined.?He remains on Bipap/15 L of oxygen. He continues to diurese.? Denied any chest pain or shortness of breath.? Objective Data Objective Data Vital Signs: Vital Signs Temp Pulse Resp BP Pulse Ox O2 Del Method O2 Flow Rate 97.2 F L 83 24 H 106/72 91 Bi-pap 15 10/14/22 09:35 10/14/22 09:35 10/14/22 09:35 10/14/22 09:35 10/14/22 09:35 10/14/22 10:24 10/14/22 09:35 FiO2 45 10/14/22 02:50 Oxygen Flow Rate (L/min) 15 Oxygen Delivery Method Bi-pap Weight: 119 kg Body Mass Index (BMI) 36.8 Intake & Output: Intake and Output for Last 24 Hours 10/12/22 10/13/22 10/14/22 23:59 23:59 23:59 Intake Total 630 / 630 Output Total 700 / 700 1950 / 1950 400 / 400 Balance -700 / -700 -1320 / -1320 -400 / -400 Lab / Micro Data Result Diagrams: 10/14/22 06:07 10/14/22 06:07 Labs: Laboratory Results - last 24 hr 10/13/22 16:06: POC Glucose 189 H 10/13/22 21:35: POC Glucose 147 H 10/14/22 06:07: WBC 7.7, RBC 4.81, Hgb 13.3, Hct 41.2, MCV 85.7, MCH 27.7, MCHC 32.3, RDW Std Deviation 43.4, RDW Coeff of Sean 13.8, Plt Count 300, MPV 9.5, Immature Gran % (Auto) 0.500, Neut % (Auto) 63.8, Lymph % (Auto) 20.8, Phillips % (Auto) 8.4, Eos % (Auto) 5.8 H, Baso % (Auto) 0.7, Absolute Neuts (auto) 4.9, Absolute Lymphs (auto) 1.59, Nucleated RBC % 0 10/14/22 06:07: Sodium 135 L, Potassium 3.7, Chloride 102, Carbon Dioxide 27.0, Anion Gap 6, BUN 26 H, Creatinine 0.95, Estim Creat Clear Calc 80.36, Est GFR (MDRD) Af Amer 101, Est GFR (MDRD) Non-Af 84, BUN/Creatinine Ratio 27.3 H, Glucose 115 H, Calcium 9.5, Total Bilirubin 0.60, AST 14 L, ALT 15 L, Alkaline Phosphatase 88, Total Protein 7.2, Albumin 2.5 L, Globulin 4.7 H, Albumin/Globulin Ratio 0.5 L 10/14/22 06:42: POC Glucose 126 H Micro: Microbiology 10/12/22 16:57 Nasal Secretion SARS-CoV-2 & FLU Antigen (Rapid) - Final Physical Exam Narrative Physical exam: General: Alert, Oriented x3, Cooperative, on 2 L of oxygen HEENT: Atraumatic Oral: Moist Mucosa Neck: Supple Lungs: Diminished to auscultation, coarse crackles at lung bases Cardiovascular: HS I+II, regular, no murmurs Abdomen: Bowel Sounds Present, Soft, Non Tender Extremities: Bilateral leg edema +2 Skin: No rashes, No breakdown Neurological: Grossly intact Psych/Mental Status: Appropriate Assessment & Plan Assessment/Plan (1) CHF (congestive heart failure): (2) Acute hypoxemic respiratory failure: PLAN: Plan 1. Acute hypoxic respiratory failure secondary to acute exacerbation of heart failure with reduced ejection fraction, EF of 20% Oxygen requirements remain the same continue treatment for CHF management Will repeat CXR 2. Acute exacerbation of heart failure reduced EF, EF of 20%, minimally improved Continue on IV Lasix, CHF protocol Continue on aspirin, carvedilol, Entresto, spironolactone 3. Type II DM, BS is controlled, continue on Amaryl, continue blood glucose checks and sliding scale 4. Hypothyroidism, continue Synthroid 5. Recent left gastrocnemius DVT/history of ventricular thrombi, Continue on Eliquis 6. DVT PPx- On Eliquis Charges/Coding Visit Charges Inpatient E&M: 77998 Subs Hosp L2 10/14/22 1525 <Electronically signed by Chastity Gray MD> Cosigner Signature (if applicable): CC: ~ Signed [facility] Work Phone: 1(330) 799-456501-21-[address] Gray [facility] October 14, 2022 3:21pm Note Date/Time October 13, 2022 1 :54pm [facility] Medical Records Department [address] [place] [address] Progress Note - Hospitalist 10/13/22 1354 MR#: [id number] Acct: [id number] Name: AYDIN GASTELUM Rep #:[id number] : 1955 67 From: Chastity Gray MD PCP: Dr. Leslie Tolentino MD Status:ADM IN Location: [place] [address] Subjective Subjective Follow-up on acute respiratory failure/acute exacerbation of heart failure reduced EF: Patient was seen and examined. He was seen earlier on home BiPAP, improved with2 L of oxygen. He has been diuresing. Denied any chest pain or shortness of breath. He admits to eating a lot of salty food and eating out. Objective Data Objective Data Vital Signs: Vital Signs Temp Pulse Resp BP Pulse Ox O2 Del Method O2 Flow Rate 98.2 F 90 26 H 111/81 H 96 Bi-pap 50 10/13/22 12:00 10/13/22 12:00 10/13/22 12:00 10/13/22 12:00 10/13/22 12:00 10/13/22 12:00 10/13/22 12:00 FiO2 45 10/13/22 10:02 Oxygen Flow Rate (L/min) 50 Oxygen Delivery Method Bi-pap Weight: 119.8 kg Body Mass Index (BMI) 36.8 Intake & Output: Intake and Output for Last 24 Hours 10/11/22 10/12/22 10/13/22 23:59 23:59 23:59 Intake Total 150 / 150 Output Total 700 / 700 750 / 750 Balance -700 / -700 -600 / -600 Lab / Micro Data Result Diagrams: 10/13/22 04:18 10/13/22 04:18 Labs: Laboratory Results - last 24 hr 10/12/22 16:08: WBC 12.0 H, RBC 5.10, Hgb 14.3, Hct 42.4, MCV 83.1, MCH 28.0, MCHC 33.7, RDW Std Deviation 42.5, RDW Coeff of Sean 14.1, Plt Count 278, MPV 9.3, Immature Gran % (Auto) 0.300, Neut % (Auto) 84.6 H, Lymph % (Auto) 7.8 L, Phillips % (Auto) 6.8, Eos % (Auto) 0.2, Baso % (Auto) 0.3, Absolute Neuts (auto) 10.1 H, Absolute Lymphs (auto) 0.93, Nucleated RBC % 0 10/12/22 16:08: Sodium 131 L, Potassium 3.9, Chloride 101, Carbon Dioxide 25.0, Anion Gap 5, BUN 11, Creatinine 0.82, Estim Creat Clear Calc 93.10, Est GFR (MDRD) Af Amer 121, Est GFR (MDRD) Non-Af 100, BUN/Creatinine Ratio 13.5, Glucose 266 H, Calcium 9.4, Troponin I High Sens 18 10/12/22 16:08: B-Natriuretic Peptide 766.4 H 10/12/22 16:08: Lactic Acid 2.1 H* 10/12/22 21:04: Lactic Acid 1.3 10/13/22 00:49: POC Glucose 171 H 10/13/22 04:18: WBC 10.0, RBC 4.88, Hgb 13.4, Hct 40.9, MCV 83.8, MCH 27.5, MCHC32.8, RDW Std Deviation 42.9, RDW Coeff of Sean 14.1, Plt Count 285, MPV 9.3, Immature Gran % (Auto) 0.400, Neut % (Auto) 78.1 H, Lymph % (Auto) 12.5 L, Phillips % (Auto) 7.3, Eos % (Auto) 1.3, Baso % (Auto) 0.4, Absolute Neuts (auto) 7.8 H, Absolute Lymphs (auto) 1.25, Nucleated RBC % 0 10/13/22 04:18: Sodium 134 L, Potassium 3.9, Chloride 102, Carbon Dioxide 25.0, Anion Gap 7, BUN 15, Creatinine 0.88, Estim Creat Clear Calc 86.76, Est GFR (MDRD) Af Amer 111, Est GFR (MDRD) Non-Af 92, BUN/Creatinine Ratio 17.1, [id number] H, Calcium 9.0 10/13/22 04:18: Magnesium 1.9 10/13/22 06:02: POC Glucose 181 H 10/13/22 11:15: POC Glucose 170 H Micro: Microbiology 10/12/22 16:57 Nasal Secretion SARS-CoV-2 & FLU Antigen (Rapid) - Final ABG Data ABG results: ABG 10/12/22 17:49 Specimen Type ART Sample Site L Radial pH 7.38 Bicarbonate Actual 22.5 Total CO2 24 Base Excess -3 L O2 Saturation 96 O2 % 50 ABG pCO2 38.4 ABG pO2 86 Evert Test Positive O2 Delivery Device BiPAP Radiography Diagnostic Testing: Radiology Impression Chest X-Ray 10/12/22 17:05 IMPRESSION: Cardiomegaly with vascular congestion and diffuse bilateral airspace disease which may represent edema or pneumonia. This has progressed from the reference exam. Electronically Signed: Joey Richard MD at 17:23 EST , Physical Exam Narrative Physical exam: General: Alert, Oriented x3, Cooperative, on 2 L of oxygen HEENT: Atraumatic Oral: Moist Mucosa Neck: Supple Lungs: Diminished to auscultation, coarse crackles at lung bases Cardiovascular: HS I+II, regular, no murmurs Abdomen: Bowel Sounds Present, Soft, Non Tender Extremities: Bilateral leg edema +2 Skin: No rashes, No breakdown Neurological: Grossly intact Psych/Mental Status: Appropriate Assessment & Plan Assessment/Plan (1) CHF (congestive heart failure): (2) Acute hypoxemic respiratory failure: PLAN: Plan 1. Acute hypoxic respiratory failure secondary to acute exacerbation of heart failure with reduced ejection fraction, EF of 20% Oxygen appears improved, continue treatment for CHF management 2. Acute exacerbation of heart failure reduced EF, EF of 20%, he has been diuresing Continue on IV Lasix, CHF protocol Continue on aspirin, carvedilol, Entresto, spironolactone 3. Type II DM, BS is controlled, continue on Amaryl, continue blood glucose checks and sliding scale 4. Hypothyroidism, continue Synthroid 5. Recent left gastrocnemius DVT/history of ventricular thrombi, Continue on Eliquis 6. DVT PPx- On Eliquis Charges/Coding Visit Charges Inpatient E&M: 64141 Subs Hosp L3 10/13/22 1620 <Electronically signed by Chastity Gray MD> Cosigner Signature (if applicable): CC: ~ Signed ADDENDUM by Dr. Chastity Gray MD on 10/14/22 at 1521 Addendum Correction: Patient was on 15L oxygen for the most part of the day, not 2L of oxygen 10/14/22 1521<Electronically signed by Chastity Gray MD> Cosigner Signature (if applicable): cc: ~* Signed [facility] Work Phone: 1(140) 585-541801-20-2023 History and physical note Author Dr. Negron [facility] October 13, 2022 12:08am Note Date/Time October 12, 2022 9 :14pm [facility] Medical Records Department [address] [place] [address] H&P Exam - Hospitalist 10/12/222113 MR#: [id number] Acct: [id number] Name: AYDIN GASTELUM Rep #:[id number] : 1955 67 From: Lucio Negron MD PCP: Dr. Leslie Tolentino MD Status:ADM IN Location: [facility] [id number] HPI - General General Date of Admission: 10/12/22 Date of Service: 10/12/22 Chief Complaint: Shortness of breath HPI Narrative AYDIN GASTELUM, is a 67 M with a significant history former tobacco abuse; hypothyroidism on Synthroid; left gastrocnemius vein DVT on Eliquis; heart failure with reduced ejection fraction (EF of 20% in July 2022); ventricular thrombi; diastolic function and hypertension who presents emergency department with 2-day history of progressively worsening shortness of breath. His Shortness of breath increased with exertion. Associated with his symptoms is orthopnea. Also patient reports a productive cough of yellow to dark yellowsputum. He denies paroxysmal nocturnal dyspnea. However he reports nighttime cough. He reports anorexia. [facility] Medical History Acute systolic heart failure Arthritis COPD (chronic obstructive pulmonary disease) Essential (primary) hypertension GERD (gastroesophageal reflux disease) GI bleed Gout Hypothyroidism Left ventricular thrombus Severe left ventricular systolic dysfunction Type 2 diabetes mellitus Home Medications albuterol sulfate 90 mcg/actuation aerosol inhaler (ProAir HFA) 2 puff inhalation Q4H PRN PRN Sob &/Or Wheezing 08/06/18 [History Last Taken 08/25/22] aspirin 81 mg chewable tablet 81 mg PO DAILY [facility]. 08/10/22 [History Last Taken 08/25/22] glimepiride 4 mg tablet 4 mg PO BID DM 08/10/22 [History Last Taken 08/25/22] levothyroxine 75 mcg tablet 75 mcg PO DAILY THYROID 08/10/22 [History Last Taken 08/25/22] multivitamin 1 tab PO DAILY supplement 08/10/22 [History Last Taken 08/25/22] famotidine 20 mg tablet 20 mg PO DAILY heart burn 08/11/22 [History Last Taken 08/24/22] apixaban 5 mg tablet (Eliquis) 5 mg PO BID 30 days #60 tabs 10/10/22 [Rx Last Taken Unknown] carvedilol 6.25 mg tablet 6.25 mg PO BID 30 days #60 tabs 10/12/22 [Rx Last Taken Unknown] furosemide 40 mg tablet 20 mg PO DAILY 10/12/22 [History Last Taken Unknown] sacubitril 49 mg-valsartan 51 mg tablet (Entresto) 2 tab PO BID 10/12/22 [History Last Taken Unknown] Allergy/AdvReac Type Severity Reaction Status Date / Time No Known Allergies Allergy Verified 10/12/22 16:14 Family History Mother Hypertension Sister Hypertension Father Hypertension Myocardial infarction from [place] age 54 Surgical History H/O arthroscopy of right knee History of tonsillectomy History of total left knee replacement History of total right knee replacement Hx of cholecystectomy Social History Smoking Status: Former smoker ROS ROS Narrative Pertinent positives and pertinent negatives as noted in HPI. All other systems were reviewed and are negative Vital Signs Vital Signs Vital Signs: 10/12/22 16:15 10/12/22 16:17 10/12/22 16:29 Temperature 98.9 F Temperature Source Temporal Pulse Rate 119 H Respiratory Rate 26 H Respiratory Pattern Blood Pressure 147/102 H Blood Pressure Mean 117 Pulse Ox 68 89 94 Oxygen Delivery Method Room Air Nasal Cannula Non-Rebreather Oxygen Flow Rate (L/min) 5 10 Fraction of Inspired Oxygen (FIO2) 10/12/22 16:30 10/12/22 16:37 10/12/22 17:11 Temperature Temperature Source Pulse Rate 121 H 110 H Respiratory Rate 38 H 26 H Respiratory Pattern Tachypnea Tachypnea Blood Pressure 129/95 H Blood Pressure Mean 106 Pulse Ox 96 95 Oxygen Delivery Method Non-Rebreather Bi-pap Oxygen Flow Rate (L/min) 94 Fraction of Inspired Oxygen (FIO2) 50 10/12/22 19:47 Temperature Temperature Source Pulse Rate 101 H Respiratory Rate 25 H Respiratory Pattern Blood Pressure 127/95 H Blood Pressure Mean 105 Pulse Ox 94 Oxygen Delivery Method Bi-pap Oxygen Flow Rate (L/min) Fraction of Inspired Oxygen (FIO2) Weight Weight: 122.47 kg Body Mass Index (BMI) 37.6 Physical Exam Narrative Physical exam: General: Well-nourished, well-developed. Head: Normocephalic, atraumatic, no tenderness Eyes: Vision is grossly intact. EOMI ENT, no trauma, moist mucous membranes, no rhinorrhea Neck: Nontender, No thyromegaly. CVS: Regular rate and rhythm. S1-S2 present. No murmur, gallop or rub. Respiratory : On BiPAP. Diminished, chest wall nontender, no wheezing Abdomen: Soft, nontender, nondistended, normal bowel sounds, no masses : Deferred Back: Nontender, no CVA tenderness, no midline spinal tenderness, deformities, step-offs Extremities: Bilateral leg and feet edema 2+; no trauma Skin: Normal color, no trauma, abrasions Neuro: Alert, oriented, cranial nerves II through XII grossly intact. Psychiatry: Normal mood. Normal affect. Not depressed. Not anxious. Results Lab / Micro Data Result Diagrams: 10/12/22 16:08 10/12/22 16:08 Labs: Laboratory Results - last 24 hr 10/12/22 16:08: WBC 12.0 H, RBC 5.10, Hgb 14.3, Hct 42.4, MCV 83.1, MCH 28.0, MCHC 33.7, RDW Std Deviation 42.5, RDW Coeff of Sean 14.1, Plt Count 278, MPV 9.3, Immature Gran % (Auto) 0.300, Neut % (Auto) 84.6 H, Lymph % (Auto) 7.8 L, Phillips % (Auto) 6.8, Eos % (Auto) 0.2, Baso % (Auto) 0.3, Absolute Neuts (auto) 10.1 H, Absolute Lymphs (auto) 0.93, Nucleated RBC % 0 10/12/22 16:08: Sodium 131 L, Potassium 3.9, Chloride 101, Carbon Dioxide 25.0, Anion Gap 5, BUN 11, Creatinine 0.82, Estim Creat Clear Calc 93.10, Est GFR (MDRD) Af Amer 121, Est GFR (MDRD) Non-Af 100, BUN/Creatinine Ratio 13.5, Glucose 266 H, Calcium 9.4, Troponin I High Sens 18 10/12/22 16:08: B-Natriuretic Peptide 766.4 H 10/12/22 16:08: Lactic Acid 2.1 H* Micro: Microbiology 10/12/22 16:57 Nasal Secretion SARS-CoV-2 & FLU Antigen (Rapid) - Final ABG Data ABG results: ABG 10/12/22 17:49 Specimen Type ART Sample Site L Radial pH 7.38 Bicarbonate Actual 22.5 Total CO2 24 Base Excess -3 L O2 Saturation 96 O2 % 50 ABG pCO2 38.4 ABG pO2 86 Evert Test Positive O2 Delivery Device BiPAP Radiology Impression Chest X-Ray 10/12/22 17:05 IMPRESSION: Cardiomegaly with vascular congestion and diffuse bilateral airspace disease which may represent edema or pneumonia. This has progressed from the reference exam. Electronically Signed: Joey Richard MD at 17:23 EST , Assessment & Plan Assessment/Plan (1) CHF (congestive heart failure): (2) Acute hypoxemic respiratory failure: PLAN: Plan Acute hypoxic respiratory failure secondary to acute exacerbation of heart failure with reduced ejection fraction On presentation oxygen saturation was 68% on room air. Patient with maximum respiratory rate 38. Started On BiPAP at the ED, continued. Impression of chest x-ray by radiology:Cardiomegaly with vascular congestion anddiffuse bilateral airspace disease which may represent edema or pneumonia.? This has progressed from the reference exam. Chest x-ray on presentation and previous checks x-ray was visualized and independently interpreted and I agree radiologist interpretation. Likely secondary to Place on monitored bed on PCU Weight on admission to the floor; and then daily Strict I&O's BNP on presentation was 766.4. Old records reviewed shows that this is the highest BNP so far. Received Lasix IV at emergency department and continued. Hold home p.o. Lasix Metoprolol continued. Entresto continued. We will start patient on low-dose Aldactone. Echocardiogram on 08/10/2022 showed EF of 20%. Diastolic function was indeterminate. Mild to moderate mitral valve insufficiency. Mild tricuspidvalve insufficiency. Mild pulmonary hypertension. Trivial aortic valve insufficiency. Mildly dilated aortic root. Patient had heart catheterization on 08/28/2022 that showed severe single-vessel disease distal occluded LAD with collaterals from right to left with severe leftventricular dysfunction. Recommendation was maximal guideline directed medical therapy as well as cardiac MRI to look for viability in the anterior wall Titrate diuretics and heart failure/blood pressure medications with blood pressure. Continue home OSMIN hose Fluid restriction of 1500 mls daily N.p.o. while on BiPAP. Review of cardiology notes showed that with time cardiology will monitor ejection fraction and if still remains less than 35% cardiology will consider preventative ICD. CBC showed white count of 12. Trend. Diabetes mellitus Patient with hyperglycemia on presentation Glimepiride continued Monitor Accu-Cheks Correction scale insulin ordered. DVT prophylaxis: Not indicated as patient is on Eliquis for left gastrocnemius DVT. Charges/Coding Visit Charges Inpatient E&M: 30415 Init Hosp L3 10/13/22 0008 <Electronically signed by Lucio Negron MD> Cosigner Signature (if applicable): CC: Dr. Leslie Tolentino MD; Dr. Lucio Negron MD~ Signed [facility] Work Phone: 1(804) 793-359501-20-[address] Polo [facility] October 12, 2022 11:36pm Note Date/Time October 12, 2022 4 :48pm [facility] Medical Records Department [address] [place] [address] Emergency Department Summary 10/12/22 MR#: [id number] Acct: [id number] Name: AYDIN GASTELUM Rep #:[id number] : 1955 67 From: Tirso Polo MD PCP: Dr. Leslie Tolentino MD Status:ADM IN Location: [place] [address] HPI History of Present Illness Chief Complaint: Shortness of Breath Narrative Narrative: 67-year-old male past medical history of COPD, chronic bronchitis states that hehas been in and out of the hospital for the last few months with shortness of breath. He states that there is talk of putting him on oxygen for home use. Over the last 2 days, he has had increasing shortness of breath, occasional cough but denies any fevers or chills. He states he has chronic leg swelling and does take Lasix. He has had a hard time getting any rest as he is unable tosleep because of his shortness of breath. He endorses dyspnea on exertion and orthopnea. Of note, he was found in triage to be hypoxic, placed on nasal cannula oxygen, then brought back to the room, and placed on 100% nonrebreather. He was still having issues with hypoxia so RN called respiratory and he will beplaced on BiPAP. [facility] Medical History (Updated 10/12/22 @ 23:11 by Tirso Polo MD) Acute systolic heart failure Arthritis COPD (chronic obstructive pulmonary disease) Essential (primary) hypertension GERD (gastroesophageal reflux disease) GI bleed Gout Hypothyroidism Left ventricular thrombus Severe left ventricular systolic dysfunction Type 2 diabetes mellitus Home Medications albuterol sulfate 90 mcg/actuation aerosol inhaler (ProAir HFA) 2 puff inhalation Q4H PRN PRN Sob &/Or Wheezing 08/06/18 [History Last Taken 08/25/22] aspirin 81 mg chewable tablet 81 mg PO DAILY [facility]. 08/10/22 [History Last Taken 08/25/22] glimepiride 4 mg tablet 4 mg PO BID DM 08/10/22 [History Last Taken 08/25/22] levothyroxine 75 mcg tablet 75 mcg PO DAILY THYROID 08/10/22 [History Last Taken 08/25/22] multivitamin 1 tab PO DAILY supplement 08/10/22 [History Last Taken 08/25/22] famotidine 20 mg tablet 20 mg PO DAILY heart burn 08/11/22 [History Last Taken 08/24/22] apixaban 5 mg tablet (Eliquis) 5 mg PO BID 30 days #60 tabs 10/10/22 [Rx Last Taken Unknown] carvedilol 6.25 mg tablet 6.25 mg PO BID 30 days #60 tabs 10/12/22 [Rx Last Taken Unknown] furosemide 40 mg tablet 20 mg PO DAILY 10/12/22 [History Last Taken Unknown] sacubitril 49 mg-valsartan 51 mg tablet (Entresto) 2 tab PO BID 10/12/22 [History Last Taken Unknown] Allergy/AdvReac Type Severity Reaction Status Date / Time No Known Allergies Allergy Verified 10/12/22 16:14 Family History Mother Hypertension Sister Hypertension Father Hypertension Myocardial infarction from [place] age 54 Surgical History H/O arthroscopy of right knee History of tonsillectomy History of total left knee replacement History of total right knee replacement Hx of cholecystectomy Social History Smoking Status: Former smoker ROS ROS ED ROS Narrative Constitutional: No fever, no chills. HEENT: No sore throat. No neck pain. No loss of vision. No rhinorrhea. Cardiovascular: No chest pain. No palpitations. Bilateral pedal edema. Respiratory: Occasional cough, increasing shortness of breath. Positive orthopnea and dyspnea on exertion. Abdominal: No abdominal pain. No nausea. No vomiting. Genitourinary: No dysuria. No hematuria. Musculoskeletal: No myalgias. No arthralgias. Neurologic: No headaches. No dizziness. No lightheadedness. Skin: No rash. No change in color. Psychiatric: No depression. No anxiety. EXAM Physical Exam Narrative Exam Narrative: Afebrile. Vital signs noted. HEENT: Normocephalic. Atraumatic. PERRL, EOMI. Neck soft and supple. No pointtenderness or step off. Cardiovascular: Positive tachycardia. No murmurs, rubs, or gallops appreciated. Respiratory: Positive tachypnea. Diffuse rales. Gastrointestinal: Abdomen soft, nontender, with normoactive bowel sounds. No rebound or guarding. Neurological: Awake. Alert. Nonfocal, nonlateralizing. Skin: No rash. Normal color. No pallor. Musculoskeletal: Positive bilateral symmetric pedal edema. Full range of motionextremities. Const Vital Signs: 10/12/22 16:15 10/12/22 16:17 10/12/22 16:29 Temperature 98.9 F Temperature Source Temporal Pulse Rate 119 H Respiratory Rate 26 H Respiratory Pattern Blood Pressure 147/102 H Blood Pressure Mean 117 Pulse Ox 68 89 94 Oxygen Delivery Method Room Air Nasal Cannula Non-Rebreather Oxygen Flow Rate (L/min) 5 10 Fraction of Inspired Oxygen (FIO2) 10/12/22 16:30 10/12/22 16:37 10/12/22 17:11 Temperature Temperature Source Pulse Rate 121 H 110 H Respiratory Rate 38 H 26 H Respiratory Pattern Tachypnea Tachypnea Blood Pressure 129/95 H Blood Pressure Mean 106 Pulse Ox 96 95 Oxygen Delivery Method Non-Rebreather Bi-pap Oxygen Flow Rate (L/min) 94 Fraction of Inspired Oxygen (FIO2) 50 10/12/22 19:47 Temperature Temperature Source Pulse Rate 101 H Respiratory Rate 25 H Respiratory Pattern Blood Pressure 127/95 H Blood Pressure Mean 105 Pulse Ox 94 Oxygen Delivery Method Bi-pap Oxygen Flow Rate (L/min) Fraction of Inspired Oxygen (FIO2) MDM MDM MDM Narrative Medical decision making narrative: Comprehensive work-up was pursued. I feel he is having more of a CHF exacerbation than COPD. He was placed on BiPAP. I will refrain from steroid use for the moment until his chest x-ray returns. EKG was obtained and interpreted by myself which demonstrates sinus tachycardia with PVCs at [address] changes. No STEMI on my evaluation. In review of his laboratory work, WBC count slightly elevated 12.0, hemoglobin normal at 14.3, platelet count of 278. Sodium is low at 131, potassium of 3.9 and normal. High-sensitivity troponin is18 and BNP elevated at 766. He will be given Lasix intravenously. In review and interpretation of his chest x-ray which I performed, I do see more congestive heart failure and interstitial edema. I reviewed the radiology report and they confirm. Patient was placed on BiPAP of 09/05 at 50% with good oxygen saturation. As he was hypoxic on room air upon arrival, I discussed the patient with Dr. Negron for admission to the PCU. Patient is in stable condition. Lab Data Attestation: I reviewed the patient's lab results. Labs: Laboratory Results - last 24 hr 10/12/22 10/12/22 10/12/22 16:08 16:08 16:08 WBC 12.0 H RBC 5.10 Hgb 14.3 Hct 42.4 MCV 83.1 MCH 28.0 MCHC 33.7 RDW Std Deviation 42.5 RDW Coeff of Sean 14.1 Plt Count 278 MPV 9.3 Immature Gran % (Auto) 0.300 Neut % (Auto) 84.6 H Lymph % (Auto) 7.8 L Phillips % (Auto) 6.8 Eos % (Auto) 0.2 Baso % (Auto) 0.3 Absolute Neuts (auto) 10.1 H Absolute Lymphs (auto) 0.93 Nucleated RBC % 0 Sodium 131 L Potassium 3.9 Chloride 101 Carbon Dioxide 25.0 Anion Gap 5 BUN 11 Creatinine 0.82 Estim Creat Clear Calc 93.10 Est GFR (MDRD) Af Amer 121 Est GFR (MDRD) Non-Af 100 BUN/Creatinine Ratio 13.5 Glucose 266 H Lactic Acid Calcium 9.4 Troponin I High Sens 18 B-Natriuretic Peptide 766.4 H 10/12/22 16:08 WBC RBC Hgb Hct MCV MCH MCHC RDW Std Deviation RDW Coeff of Sean Plt Count MPV Immature Gran % (Auto) Neut % (Auto) Lymph % (Auto) Phillips % (Auto) Eos % (Auto) Baso % (Auto) Absolute Neuts (auto) Absolute Lymphs (auto) Nucleated RBC % Sodium Potassium Chloride Carbon Dioxide Anion Gap BUN Creatinine Estim Creat Clear Calc Est GFR (MDRD) Af Amer Est GFR (MDRD) Non-Af BUN/Creatinine Ratio Glucose Lactic Acid 2.1 H* Calcium Troponin I High Sens B-Natriuretic Peptide ABG Data ABG results: ABG 10/12/22 17:49 Specimen Type ART Sample Site L Radial pH 7.38 Bicarbonate Actual 22.5 Total CO2 24 Base Excess -3 L O2 Saturation 96 O2 % 50 ABG pCO2 38.4 ABG pO2 86 Evert Test Positive O2 Delivery Device BiPAP Radiography Diagnostic Testing: Clinical Impression(s) from Imaging Studies Chest X-Ray 10/12/22 17:05 IMPRESSION: Cardiomegaly with vascular congestion and diffuse bilateral airspace disease which may represent edema or pneumonia. This has progressed from the reference exam. Electronically Signed: Joey Richard MD at 17:23 EST , Discharge Plan Dx/Rx/DC Orders Clinical Impression: CHF (congestive heart failure), Hypoxia, Respiratory failure, Hyponatremia Disposition Disposition: Acute Care Hospital [facility] Discharge Date/Time: 10/12/22 23:27 What to do if you have Problems For any increased pain, shortness of breath, bleeding, nausea or vomiting, chestpain, or any unexpected problems, contact your Primary Care Provider. Call [facility] ([phone]) or report to the closest Emergency Room. Call 911 if necessary. 10/12/22 [id number] <Electronically signed by Tirso Polo MD> Cosigner Signature (if applicable): CC: Dr. Leslie Tolentino MD ~ Signed [facility] Work Phone: Evaluation noteNo assessment information available [facility] Work Phone: Evaluation note* Diagnosis Onset Date Resolution Status Systolic heart failure acute Severe left ventricular systolic dysfunction chronic [facility] Work Phone: Evaluation note* Diagnosis Onset Date Resolution Status Systolic heart failure acute Severe left ventricular systolic dysfunction chronic Acute systolic heart failure acute Leg edema, left acute Near syncope acute Palpitations acute Essential (primary) hypertension chronic Severe left ventricular systolic dysfunction [facility] Work Phone: Evaluation note* Diagnosis Onset Date Resolution Status Systolic heart failure acute Severe left ventricular systolic dysfunction chronic Acute systolic heart failure acute Leg edema, left acute Near syncope acute Palpitations acute Essential (primary) hypertension chronic Severe left ventricular systolic dysfunction chronic Acute systolic heart failure acute Essential (primary) hypertension chronic Severe left ventricular systolic dysfunction chronic [facility] Work Phone: Evaluation note* Diagnosis Onset Date Resolution Status Systolic heart failure acute Severe left ventricular systolic dysfunction chronic Acute systolic heart failure acute Leg edema, left acute Near syncope acute Palpitations acute Essential (primary) hypertension chronic Severe left ventricular systolic dysfunction chronic Acute systolic heart failure acute Essential (primary) hypertension chronic Severe left ventricular systolic dysfunction chronic [id number] acute DVT (deep venous thrombosis) acute Hypersomnolence acute Systolic heart failure acute Essential (primary) hypertension [facility] Work Phone: Evaluation note* Diagnosis Onset Date Resolution Status Systolic heart failure acute Severe left ventricular systolic dysfunction chronic Acute systolic heart failure acute Leg edema, left acute Near syncope acute Palpitations acute Essential (primary) hypertension chronic Severe left ventricular systolic dysfunction chronic Acute systolic heart failure acute Essential (primary) hypertension chronic Severe left ventricular systolic dysfunction chronic [id number] acute DVT (deep venous thrombosis) acute Hypersomnolence acute Systolic heart failure acute Essential (primary) hypertension chronic DVT (deep venous thrombosis) acute Acute hypoxemic respiratory failure acute CHF (congestive heart failure) acute Hyponatremia acute Hypoxia acute Respiratory failure acute [facility] Work Phone: Evaluation note* Diagnosis Onset Date Resolution Status DVT (deep venous thrombosis) acute Hypersomnolence acute [id number] chronic Essential (primary) hypertension chronic Systolic heart failure chron ic DVT (deep venous thrombosis) acute Hyponatremia resolved DVT (deep venous thrombosis) acute [id number] chronic Essential (primary) hypertension chronic Systolic heart failure chron ic DVT (deep venous thrombosis) acute Nicotine dependence in remission acute Chronic hypoxemic respiratory failure chronic DVT (deep venous thrombosis) acute [id number] chronic Essential (primary) hypertension chronic Left ventricular thrombus ch ronic Systolic heart failure chron ic DVT (deep venous thrombosis) acute Nicotine dependence in remission acute Chronic hypoxemic respiratory failure [facility] Work Phone: Evaluation note* Diagnosis Onset Date Resolution Status DVT (deep venous thrombosis) acute Nicotine dependence in remission acute Chronic hypoxemic respiratory failure chronic DVT (deep venous thrombosis) acute [id number] chronic Essential (primary) hypertension chronic Left ventricular thrombus ch ronic Systolic heart failure [facility] ic DVT (deep venous thrombosis) acute Nicotine dependence in remission acute Chronic hypoxemic respiratory failure [facility] Work Phone: Evaluation note* Diagnosis Onset Date Resolution Status DVT (deep venous thrombosis) acute Nicotine dependence in remission acute Chronic hypoxemic respiratory failure chronic DVT (deep venous thrombosis) acute [id number] chronic Essential (primary) hypertension chronic Left ventricular thrombus ch ronic Systolic heart failure [facility] Work Phone: Evaluation note* Diagnosis Onset Date Resolution Status DVT (deep venous thrombosis) acute [id number] chronic Essential (primary) hypertension chronic Left ventricular thrombus ch ronic Systolic heart failure [facility] Work Phone: Evaluation note* Diagnosis Atherosclerotic heart disease of [place] coronary artery with unspecified angina pectoris [facility] documented in this encounter [facility] Work Phone: Chief Complaint and Reason for Visit Chief Complaint CHEST XRAY Chief Complaint CHEST XRAY respiratory infection Chief Complaint CHEST XRAY respiratory infection CHF Chief Complaint CHEST XRAY respiratory infection Congestive heart failure CHF Congestive heart failure Congestive heart failure Reason for Visit Systolic heart failu re Severe left ventricular systolic dysfunction Chief Complaint CHEST XRAY respiratory infection Congestive heart failure CHF Congestive heart failure Congestive heart failure PER MMM, SOB, WT GAIN SOB Reason for Visit Systolic heart failu re Severe left ventricular systolic dysfunction Acute systolic heart failure Leg edema, left Near syncope Palpitations Essential (primary) hypertension Severe left ventricular systolic dysfunction Chief Complaint CHEST XRAY respiratory infection Congestive heart failure CHF Congestive heart failure Congestive heart failure PER MMM, SOB, WT GAIN ACUTE ON CHRONIC HFrEF ACUTE ON CHRONIC HFrEF ACUTE ON CHRONIC HFrEF ACUTE ON CHRONIC HFrEF Reason for Visit Systolic heart failu re Severe left ventricular systolic dysfunction Acute systolic heart failure Leg edema, left Near syncope Palpitations Essential (primary) hypertension Severe left ventricular systolic dysfunction Acute systolic heart failure Essential (primary) hypertension Severe left ventricular systolic dysfunction Chief Complaint CHEST XRAY respiratory infection Congestive heart failure CHF Congestive heart failure Congestive heart failure PER MMM, SOB, WT GAIN ACUTE ON CHRONIC HFrEF ACUTE ON CHRONIC HFrEF ACUTE ON CHRONIC HFrEF ACUTE ON CHRONIC HFrEF ACUTE ON CHRONIC HFrEF s/p [facility] 12-5 EORDER HX OF GASTROC DVT Reason for Visit Systolic heart failu re Severe left ventricular systolic dysfunction Acute systolic heart failure Leg edema, left Near syncope Palpitations Essential (primary) hypertension Severe left ventricular systolic dysfunction Acute systolic heart failure Essential (primary) hypertension Severe left ventricular systolic dysfunction [id number] DVT (deep venous thrombosis) Hypersomnolence Systolic heart failure Essential (primary) hypertension Chief Complaint respiratory infectio n Congestive heart failure CHF Congestive heart failure Congestive heart failure PER MMM, SOB, WT GAIN ACUTE ON CHRONIC HFrEF ACUTE ON CHRONIC HFrEF ACUTE ON CHRONIC HFrEF ACUTE ON CHRONIC HFrEF ACUTE ON CHRONIC HFrEF s/p [facility] 12-5 EORDER HX OF GASTROC DVT Acute embolism and thrombosis ACUTE HYPOXEMIC RESPIRATORY FAILURE,ACUTE HEART FA Reason for Visit Systolic heart failu re Severe left ventricular systolic dysfunction Acute systolic heart failure Leg edema, left Near syncope Palpitations Essential (primary) hypertension Severe left ventricular systolic dysfunction Acute systolic heart failure Essential (primary) hypertension Severe left ventricular systolic dysfunction [id number] DVT (deep venous thrombosis) Hypersomnolence Systolic heart failure Essential (primary) hypertension DVT (deep venous thrombosis) Acute hypoxemic respiratory failure CHF (congestive heart failure) Hyponatremia Hypoxia Respiratory failure Chief Complaint respiratory infectio n Congestive heart failure CHF Congestive heart failure Congestive heart failure PER MMM, SOB, WT GAIN ACUTE ON CHRONIC HFrEF ACUTE ON CHRONIC HFrEF ACUTE ON CHRONIC HFrEF ACUTE ON CHRONIC HFrEF ACUTE ON CHRONIC HFrEF s/p [facility] 12-5 EORDER HX OF GASTROC DVT Acute embolism and thrombosis ACUTE HYPOXEMIC RESPIRATORY FAILURE,ACUTE HEART FA ACUTE HYPOXEMIC RESPIRATORY FAILURE,ACUTE HEART FA ACUTE HYPOXEMIC RESPIRATORY FAILURE,ACUTE HEART FA ACUTE HYPOXEMIC RESPIRATORY FAILURE,ACUTE HEART FA ACUTE HYPOXEMIC RESPIRATORY FAILURE,ACUTE HEART FA ACUTE HYPOXEMIC RESPIRATORY FAILURE,ACUTE HEART FA ACUTE HYPOXEMIC RESPIRATORY FAILURE,ACUTE HEART FA ACUTE HYPOXEMIC RESPIRATORY FAILURE,ACUTE HEART FA ACUTE HYPOXEMIC RESPIRATORY FAILURE,ACUTE HEART FA Reason for Visit Systolic heart failu re Severe left ventricular systolic dysfunction Acute systolic heart failure Leg edema, left Near syncope Palpitations Essential (primary) hypertension Severe left ventricular systolic dysfunction Acute systolic heart failure Essential (primary) hypertension Severe left ventricular systolic dysfunction [id number] DVT (deep venous thrombosis) Hypersomnolence Systolic heart failure Essential (primary) hypertension DVT (deep venous thrombosis) Acute hypoxemic respiratory failure CHF (congestive heart failure) Hyponatremia Hypoxia Respiratory failure Chief Complaint s/p [facility] hosp 12-5 EORDER HX OF GASTROC DVT Acute embolism and thrombosis ACUTE HYPOXEMIC RESPIRATORY FAILURE,ACUTE HEART FA ACUTE HYPOXEMIC RESPIRATORY FAILURE,ACUTE HEART FA RHYTHM CHANGE ACUTE HYPOXEMIC RESPIRATORY FAILURE,ACUTE HEART FA ACUTE HYPOXEMIC RESPIRATORY FAILURE,ACUTE HEART FA ACUTE HYPOXEMIC RESPIRATORY FAILURE,ACUTE HEART FA ACUTE HYPOXEMIC RESPIRATORY FAILURE,ACUTE HEART FA CP ACUTE HYPOXEMIC RESPIRATORY FAILURE,ACUTE HEART FA ACUTE HYPOXEMIC RESPIRATORY FAILURE,ACUTE HEART FA ACUTE HYPOXEMIC RESPIRATORY FAILURE,ACUTE HEART FA 4-6 WK F/U Amb Documentation Amb Documentation Hospital FU NICOTINE DEP NICOTINE DEP 4-6 wk f/u 6 wk FU CHF NICOTINE DEP NICOTINE DEP Reason for Visit DVT (deep venous thr ombosis) Hypersomnolence [id number] Essential (primary) hypertension Systolic heart failure DVT (deep venous thrombosis) Hyponatremia DVT (deep venous thrombosis) [id number] Essential (primary) hypertension Systolic heart failure DVT (deep venous thrombosis) Nicotine dependence in remission Chronic hypoxemic respiratory failure DVT (deep venous thrombosis) [id number] Essential (primary) hypertension Left ventricular thrombus Systolic heart failure DVT (deep venous thrombosis) Nicotine dependence in remission Chronic hypoxemic respiratory failure Chief Complaint Amb Documentation [facility] FU NICOTINE DEP NICOTINE DEP 4-6 wk f/u 6 wk FU CHF NICOTINE DEP NICOTINE DEP Reason for Visit DVT (deep venous thr ombosis) Nicotine dependence in remission Chronic hypoxemic respiratory failure DVT (deep venous thrombosis) [id number] Essential (primary) hypertension Left ventricular thrombus Systolic heart failure DVT (deep venous thrombosis) Nicotine dependence in remission Chronic hypoxemic respiratory failure Chief Complaint 6 wk FU CHF NICOTINE DEP NICOTINE DEP 3 M FU Reason for Visit DVT (deep venous thr ombosis) Nicotine dependence in remission Chronic hypoxemic respiratory failure DVT (deep venous thrombosis) [id number] Essential (primary) hypertension Left ventricular thrombus Systolic heart failure Chief Complaint 3 M FU ABN CXR Reason for Visit DVT (deep venous thr ombosis) [id number] Essential (primary) hypertension Left ventricular thrombus Systolic heart failure Family History No Family History Records Found Relationship Condition Age at Onset Recorded Date/T kristina mother Hypertension Unknown sister Hypertension Unknown father Hypertension Unknown Myocardial infarction Unknown Advance Directives No Advanced Directives Records Found Advance Directive Response Recorded Date/ Time Advance Directives Yes January 31, 2016 11:26am Living Will No December 22, 2018 3:02pm Power of Finish Saw Operator No December 22 3:02pm Advance Directive Response Recorded Date/ Time Advance Directives Yes January 31, 2016 10:26am Living Will No August 10, 022 2:03pm Power of Finish Saw Operator No August 10, 2022 2:03pm Advance Directive Response Recorded Date/ Time Advance Directives Yes January 31, 2016 10:26am Living Will No August 10, 5:25pm Power of Finish Saw Operator No August 10, 2022 5:25pm Advance Directive Response Recorded Date/ Time Advance Directives Yes January 31, 2016 10:26am Living Will No August 25 11:35am Power of Finish Saw Operator No August 25, 2022 11:35am Advance Directive Response Recorded Date/ Time Advance Directives Yes January 31, 2016 10:26am Living Will No August 25 1:13pm Power of Finish Saw Operator No August 25, 2022 1:13pm Advance Directive Response Recorded Date/ Time Advance Directives Yes January 31, 2016 10:26am Living Will No October 12 4:30pm Power of Finish Saw Operator No October 12, 2022 4:30pm Advance Directive Response Recorded Date/ Time Name of Medical Power of Finish Saw Operator Marlen Duty October 12, 2022 11:38pm Advance Directives Yes January 31, 2016 10:26am Living Will Yes October 12 11:38pm Power of Finish Saw Operator Yes October 12, 2022 11:38pm Advance Directive Response Recorded Date/ Time Name of Medical Power of Finish Saw Operator Marlen Duty October 13, 2022 12:38am Advance Directives Yes January 31, 2016 11:26am Living Will Yes October 13 12:38am Power of Finish Saw Operator Yes October 13, 2022 12:38am Advance Directive Response Recorded Date/ Time Advance Directives Yes January 31, 2016 11:26am Living Will Yes October 13 12:38am Power of Finish Saw Operator Yes October 13, 2022 12:38am Summary Purpose Reason for Referral Specialty Diagnoses / Procedures Referred By Contac t Referred To Contact Radiology Diagnoses Atherosclerotic heart disease of [place] coronary artery with unspecified angina pectoris ([facility]) Procedures MR cardiac morphology and function w and wo IV contrast [facility] [address] [place] [address] Referral ID Status Reason Start Date Expiration Date Visits Requested Visits Authorized [id number] Authorized Perform Procedure 12/26/2023 12/25/2024 1 1 Additional Source Comments Goals (unrecognized section and content) Goals may be documented in a n alternate sectionGoals may be documented in an alternate sectionGoals may be documented in an alternate sectionGoals may be documented in an alternate sectionGoals may be documented in an alternate sectionGoals may be documented in an alternate section Care Teams (unrecognized sec tion and content) Team Status: Active Member Role Status Dates Dr. Leslie Tolentino MD Family Provider Active Dr. Leslie Tolentino MD Primary Care Provider Active Team Status: Active Member Role Status Dates Dr. Leslie Tolentino MD Primary Care Provider Active Dr. Arash Wen DO Emergency Provider Active Dr. Jo Vidal MD Admit Provider, At tending Provider, Other Provider Active Team Status: Active Member Role Status Dates Dr. Leslie Tolentino MD Primary Care Provider Active Dr. Dean Yeung MD Attending Provider Active Team Status: Inactive Member Role Status Dates Dr. Leslie Tolentino MD Primary Care Provider, [facility] Active Maria Guadalupe Hull PA, PA Attending Provider Active Team Status: Active Member Role Status Dates Dr. Leslie Tolentino MD Primary Care Provider Active Dr. Des Bates MD Attending Provider Active Dr. Thony Montalvo DO Referring Provider Active Team Status: Active Member Role Status Dates Dr. Leslie Tolentino MD Primary Care Provider Active Dr. Thony Montalvo DO Emergency Provider Active Dr. Lula Braswell MD Admit Provider, Attending Provider, Other Provider Active Team Status: Active Member Role Status Dates Dr. Leslie Tolentino MD Primary Care Provider Active Dr. Thony Montalvo DO Emergency Provider Active Dr. Lula Braswell MD Admit Provider, Other Provider Active Dr. Rob Alvarez MD Other Provider Active Dr. Dakota Frost MD Attending Provider Active Team Status: Inactive Member Role Status Dates Dr. Leslie Tolentino MD Primary Care Provider, Referrin g Provider Active Richard Hoff DESIGN PRINTING MACHINE SET UP OPERATOR, DESIGN PRINTING MACHINE SET UP OPERATOR-C Attending Provider Active Team Status: Active Member Role Status Dates Dr. Leslie Tolentino MD Primary Care Provider Active Dr. Thony Montalvo DO Emergency Provider Active Dr. Lula Braswell MD Admit Provider, Other Provider Active Dr. Rob Alvarez MD Attending Provider, Other Provider Active Team Status: Active Member Role Status Dates Dr. Leslie Tolentino MD Primary Care Provider Active Dr. Juan Alberto Mackay MD Attending Provider Active Team Status: Inactive Member Role Status Dates Dr. Leslie Tolentino MD Primary Care Provider, Referrin g Provider Active Dr. Juan Alberto Mackay MD Active Barb DERAS PA Attending Provider Active Team Status: Inactive Member Role Status Dates Dr. Leslie Tolentino MD Primary Care Prov ider, Attending Provider, Referring Provider Active Team Status: Inactive Member Role Status Dates Dr. Leslie Tolentino MD Primary Care Provider Active Dr. Arash Wen DO Emergency Provider Active Dr. Jo Vidal MD Admit Provider, Attending Provid er Active Team Status: Active Member Role Status Dates Dr. Leslie Tolentino MD Primary Care Provider Active Patient Link Program Attending Provider Active Team Status: Inactive Member Role Status Dates Dr. Leslie Tolentino MD Primary Care Provider Active Dr. Thony Montalvo DO Emergency Provider Active Dr. Lula Braswell MD Admit Provider, Other Provider Active Dr. Rob Alvarez MD Attending Provider Active Team Status: Inactive Member Role Status Dates Dr. Leslie Tolentino MD Primary Care Provider Active Richard Hoff DESIGN PRINTING MACHINE SET UP OPERATOR, DESIGN PRINTING MACHINE SET UP OPERATOR-C Attending Provider Active Team Status: Active Member Role Status Dates Dr. Leslie Tolentino MD Primary Care Provider Active Tirso Polo MD Emergency Provider Active Dr. Lucio Negron MD Admit Provider, Attending Pro vider Active Team Status: Active Member Role Status Dates Dr. Leslie Tolentino MD Primary Care Provider Active Tirso Polo MD Emergency Provider Active Dr. Lucio Negron MD Admit Provider, Attending Provider, Other Provider Active Team Status: Active Member Role Status Dates Dr. Leslie Tolentino MD Primary Care Provider Active Tirso Polo MD Emergency Provider Active Dr. Lucio Negron MD Admit Provider, Other Provide r Active Dr. Chastity Gray MD Attending Provider, Other Provider Active Team Status: Active Member Role Status Dates Dr. Leslie Tolentino MD Primary Care Provider Active Tirso Polo MD Emergency Provider Active Dr. Lucio Negron MD Admit Provider, Other Provide r Active Dr. Chastity Gray MD Attending Provider, Other Provider Active Dr. Francisco Haney MD Other Provider Active Dr. Clem Bautista DO Other Provider Active Dr. Chris Joesph MD Other Provider Active Dr. Tushar Oquendo MD Other Provider Active Isabella Foy DESIGN PRINTING MACHINE SET UP OPERATOR, DESIGN PRINTING MACHINE SET UP OPERATOR-C Other Provider Active Team Status: Active Member Role Status Dates Dr. Leslie Tolentino MD Primary Care Provider Active Tirso Polo MD Emergency Provider Active Dr. Lucio Negron MD Admit Provider, Other Provide r Active Dr. Chastity Gray MD Other Provider Active Dr. Francisco Haney MD Attending Provider, Other Provid er Active Dr. Clem Bautista DO Other Provider Active Dr. Chris Joseph MD Other Provider Active Dr. Tushar Oquendo MD Other Provider Active Isabella Foy DESIGN PRINTING MACHINE SET UP OPERATOR, DESIGN PRINTING MACHINE SET UP OPERATOR-C Other Provider Active Team Status: Active Member Role Status Dates Dr. Leslie Tolentino MD Primary Care Provider Active Tirso Polo MD Emergency Provider Active Dr. Lucio Negron MD Admit Provider, Other Provide r Active Dr. Frnacisco Haney MD Other Provider Active Dr. Clem Bautista DO Attending Provider, Other Provide r Active Dr. Chris Joseph MD Other Provider Active Dr. Tushar Oquendo MD Other Provider Active Isabella Foy DESIGN PRINTING MACHINE SET UP OPERATOR, DESIGN PRINTING MACHINE SET UP OPERATOR-C Other Provider Active Dr. Ranjeet Mary MD Other Provider Active Dr. Chastity Gray MD Other Provider Active Team Status: Active Member Role Status Dates Dr. Leslie Tolentino MD Primary Care Provider Active Tirso Polo MD Emergency Provider Active Dr. Lucio Negron MD Admit Provider, Other Provide r Active Dr. Francsico Haney MD Other Provider Active Dr. Clem Bautista DO Other Provider Active Dr. Chris Joseph MD Other Provider Active Dr. Tushar Oquendo MD Other Provider Active Isabella Foy DESIGN PRINTING MACHINE SET UP OPERATOR, DESIGN PRINTING MACHINE SET UP OPERATOR-C Other Provider Active Dr. Ranjeet Mary MD Attending Provider, Other Provi carmelo Active Dr. Chastity Gray MD Other Provider Active Team Status: Inactive Member Role Status Dates Dr. Leslie Tolentino MD Primary Care Provider Active Tirso Polo MD Emergency Provider Active Dr. Lucio Negron MD Admit Provider, Other Provide r Active Dr. Francisco Haney MD Other Provider Active Dr. Clem Bautista DO Other Provider Active Dr. Chris Joseph MD Other Provider Active Dr. Tushar Oquendo MD Other Provider Active Isabella Foy DESIGN PRINTING MACHINE SET UP OPERATOR, DESIGN PRINTING MACHINE SET UP OPERATOR-C Other Provider Active Dr. Ranjeet Mary MD Attending Provider Active Dr. Chastity Gray MD Other Provider Active Team Status: Active Member Role Status Dates Dr. Leslie Tolentino MD Primary Care Provider Active Dr. Juan Alberto Mackay MD Attending Provider Active Richard Hoff DESIGN PRINTING MACHINE SET UP OPERATOR, DESIGN PRINTING MACHINE SET UP OPERATOR-C Referring Provider Active Team Status: Active Member Role Status Dates Dr. Leslie Tolentino MD Primary Care Provider Active Tirso Polo MD Emergency Provider Active Dr. Lucio Negron MD Admit Provider, Other Provide r Active Dr. Chastity Gray MD Referring Provider, Other Provider Active Dr. Francisco Haney MD Attending Provider, Other Provid er Active Dr. Clem Bautista , Other Provider Active Dr. Chris Joseph MD Other Provider Active Dr. Tushar Oquendo MD Other Provider Active Isabella Foy DESIGN PRINTING MACHINE SET UP OPERATOR, DESIGN PRINTING MACHINE SET UP OPERATOR-C Other Provider Active Team Status: Inactive Member Role Status Dates Dr. Leslie Tolentino MD Primary Care Provider, Referrin g Provider Active Dr. Clem Bautista DO Attending Provider Active Team Status: Active Member Role Status Dates Dr. Leslie Tolentino MD Primary Care Provider Active Dr. Dakota Frost MD Attending Provider Active Dr. Lucio Negron MD Referring Provider Active Team Status: Active Member Role Status Dates Dr. Leslie Tolentino MD Primary Care Provider Active Dr. Dakota Frost MD Attending Provider, Referring Pro vider Active Team Status: Active Member Role Status Dates Dr. Leslie Tolentino MD Primary Care Provider Active Yolibubba Sarmiento Attending Provider Active Team Status: Active Member Role Status Dates Dr. Leslie Tolentino MD Primary Care Provider Active Richard Hoff DESIGN PRINTING MACHINE SET UP OPERATOR, DESIGN PRINTING MACHINE SET UP OPERATOR-C Attending Provider Active Team Status: Active Member Role Status Dates Dr. Leslie Tolentino MD Primary Care Provider Active Dr. Clem Bautista DO Other Provider Active Dr. Francisco Haney MD Attending Provider Active Team Status: Active Member Role Status Dates Dr. Leslie Tolentino MD Primary Care Provider Active Dr. Dakota Frost MD Attending Provider Active Team Status: Active Member Role Status Dates Dr. Leslie Tolentino MD Primary Care Provider Active Dr. Clem Bautista DO Referring Provider, Other Provide r Active Dr. Francisco Haney MD Attending Provider Active Team Status: Inactive Member Role Status Dates Dr. Leslie Tolentino MD Primary Care Provider Active Dr. Clem Bautista DO Attending Provider Active Team Status: Inactive Member Role Status Dates Dr. Leslie Tolentino MD Primary Care Provider Active Dr. Clem Bautista DO Attending Provider, Referring Pro vider Active Team Status: Active Member Role Status Dates Dr. Leslie Tolentino MD Primary Care Provider Active Dr. Clem Bautista DO Other Provider Active Dr. Francisco Haney MD Attending Provider, Referring Pr ovider Active Team Status: Inactive Member Role Status Dates Dr. Leslie Tolentino MD Primary Care Provider, Attendin g Provider Active Team Status: Inactive Member Role Status Dates Dr. Leslie Tolentino MD Primary Care Provider Active ABBY MOREJON Attending Provider, Referring Provider Active (unrecognized sect ion and content) No Status Records FoundNo Status Records FoundNo Status Records FoundNo Status Records Found INFORMATION SOURCE (unrecogn ized section and content) DATE CREATED AUTHOR 11/03/2022 [facility] DATE CREATED AUTHOR AUTHOR'S ORGANIZ ATION 06/21/2024 [facility] DATE CREATED AUTHOR AUTHOR'S ORGANIZ ATION 09/18/2024 [facility] DATE CREATED AUTHOR AUTHOR'S ORGANIZ ATION 10/11/2024 [facility] Reason for Visit (unrecogniz ed section and content) Specialty Diagnoses / Procedures Referred By Contac t Referred To Contact Radiology Diagnoses Atherosclerotic heart disease of [place] coronary artery with unspecified angina pectoris ([facility]) Procedures MR cardiac morphology and function w and wo IV contrast [facility] [address] [place] [address] Referral ID Status Reason Start Date Expiration Date Visits Requested Visits Authorized [id number] Authorized Perform Procedure 12/26/2023 12/25/2024 1 1 FOR RECORDS PERTAINING TO PATIENTS WHO ARE OR HAVE BEEN ENROLLED IN A CHEMICAL DEPENDENCY/SUBSTANCEABUSE PROGRAM, SOME INFORMATION MAY BE OMITTED. This clinical summary was aggregated from multiple sources. Caution should be exercised in using it in the provision of clinical care. This summary normalizes information from multiple sources, and as a consequence, information in this document may materially change the coding, format and clinical context of patient data. In addition, data may be omitted in some cases. CLINICAL DECISIONS SHOULD BE BASED ON THE PRIMARY CLINICAL RECORDS. [email or web address]. provides no warranty or guarantee of the accuracy or completeness of information in this document.
[2025-09-16 12:23] LABS: Color, Urine Yellow (Yellow); Glucose, Dipstick 1000 mg/dl (Normal); Ketone-Dipstick Negative (Negative); Leukocyte Esterase-Dipstick Negative /ul (Negative); Nitrite-Dipstick Negative (Negative); Occult Blood-Urine Negative /ul (Negative); Protein-Dipstick Negative (Negative); Specific Gravity, Urine 1.010 (1.002-1.030); Urine Bilirubin Dipstick Negative (Negative)
[2025-09-16 12:25] LABS: Hematocrit 47.4 % (40-54); Hemoglobin 16.1 g/dL (13.0-16.5); Immature Granulocytes Count 0.030 X10^3/uL (0.0-0.0); Mean Corp Hgb Conc 34.0 g/dL (32-36); Mean Corpuscular Volume 83.7 fL (80-94); Mean Platelet Vol. 10.1 fl (6.2-12.0); NRBC Flagged by Analyzer 0 % (0-5); Platelet Count 290 K/mm3 (150-450); RBC Distribution Width CV 13.0 % (11.6-14.6); RBC Distribution Width SD 39.6 fl (35.1-43.9); Red Blood Count 5.66 M/mm3 (4.6-6.2); White Blood Count 8.5 K/mm3 (4.4-11.0)
[2025-09-16 12:41] LABS: Creatinine, Urine (random) 49.30 mg/dL (39.00-259.00); Microalbumin,Random Urine 20.8 mg/L (<20 mg/L)
[2025-09-16 13:05] LABS: Cholesterol 156 mg/dL (<=200); Low Density Lipoprotein Calc. 92 mg/dL; Magnesium 2.1 mg/dL (1.5-2.2); Triglycerides 127 mg/dL; Very Low Density Lipoprotein 25 mg/dL (5-40); Vitamin B12 534 pg/mL (180-914); Vitamin D,25 Hydroxy 24.4 ng/mL (30-100); cholesterol:hdl ratio screen 3.82
== END 2025-09-16 23:59 | disposition home or self-care (01) ==
LOC: MTLAB 10:20
PROVIDERS: PCP Family Medicine; Referring Provider Family Medicine; Visit Provider Family Medicine
DX: E03.9 Hypothyroidism, unspecified (principal); E11.59 Type 2 diabetes mellitus with other circulatory complications
CPT/HCPCS: 36415; 80061; 81001; 82043; 82306; 82570; 82607; 83036; 83735; 84439; 84443; 85025; 86376; 86800